=== PATIENT | female | born 1955 | race Caucasian/White ===

== ENCOUNTER 2019-09-22 07:01 | Outpatient (CLI) | payer MEDICARE, SELFPAY ==
--- NOTE | ~2019-09-22 | CT_ITS ---
EXAMINATION: CT IAC/mastoids BI wo con DATE: 09/22/2019 07:25 INDICATION: Left-sided otitis media. TECHNIQUE: Computed tomography (CT) of the temporal bones was performed without intravenous contrast. Automated exposure control and iterative reconstruction technique were employed. The dose-length pro duct was 229.03 mGy-cm. COMPARISON: Head CT 12/21/2018 FINDINGS: There is mild mucosal thickening in the maxillary sinuses with a mucous retention cyst in l eft maxillary sinus. RIGHT TEMPORAL BONE: The internal auditory canal, cochlea, vestibule, semicircular canals, vestibular aqueduct, carotid ca nal, jugular bulb, facial nerve course, ossicles, Prussak space, scutum, tympanic membrane, and masto id air cells are normal. There is a small volume of cerumen in the external auditory canal. LEFT TEMPORAL BONE: The internal auditory canal, cochlea, vestibule, semicircular canals, vestibular aqueduct, carotid ca nal, jugular bulb, and facial nerve course are normal. There is material in the tympanic cavity inclu ding around the ossicles and in Prussak space. No erosions of bone. The scutum remains sharp. There i s a left mastoid effusion. There is thickening of the tympanic membrane. The external auditory canal is normal. The head CT from 12/21/2018 demonstrates a small left mastoid effusion, but no abnormal mat erial in the tympanic cavity. IMPRESSION: 1. Left otomastoid effusion. Reviewed, dictated and finalized at location A.
== END 2019-09-22 07:02 | disposition home or self-care (01) ==
PROVIDERS: PCP Internal Medicine; Visit Provider Otolaryngology
DX: H60.92 Unspecified otitis externa, left ear (principal)
CPT/HCPCS: 70480

== ENCOUNTER 2019-11-29 09:02 | Outpatient (CLI) | payer MEDICARE, SELFPAY ==
--- NOTE | ~2019-11-29 | MM_ITS ---
EXAMINATION: MM screening [facility] BI w héctor HISTORY: Screening mammogram TECHNIQUE: Craniocaudal and mediolateral oblique 3-D tomosynthesis images were obtained and synthetic 2-D images were generated. CAD analysis was submitted and interpreted. COMPARISON: No prior mammogram is available for comparison at this institution. BREAST PARENCHYMAL COMPOSITION: There are scattered areas of fibroglandular density. FINDINGS: There is right breast asymmetry with some focal architectural distortion in the upper mid r ight breast. This may be postsurgical from prior reported benign breast biopsy 15-16 years ago. Indra rison with prior mammograms is recommended. If these are not available, then diagnostic right mammogr am and right breast ultrasound examination are recommended. Otherwise no suspicious mass, architectural distortion, malignant calcification, skin thickening or r etraction of either breast is noted. Small benign circumscribed intramammary lymph node of upper oute r quadrant of left breast. IMPRESSION: 1. Right breast asymmetry, possibly postsurgical from reportedly benign biopsy 15-16 years ago 2. Recommend comparison with prior mammogram examinations; if not available, diagnostic right mammogr am and right breast ultrasound examination are recommended.. BI-RADS Category 0: Incomplete: Needs additional imaging evaluation. Reviewed, dictated and finalized at location A. IMPRESSION: 1. Right breast asymmetry, possibly postsurgical from reportedly benign biopsy 15-16 years ago 2. Recommend comparison with prior mammogram examinations; if not available, di agnostic right mammogram and right breast ultrasound examination are recommende d.. BI-RADS Category 0: Incomplete: Needs additional imaging evaluation.
== END 2019-11-29 09:03 | disposition home or self-care (01) ==
PROVIDERS: PCP Internal Medicine; Visit Provider Internal Medicine
DX: Z12.31 Encounter for screening mammogram for malignant neoplasm of breast (principal); R92.8 Other abnormal and inconclusive findings on diagnostic imaging of breast
CPT/HCPCS: 77063; 77067

== ENCOUNTER → 2019-12-06 08:06 | Outpatient (CLI) | payer MEDICARE, SELFPAY ==
--- NOTE | ~2019-12-06 | MMUS_ITS ---
EXAMINATION: MM diagnostic mammo unilat RT, US breast RT complete HISTORY: Right breast asymmetry TECHNIQUE: Additional 3-D tomosynthesis images of the right breast were performed and synthetic 2-D i mages were generated. CAD analysis was submitted and interpreted. High resolution complete right jordin st ultrasound was performed. COMPARISON: 11/29/2019 bilateral digital screening mammogram FINDINGS: MAMMOGRAPHIC FINDINGS: There is mammographic asymmetry and architectural distortion in the upper mid and outer right breast. Complete right breast ultrasound examination was performed. No malignant calcification, skin thickening or retraction is evident. ULTRASOUND: There is architectural distortion but no no evidence of focal abnormal solid or cystic lesion or susp icious shadowing of the right breast. The findings are likely postsurgical change from previous repor tedly benign right breast biopsy. 6 month diagnostic right mammogram and right breast ultrasound foll ow-up are recommended to document stability. (Prior mammograms are reportedly not available.) IMPRESSION: 1. Probable postsurgical change from reportedly benign prior breast biopsy 2. 6 month diagnostic right mammogram and right breast ultrasound follow-up are recommended BI-RADS category 3, probably benign findings. Reviewed, dictated and finalized at location A. IMPRESSION: 1. Probable postsurgical change from reportedly benign prior breast biopsy 2. 6 month diagnostic right mammogram and right breast ultrasound follow-up are recommended BI-RADS category 3, probably benign findings.
== END ==
PROVIDERS: PCP Internal Medicine; Visit Provider Internal Medicine
DX: R92.8 Other abnormal and inconclusive findings on diagnostic imaging of breast (principal)
CPT/HCPCS: 76641; 77065

== ENCOUNTER 2019-12-14 01:18 | Outpatient (CLI) | payer MEDICARE, SELFPAY ==
[2019-12-14 19:24] LABS: SARS-CoV-2 RNA PCR Negative
== END 2019-12-14 01:19 | disposition home or self-care (01) ==
LOC: ANHCOVIDDT 01:18
PROVIDERS: PCP Internal Medicine; Visit Provider Internal Medicine Gastroenterology
DX: Z01.812 Encounter for preprocedural laboratory examination (principal); Z20.828 Contact with and (suspected) exposure to other viral communicable diseases
CPT/HCPCS: 87635; C9803; U0003

== ENCOUNTER 2019-12-16 00:51 | Day surgery (SDC) | payer MEDICARE, SELFPAY ==
[2019-12-08 14:14] VITALS: BMI 32.0
[2019-12-16] MEDS: LACTATED RINGERS 1,000 ML 150 ML IV CONT (08:14)
[2019-12-16 08:15] VITALS: BP 149/89; PULSE 69; RESP 16; TEMP 36.3; O2SAT 100; BMI 32.5
--- NOTE | 2019-12-16 08:40 | WPDANESEPPF ---
Anes - Initial Pre Proc Eval Procedure: Operation Date: 12/16/19 08:30 Proposed Procedures p Esophagogastroduodenoscopy - Shorty Harrison DO Date/Time: 12/16/19 08:40 Surgeon: Shorty Harrison DO Pre Op Diagnosis: GERD Patient Data Age: 64 Gender: F Height: 5 ft 6 in Weight: 91.4 kg Last Vital Signs Temp 97.3 F L 12/16/19 08:15 Pulse 69 12/16/19 08:15 Resp 16 12/16/19 08:15 BP 149/89 H 12/16/19 08:15 Pulse Ox 100 12/16/19 08:15 Allergies Allergy/AdvReac Type Severity Reaction Status Date / Time hydrocodone Allergy Severe SOB Verified 12/16/19 08:05 codeine Allergy Mild Unknown Verified 12/16/19 08:05 metoprolol Allergy Mild Hives Verified 12/16/19 08:05 Home Medications Medication Instructions Recorded Confirmed Type aspirin 81 mg tablet,delayed 81 mg PO DAILY 08/27/19 12/08/19 History release lisinopril 10 mg tablet 10 mg PO DAILY 08/27/19 12/16/19 History pantoprazole 40 mg tablet,delayed 40 mg PO QAM #90 tablet 10/04/19 12/08/19 Rx release famotidine 20 mg PO BID 12/08/19 12/08/19 History Patient hx anesthesia problems: none Family hx anesthesia problems: none PMFSH Past Medical History Medical History (Updated 12/16/19 @ 08:03 by Shorty Harrison DO) Adenomatous colon polyp HLD (hyperlipidemia) HTN (hypertension) NAFLD (nonalcoholic fatty liver disease) Social History Social History Smoking status: Never smoker Second hand tobacco smoke exposure: Yes Alcohol intake: never Substance use: never Substance use type: does not use Living arrangements: with family Spiritual care concerns: No Anes - Eval Final PreProcedure Day of Procedure 12/16/19 08:40 Patient weight: obese Heart: regular rate and rhythm Lungs: clear to auscultation Airway: Mallampati scale class II Neurological: alert and oriented Last oral intake: >/= 8 hours ASA classification: III Emergent: no Anesthetic plan: proceed Anesthesia type and monitoring: general GIVS and standard monitoring Informed Consent: The patient's anesthetic plan and its attendant risks and benefits were discussed with the patient/family/POA. Questions were solicited and answers provided to the satisfaction of the patient/family/POA.
--- NOTE | 2019-12-16 08:48 | P.HP_ITS ---
H&P: HPI History of Present Illness Date/Time: 12/16/19 08:48 Chief complaint: GERD Narrative: Reason for visit EGD. This very pleasant lady seen in consultation at the request of primary physician. Impression: A very pleasant lady with history reflux disease. She is symptomatic despite PPI. Underlying erosive esophagitis and peptic ulcer disease should be excluded. Patient does have dysphagia underlying ring or stricture should be Considered. Underlying esophageal spasm could be contributing to her symptoms. History adenomatous colon polyps. HLD. HTN. Nonalcoholic fatty liver disease. Obesity. Uterine cancer. Recommendation: EGD. Colonoscopy scheduled. History: This very pleasant lady's here for EGD. She is having increasing heartburn despite treatment. She complains of a atypical chest pressure and abdominal burning. Symptoms usually exacerbated by a meal. She awakens nectar only with symptoms. She reports dysphagia to solid foods at times as things seemed to get stuck in her throat. Hematochezia, melena and acholic stools overnight. She does admit to taking NSAIDs 2-3 times per week. Physical examination: General: very pleasant patient in no acute distress. HEENT: Head was normocephalic sclerae is clear mouth without masses neck was supple. Heart: Rate rhythm regular without S3 or S4. Lungs: CTA. Abdomen: Soft with no guarding or rigidity. Bowel sounds were active. Neurologic: Cranial nerves 2 through 12 intact. No focal defects. No clonus. Musculoskeletal system: Revealed no joint tenderness or swelling no muscle atrophy. Extremities: Reveal no significant edema. Skin: Warm and dry with normal turgor. Mental status: intact. Patient is alert and oriented. Review of Systems Review of Systems: All systems reviewed & are unremarkable except as noted in HPI and below [facility] Past Medical History Medical History (Updated 12/16/19 @ 08:48 by Shorty Harrison DO) Adenomatous colon polyp HLD (hyperlipidemia) HTN (hypertension) NAFLD (nonalcoholic fatty liver disease) Obesity Uterine cancer Social History Social History Smoking status: Never smoker Second hand tobacco smoke exposure: Yes Alcohol intake: never Substance use: never Substance use type: does not use Living arrangements: with family Spiritual care concerns: No Meds Home Medications and Allergies Home Medications Medication Instructions Recorded Confirmed Type aspirin 81 mg tablet,delayed 81 mg PO DAILY 08/27/19 12/08/19 History release lisinopril 10 mg tablet 10 mg PO DAILY 08/27/19 12/16/19 History pantoprazole 40 mg tablet,delayed 40 mg PO QAM #90 tablet 10/04/19 12/08/19 Rx release famotidine 20 mg PO BID 12/08/19 12/08/19 History Allergies Allergy/AdvReac Type Severity Reaction Status Date / Time hydrocodone Allergy Severe SOB Verified 12/16/19 08:05 codeine Allergy Mild Unknown Verified 12/16/19 08:05 metoprolol Allergy Mild Hives Verified 12/16/19 08:05 Vital Signs Vital Signs - 24 hr 12/16/19 08:15 Temperature 36.3 C L Pulse Rate 69 Respiratory Rate 16 Blood Pressure 149/89 H Pulse Oximetry 100
[2019-12-16] MEDS: BENZOCAINE (*SP) 60 ML SPRAY CAN (HURRICAINE) 1 SPRAY MUCOUS MEM (08:59)
[2019-12-16 09:14] VITALS: BP 101/54; PULSE 61; RESP 19; O2SAT 100
[2019-12-16 09:24] VITALS: BP 118/63; PULSE 59; RESP 18; O2SAT 100
[2019-12-16 09:34] VITALS: BP 144/62; PULSE 52; RESP 18; O2SAT 100
[2019-12-16 09:44] VITALS: BP 132/64; PULSE 60; RESP 17; O2SAT 100
== END 2019-12-16 10:16 | disposition home or self-care (01) ==
PROVIDERS: PCP Internal Medicine; Visit Provider Internal Medicine Gastroenterology
PROC: 0DJ08ZZ Inspection of Upper Intestinal Tract, Via Natural or Artificial Opening Endoscopic (ICD-10-PCS; CPT 43235; principal; 2019-12-16 08:30)
DX: K21.9 Gastro-esophageal reflux disease without esophagitis (principal); R13.10 Dysphagia, unspecified; K22.4 Dyskinesia of esophagus; J39.2 Other diseases of pharynx; I10 Essential (primary) hypertension; E78.5 Hyperlipidemia, unspecified; K76.0 Fatty (change of) liver, not elsewhere classified; E66.9 Obesity, unspecified; Z68.32 Body mass index [BMI] 32.0-32.9, adult
CPT/HCPCS: 43239; 43450; 87081; J2704; J7120

== ENCOUNTER 2019-12-28 00:26 | Outpatient (CLI) | payer MEDICARE, SELFPAY ==
[2019-12-28 19:01] LABS: SARS-CoV-2 RNA PCR Negative
== END 2019-12-28 00:27 | disposition home or self-care (01) ==
LOC: ANHCOVIDDT 00:26
PROVIDERS: PCP Internal Medicine; Visit Provider Internal Medicine Gastroenterology
DX: Z01.812 Encounter for preprocedural laboratory examination (principal); Z20.828 Contact with and (suspected) exposure to other viral communicable diseases
CPT/HCPCS: 87635; C9803; U0003

== ENCOUNTER 2019-12-30 00:44 | Day surgery (SDC) | payer MEDICARE, SELFPAY ==
[2019-12-22 14:31] VITALS: BMI 32.5
[2019-12-30] MEDS: LACTATED RINGERS 1,000 ML 150 ML IV CONT (07:02)
[2019-12-30 07:05] VITALS: BP 154/76; PULSE 82; RESP 16; TEMP 36.4; O2SAT 99; BMI 31.4
--- NOTE | 2019-12-30 07:21 | WPDANESEPPF ---
Anes - Initial Pre Proc Eval Procedure: Operation Date: 12/30/19 08:00 Proposed Procedures p Screening Colonoscopy - Shorty Harrison DO Date/Time: 12/30/19 07:21 Surgeon: Shorty Harrison DO Pre Op Diagnosis: neoplasm Screening Patient Data Age: 64 Gender: F Height: 5 ft 6 in Weight: 88.3 kg Last Vital Signs Temp 36.4 C 12/30/19 07:05 Pulse 82 12/30/19 07:05 Resp 16 12/30/19 07:05 BP 154/76 H 12/30/19 07:05 Pulse Ox 99 12/30/19 07:05 Allergies Allergy/AdvReac Type Severity Reaction Status Date / Time hydrocodone Allergy Severe SOB Verified 12/30/19 07:03 codeine Allergy Mild Unknown Verified 12/30/19 07:03 metoprolol Allergy Mild Hives Verified 12/30/19 07:03 Home Medications Medication Instructions Recorded Confirmed Type aspirin 81 mg tablet,delayed 81 mg PO DAILY 08/27/19 12/22/19 History release lisinopril 10 mg tablet 10 mg PO DAILY 08/27/19 12/22/19 History famotidine 20 mg PO BID 12/08/19 12/22/19 History pantoprazole 40 mg PO BID 12/22/19 12/22/19 History Patient hx anesthesia problems: none Family hx anesthesia problems: none PMFSH Past Medical History Medical History Adenomatous colon polyp HLD (hyperlipidemia) HTN (hypertension) NAFLD (nonalcoholic fatty liver disease) Obesity Uterine cancer Family History Family History Mother Family history of malignant neoplasm, Onset Age: 87 Patient's mother is Social History Social History Smoking status: Never smoker Second hand tobacco smoke exposure: Yes Alcohol intake: never Substance use: never Substance use type: does not use Living arrangements: with family Spiritual care concerns: No Anes - Eval Final PreProcedure Day of Procedure 12/30/19 07:21 Patient weight: obese Heart: regular rate and rhythm Lungs: clear to auscultation Airway: Mallampati scale class II Neurological: alert and oriented Last oral intake: >/= 8 hours ASA classification: III Emergent: no Anesthetic plan: proceed Anesthesia type and monitoring: general GIVS and standard monitoring Informed Consent: The patient's anesthetic plan and its attendant risks and benefits were discussed with the patient/family/POA. Questions were solicited and answers provided to the satisfaction of the patient/family/POA.
--- NOTE | 2019-12-30 07:48 | WPDHPUPDATE1 ---
History and Physical Update Update Date/Time: 12/30/19 07:48 History and Physical has been reviewed, including an updated exam of the patient. There are NO changes in the patient's condition. Risks, benefits, and alternatives have been discussed and questions answered. Patient agrees to proceed with procedure.
[2019-12-30 08:21] VITALS: BP 130/83; PULSE 77; RESP 18; O2SAT 100
[2019-12-30 08:31] VITALS: BP 131/80; PULSE 78; RESP 16; O2SAT 100
[2019-12-30 08:41] VITALS: BP 105/75; PULSE 80; RESP 20; O2SAT 100
== END 2019-12-30 08:55 | disposition home or self-care (01) ==
PROVIDERS: PCP Internal Medicine; Visit Provider Internal Medicine Gastroenterology
PROC: 0DJD8ZZ Inspection of Lower Intestinal Tract, Via Natural or Artificial Opening Endoscopic (ICD-10-PCS; CPT 45378; principal; 2019-12-30 08:00)
DX: Z12.11 Encounter for screening for malignant neoplasm of colon (principal); K62.1 Rectal polyp; K64.8 Other hemorrhoids; I10 Essential (primary) hypertension; E78.5 Hyperlipidemia, unspecified; K76.0 Fatty (change of) liver, not elsewhere classified; Z85.42 Personal history of malignant neoplasm of other parts of uterus; Z79.82 Long term (current) use of aspirin; E66.9 Obesity, unspecified; Z68.31 Body mass index [BMI] 31.0-31.9, adult
CPT/HCPCS: 45380; 88305; J2704; J7120

== ENCOUNTER → 2020-02-07 10:23 | Outpatient (CLI) | payer MEDICARE, SELFPAY ==
--- NOTE | ~2020-02-07 | XR_ITS ---
EXAMINATION: XR chest 2V 02/07/2020 10:44 INDICATION: Cough PROCEDURE: 2 view chest COMPARISON: Comparison to multiple prior studies sequentially, with oldest reviewed study dated 09/13. FINDINGS: The lungs are clear. The cardiomediastinal silhouette is within normal limits. There are no pleural effusions. There is no pneumothorax suspected. IMPRESSION: 1: NO ACUTE CARDIOPULMONARY DISEASE. Reviewed, dictated and finalized at location A. RWEAR WELTER
== END ==
PROVIDERS: PCP Internal Medicine; Visit Provider Internal Medicine
DX: R05 Cough (principal)
CPT/HCPCS: 71046

== ENCOUNTER 2020-02-28 07:56 | Outpatient (CLI) | payer MEDICARE, SELFPAY ==
--- NOTE | ~2020-02-28 | NM_ITS ---
EXAMINATION: NM stress w perf spect multi DATE: 02/28/2020 11:23 INDICATION: Chest pain TECHNIQUE: Rest images were obtained following intravenous administration of 9.5 mCi Tc99m tetrofosmi n (TournEase). The patient performed an exercise activity. At peak exercise, 28.3 mCi Tc99m tetrofosmin (HunterOnview) was administered intravenously, and stress images were obtained. Data was reconstructed in to short axis and horizontal and vertical long axis SPECT images. Gated SPECT images were also obtain ed. COMPARISON: None. FINDINGS: There is normal left ventricular perfusion without definite evidence of reversible or fixed perfusion abnormality to suggest ischemia or infarction. There is normal left ventricular chamber size, wall motion and ejection fraction. Left ventricular ejection fraction measures 62%. IMPRESSION: 1. Normal myocardial perfusion at rest and during stress. 2. Left ventricular ejection fraction measuring 62%. Reviewed, dictated and finalized at location B. EEN MANAGER
--- NOTE | 2020-02-28 09:11 | EST_ITS ---
Patient Info Name: Nikky Ceja Age: 65 years : 1955 Gender: Female Exam Date: 02/28/2020 9:48 AM Exam Location: [facility] Stress Patient Status: Outpatient Admit Date: 02/28/2020 Staff Ordering Physician: Rogelio Cruz DO Attending Provider: Rogelio Cruz DO Exercise Technologist: Christina Vargas RDCS Exercise Physician: Thad Crowley DO Exam Type: CA stress test treadmill w NM Study Info Indications R07.89 - Other chest pain A pharmacological stress test was performed. Summary 1. 1. Negative Mack exercise stress test for ischemic ST changes by ECG criteria. 2. 2. Poor functional capacity, achieving 5 METs of workload. 3. 3. Appropriate HR response to exercise. 4. 4. Appropriate HR recovery at 1 minute post exercise. 5. 5. Baseline hypertension with hypertensive response to exercise. 6. 6. Nuclear scan to follow and will be reported separately. Please correlate with it. 7. 7. Patient informed of the above results. Protocol: Mack Stress ECG Details Stage: REST Duration (min): 6 min : 38 sec Speed (mph): 0.0 Grade (%): 0 HR (bpm): 68 SBP (mmHg): 156 DBP (mmHg): 82 METS: --- Stage: REST Duration (min): 10 min : 13 sec Speed (mph): 0.0 Grade (%): 0 HR (bpm): 71 SBP (mmHg): 156 DBP (mmHg): 82 METS: --- Stage: STAGE 1 Duration (min): 1 min : 0 sec Speed (mph): 1.7 Grade (%): 10 HR (bpm): 106 SBP (mmHg): 156 DBP (mmHg): 82 METS: --- Stage: STAGE 1 Duration (min): 2 min : 0 sec Speed (mph): 1.7 Grade (%): 10 HR (bpm): 127 SBP (mmHg): 156 DBP (mmHg): 82 METS: --- Stage: STAGE 1 Duration (min): 3 min : 0 sec Speed (mph): 1.7 Grade (%): 10 HR (bpm): 142 SBP (mmHg): 206 DBP (mmHg): 92 METS: --- Stage: STAGE 2 Duration (min): 0 min : 15 sec Speed (mph): 2.5 Grade (%): 12 HR (bpm): 143 SBP (mmHg): 206 DBP (mmHg): 92 METS: --- Stage: RECOVERY Duration (min): 0 min : 44 sec Speed (mph): 0.0 Grade (%): 0 HR (bpm): 133 SBP (mmHg): 206 DBP (mmHg): 92 METS: --- Stage: RECOVERY Duration (min): 1 min : 44 sec Speed (mph): 0.0 Grade (%): 0 HR (bpm): 104 SBP (mmHg): 216 DBP (mmHg): 95 METS: --- Stage: RECOVERY Duration (min): 2 min : 44 sec Speed (mph): 0.0 Grade (%): 0 HR (bpm): 87 SBP (mmHg): 215 DBP (mmHg): 91 METS: --- Stage: RECOVERY Duration (min): 3 min : 44 sec Speed (mph): 0.0 Grade (%): 0 HR (bpm): 91 SBP (mmHg): 215 DBP (mmHg): 91 METS: --- Stage: RECOVERY Duration (min): 4 min : 44 sec Speed (mph): 0.0 Grade (%): 0 HR (bpm): 88 SBP (mmHg): 215 DBP (mmHg): 91 METS: --- Stage: RECOVERY Duration (min): 5 min : 44 sec Speed (mph): 0.0 Grade (%): 0 HR (bpm): 87 SBP (mmHg): 201 DBP (mmHg): 91 METS: ---
== END 2020-02-28 07:57 | disposition home or self-care (01) ==
LOC: ANHCARD 08:08
PROVIDERS: PCP Internal Medicine; Visit Provider Internal Medicine
DX: R07.89 Other chest pain (principal)
CPT/HCPCS: 78452; 93017; A9502

== ENCOUNTER → 2020-04-05 14:33 | Outpatient (CLI) | payer MEDICARE, SELFPAY ==
--- NOTE | ~2020-04-05 | XR_ITS ---
EXAMINATION: XR chest 2V EXAM DATE: 04/05/2020 14:46 INDICATION: R06.02 - Shortness of breath. TECHNIQUE: Frontal and lateral projections of the chest obtained and reviewed. Comparison is made to prior examination from 02/07/2020. FINDINGS: The lungs are clear. There are no pleural effusions. The cardiomediastinal silhouette is within normal limits. There is no pneumothorax suspected. The bones and soft tissues are unremarkab le. IMPRESSION: No acute cardiopulmonary findings. Reviewed, dictated and finalized at location A. CHIP MAKER
== END ==
PROVIDERS: PCP Internal Medicine; Visit Provider Physician Assistant
DX: R06.02 Shortness of breath (principal)
CPT/HCPCS: 71046

== ENCOUNTER 2020-10-05 08:48 | Outpatient (CLI) | payer MEDICARE, SELFPAY ==
--- NOTE | 2020-10-05 08:56 | ECHO_ITS ---
Patient Info Name: Nikky Ceja Age: 65 years : 1955 Gender: Female Ht: 65 in Wt: 198 lbs BSA: 2.06 m2 HR: 75 bpm BP: 112 / 68 mmHg Technical Quality: Good Exam Date: 10/05/2020 9:16 AM Exam Location: [facility] Patient Status: Outpatient Admit Date: 10/05/2020 Staff Ordering Physician: Rogelio Cruz DO Advertising Executive: Valerie Rainey RDCS Attending Provider: Rogelio Cruz DO Referring Physician: Nancy BOOKER; Exam Type: CA echo doppler color flow Study Info Indications M79.89 - OTHER SOFT TISSUE DISORDERS Complete two-dimentional, color flow and Doppler transthoracic echocardiogram is performed with agitated saline and with contrast to opacify the left ventricle and to improve the delineation of the left ventricle endocardial borders. Summary 1. Left ventricular chamber dimension is normal. 2. Left ventricular systolic function is normal, estimated at 60-65%. 3. The left ventricular diastolic function is grade I diastolic dysfunction. 4. E/e' 9 is minimally elevated. 5. No pulmonary hypertension, estimated pulmonary arterial systolic pressure is 20 mmHg. 6. There is trivial pericardial effusion. Left Ventricle E/e' 9 is minimally elevated. Left ventricular chamber dimension is normal. Left ventricular systolic function is normal, estimated at 60-65%. The left ventricular diastolic function is grade I diastolic dysfunction. Right Ventricle Right ventricular chamber dimension is normal. Right ventricular systolic function is normal. Left Atria Left atrial chamber dimension is normal. Right Atria Right atrial chamber dimension is normal. Aortic Valve The aortic valve is trileaflet. There is no aortic valve stenosis. There is no aortic valve regurgitation. Pulmonic Valve There is no pulmonic regurgitation. Mitral Valve There is no mitral valve stenosis. There is no mitral valve regurgitation. Tricuspid Valve There is no tricuspid valve regurgitation. No pulmonary hypertension, estimated pulmonary arterial systolic pressure is 20 mmHg. Pericardium/Pleural There is trivial pericardial effusion. Inferior Vena Cava Normal inferior vena cava with >50% collapse upon inspiration consistent with normal right atrial pressure, 5 mmHg. Aorta The aortic root size at the sinus of Valsalva is normal. Left Ventricular Outflow Tract Name Value Normal LVOT 2D LVOT Diameter 2.0 cm LVOT Doppler LVOT Peak Gradient 3 mmHg LVOT Mean Gradient 2 mmHg LVOT VTI 20 cm LVOT VTI/AV VTI Ratio 0.8 LVOT Stroke Volume 60 ml LVOT CO 12.8 l/min LVOT CI 6.2 l/min/m2 Pulmonic Valve Name Value Normal PV Doppler
== END 2020-10-05 08:49 | disposition home or self-care (01) ==
LOC: ANHCARD 08:50
PROVIDERS: PCP Internal Medicine; Visit Provider Internal Medicine
DX: M79.89 Other specified soft tissue disorders (principal); R06.02 Shortness of breath
CPT/HCPCS: 93306

== ENCOUNTER 2020-10-26 10:57 | Outpatient (CLI) | payer MEDICARE, SELFPAY ==
--- NOTE | ~2020-10-26 | MM_ITS ---
EXAMINATION: MM diagnostic cornelio RT w héctor HISTORY: Follow-up right breast asymmetries TECHNIQUE: Additional 3-D tomosynthesis images of the right breast were performed and synthetic 2-D i mages were generated. CAD analysis was submitted and interpreted. COMPARISON: Comparison to multiple prior studies sequentially, with oldest reviewed study dated 11/28. BREAST PARENCHYMAL COMPOSITION: Breast composed of scattered areas of fibroglandular density. FINDINGS: Right breast asymmetries are stable. No new masses, calcifications or architectural distort ion are identified to suggest malignancy. There is stable architectural distortion, likely from previ ous biopsy. IMPRESSION: 1. Stable right mammogram without evidence for malignancy. 2. Routine yearly screening mammogram and regular clinical breast examination are recommended. BI-RADS Category 2: Benign finding(s). Reviewed, dictated and finalized at location A. IMPRESSION: 1. Stable right mammogram without evidence for malignancy. 2. Routine yearly screening mammogram and regular clinical breast examination a re recommended. BI-RADS Category 2: Benign finding(s).
== END 2020-10-26 10:58 | disposition home or self-care (01) ==
PROVIDERS: PCP Internal Medicine; Visit Provider Internal Medicine
DX: R92.8 Other abnormal and inconclusive findings on diagnostic imaging of breast (principal)
CPT/HCPCS: 77061; 77065; G0279

== ENCOUNTER → 2020-11-23 02:40 | Outpatient (CLI) | payer MEDICARE, SELFPAY ==
[2020-11-24 18:57] LABS: SARS-CoV-2 RNA PCR Negative
== END ==
PROVIDERS: PCP Internal Medicine; Visit Provider Internal Medicine
DX: Z20.822 Contact with and (suspected) exposure to COVID-19 (principal)
CPT/HCPCS: C9803; U0003; U0005

== ENCOUNTER → 2021-04-02 14:45 | Outpatient (CLI) | payer MEDICARE, SELFPAY ==
--- NOTE | ~2021-04-02 | XR_ITS ---
EXAMINATION: XR ribs LT 2V w CXR 2V DATE: 04/02/2021 15:05 INDICATION: Pleurodynia. TECHNIQUE: Frontal and lateral views of the chest and 2 views on 4 radiographs of the left ribs were obtained. COMPARISON: Chest 2 views 04/05/2020 FINDINGS: CHEST TWO VIEWS: There is mild atelectasis at the lung bases. No pleural effusion or pneumothorax. Th e heart size is normal. Surgical clips in the right upper quadrant are likely from cholecystectomy. LEFT RIBS: There is a fracture of left eighth rib. IMPRESSION: 1. Fracture of anterior left eighth rib. Reviewed, dictated and finalized at location A. NT MIXER
== END ==
PROVIDERS: PCP Internal Medicine; Visit Provider Internal Medicine
DX: S22.32XA Fracture of one rib, left side, initial encounter for closed fracture (principal); X58.XXXA Exposure to other specified factors, initial encounter
CPT/HCPCS: 71046; 71100

== ENCOUNTER → 2021-12-21 12:31 | Outpatient (CLI) | payer MEDICARE, SELFPAY ==
--- NOTE | ~2021-12-21 | XR_ITS ---
EXAMINATION: XR shoulder LT min 2V DATE: 12/21/2021 13:33 INDICATION: Left shoulder pain. TECHNIQUE: 4 views of left shoulder were obtained. COMPARISON: None. FINDINGS: Bone alignment is normal. No fracture. There is moderate osteoarthritis of glenohumeral red nt and severe osteoarthritis of acromioclavicular joint. IMPRESSION: 1. Polyarticular osteoarthritis. Reviewed, dictated and finalized at location B.
== END ==
PROVIDERS: PCP Internal Medicine; Visit Provider Internal Medicine
DX: M19.012 Primary osteoarthritis, left shoulder (principal)
CPT/HCPCS: 73030

== ENCOUNTER 2022-02-06 17:26 | Emergency (ER) | payer MEDICARE, SELFPAY ==
--- NOTE | ~2022-02-06 | XR_ITS ---
EXAMINATION: XR chest 1V portable Exam Date/Time: 02/06/2022 20:10 ABORIGINAL CEREMONIAL CELEBRANT HISTORY: cough, PT TESTED POSITIVE FOR COVID, FEVER Comparison: 04/02/2021. RESULT: Lines, tubes, and devices: None. Lungs and pleura: Bibasilar linear scar/atelectasis, otherwise clear. Cardiomediastinal silhouette: Stable. Other: No acute osseous or upper abdominal finding. IMPRESSION: No acute cardiopulmonary process. Reviewed, dictated and finalized at location K. IGINAL CEREMONIAL CELEBRANT
[2022-02-06 18:13] VITALS: BP 110/77; PULSE 100; RESP 20; TEMP 36.2; O2SAT 97
[2022-02-06 19:10] LABS: Influenza A QL RT-PCR Negative (Negative); Influenza B QL RT-PCR Negative (Negative); SARS-CoV-2 RNA PCR Positive
--- NOTE | 2022-02-06 20:03 | ED.GENADULT ---
HPI - General Adult General Chief complaint: Fever Stated complaint: nausea, dizzy Time Seen by Provider: 02/06/22 19:53 Source: RN notes reviewed History of Present Illness HPI narrative: Patient presents emergency department from home for fever. Patient states she has been running a fever up to 104 for the past 3 days. States has been associated with generalized fatigue frontal headache a cough this been nonproductive nausea and vomiting. She states that she has been taking Tylenol and ibuprofen with last dose prior to arrival she denies any chest pain or shortness of breath she states that she has been feeling generally fatigued Related Data Allergies Allergy/AdvReac Type Severity Reaction Status Date / Time hydrocodone Allergy Severe SOB Verified 01/08/22 10:14 codeine Allergy Mild Unknown Verified 01/08/22 10:14 metoprolol Allergy Mild Hives Verified 01/08/22 10:14 Review of Systems Review of Systems: General: Reports fevers and chills Eyes: Denies eye pain or visual change ENT: Reports congestion Respiratory: Denies shortness of breat reports cough CV: Denies chest pain or palpitations GI: Denies abdominal pain or diarrhea. Reports nausea and vomiting Musculoskeletal: Denies back pain or muscle pain Neuro: Denies numbness, tingling, weakness or focal weakness Skin: Denies rash Except as documented, all other systems reviewed and negative PMF Past Medical History Medical History Adenomatous colon polyp Arthritis HLD (hyperlipidemia) HTN (hypertension) NAFLD (nonalcoholic fatty liver disease) Obesity Uterine cancer Surgical History Surgical History History of hand surgery History of shoulder surgery Family History Family History Mother Family history of malignant neoplasm, Onset Age: 87 Patient's mother is Father Lung cancer Heart disease Sibling Asthma Cancer Heart disease Social History Social History Smoking status: Never smoker Second hand tobacco smoke exposure: Yes Alcohol intake: never Alcohol use details: rarely Substance use: never Substance use type: does not use Spiritual care concerns: No Exam Narrative: APPEARANCE: No acute distress, nontoxic, resting in bed EYES: EOMI HEENT: Normocephalic, atraumatic, TMs clear bilaterally bilateral turbinates boggy RESPIRATORY: No respiratory distress Clear to auscultation bilaterally with no rhonchi wheezing or rales. CARDIOVASCULAR: Regular rate and rhythm without murmurs rubs or gallops. ABDOMINAL: Soft, nontender, nondistended, no rebound or guarding MUSCULOSKELETAl: Moves all extremities. No clubbing, cyanosis or edema. NEURO: Awake and alert. Following commands, speech normal, no focal deficits SKIN:: Warm, dry. No rashes lesions or abrasions PSYCHIATRIC: Normal affect/mood, Course Course Emergency Course: Discussed with patient results of workup and diagnosis. Discussed need for follow-up with primary care, proper use of medication, and reasons to return to the emergency department. Patient understands and agrees to current treatment plan. Patient states she is not currently on any steroids and was only on the taper several months ago for poison sumac Vital Signs Vital signs: Vital Signs Temperature 97.2 F L 02/06/22 18:13 Pulse Rate 100 02/06/22 18:13 Respiratory Rate 20 02/06/22 18:13 Blood Pressure 110/77 02/06/22 18:13 Pulse Oximetry 97 02/06/22 18:13 Oxygen Delivery Room Air 02/06/22 18:13 Temperature 97.2 F L 02/06/22 18:13 Pulse Rate 100 02/06/22 18:13 Respiratory Rate 20 02/06/22 18:13 Blood Pressure 110/77 02/06/22 18:13 Pulse Oximetry 97 02/06/22 18:13 Oxygen Delivery Room Air 02/06/22 18:13 Medical Decision Ma
[2022-02-06] MEDS: SODIUM CHLORIDE 0.9% IV 1,000 ML 999 ML IV CONT (20:26)
[2022-02-06] MEDS: ONDANSETRON INJ 4 MG/2 ML VIAL IV PUSH (20:34)
[2022-02-06 20:56] LABS: Basophils Percent Auto 0.4 % (0.2-1.2); Hematocrit 38.7 % (37.0-47.0); Hemoglobin 12.5 g/dL (12.0-15.0); Immature Granulocyte Absolute 0.04 K/mm3 (0.00-0.031); Immature Granulocyte Percent A 0.7 % (0-0.5); Lymphocytes Absolute Auto 0.52 K/mm3 (0.9-3.2); Lymphocytes Percent Auto 9.7 % (18.3-44.2); Mean Corpuscular HGB Conc 32.3 g/dl (32-36); Mean Corpuscular Volume 86.8 fl (80-100); Monocytes Absolute Auto 0.4 K/mm3 (0.1-0.6); Monocytes Percent Auto 6.5 % (2.6-8.5); Neutrophils Absolute Auto 4.4 K/mm3 (1.3-6.7); Neutrophils Percent Auto 82.7 % (45.5-73.1); Platelet Count Result 166 k/mm3 (150-375); Red Blood Count 4.46 M/mm3 (4.2-5.4); Red Cell Distribution Width 13.9 % (11.5-14.5); White Blood Count 5.4 K/mm3 (4.5-10.0)
[2022-02-06 21:06] LABS: Alanine Aminotransferase 33 U/L (6-35); Albumin Level 4.2 g/dL (3.5-5.1); Alkaline Phosphatase 80 U/L (38-126); Anion Gap 9 mmol/L (8-16); Aspartate Amino Transferase 34 U/L (14-36); Bilirubin,Total 0.6 mg/dL (0.2-1.3); Blood Urea Nitrogen 26 mg/dL (7-17); Calcium 8.9 mg/dL (8.4-10.2); Carbon Dioxide 21 mmol/L (22-30); Chloride 106 mmol/L (98-107); Estimated CRCL calculation 44 ml/min; Estimated Glomerular Filt Rate 45; Glucose 152 mg/dL (65-110); Lipase 68 U/L (23-300); Sodium 136 mmol/L (137-145)
[2022-02-06 21:50] VITALS: BP 110/69; PULSE 78; RESP 16; O2SAT 100
== END 2022-02-06 21:51 | disposition home or self-care (01) ==
LOC: ANHED 21:35
PROVIDERS: Emergency Medicine; Emergency Provider Emergency Medicine; PCP Internal Medicine
DX: U07.1 COVID-19 (principal); E78.5 Hyperlipidemia, unspecified; I10 Essential (primary) hypertension; K76.0 Fatty (change of) liver, not elsewhere classified; M19.90 Unspecified osteoarthritis, unspecified site; E66.9 Obesity, unspecified; Z68.31 Body mass index [BMI] 31.0-31.9, adult; Z86.010 Personal history of colon polyps
CPT/HCPCS: 36415; 71045; 80053; 83690; 85025; 87636; 96374; 99284; J2405; J7030

== ENCOUNTER → 2022-03-30 07:35 | Outpatient (CLI) | payer MEDICARE, SELFPAY ==
--- NOTE | ~2022-03-30 | MR_ITS ---
EXAMINATION: MR shoulder LT wo con DATE: 03/30/2022 08:23 INDICATION: 9 months of anterior left shoulder pain radiating down the left arm with limited range of motion TECHNIQUE: Magnetic resonance imaging (MRI) of the left shoulder was performed without intravenous co ntrast. Sequences included axial PD-weighted FS FSE, coronal oblique PD-weighted FS FSE, coronal obli que T2-weighted FS FSE, sagittal PD-weighted FS FSE, and sagittal T1-weighted SE. COMPARISON: Radiographs dated 12/31/2021 FINDINGS: Coracoacromial arch: The acromion undersurface is curved in morphology (type II). The coracoacromial ligament is normal. M oderate acromioclavicular osteoarthritis with tiny subarticular cystlike changes and small inferiorly directed and moderate cephalad directed marginal osteophytes. Rotator cuff: Mild supraspinatus and infraspinatus tendinopathy without tear. The subscapularis and teres minor ten dons are normal. Normal rotator cuff muscle bulk and signal. Biceps tendon, glenoid labrum and glenohumeral cartilage: Moderate to severe right glenohumeral osteoarthritis with extensive partial thickness cartilage loss at the glenoid which appears to approach full-thickness superiorly and posterior superiorly as well a s along the inferomedial aspect of the humeral head. Small marginal osteophytes along the posterior i nferior humeral head. Diffuse labral tear which appears to spare a small portion of the 9:00-10:00 po sition of the posterior labrum. There is a macerated appearance to the inferior meniscus with small m arginal osteophytes and minimal underlying edema-like signal change along the inferior rim of the gle noid. There is frayed appearing tissue at the glenoid anchor of the long head biceps tendon. The extr a articular long head biceps tendon appears normal but begins to attenuate at the exit to the intertu bercular groove. The intervening intra-articular portion of the long head biceps tendon at the rotato r cuff interval is not clearly visualized however the extra articular portion of the tendon does not appear appreciably lax suggesting the likelihood of at least a few residual intact fibers. Fluid: Small glenohumeral joint effusion at the axillary recess. There is also a small amount of synovitis. Proportional extension of a small amount of fluid along the long head biceps tendon sheath. No loose osteochondral bodies. Slight increase in fluid signal in the subacromial/subdeltoid bursa consistent with minimal bursitis. Bones: Normal marrow signal with no fracture or pathologic marrow replacing process. Mild cystic change at t he greater tuberosity. IMPRESSION: 1. Moderate severe glenohumeral osteoarthritis with diffuse labral tear. 2. Tear of the intra-articular portion of the long head biceps tendon, favor partial over complete. 3. Mild supraspinatus and infraspinatus tendinopathy without tear. 4. Moderate acromioclavicular osteoarthritis. Reviewed, dictated and finalized at location A. CHEF IMPRESSION: 1. Moderate severe glenohumeral osteoarthritis with diffuse labral tear. 2. Tear of the intra-articular portion of the long head biceps tendon, favor pa rtial over complete. 3. Mild supraspinatus and infraspinatus tendinopathy without tear. 4. Moderate acromioclavicular osteoarthritis.
== END ==
PROVIDERS: PCP Internal Medicine; Visit Provider Nurse Practitioner
DX: M19.012 Primary osteoarthritis, left shoulder (principal); S46.112D Strain of muscle, fascia and tendon of long head of biceps, left arm, subsequent encounter; X58.XXXD Exposure to other specified factors, subsequent encounter
CPT/HCPCS: 73221

== ENCOUNTER 2022-04-04 10:19 | Outpatient (CLI) | payer MEDICARE, SELFPAY ==
--- NOTE | ~2022-04-04 | XR_ITS ---
EXAMINATION: XR lg joint inject/asp w image DATE: 04/04/2022 11:17 INDICATION: Left shoulder pain TECHNIQUE: A time-out was performed to verify the patient's name, date of , and procedure to b e performed. The procedure including the risks, benefits, and alternatives was discussed with the pat ient. Risks discussed included bleeding and infection. The patient understood the risks and agreed to proceed. The skin overlying the rotator cuff interval to the left glenohumeral joint was prepped an d draped in usual sterile fashion. Anesthetic was administered with 1% lidocaine subcutaneously. A 22 G needle was advanced under fluoroscopic guidance into the joint. Injection of 1 mL of Omnipaque 240 confirmed intra-articular position of the needle. Subsequently, injectate consisting of 4 mL a 1 :1 mixture of 1% lidocaine 10 mg/mL Kenalog for a total dosage of 20 mg Kenalog was instilled. [place] t of contrast was seen confirming intra-articular administration. The needle was removed and the entr y site was cleaned and dressed. There were no immediate complications. Fluoroscopy exposure time was 0.1 minutes. The total number of images was 2. FINDINGS: Real-time fluoroscopy demonstrates the needle in the left glenohumeral joint. Patient's pat n prior to procedure:4/10. Patient's pain following the procedure: 4/10. IMPRESSION: 1. Successful left glenohumeral joint injection of local anesthetic and steroid with no change in the patient's presenting pain. Reviewed, dictated and finalized at location A. GEMENT ENGINEER
== END 2022-04-04 10:20 | disposition home or self-care (01) ==
PROVIDERS: PCP Internal Medicine; Visit Provider Nurse Practitioner
DX: M19.012 Primary osteoarthritis, left shoulder (principal)
CPT/HCPCS: 20610; 77002; J3301; Q9966

== ENCOUNTER → 2022-10-01 10:14 | Outpatient (CLI) | payer MEDICARE, SELFPAY ==
--- NOTE | ~2022-10-01 | XR_ITS ---
XR ankle LT min 3V DATE: 10/01/2022 10:33 INDICATION: Left ankle pain, left foot pain TECHNIQUE: 4 views COMPARISON: None FINDINGS: No fracture or dislocation of the ankle or disruption of the ankle mortise is detected. No periosteal reaction or bone destruction. Mild posterior and moderate plantar calcaneal enthesopathy without erosive change or periostitis. IMPRESSION: Calcaneal enthesopathy Reviewed, dictated and finalized at location L. IMPRESSION: Calcaneal enthesopathy
== END ==
PROVIDERS: PCP Internal Medicine; Visit Provider Internal Medicine
DX: M25.572 Pain in left ankle and joints of left foot (principal)
CPT/HCPCS: 73610

== ENCOUNTER → 2023-03-12 09:32 | Outpatient (CLI) | payer MEDICARE, SELFPAY ==
--- NOTE | ~2023-03-12 | MR_ITS ---
EXAMINATION: MR orbits face neck wo/w con DATE: 03/12/2023 10:20 INDICATION: Right-sided optic neuropathy. Right eye visual loss. Headache. TECHNIQUE: Magnetic resonance imaging (MRI) of the orbits was performed without and with 18 mL MultiH ance intravenous contrast. COMPARISON: Brain MRI 03/12/23 FINDINGS: The ocular globes are normal. The optic nerves and optic chiasm are normal. The extraocular muscles are normal. There is no abnormal mass. IMPRESSION: 1. Normal orbits. Reviewed, dictated and finalized at location E. SCIENCE PROFESSOR IMPRESSION: 1. Normal orbits.
--- NOTE | ~2023-03-12 | MR_ITS ---
EXAMINATION: MR brain/brain stem wo/w con DATE: 03/12/2023 10:28 INDICATION: Right optic neuropathy. Right eye visual loss. Headache. TECHNIQUE: Magnetic resonance imaging (MRI) of the brain and brainstem was performed without and with 18 mL MultiHance intravenous contrast. COMPARISON: None. FINDINGS: There is no intracranial hemorrhage, acute infarction, or abnormal intracranial mass lesion . There are scattered areas of nonspecific increased T2-weighted signal intensity in the cerebral whi te matter, which is within normal limits for the patient's age. The ventricles are normal in size. Th e orbits are normal. There is a mucous retention cyst in left maxillary sinus. There is a small left mastoid effusion. IMPRESSION: 1. Normal aging brain. Reviewed, dictated and finalized at location E. T PLANNING INTERN IMPRESSION: 1. Normal aging brain.
== END ==
DX: H46.9 Unspecified optic neuritis (principal)
CPT/HCPCS: 70543; 70553; A9577

== ENCOUNTER 2023-08-23 15:37 | Inpatient (IN) | payer MEDICARE, SELFPAY ==
[2023-08-23] VITALS (8 sets, daily range): BP systolic 107–169; BP diastolic 56–88; PULSE 72–89; RESP 16–20; TEMP 36.4; O2SAT 96–100; BMI 32.0; BMI 32.1
--- NOTE | ~2023-08-23 | XR_ITS ---
Small Bowel Series: CLINICAL HISTORY: Small bowel obstruction Serial films demonstrating passage of barium from the duodenum to the colon show dilated small bowel loops. Oral contrast reaches large bowel at approximate 7 hours postingestion. Patient vomited durin g the exam. No clear-cut transition point identified. No definite mucosal abnormality evident. No ext rinsic abnormality is identified. Impression: Small bowel obstruction, without definite transition point identified. Reviewed, dictated and finalized at [facility]. Impression: Small bowel obstruction, without definite transition point identified.
--- NOTE | ~2023-08-23 | CT_ITS ---
EXAMINATION: CT abdomen pelvis w con DATE: 08/23/2023 17:37 INDICATION: Lower abdominal pain. Nausea and vomiting. TECHNIQUE: Computed tomography (CT) of the abdomen and pelvis was performed with 100 cc Omnipaque 350 intravenous contrast. The dose-length product was 1156.92 mGy-cm. Automated exposure control and ite rative reconstruction technique were employed. COMPARISON: CT dated 05/07/2019. FINDINGS: Lung bases are unremarkable. Heart size normal. No significant pleural or pericardial effus ion. Small hiatal hernia. Fatty infiltration of the liver. Status post hysterectomy and cholecystecto my. Expected prominence of the bile ducts. The spleen, pancreas, adrenal glands and kidneys are unrem arkable. There is small bowel obstruction with transition in the pelvis, likely secondary to adhesion s. Transition best seen on axial image 167 and coronal image 69. No free air or free fluid. Fatty inf iltration of the liver. No significant vascular abnormality. No lymphadenopathy. Moderate-severe lowe r thoracic and lumbar spondylosis. IMPRESSION: 1. Small bowel obstruction with transition in the pelvis. Reviewed, dictated and finalized at location B.
--- NOTE | ~2023-08-23 | XR_ITS ---
XR abdomen gastric tube insert INDICATION: Evaluate NG tube position. TECHNIQUE: Limited KUB perform for evaluating NG tube . COMPARISON: No prior studies for comparison. FINDINGS: NG tube tip in the stomach. Visualized bowel gas pattern is unremarkable.There are cholecy stectomy clips. IMPRESSION: 1: NG tube tip in the stomach. Reviewed, dictated and finalized at location B.
[2023-08-23 16:39] LABS: Basophils Percent Auto 0.3 % (0.2-1.2); Eosinophils Absolute Auto 0.1 K/mm3 (0-0.3); Eosinophils Percent Auto 0.8 % (0-4.4); Hematocrit 43.2 % (37.0-47.0); Immature Granulocyte Absolute 0.05 K/mm3 (0.00-0.031); Immature Granulocyte Percent A 0.6 % (0-0.5); Lymphocytes Absolute Auto 0.98 K/mm3 (0.9-3.2); Lymphocytes Percent Auto 10.8 % (18.3-44.2); Mean Corpuscular HGB Conc 32.4 g/dl (32-36); Mean Corpuscular Hemoglobin 27.8 pg (26-34); Mean Corpuscular Volume 85.9 fl (80-100); Mean Platelet Volume 10.2 fl (7.4-10.4); Monocytes Absolute Auto 0.3 K/mm3 (0.1-0.6); Monocytes Percent Auto 3.2 % (2.6-8.5); Neutrophils Absolute Auto 7.6 K/mm3 (1.3-6.7); Neutrophils Percent Auto 84.3 % (45.5-73.1); Platelet Count Result 171 k/mm3 (150-375); Red Blood Count 5.03 M/mm3 (4.2-5.4); Red Cell Distribution Width 13.6 % (11.5-14.5)
--- NOTE | 2023-08-23 16:43 | ED.NAVMDI ---
HPI - Nausea/Vomiting/Diarrhea General Chief complaint: Nausea/Vomiting/Diarrhea <PRABHAKAR Nunn Last Filed: 08/23/23 19:04> Stated complaint: n/v <PRABHAKAR Nunn Last Filed: 08/23/23 19:04> Time Seen by Provider: 08/23/23 16:08 <PRABHAKAR Nunn Last Filed: 08/23/23 19:04> Source: patient <PRABHAKAR Nunn Last Filed: 08/23/23 19:04> Mode of arrival: ambulatory <PRABHAKAR Nunn Last Filed: 08/23/23 19:04> Limitations: no limitations <PRABHAKAR Nunn Last Filed: 08/23/23 19:04> History of Present Illness HPI Narrative: Patient is a 68 y/o female, with PMH of blindness r/t NAION, who presents to the ED with c/o N/V. Patient reports she developed pain throughout her mid to lower abdomen last night. She notes she ate out at a restaurant last night. Her had the same food, but has not developed symptoms. She developed nausea and vomiting overnight into today, reports several episodes of vomiting today. She states she vomited a gallon of brown stuff. reports it looked similar to iced tea. Denied coffee ground appearance. Patient complains of persistent nausea, pain, and abdominal bloating today. Denies diarrhea. Reports she had been constipated for 3-4 days, but did have a small bowel movement today. Denies rectal bleeding or melena. Denies fevers. Denies cough or cold symptoms. <PRABHAKAR Nunn Last Filed: 08/23/23 19:04> Related Data Allergies/Adverse reactions: Allergies Allergy/AdvReac Type Severity Reaction Status Date / Time hydrocodone Allergy Severe SOB Verified 06/30/23 08:11 codeine Allergy Mild Unknown Verified 06/30/23 08:11 metoprolol Allergy Mild Hives Verified 06/30/23 08:11 <PRABHAKAR Nunn Last Filed: 08/23/23 19:04> Review of Systems Review of Systems: CONSTITUTIONAL: Denies fever, chills, or sweats. CARDIOVASCULAR: Denies chest pain, palpitations, or edema. RESPIRATORY: Denies cough or dyspnea. GASTROINTESTINAL: See HPI. GENITOURINARY: Denies dysuria or hematuria. NEUROLOGIC: Denies headache, dizziness, numbness, or weakness. <Eun Maloney PA-C - Last Filed: 08/23/23 19:04> All systems reviewed & are unremarkable except as noted in HPI and below <Eun Maloney PA-C - Last Filed: 08/23/23 19:04> [facility] Past Medical History Medical History: Medical History (Updated 08/23/23 @ 19:34 by Kitty Yancey APRN) Adenomatous colon polyp Arthritis Gastroesophageal reflux disease Hand arthritis HLD (hyperlipidemia) HTN (hypertension) Insomnia NAFLD (nonalcoholic fatty liver disease) NAION (non-arteritic anterior ischemic optic neuropathy) Obesity (BMI 30.0-34.9) Trigger thumb of right hand Uterine cancer <Eun Maloney PA-C - Last Filed: 08/23/23 19:04> Surgical History Surgical History: Surgical History (Updated 08/23/23 @ 19:34 by Kitty Yancey APRN) History of cholecystectomy open History of hand surgery History of hysterectomy History of shoulder surgery <Eun Maloney PA-C - Last Filed: 08/23/23 19:04> Family History Family History: Family History Mother Family history of malignant neoplasm, Onset Age: 87 Patient's mother is Father Lung cancer Heart disease Sibling Asthma Cancer Heart disease <Eun Maloney PA-C - Last Filed: 08/23/23 19:04> Social History Social History: Social History Smoking status: Never smoker Second hand tobacco smoke exposure: Yes Alcohol intake: never Alcohol use details: rarely Substance use: never Substance use type: does not use Lack of Transportation: No Lack of Food: Never True Current Housing: I Have Housing Concerned About Future Housing: No Difficulty P
[2023-08-23 16:49] LABS: Lactic Acid Reflex 1.2 mmol/L (0.7-2.0)
[2023-08-23 16:50] LABS: Alanine Aminotransferase 89 U/L (6-35); Albumin Level 4.8 g/dL (3.5-5.1); Alkaline Phosphatase 211 U/L (38-126); Anion Gap 9 mmol/L (4-12); Aspartate Amino Transferase 163 U/L (14-36); Bilirubin,Total 1.6 mg/dL (0.2-1.3); Blood Urea Nitrogen 24 mg/dL (7-17); Calcium 10.6 mg/dL (8.4-10.2); Carbon Dioxide 25 mmol/L (22-30); Chloride 104 mmol/L (98-107); Estimated Glomerular Filt Rate 49; Glucose 163 mg/dL (65-110); Lipase 109 U/L (23-300); Magnesium 1.9 mg/dL (1.6-2.3); Potassium 4.2 mmol/L (3.4-5.0); Sodium 138 mmol/L (137-145)
[2023-08-23] MEDS: ONDANSETRON INJ 4 MG/2 ML VIAL IV PUSH ×2 (16:53→19:42)
[2023-08-23] MEDS: PANTOPRAZOLE SODIUM IV 40 MG VIAL IV PUSH (16:54)
[2023-08-23] MEDS: SODIUM CHLORIDE 0.9% IV 1,000 ML 999 ML IV CONT (16:54)
[2023-08-23 17:08] LABS: Add Urine Microscopic? YES; Appearance Urine Turbid (Clear); Bacteria Urine None Seen /hpf; Bilirubin Urine Negative (Negative); Blood Urine Negative (Negative); Color Urine Dark Yellow (Yellow); Glucose Urine UA Negative (Negative); Ketones Urine Trace mg/dL (Negative); Leukocyte Esterase Ur Trace LEU/UL (Negative); Need Manual Microscopic Reviewed; Nitrate Urine Negative (Negative); Protein Urine Negative (Negative); RBC Urine 0-2 /hpf (0-2); Specific Grav Ur 1.022 (1.001-1.035); Squamous Epithelial Cell Urine Occasional /hpf (Few); WBC Urine 0-5 /hpf (0-3); pH Urine 5.5 (5.0-9.0)
--- NOTE | 2023-08-23 19:21 | PM.IMHP ---
H&P: HPI History of Present Illness Date/Time: 08/23/23 19:21 Chief Complaint: Nausea and Vomiting Narrative: 68 y/o F presents here with nausea and vomiting with PMH of visually impaired r/t NAION (bilateral), HTN, HLD, non-alcoholic fatty liver disease, uterine cancer (s/p hysterectomy), and arthritis. The patient present here from home for further evaluation of nausea and vomiting. Patient initially began experiencing periumbilical and lower abdominal pain last night around 8 pm. She describes the pain as sharp, nonradiating, intermittent but became constant, no aggravating factors, and partially alleviated by a warm bath/heat. She then developed nausea and vomiting this morning which was mild. However, one hour prior to arrival to the ED she reports vomiting a gallon of brown stuff , she further describes it as having a tea appearance, unclear if it had a coffee ground quality. Nausea, vomiting, abdominal pain are accompanied by bloating and constipation. Her last bowel movement was today, but it was small and hard. Last normal BM was 4 days ago. States that he stool has been different lately - has a sticky quality to it and having difficulty coming out (neither hard nor soft). Has had poor appetite over the last 4 days. Denies diarrhea, dark tarry stools, or PRP per rectum. Has prior hx of cholecystectomy (30-40 years ago) and hysterectomy (40 years ago). Initial VS at presentation: HR 72, RR 19, 121/75, and 99% on RA. ED workup showed: No leukocytosis, no anemia, creatinine 1.1 and GFR 49 (previously 0.93 and GFR 67 in 2022), total bilirubin 0.6, AST 163, ALT 89. UA not indicative of UTI. CT of the abdomen pelvis showed SBO with transition point in the pelvis. Review of Systems Review of Systems: All systems reviewed & are unremarkable except as noted in HPI and below PMFSH Past Medical History Medical History (Updated 08/23/23 @ 21:04 by Kitty Yancey APRN) Adenomatous colon polyp Arthritis Gastroesophageal reflux disease Hand arthritis HLD (hyperlipidemia) HTN (hypertension) Insomnia NAFLD (nonalcoholic fatty liver disease) NAION (non-arteritic anterior ischemic optic neuropathy) Obesity (BMI 30.0-34.9) Trigger thumb of right hand Uterine cancer Surgical History Surgical History (Updated 08/23/23 @ 19:34 by Kitty Yancey APRN) History of cholecystectomy open History of hand surgery History of hysterectomy History of shoulder surgery Family History Family History Mother Family history of malignant neoplasm, Onset Age: 87 Patient's mother is Father Lung cancer Heart disease Sibling Asthma Cancer Heart disease Social History Social History Smoking status: Never smoker Second hand tobacco smoke exposure: Yes Alcohol intake: never Alcohol use details: rarely Substance use: never Substance use type: does not use Lack of Transportation: No Lack of Food: Never True Current Housing: I Have Housing Concerned About Future Housing: No Difficulty Paying Gas/Electric Bills: No Difficulty Paying for Meds: No Currently Unemployed: No Education: High School Diploma/GED Difficulty w/ Childcare or Family Care: No Living arrangements: with family Spiritual care concerns: No Meds Home Medications and Allergies Home Medications Medication Instructions Recorded Confirmed Type famotidine 40 mg tablet 20 mg PO BID PRN reflux #90 tabs 03/26/22 06/30/23 Rx ergocalciferol (vitamin D2) 1,250 50,000 unit PO .COMPLEX #18 caps 12/23/22 06/30/23 Rx mcg (50,000 unit) capsule cyclobenzaprine 10 mg tablet 10 mg PO QHS PRN muscle spasm #10 02/05/23 06/30/23 Rx tabs losartan 100 mg tablet 100 mg PO DAILY #90 tabs 02/12/23 06/30/23 Rx rosuvastatin 5 mg tablet 5 mg PO DAILY #90 tabs 04/23/23 06/30/23 Rx hydrochlorothiazide 12.5 mg tab
[2023-08-23] MEDS: fentaNYL CITRATE INJ (*CRX) 100 MCG/2 ML VIAL 25 MCG IV PUSH (19:42)
[2023-08-23] MEDS: SODIUM CHLORIDE 0.9% IV 1,000 ML 100 ML IV CONT (19:42)
--- NOTE | 2023-08-23 21:14 | ADMGEN ---
This patient, Nikky Ceja, was admitted to [facility] Surg Room 313-01. Patient/family oriented to hospital policies and general routines including ID bracelet, bed and alarms, visiting hours, pain management, procedures, bathroom and other care routines, personal items, smoking policy, room service/diet, and visiting hours. Information on how to activate the Rapid Response Team has been discussed. Patient/Family are encouraged to report perceived risks to care and to ask questions if they do not understand what they are told or what they should do.
[2023-08-24] MEDS: ONDANSETRON INJ 4 MG/2 ML VIAL IV PUSH ×4 (00:57→18:46)
[2023-08-24] MEDS: fentaNYL CITRATE INJ (*CRX) 100 MCG/2 ML VIAL 25 MCG IV PUSH ×2 (00:57→08:04)
[2023-08-24 04:09] VITALS: BP 160/75; PULSE 72; RESP 16; TEMP 36.4; O2SAT 99
[2023-08-24 06:30] LABS: Basophils Percent Auto 0.4 % (0.2-1.2); Eosinophils Absolute Auto 0.1 K/mm3 (0-0.3); Eosinophils Percent Auto 0.9 % (0-4.4); Hematocrit 42.3 % (37.0-47.0); Hemoglobin 13.1 g/dL (12.0-15.0); Immature Granulocyte Absolute 0.02 K/mm3 (0.00-0.031); Immature Granulocyte Percent A 0.3 % (0-0.5); Lymphocytes Percent Auto 14.7 % (18.3-44.2); Mean Corpuscular Hemoglobin 27.9 pg (26-34); Mean Corpuscular Volume 90.2 fl (80-100); Mean Platelet Volume 10.3 fl (7.4-10.4); Monocytes Absolute Auto 0.4 K/mm3 (0.1-0.6); Monocytes Percent Auto 5.1 % (2.6-8.5); Neutrophils Absolute Auto 5.4 K/mm3 (1.3-6.7); Neutrophils Percent Auto 78.6 % (45.5-73.1); Platelet Count Result 152 k/mm3 (150-375); Red Blood Count 4.69 M/mm3 (4.2-5.4); Red Cell Distribution Width 13.8 % (11.5-14.5); White Blood Count 6.8 K/mm3 (4.5-10.0)
[2023-08-24 06:51] LABS: Alanine Aminotransferase 70 U/L (6-35); Alkaline Phosphatase 153 U/L (38-126); Anion Gap 7 mmol/L (4-12); Aspartate Amino Transferase 53 U/L (14-36); Bilirubin,Total 1.1 mg/dL (0.2-1.3); Blood Urea Nitrogen 20 mg/dL (7-17); Calcium 9.4 mg/dL (8.4-10.2); Carbon Dioxide 23 mmol/L (22-30); Chloride 108 mmol/L (98-107); Estimated CRCL calculation 58 ml/min; Estimated Glomerular Filt Rate > 60; Glucose 124 mg/dL (65-110); Sodium 138 mmol/L (137-145)
[2023-08-24] MEDS: PANTOPRAZOLE SODIUM IV 40 MG VIAL IV PUSH (08:04)
--- NOTE | 2023-08-24 09:46 | ECG_ITS ---
[facility] [address] Test Date: 2023-08-24 Pat Name: Nikky Ceja Department: Room: 313 Gender: F Stenocaptioner: COLLETTE : 1955 Requested By: Brian Anderson Order Number: [id number] Reading MD: Eulogio Weeks M.D. Measurements Intervals [place] Rate: 78 P: 69 MI: 179 QRS: -1 QRSD: 90 T: 35 QT: 377 QTc: 432 Interpretive Statements SINUS RHYTHM NONSPECIFIC T-WAVE ABNORMALITY ABNORMAL ECG ] No previous ECG available for comparison Electronically Signed On 08-25-2023 07:57:53 CDT by Eulogio Weeks M.D.
[2023-08-24] MEDS: fentaNYL CITRATE INJ (*CRX) 100 MCG/2 ML VIAL 50 MCG IV PUSH ×2 (10:14→14:25)
--- NOTE | 2023-08-24 10:59 | PM.IMPN ---
Progress Note: A&P Assessment and Plan (1) Small bowel obstruction: Code(s): K56.609 - Unspecified intestinal obstruction, unspecified as to partial versus complete obstruction Status: Acute Assessment and Plan: - did not meet SIRS criteria - CT abdomen/pelvis: small bowel obstruction with transition in the pelvis, likely secondary to adhesions. - NG tube placed, confirmation with XR - general surgery consulted, awaiting recs. ED spoke with on-call surgeon (Fransisco PHILLIPS) agreed with plan for bowel rest and NG at this time. - NPO, hold home p.o. medications - pain management - antiemetics prn and start PPI - IV fluids: 1 L bolus, now at 100 mL/hour of NS - monitor I&Os - trend renal function, slight increase from baseline (2) Transaminitis: Code(s): R74.01 - Elevation of levels of liver transaminase levels Status: Acute Assessment and Plan: - total bilirubin 1.6, AST 163, ALT 89, alk-phos 211 - rare ETOH use - add hepatitis panel - trend (3) HTN (hypertension): Code(s): I10 - Essential (primary) hypertension Status: Acute Assessment and Plan: - chronic, currently 169/88 - home p.o. medications held, hydralazine p.r.n. - monitor Plan patient presented with nausea, vomiting, and abdominal pain. Imaging showed a small-bowel obstruction likely secondary to adhesions from previous surgeries. General surgery has been consulted. NG tube has been placed continue bowel rest and NG decompression. Fentanyl IV p.r.n. and antiemetic Chest pain atypical. EKG with nonspecific changes. Will get troponin. History of occurred on PPI Hyperlipidemia Hypertension Diet: NPO GI Prophylaxis: Pantoprazole IVP DVT Prophylaxis: SCDs Lines: Peripheral Code Status: Full code, Moises Ceja (spouse) surrogate decision maker Subjective Date/time seen: 08/24/23 10:59 Interval history: Reported ongoing abdominal pain NG in place. Patient also reported chest pain. No fever chills shortness Review of Systems Review of Systems: All systems reviewed & are unremarkable except as noted in HPI and below Exam Narrative: GENERAL: Mildly ill appearing, well-nourished, non-toxic, in no acute distress. HEAD: Normocephalic, atraumatic. RESPIRATORY: Airway patent, respirations nonlabored. Clear to auscultation bilaterally, no rales, rhonchi, wheezing. CARDIOVASCULAR: Regular rate and rhythm without murmurs, rubs, or gallops. ABDOMINAL: Soft, tender periumbilical tenderness, TTP in epigastric region, no rebound. Nondistended. Normoactive BS. MUSCULOSKELETAL: Moves all extremities. No gross deformities. SKIN: Warm, dry, normal color. NEURO: A&O X3. Speech clear. PSYCHIATRIC: Appropriate mood and affect. Normal interaction. Objective Data Vital Signs Vital Signs: Vital Signs - 24 hr 08/23/23 16:38 08/23/23 17:47 08/23/23 18:00 Temperature Pulse Rate 72 79 83 Respiratory Rate 19 20 19 Blood Pressure 121/75 126/56 L 107/57 L Pulse Oximetry 99 100 99 Oxygen Delivery 08/23/23 18:57 08/23/23 19:00 08/23/23 19:06 Temperature Pulse Rate 89 89 Respiratory Rate 19 20 Blood Pressure 169/88 H 169/88 H Pulse Oximetry 100 96 98 Oxygen Delivery 08/23/23 19:16 08/23/23 20:38 08/23/23 23:15 Temperature 97.5 F L Pulse Rate 82 78 Respiratory Rate 19 16 Blood Pressure 161/77 H 150/83 H Pulse Oximetry 97 97 Oxygen Delivery Room Air 08/24/23 04:09 08/24/23 08:04 Temperature 97.5 F L Pulse Rate 72 Respiratory Rate 16 Blood Pressure 160/75 H Pulse Oximetry 99 Oxygen Delivery Room Air Intake/Output Intake/Output: Intake & Output 08/21/23 08/22/23 08/23/23 08/24/23 23:59 23:59 23:59 23:59 Intake Total 1000 Output Total 550 300 Balance 450 -300 Meds/Results Medications: Active Medications Generic Name Dose Route Start Last Admin Trade Name Freq PRN Reason Stop Dose Admin Acetaminophen 650 mg 0
[2023-08-24 11:48] LABS: Troponin I < 0.012 ng/mL (0.000-0.034)
--- NOTE | 2023-08-24 12:01 | PM.CNGS ---
Assessment and Plan Assessment and plan (1) Small bowel obstruction: Code(s): K56.609 - Unspecified intestinal obstruction, unspecified as to partial versus complete obstruction Status: Acute Assessment and Plan: Still pretty tender on exam although no peritoneal signs, continue NG tube decompression and bowel rest, will get small bowel series for further evaluation History of Present Illness Consult details Consult date: 08/24/23 Reason for consult: abdominal pain Requesting physician: Merlin Arango MD Narrative: The patient is a 68-year-old female presenting to the emergency department complaining of crampy abdominal pain, nausea and vomiting. The patient reports that the symptoms have been progressively worsening over the last week or so. The patient reports that she has had constipation over the last month that has progressively worsened. The patient reports she did have a bowel movement yesterday, although it was small and hard. The patient denies any previous symptomatology. Workup, including imaging, is significant for small bowel obstruction. Review of Systems Review of Systems: All systems reviewed & are unremarkable except as noted in HPI and below PMFSH Past Medical History Medical History Adenomatous colon polyp Arthritis Gastroesophageal reflux disease Hand arthritis HLD (hyperlipidemia) HTN (hypertension) Insomnia NAFLD (nonalcoholic fatty liver disease) NAION (non-arteritic anterior ischemic optic neuropathy) Obesity (BMI 30.0-34.9) Trigger thumb of right hand Uterine cancer Surgical History Surgical History History of cholecystectomy open History of hand surgery History of hysterectomy History of shoulder surgery Family History Family History Mother Family history of malignant neoplasm, Onset Age: 87 Patient's mother is Father Lung cancer Heart disease Sibling Asthma Cancer Heart disease Social History Social History Smoking status: Never smoker Second hand tobacco smoke exposure: Yes Alcohol intake: never Alcohol use details: rarely Substance use: never Substance use type: does not use Do You Feel Safe in your Home?: Yes Lack of Transportation: No Lack of Food: Never True Current Housing: I Have Housing Concerned About Future Housing: No Difficulty Paying Gas/Electric Bills: No Difficulty Paying for Meds: No Currently Unemployed: No Education: Don't Know Difficulty w/ Childcare or Family Care: No Living arrangements: with family Spiritual care concerns: No Meds Home Medications and Allergies Home Medications Medication Instructions Recorded Confirmed Type famotidine 40 mg tablet 20 mg PO BID PRN reflux #90 tabs 03/26/22 08/23/23 Rx losartan 100 mg tablet 100 mg PO DAILY #90 tabs 02/12/23 08/23/23 Rx rosuvastatin 5 mg tablet 5 mg PO DAILY #90 tabs 04/23/23 08/23/23 Rx pantoprazole 40 mg tablet,delayed 40 mg PO QAM #90 tabs 08/04/23 08/23/23 Rx release Allergies Allergy/AdvReac Type Severity Reaction Status Date / Time hydrocodone Allergy Severe SOB Verified 06/30/23 08:11 codeine Allergy Mild Unknown Verified 06/30/23 08:11 metoprolol Allergy Mild Hives Verified 06/30/23 08:11 Vital Signs Vital Signs - 24 hr 08/23/23 16:38 08/23/23 17:47 08/23/23 18:00 Temperature Pulse Rate 72 79 83 Respiratory Rate 19 20 19 Blood Pressure 121/75 126/56 L 107/57 L Pulse Oximetry 99 100 99 Oxygen Delivery 08/23/23 18:57 08/23/23 19:00 08/23/23 19:06 Temperature Pulse Rate 89 89 Respiratory Rate 19 20 Blood Pressure 169/88 H 169/88 H Pulse Oximetry 100 96 98 Oxygen Delivery 08/23/23 19:16 08/23/23 20:38 08/23/23 23:15 Temperature 36.4 C L Pulse
[2023-08-24 14:00] VITALS: BP 129/77; PULSE 87; RESP 16; TEMP 36; O2SAT 95
[2023-08-24] MEDS: HYDROmorphone HCL INJ (*CRX) 1 MG/ML SYR IV PUSH ×2 (16:29→18:46)
[2023-08-24] MEDS: SODIUM CHLORIDE 0.9% IV 1,000 ML 100 ML IV CONT (16:34)
[2023-08-24 19:57] VITALS: BP 120/72; PULSE 78; RESP 16; TEMP 36.4; O2SAT 92
[2023-08-25 04:33] VITALS: BP 124/61; PULSE 79; RESP 18; TEMP 36.9; O2SAT 94
[2023-08-25 06:37] LABS: Basophils Percent Auto 0.3 % (0.2-1.2); Eosinophils Absolute Auto 0.1 K/mm3 (0-0.3); Eosinophils Percent Auto 0.9 % (0-4.4); Hematocrit 40.8 % (37.0-47.0); Hemoglobin 12.7 g/dL (12.0-15.0); Immature Granulocyte Absolute 0.05 K/mm3 (0.00-0.031); Immature Granulocyte Percent A 0.7 % (0-0.5); Lymphocytes Absolute Auto 1.08 K/mm3 (0.9-3.2); Lymphocytes Percent Auto 14.4 % (18.3-44.2); Mean Corpuscular HGB Conc 31.1 g/dl (32-36); Mean Corpuscular Hemoglobin 27.7 pg (26-34); Mean Corpuscular Volume 89.1 fl (80-100); Mean Platelet Volume 10.5 fl (7.4-10.4); Monocytes Absolute Auto 0.4 K/mm3 (0.1-0.6); Monocytes Percent Auto 5.5 % (2.6-8.5); Neutrophils Absolute Auto 5.9 K/mm3 (1.3-6.7); Neutrophils Percent Auto 78.2 % (45.5-73.1); Platelet Count Result 155 k/mm3 (150-375); Red Blood Count 4.58 M/mm3 (4.2-5.4); White Blood Count 7.5 K/mm3 (4.5-10.0)
[2023-08-25 06:43] LABS: Alanine Aminotransferase 53 U/L (6-35); Albumin Level 3.8 g/dL (3.5-5.1); Alkaline Phosphatase 121 U/L (38-126); Anion Gap 4 mmol/L (4-12); Aspartate Amino Transferase 34 U/L (14-36); Bilirubin,Total 1.1 mg/dL (0.2-1.3); Blood Urea Nitrogen 29 mg/dL (7-17); Calcium 9.2 mg/dL (8.4-10.2); Carbon Dioxide 29 mmol/L (22-30); Chloride 108 mmol/L (98-107); Estimated CRCL calculation 48 ml/min; Estimated Glomerular Filt Rate 49; Glucose 143 mg/dL (65-110); Magnesium 2.1 mg/dL (1.6-2.3); Potassium 4.1 mmol/L (3.4-5.0); Sodium 141 mmol/L (137-145)
[2023-08-25] MEDS: PANTOPRAZOLE SODIUM IV 40 MG VIAL IV PUSH (08:39)
[2023-08-25] MEDS: SODIUM CHLORIDE 0.9% IV 1,000 ML 100 ML IV CONT (08:39)
--- NOTE | 2023-08-25 10:06 | PM.PNGS ---
Progress Note: A&P Assessment and Plan (1) Small bowel obstruction: Code(s): K56.609 - Unspecified intestinal obstruction, unspecified as to partial versus complete obstruction Status: Acute Assessment and Plan: SBS reviewed, exam completely benign this am, + bowel fxn, will clamp NG and poss remove later today, start clear Subjective Subjective Date/Time Seen: 08/25/23 10:06 Interval history: feels much better today, had BM this am, passing flatus Review of Systems Review of Systems: All systems reviewed & are unremarkable except as noted in HPI and below Exam Const: General: cooperative, comfortable and no acute distress Resp: Auscultation: clear to auscultation bilaterally Cardio: Rate: regular rate Rhythm: regular rhythm GI: Inspection: normal to inspection and non-distended GI Palp: No abdominal tenderness and Yes Soft to palpation Objective Data Vital Signs Vital Signs: Vital Signs - 24 hr 08/24/23 14:00 08/24/23 19:57 08/25/23 04:33 Temperature 36.0 C L 36.4 C L 36.9 C Pulse Rate 87 78 79 Respiratory Rate 16 16 18 Blood Pressure 129/77 120/72 124/61 Pulse Oximetry 95 92 94 Intake/Output Intake/Output: Intake & Output 08/22/23 08/23/23 08/24/23 08/25/23 23:59 23:59 23:59 23:59 Intake Total 1000 1000 1286 Output Total 550 1200 850 Balance 450 -200 436 Meds/Results Medications: Active Medications Generic Name Dose Route Start Last Admin Trade Name Freq PRN Reason Stop Dose Admin Acetaminophen 650 mg 08/23/23 19:41 Acetaminophen 650 Mg Suppository RECTAL Q6H PRN Pain 5 OR LESS or Fever Fentanyl Citrate 50 mcg 08/24/23 10:05 08/24/23 14:25 Fentanyl Citrate Inj (*Crx) 100 Mcg/2 Ml Vial IV PUSH 50 mcg Q4H PRN Administration Pain Rated 6 Hydralazine HCl 10 mg 08/23/23 19:43 Hydralazine Hcl 20 Mg/Ml Vial IV PUSH Q8H PRN Blood Pressure - High Hydromorphone HCl 1 mg 08/24/23 16:15 08/24/23 18:46 Hydromorphone Hcl Inj (*Crx) 1 Mg/Ml Syr IV PUSH 1 mg Q2HR PRN Administration Pain Rated 7-10 Sodium Chloride 1,000 mls @ 100 mls/hr 08/23/23 18:40 08/25/23 08:39 Normal Saline Iv IV CONT 100 mls/hr .Q10H TAMIE Administration Ondansetron HCl 4 mg 08/23/23 18:39 08/24/23 18:46 Ondansetron Inj 4 Mg/2 Ml Vial IV PUSH 4 mg Q4H PRN Administration Nausea Pantoprazole Sodium 40 mg 08/24/23 09:00 08/25/23 08:39 Pantoprazole Sodium Iv 40 Mg Vial IV PUSH 40 mg QAM TAMIE Administration Radiology Results: ITS Impressions Abdomen/Pelvis CT 08/23/23 18:00 IMPRESSION: 1. Small bowel obstruction with transition in the pelvis. Abdomen X-Ray 08/23/23 19:04 IMPRESSION: 1: NG tube tip in the stomach. Small Bowel X-Ray 08/24/23 20:01 Impression: Small bowel obstruction, without definite transition point identified. Labs Labs: Laboratory Results - last 24 hr 08/24/23 08/25/23 06:01 06:07 WBC 7.5 RBC 4.58 Hgb 12.7 Hct 40.8 MCV 89.1 MCH 27.7 MCHC 31.1 L RDW 14.0 Plt Count 155 MPV 10.5 H Immature Gran % (Auto) 0.7 H Neut % (Auto) 78.2 H Lymph % (Auto) 14.4 L [place] % (Auto) 5.5 Eos % (Auto) 0.9 Baso % (Auto) 0.3 Lymph # (Auto) 1.08 [place] # (Auto) 0.4 Eos # (Auto) 0.1 Baso # (Auto) 0.0 Abs Immat Gran (auto) 0.05 H Absolute Neuts (auto) 5.9 Absolute Nucleated RBC 0.000 Nucleated RBC % 0.0 Sodium 141 Potassium 4.1 Chloride 108 H Carbon Dioxide 29 Anion Gap 4 BUN 29 H Creatinine 1.10 H Estim Creat Clear Calc 48 Estimated GFR 49 L Glucose 143 H Calcium 9.2 Magnesium 2.1 Total Bilirubin 1.1 AST 34 ALT 53 H Alkaline Phosphatase 121 Troponin I < 0.012 Total Protein 6.0 L Albumin 3.8
--- NOTE | 2023-08-25 11:54 | PM.IMPN ---
Progress Note: A&P Assessment and Plan (1) Small bowel obstruction: Code(s): K56.609 - Unspecified intestinal obstruction, unspecified as to partial versus complete obstruction Status: Acute (2) Transaminitis: Code(s): R74.01 - Elevation of levels of liver transaminase levels Status: Acute (3) HTN (hypertension): Code(s): I10 - Essential (primary) hypertension Status: Acute Plan patient presented with nausea, vomiting, and abdominal pain. Imaging showed a small-bowel obstruction likely secondary to adhesions from previous surgeries. General surgery has been consulted. NG tube has been placed continue bowel rest and NG decompression. Fentanyl IV p.r.n. and antiemetic which has been switched to IV Dilaudid. Patient started to have bowel movement. Abdominal pain is resolved. On clear liquid and advance as tolerated per General surgery. Chest pain atypical. EKG with nonspecific changes. Troponin was negative History of occurred on PPI Hyperlipidemia Hypertension Diet: NPO GI Prophylaxis: Pantoprazole IVP DVT Prophylaxis: SCDs Lines: Peripheral Code Status: Full code, Moises Ceja (spouse) surrogate decision maker Subjective Date/time seen: 08/25/23 11:54 Interval history: Feels much better today. Started having bowel movement. Tolerated clear liquid diet. NG has been clamped. Denies any abdominal pain today Review of Systems Review of Systems: All systems reviewed & are unremarkable except as noted in HPI and below Exam Narrative: GENERAL: Well appearing, well-nourished, non-toxic, in no acute distress. HEAD: Normocephalic, atraumatic. RESPIRATORY: Airway patent, respirations nonlabored. Clear to auscultation bilaterally, no rales, rhonchi, wheezing. CARDIOVASCULAR: Regular rate and rhythm without murmurs, rubs, or gallops. ABDOMINAL: Soft, nontender no rebound. Nondistended. Normoactive BS. MUSCULOSKELETAL: Moves all extremities. No gross deformities. SKIN: Warm, dry, normal color. NEURO: A&O X3. Speech clear. PSYCHIATRIC: Appropriate mood and affect. Normal interaction. Objective Data Vital Signs Vital Signs: Vital Signs - 24 hr 08/24/23 14:00 08/24/23 19:57 08/25/23 04:33 Temperature 96.8 F L 97.5 F L 98.4 F Pulse Rate 87 78 79 Respiratory Rate 16 16 18 Blood Pressure 129/77 120/72 124/61 Pulse Oximetry 95 92 94 Intake/Output Intake/Output: Intake & Output 08/22/23 08/23/23 08/24/23 08/25/23 23:59 23:59 23:59 23:59 Intake Total 1000 1000 1286 Output Total 550 1200 850 Balance 450 -200 436 Meds/Results Medications: Active Medications Generic Name Dose Route Start Last Admin Trade Name Freq PRN Reason Stop Dose Admin Acetaminophen 650 mg 08/23/23 19:41 Acetaminophen 650 Mg Suppository RECTAL Q6H PRN Pain 5 OR LESS or Fever Fentanyl Citrate 50 mcg 08/24/23 10:05 08/24/23 14:25 Fentanyl Citrate Inj (*Crx) 100 Mcg/2 Ml Vial IV PUSH 50 mcg Q4H PRN Administration Pain Rated 6 Hydralazine HCl 10 mg 08/23/23 19:43 Hydralazine Hcl 20 Mg/Ml Vial IV PUSH Q8H PRN Blood Pressure - High Hydromorphone HCl 1 mg 08/24/23 16:15 08/24/23 18:46 Hydromorphone Hcl Inj (*Crx) 1 Mg/Ml Syr IV PUSH 1 mg Q2HR PRN Administration Pain Rated 7-10 Sodium Chloride 1,000 mls @ 100 mls/hr 08/23/23 18:40 08/25/23 08:39 Normal Saline Iv IV CONT 100 mls/hr .Q10H TAMIE Administration Ondansetron HCl 4 mg 08/23/23 18:39 08/24/23 18:46 Ondansetron Inj 4 Mg/2 Ml Vial IV PUSH 4 mg Q4H PRN Administration Nausea Pantoprazole Sodium 40 mg 08/24/23 09:00 08/25/23 08:39 Pantoprazole Sodium Iv 40 Mg Vial IV PUSH 40 mg QAM TAMIE Administration Radiology Results: ITS Impressions Abdomen/Pelvis CT 08/23/23 18:00 IMPRESSION: 1. Small bowel obstruction with transition in the pelvis. Abdomen X-Ray 08/23/23 19:04 IMPRESSION: 1: NG tube tip in the stomac
[2023-08-25 12:56] VITALS: BMI 32.1
[2023-08-25 14:00] VITALS: BP 133/80; PULSE 85; RESP 18; TEMP 35.6; O2SAT 97
[2023-08-25 20:38] VITALS: BP 133/80; PULSE 87; RESP 20; TEMP 36.7; O2SAT 95
[2023-08-26 04:48] VITALS: BP 105/56; PULSE 76; RESP 20; TEMP 36.4; O2SAT 96
[2023-08-26 06:52] LABS: Basophils Percent Auto 0.4 % (0.2-1.2); Eosinophils Absolute Auto 0.2 K/mm3 (0-0.3); Eosinophils Percent Auto 3.9 % (0-4.4); Hematocrit 37.2 % (37.0-47.0); Immature Granulocyte Absolute 0.02 K/mm3 (0.00-0.031); Immature Granulocyte Percent A 0.4 % (0-0.5); Lymphocytes Absolute Auto 0.99 K/mm3 (0.9-3.2); Lymphocytes Percent Auto 20.5 % (18.3-44.2); Mean Corpuscular HGB Conc 32.3 g/dl (32-36); Mean Corpuscular Hemoglobin 28.5 pg (26-34); Mean Corpuscular Volume 88.4 fl (80-100); Mean Platelet Volume 10.1 fl (7.4-10.4); Monocytes Absolute Auto 0.3 K/mm3 (0.1-0.6); Monocytes Percent Auto 5.2 % (2.6-8.5); Neutrophils Absolute Auto 3.4 K/mm3 (1.3-6.7); Neutrophils Percent Auto 69.6 % (45.5-73.1); Platelet Count Result 130 k/mm3 (150-375); Red Blood Count 4.21 M/mm3 (4.2-5.4); Red Cell Distribution Width 14.1 % (11.5-14.5); White Blood Count 4.8 K/mm3 (4.5-10.0)
[2023-08-26 06:55] LABS: Alanine Aminotransferase 39 U/L (6-35); Albumin Level 3.5 g/dL (3.5-5.1); Alkaline Phosphatase 100 U/L (38-126); Anion Gap 3 mmol/L (4-12); Aspartate Amino Transferase 26 U/L (14-36); Bilirubin,Total 1.6 mg/dL (0.2-1.3); Blood Urea Nitrogen 21 mg/dL (7-17); Carbon Dioxide 29 mmol/L (22-30); Chloride 106 mmol/L (98-107); Estimated CRCL calculation 58 ml/min; Estimated Glomerular Filt Rate > 60; Glucose 120 mg/dL (65-110); Magnesium 1.9 mg/dL (1.6-2.3); Potassium 3.9 mmol/L (3.4-5.0); Sodium 138 mmol/L (137-145)
[2023-08-26] MEDS: PANTOPRAZOLE 40 MG TABLET PO (08:27)
--- NOTE | 2023-08-26 08:43 | PM.IMPN ---
Progress Note: A&P Assessment and Plan (1) Small bowel obstruction: Code(s): K56.609 - Unspecified intestinal obstruction, unspecified as to partial versus complete obstruction Status: Acute (2) Transaminitis: Code(s): R74.01 - Elevation of levels of liver transaminase levels Status: Acute (3) HTN (hypertension): Code(s): I10 - Essential (primary) hypertension Status: Acute Plan patient presented with nausea, vomiting, and abdominal pain. Imaging showed a small-bowel obstruction likely secondary to adhesions from previous surgeries. General surgery has been consulted. NG tube Was placed and continued on bowel rest and NG decompression. Fentanyl IV p.r.n. and antiemetic which has been switched to IV Dilaudid. Patient started to have bowel movement. Abdominal pain is resolved. On clear liquid and advance as tolerated per General surgery. NG tube has been removed. Further advancement per General surgery if tolerates plan for discharge later in the evening or tomorrow Chest pain atypical. EKG with nonspecific changes. Troponin was negative History of occurred on PPI Hyperlipidemia Hypertension Diet: NPO GI Prophylaxis: Pantoprazole IVP DVT Prophylaxis: SCDs Lines: Peripheral Code Status: Full code, Moises Ceja (spouse) surrogate decision maker Subjective Date/time seen: 08/26/23 08:43 Interval history: NG removed last evening. On clear liquid diet which she is tolerating well. Passing gas. No further bowel movements since 2:00 p.m. yesterday. Does not have any belly pain or nausea vomiting. Review of Systems Review of Systems: All systems reviewed & are unremarkable except as noted in HPI and below Exam Narrative: GENERAL: Well appearing, well-nourished, non-toxic, in no acute distress. HEAD: Normocephalic, atraumatic. RESPIRATORY: Airway patent, respirations nonlabored. Clear to auscultation bilaterally, no rales, rhonchi, wheezing. CARDIOVASCULAR: Regular rate and rhythm without murmurs, rubs, or gallops. ABDOMINAL: Soft, nontender no rebound. Nondistended. Normoactive BS. MUSCULOSKELETAL: Moves all extremities. No gross deformities. SKIN: Warm, dry, normal color. NEURO: A&O X3. Speech clear. PSYCHIATRIC: Appropriate mood and affect. Normal interaction. Objective Data Vital Signs Vital Signs: Vital Signs - 24 hr 08/25/23 14:00 08/25/23 20:38 08/26/23 04:48 Temperature 96.0 F L 98.1 F 97.5 F L Pulse Rate 85 87 76 Respiratory Rate 18 20 20 Blood Pressure 133/80 133/80 105/56 L Pulse Oximetry 97 95 96 Intake/Output Intake/Output: Intake & Output 08/23/23 08/24/23 08/25/23 08/26/23 23:59 23:59 23:59 23:59 Intake Total 1000 1000 1977.3 366.7 Output Total 550 1200 850 Balance 450 -200 1127.3 366.7 Meds/Results Medications: Active Medications Generic Name Dose Route Start Last Admin Trade Name Freq PRN Reason Stop Dose Admin Acetaminophen 650 mg 08/23/23 19:41 Acetaminophen 650 Mg Suppository RECTAL Q6H PRN Pain 5 OR LESS or Fever Fentanyl Citrate 50 mcg 08/24/23 10:05 08/24/23 14:25 Fentanyl Citrate Inj (*Crx) 100 Mcg/2 Ml Vial IV PUSH 50 mcg Q4H PRN Administration Pain Rated 6 Hydralazine HCl 10 mg 08/23/23 19:43 Hydralazine Hcl 20 Mg/Ml Vial IV PUSH Q8H PRN Blood Pressure - High Hydromorphone HCl 1 mg 08/24/23 16:15 08/24/23 18:46 Hydromorphone Hcl Inj (*Crx) 1 Mg/Ml Syr IV PUSH 1 mg Q2HR PRN Administration Pain Rated 7-10 Sodium Chloride 1,000 mls @ 60 mls/hr 08/23/23 18:40 08/26/23 06:05 Normal Saline Iv IV CONT Not Given .[id number] TAMIE Ondansetron HCl 4 mg 08/23/23 18:39 08/24/23 18:46 Ondansetron Inj 4 Mg/2 Ml Vial IV PUSH 4 mg Q4H PRN Administration Nausea Pantoprazole Sodium 40 mg 08/26/23 09:00 08/26/23 08:27 Pantoprazole 40 Mg Tablet PO 40 mg QAM TAMIE Administration Radiology Results: ITS Impressions Abd
--- NOTE | 2023-08-26 10:21 | PM.PNGS ---
Progress Note: A&P Assessment and Plan (1) Small bowel obstruction: Code(s): K56.609 - Unspecified intestinal obstruction, unspecified as to partial versus complete obstruction Status: Acute Assessment and Plan: exam benign, advance diet, ok to dc home if josh diet Subjective Subjective Date/Time Seen: 08/26/23 10:21 Interval history: feels good, josh clears, +bowel fxn Review of Systems Review of Systems: All systems reviewed & are unremarkable except as noted in HPI and below Exam Const: General: cooperative, comfortable and no acute distress Resp: Auscultation: clear to auscultation bilaterally Cardio: Rate: regular rate Rhythm: regular rhythm GI: Inspection: normal to inspection and non-distended GI Palp: No abdominal tenderness and Yes Soft to palpation Objective Data Vital Signs Vital Signs: Vital Signs - 24 hr 08/25/23 14:00 08/25/23 20:38 08/26/23 04:48 Temperature 35.6 C L 36.7 C 36.4 C L Pulse Rate 85 87 76 Respiratory Rate 18 20 20 Blood Pressure 133/80 133/80 105/56 L Pulse Oximetry 97 95 96 Intake/Output Intake/Output: Intake & Output 08/23/23 08/24/23 08/25/23 08/26/23 23:59 23:59 23:59 23:59 Intake Total 1000 1000 1977.3 484.7 Output Total 550 1200 850 Balance 450 -200 1127.3 484.7 Meds/Results Medications: Active Medications Generic Name Dose Route Start Last Admin Trade Name Freq PRN Reason Stop Dose Admin Acetaminophen 650 mg 08/23/23 19:41 Acetaminophen 650 Mg Suppository RECTAL Q6H PRN Pain 5 OR LESS or Fever Fentanyl Citrate 50 mcg 08/24/23 10:05 08/24/23 14:25 Fentanyl Citrate Inj (*Crx) 100 Mcg/2 Ml Vial IV PUSH 50 mcg Q4H PRN Administration Pain Rated 6 Hydralazine HCl 10 mg 08/23/23 19:43 Hydralazine Hcl 20 Mg/Ml Vial IV PUSH Q8H PRN Blood Pressure - High Hydromorphone HCl 1 mg 08/24/23 16:15 08/24/23 18:46 Hydromorphone Hcl Inj (*Crx) 1 Mg/Ml Syr IV PUSH 1 mg Q2HR PRN Administration Pain Rated 7-10 Sodium Chloride 1,000 mls @ 60 mls/hr 08/23/23 18:40 08/26/23 06:05 Normal Saline Iv IV CONT Not Given .[id number] TAMIE Ondansetron HCl 4 mg 08/23/23 18:39 08/24/23 18:46 Ondansetron Inj 4 Mg/2 Ml Vial IV PUSH 4 mg Q4H PRN Administration Nausea Pantoprazole Sodium 40 mg 08/26/23 09:00 08/26/23 08:27 Pantoprazole 40 Mg Tablet PO 40 mg QAM TAMIE Administration Radiology Results: ITS Impressions Abdomen/Pelvis CT 08/23/23 18:00 IMPRESSION: 1. Small bowel obstruction with transition in the pelvis. Abdomen X-Ray 08/23/23 19:04 IMPRESSION: 1: NG tube tip in the stomach. Small Bowel X-Ray 08/24/23 20:01 Impression: Small bowel obstruction, without definite transition point identified. Labs Labs: Laboratory Results - last 24 hr 08/26/23 06:31 WBC 4.8 RBC 4.21 Hgb 12.0 Hct 37.2 MCV 88.4 MCH 28.5 MCHC 32.3 RDW 14.1 Plt Count 130 L MPV 10.1 Immature Gran % (Auto) 0.4 Neut % (Auto) 69.6 Lymph % (Auto) 20.5 [place] % (Auto) 5.2 Eos % (Auto) 3.9 Baso % (Auto) 0.4 Lymph # (Auto) 0.99 [place] # (Auto) 0.3 Eos # (Auto) 0.2 Baso # (Auto) 0.0 Abs Immat Gran (auto) 0.02 Absolute Neuts (auto) 3.4 Absolute Nucleated RBC 0.000 Nucleated RBC % 0.0 Sodium 138 Potassium 3.9 Chloride 106 Carbon Dioxide 29 Anion Gap 3 L BUN 21 H Creatinine 0.90 Estim Creat Clear Calc 58 Estimated GFR > 60 Glucose 120 H Calcium 9.0 Magnesium 1.9 Total Bilirubin 1.6 H AST 26 ALT 39 H Alkaline Phosphatase 100 Total Protein 6.0 L Albumin 3.5
[2023-08-26 14:00] VITALS: BP 125/74; PULSE 79; RESP 16; TEMP 36.2; O2SAT 98
--- NOTE | 2023-08-26 15:05 | PM.DS ---
DS: Admitting Diagnosis Discharge Date 08/26/2023 Admitting Diagnosis Abdominal pain DS: Discharge Diagnosis Discharge Diagnosis (1) Small bowel obstruction: Code(s): K56.609 - Unspecified intestinal obstruction, unspecified as to partial versus complete obstruction Status: Acute (2) Transaminitis: Code(s): R74.01 - Elevation of levels of liver transaminase levels Status: Acute (3) HTN (hypertension): Code(s): I10 - Essential (primary) hypertension Status: Acute DS: Summary Hospital Course Hospital Course: patient presented with nausea, vomiting, and abdominal pain. Imaging showed a small-bowel obstruction likely secondary to adhesions from previous surgeries. General surgery has been consulted. NG tube Was placed and continued on bowel rest and NG decompression. Fentanyl IV p.r.n. and antiemetic which has been switched to IV Dilaudid. Patient started to have bowel movement. Abdominal pain is resolved. On clear liquid and advance as tolerated per General surgery. NG tube has been removed. Diet was further advanced she tolerated well. Okay per general surgery discharge. Chest pain atypical. EKG with nonspecific changes. Troponin was negative History of occurred on PPI Hyperlipidemia Hypertension Diet: NPO GI Prophylaxis: Pantoprazole IVP DVT Prophylaxis: SCDs Lines: Peripheral Code Status: Full code, Moises Ceja (spouse) surrogate decision maker Time Spent with Patient Time attestation: Total time spent providing and/or coordinating discharge services:31 minutes Exam Narrative: GENERAL: Well appearing, well-nourished, non-toxic, in no acute distress. HEAD: Normocephalic, atraumatic. RESPIRATORY: Airway patent, respirations nonlabored. Clear to auscultation bilaterally, no rales, rhonchi, wheezing. CARDIOVASCULAR: Regular rate and rhythm without murmurs, rubs, or gallops. ABDOMINAL: Soft, nontender no rebound. Nondistended. Normoactive BS. MUSCULOSKELETAL: Moves all extremities. No gross deformities. SKIN: Warm, dry, normal color. NEURO: A&O X3. Speech clear. PSYCHIATRIC: Appropriate mood and affect. Normal interaction. DS: Data Data Completed and Pending Labs on day of discharge: Labs from last 24 hours 08/26/23 06:31 WBC 4.8 RBC 4.21 Hgb 12.0 Hct 37.2 MCV 88.4 MCH 28.5 MCHC 32.3 RDW 14.1 Plt Count 130 L MPV 10.1 Immature Gran % (Auto) 0.4 Neut % (Auto) 69.6 Lymph % (Auto) 20.5 [place] % (Auto) 5.2 Eos % (Auto) 3.9 Baso % (Auto) 0.4 Lymph # (Auto) 0.99 [place] # (Auto) 0.3 Eos # (Auto) 0.2 Baso # (Auto) 0.0 Abs Immat Gran (auto) 0.02 Absolute Neuts (auto) 3.4 Absolute Nucleated RBC 0.000 Nucleated RBC % 0.0 Sodium 138 Potassium 3.9 Chloride 106 Carbon Dioxide 29 Anion Gap 3 L BUN 21 H Creatinine 0.90 Estim Creat Clear Calc 58 Estimated GFR > 60 Glucose 120 H Calcium 9.0 Magnesium 1.9 Total Bilirubin 1.6 H AST 26 ALT 39 H Alkaline Phosphatase 100 Total Protein 6.0 L Albumin 3.5 Imaging Radiologist's impression: ITS Impressions Abdomen/Pelvis CT 08/23/23 18:00 IMPRESSION: 1. Small bowel obstruction with transition in the pelvis. Abdomen X-Ray 08/23/23 19:04 IMPRESSION: 1: NG tube tip in the stomach. Small Bowel X-Ray 08/24/23 20:01 Impression: Small bowel obstruction, without definite transition point identified. Discharge Plan Discharge Attending physician on discharge: Brian Anderson Consulting providers: Geetha Moody Discharging Clinician: Brian Anderson Anticipated Discharge Date/Time: 08/26/23 15:03 Patient Disposition: Home, Self-Care Activity: as tolerated Diet: heart healthy Patient Instructions: Antibiotic Form Stand Alone Forms: General Discharge Information Follow-up/Referrals: Rogelio Cruz DO [Primary Care Provider] - 1 Week Discharge Medications: Continued famotidi
== END 2023-08-26 15:25 | disposition home or self-care (01) | DRG 390 ==
LOC: ANHED 19:04 → ANH3MEDSUR 19:50
PROVIDERS: Student in an Organized Health Care Education/Training Program; Admitting Provider Internal Medicine; Emergency Provider Physician Assistant; PCP Internal Medicine; Visit Provider Internal Medicine
DX: K56.50 Intestinal adhesions [bands], unspecified as to partial versus complete obstruction (principal); R74.01 Elevation of levels of liver transaminase levels; E78.5 Hyperlipidemia, unspecified; H47.019 Ischemic optic neuropathy, unspecified eye; H54.7 Unspecified visual loss; I10 Essential (primary) hypertension; K21.9 Gastro-esophageal reflux disease without esophagitis; K76.0 Fatty (change of) liver, not elsewhere classified; Z85.42 Personal history of malignant neoplasm of other parts of uterus; Z90.49 Acquired absence of other specified parts of digestive tract; Z90.710 Acquired absence of both cervix and uterus
CPT/HCPCS: 36415; 74177; 74250; 80053; 81001; 83605; 83690; 83735; 84484; 85025; 93005; 96361; 96374; 96375; 96376; 99285; A9270; C9113; G0378; J1170; J2405; J3010; J7030; Q9967

== ENCOUNTER 2023-09-21 17:32 | Emergency (ER) | payer MEDICARE, SELFPAY ==
--- NOTE | ~2023-09-21 | XR_ITS ---
EXAMINATION: [id number] Exam Date/Time: 09/21/2023 17:53 CDT HISTORY: fall Comparison: X-ray chest 02/06/2022. RESULT: Lines, tubes, and devices: Cholecystectomy clips. Lungs and pleura: Minimal bibasilar scar/atelectasis, otherwise clear. Cardiothymic silhouette: Stable. Other: No acute osseous or upper abdominal finding. IMPRESSION: No acute cardiopulmonary process. No acute osseous finding in the right ribs. Reviewed, dictated and finalized at location K.
--- NOTE | ~2023-09-21 | XR_ITS ---
EXAM: XR hand RT min 3V DATE: 09/21/2023 18:25 HISTORY: Pain status post fall . COMPARISON: None available. FINDINGS: Decreased mineralization. No fracture or dislocation. No lytic or blastic lesion. Partial third and fourth distal phalange amputations. Moderate degenerative change at the first CMC joint and second DIP joint. No erosion or periosteal change. Soft tissues within normal limits. IMPRESSION: No acute osseous finding in the right hand. Reviewed, dictated and finalized at location K.
[2023-09-21 17:36] VITALS: BP 148/72; PULSE 92; RESP 18; TEMP 36.4; O2SAT 97
--- NOTE | 2023-09-21 18:09 | ED.GENADULT ---
HPI - General Adult General Chief complaint: Fall Stated complaint: fall, right rib pain Time Seen by Provider: 09/21/23 17:53 History of Present Illness HPI narrative: Patient is a 68-year-old female who presents emergency department with chief complaint of right sided chest wall pain status post fall. The patient reports that she was walking down the steps of a pull and tripped and fell landing on the right side of her chest wall. Patient also reports that she has pain at the thenar eminence of the right hand. The patient reports she is not on blood thinners denies loss of consciousness Related Data Allergies Allergy/AdvReac Type Severity Reaction Status Date / Time hydrocodone Allergy Severe SOB Verified 06/30/23 08:11 codeine Allergy Mild Unknown Verified 06/30/23 08:11 metoprolol Allergy Mild Hives Verified 06/30/23 08:11 Review of Systems Review of Systems: A 10 system review of systems was completed on the patient and is negative except for what is stated in the HPI. Nursing and ancillary documentation was reviewed. [facility] Past Medical History Medical History Adenomatous colon polyp Arthritis Gastroesophageal reflux disease Hand arthritis HLD (hyperlipidemia) HTN (hypertension) Insomnia NAFLD (nonalcoholic fatty liver disease) NAION (non-arteritic anterior ischemic optic neuropathy) Obesity (BMI 30.0-34.9) Trigger thumb of right hand Uterine cancer Surgical History Surgical History History of cholecystectomy open History of hand surgery History of hysterectomy History of shoulder surgery Family History Family History Mother Family history of malignant neoplasm, Onset Age: 87 Patient's mother is Father Lung cancer Heart disease Sibling Asthma Cancer Heart disease Social History Social History Smoking status: Never smoker Second hand tobacco smoke exposure: Yes Alcohol intake: never Alcohol use details: rarely Substance use: never Substance use type: does not use Do You Feel Safe in your Home?: Yes Lack of Transportation: No Lack of Food: Never True Current Housing: I Have Housing Concerned About Future Housing: No Difficulty Paying Gas/Electric Bills: No Difficulty Paying for Meds: No Currently Unemployed: No Education: Don't Know Difficulty w/ Childcare or Family Care: No Living arrangements: with family Spiritual care concerns: No Exam Narrative: GENERAL: Well-appearing, well-nourished, and in no acute distress. HEAD: Normocephalic, atraumatic. EYES: PERRLA and EOMI. ENT: Nares clear, no rhinorrhea or epistaxis. Mucous membranes moist. NECK: Supple. CHEST: Clear to auscultation. No respiratory distress. Tenderness to palpation in the right chest wall HEART: Regular rate and rhythm. No murmur heard. Normal peripheral pulses. ABDOMEN: Soft, nontender, nondistended, normal active bowel sounds. EXTREMITIES: Normal range of motion tenderness to palpation of the thenar eminence of the right hand. No edema. SKIN: Warm, dry, no rash. NEURO: No focal deficits. Alert and oriented x3. PSYCH: Normal mood and affect. Course Vital Signs Vital signs: Vital Signs Temperature 36.4 C 09/21/23 17:36 Pulse Rate 92 09/21/23 17:36 Respiratory Rate 18 09/21/23 17:36 Blood Pressure 148/72 H 09/21/23 17:36 Pulse Oximetry 97 09/21/23 17:36 Temperature 36.4 C 09/21/23 17:36 Pulse Rate 92 09/21/23 17:36 Respiratory Rate 18 09/21/23 17:36 Blood Pressure 148/72 H 09/21/23 17:36 Pulse Oximetry 97 09/21/23 17:36 Medical Decision Making MDM Narrative Medical decision making narrative: Differential diagnosis includes fracture, contusion, sprain, Plain film x-rays of the nilda
[2023-09-21] MEDS: traMADol HCL (*CRX) 50 MG TABLET PO (19:23)
[2023-09-21 19:41] VITALS: BP 140/68; PULSE 71; RESP 16; O2SAT 99
== END 2023-09-21 19:41 | disposition home or self-care (01) ==
PROVIDERS: Emergency Provider Emergency Medicine; PCP Internal Medicine
DX: S20.211A Contusion of right front wall of thorax, initial encounter (principal); S60.221A Contusion of right hand, initial encounter; I10 Essential (primary) hypertension; E78.5 Hyperlipidemia, unspecified; E66.9 Obesity, unspecified; Z68.32 Body mass index [BMI] 32.0-32.9, adult; M19.90 Unspecified osteoarthritis, unspecified site; K76.0 Fatty (change of) liver, not elsewhere classified; K21.9 Gastro-esophageal reflux disease without esophagitis; Z86.010 Personal history of colon polyps; Z90.49 Acquired absence of other specified parts of digestive tract; Z90.710 Acquired absence of both cervix and uterus; Z77.22 Contact with and (suspected) exposure to environmental tobacco smoke (acute) (chronic); W10.8XXA Fall (on) (from) other stairs and steps, initial encounter
CPT/HCPCS: 71101; 73130; 99284; A9270

== ENCOUNTER 2024-08-03 14:36 | Inpatient (IN) | payer MEDICARE, SELFPAY ==
[2024-08-03] VITALS (16 sets, daily range): BP systolic 128–177; BP diastolic 67–113; PULSE 76–93; RESP 14–27; TEMP 36.1–36.6; O2SAT 96–100; BMI 33.3; BMI 34.3
--- NOTE | ~2024-08-03 | XR_ITS ---
EXAM: XR abdomen gastric tube insert DATE: 08/03/2024 22:13 HISTORY: NG PLACEMENT . COMPARISON: 08/23/2023; CT abdomen pelvis 08/03/2024. FINDINGS: Clear lung bases. Normal bowel gas pattern. NG tube, tip and side port in the gastric antr um. Cholecystectomy clips. Hepatomegaly. IMPRESSION: NG tube, in good position. Reviewed, dictated and finalized at location K. IMPRESSION: NG tube, in good position.
--- NOTE | ~2024-08-03 | CT_ITS ---
CLINICAL INDICATION: Abdominal pain COMPARISON: 08/23/2023. TECHNIQUE: Multiple contiguous axial images of the abdomen and pelvis were performed following the ad ministration of with 100 mL Omnipaque-350 intravenous contrast The dose-length product (DLP) was 1085.16 mGy-cm. Automated exposure control and iterative reconstruction technique were employed. FINDINGS/OBSERVATIONS: Visualized lower thorax: The bilateral lung bases are clear. The heart is of normal size, without pericardial effusion. Small hiatal hernia is present. Liver: The liver demonstrates homogeneous enhancement and is enlarged measuring 21 cm in longitudinal dimens ion. Gallbladder and biliary system: The gallbladder is surgically absent. Pancreas: The pancreas is atrophic, and enhances homogeneously without ductal dilatation. Spleen: The spleen enhances homogeneously and is not enlarged. Kidneys: The bilateral kidneys enhance symmetrically without hydronephrosis or renal calculi. Adrenal glands: Unremarkable. Gastrointestinal tract: Multiple loops of fluid filled distended small bowel, consistent with small bowel obstruction. Mural thickening and interloop fluid is also noted. Air is present within the colon, suggesting only a partial obstruction. Appendix: The appendix is not definitively visualized. However, no pericecal inflammatory change is identified suggest the presence of acute appendicitis. Vasculature: Trace calcified atherosclerotic disease. Lymph nodes: No pathologically enlarged or morphologically suspicious lymph nodes within the retroperitoneum or at the root of the mesentery. Pelvic structures: The bladder is only minimally distended, and otherwise unremarkable. The uterus is either atrophic or surgically absent. Body wall and musculoskeletal: Small fat-containing umbilical hernia. Age-appropriate degenerative disease within the lumbosacral spine. IMPRESSION: Findings consistent with a distal small bowel obstruction, likely only partial, as detailed above. Reviewed, dictated and finalized at location A.
--- NOTE | ~2024-08-03 | XR_ITS ---
EXAMINATION: XR sm bowel follow through WS DATE: 08/05/2024 10:55 INDICATION: Small bowel obstruction TECHNIQUE: Nurse Head radiograph(s) of the abdomen was/were obtained. Oral contrast was administered thro ugh the patient's existing nasogastric tube, and sequential radiographs of the abdomen were obtained until oral contrast was noted to be in the proximal colon. COMPARISON: CT dated 08/03/2024 FINDINGS: Nurse Head radiographs demonstrate nasogastric tube with distal tip at the gastric pylorus and proximal si de port in the body the stomach. Cholecystectomy clips in right upper quadrant. Nonspecific bowel gas pattern with moderate amount of gas scattered throughout the colon and a few loops of nondilated sma ll bowel. Transit time from the stomach to proximal colon was approximately 5 minutes. There is deng l caliber and mucosal fold pattern throughout the small bowel. IMPRESSION: 1. Normal small bowel follow-through with transit time of 45 minutes. 2. Nasogastric tube tip at the gastric pylorus. Consider withdrawal by 10-12 cm. Reviewed, dictated and finalized at location A. IMPRESSION: 1. Normal small bowel follow-through with transit time of 45 minutes. 2. Nasogastric tube tip at the gastric pylorus. Consider withdrawal by 10-12 cm .
--- OUTSIDE RECORDS SUMMARY | 2024-08-03 14:38 | XMS_ITS | CONTINUITY OF CARE DOCUMENT ---
Author Name keke davies Address Unknown Organization [facility] Address [address] [place] [address] Phone [phone] Care Team Providers Care Straightener Name Role Phone keke davies Unavailable Unavailable
--- OUTSIDE RECORDS SUMMARY | 2024-08-03 14:38 | XMS_ITS | Clinical Summary ---
Author Organization [facility] [address] Address [address] [place] [address] Care Team Providers Care Hem Inspector Name Role Phone Arpit Delatorre DO Primary Care Provider [phone] Allergies Active Allergy Reactions Criticality Noted Date Comments Codeine Nausea only Low 01/17/2020 Metoprolol Hives High 12/25/2018 Medications losartan (COZAAR) 100 mg tabletIndicatio ns:hypertension Take 1 tablet (100 mg total) by mouth every morning Active rosuvastatin (CRESTOR) 5 mg tabletIndicatio ns:hyperlipidem ia Take 1 tablet (5 mg total) by mouth every morning Active pantoprazole DR (PROTONIX) 40 mg EC tablet Take 1 tablet (40 mg total) by mouth daily 30 tablet Active Additional Information Patient taking differently:40 mg oralEvery morning, Indications: Treatment of Non-Bleeding Gastric Disorder, Informant: Self, Reported on 09/30/2023 acetaminophen (TYLENOL) 500 mg tabletIndicatio ns:Pain Take 1 tablet (500 mg total) by mouth every 6 (six) hours as needed for pain Active moxifloxacin (VIGAMOX) 0.5 % ophthalmic solution Administer 1 drop into the left eye 4 (four) times a day 3 mL 1 4 Active Additional Information Patient not taking.Informant: Self, Reported on 11/10/2023 prednisoLONE acetate (PRED FORTE) 1 % ophthalmic suspension Administer 1 drop into the left eye 4 (four) times a day 5 mL 1 4 Active Additional Information Patient not taking.Reported on 11/10/2023 Active Problems Problem Noted Date Diagnosed Date Pseudophakia of both eyes 10/11/2023 Assessment & Plan (03/18/2024 12:05 PM GRAPHIC PRE PRESS TRADES WORKER): S/p CEIOL OD 01/06/24 (Stock), OS 10/11/23 (here) Intraocular lens (IOL) well positioned OU Mild PCO OU CTM Assessment & Plan (11/10/2023 9:38 AM CDT): POM#1 s/p CEIOL OS - History of sequential NAION - Doing well, VA improved to 20/90 ph 20/70 today from 20/150, unfortunately pt still feels that vision has drastically declined. Overall eye exam reassuring at this time and appears to be healing well. No new pathology noted today. - Pt admits that she is undergoing multiple stressors at this time, therefore we mutually agreed that deferring second eye surgery is appropriate at this time. - Again lengthy discussion had with pt and family. Reassurance provided. - MRx was provided for patient to take to low vision appointment which is scheduled for 11/13/23 - RTC as scheduled in March for DFEx - Reviewed signs and symptoms for worsening flashes of light, floaters, curtain over vision. Assessment & Plan (10/20/2023 9:52 AM CDT): POW #1 s/p CEIOL OS - History of sequential NAION - Doing well, VA improved to 20/90 from 20/150, unfortunately pt feels that vision has drastically declined. Overall eye exam reassuring at this time and appears to be healing well. No new pathology noted today. - Pt admits that she is undergoing multiple stressors at this time, therefore we mutually agreed that deferring second eye surgery is appropriate at this time. - Lengthy discussion had with pt and family. Reassurance provided. - D/C ofloxacin - Taper prednisolone QID -> TID -> BID -> qday, per week - Reviewed signs/symptoms endophthalmitis, RT/RD; patient to call immediately if any worsening vision, pain, redness, flashes/floaters/curtains. - Avoid lifting/bending/swimming for one more week. Protective eyewear during day. Okay to discontinue Manning shield at night. - RTC 1 month for DFEx, MRx Combined forms of age-related cataract of left e ye 09/29/2023 Combined forms of age-related cataract of right eye 09/29/2023 Assessment & Plan (11/10/2023 9:39 AM CDT): At this time would like to hold off on surgery. Mixed type age-related cataract, both eyes 09/08 Assessment & Plan (09/09/2023 8:11 PM CDT): - Patient would like CE/IOL to give her brighter vision given she now has decreased vision in both eyes due to bilateral, sequential NAION - Discussed that we cannot predict outcomes from CE/IOL in terms of visual improvement, but it is reasonable to consider given 2+ cataracts OU - Patient prefers to have surgery in [place] if possible, will place referral to Dr. Jordyn NOLEN (non-arteritic anterio r ischemic optic neuropathy), bilateral 08/18/2023 Assessment & Plan (03/18/2024 12:17 PM GRAPHIC PRE PRESS TRADES WORKER): - Presented initially in 12/2022 with disc edema and vision loss of the right eye; was ultimately diagnosed with NAION due to normal ESR/CRP, absence of GCA symptoms, unremarkable MRA brain/orbits, and clinical features consistent with NAION including [id number] OS and resolution of the optic disc edema within 2 months - Presented in 07/2023 due to acute vision loss in the left eye - suspected sequential NAION but subsequently developed headache and was sent to ED for further workup for GCA/alternate causes; workup negative - sequential NAION, no disc edema today, no signs of worsening or additional causes of decreased vision - She has seen low vision services Recommendations - she plans to get glasses soon - RTC 12 months for DFEx, sooner PRN Assessment & Plan (09/09/2023 8:09 PM CDT): - Presented initially in 12/2022 with disc edema and vision loss of the right eye; was ultimately diagnosed with NAION due to normal ESR/CRP, absence of GCA symptoms, unremarkable MRA brain/orbits, and clinical features consistent with NAION including [id number] OS and resolution of the optic disc edema within 2 months - Presents in 07/2023 due to acute vision loss in the left eye - suspected sequential NAION but subsequently developed headache and was sent to ED for further workup for GCA/alternate causes; workup negative - Suspect diagnosis is sequential NAION; today with decreasing disc edema OS Recommendations - Patient has appointment with low vision services in October and signed release to send records; will [facility] to [facility] - RTC 6 months for DFEx Assessment & Plan (08/18/2023 1:47 PM CDT): - Presented initially in 12/2022 with disc edema and vision loss of the right eye; was ultimately diagnosed with NAION due to normal ESR/CRP, absence of GCA symptoms, unremarkable MRA brain/orbits, and clinical features consistent with NAION including [id number] OS and resolution of the optic disc edema within 2 months - Presents today due to acute vision loss in the left eye; suspect sequential NAION given lack of GCA symptoms, altitudinal defect, okay vision and color vision - Counseled on return precautions for worsening symptoms or new GCA symptoms Recommendations - ESR, CRP to rule out GCA as cause - RTC 2 months for HVF 24-2, DFEx, macular/GCC/RNFL OCT 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 She presented on 08/04/23 with sudden onset blurry vision OS and found to have inferior altitudinal defect OS. Initially thought to be sequential NAION given altintudinal defect and crowded disc appearance. ESR/CRP was negative. She is presenting today with new headaches as well as worsening vision OU. While our leading differential diagnosis remains NAION, her new symptoms raise the concern for giant cell arteritis (GCA). Atypical optic neuritis is also possible as well. We had a long discussion regarding next step in management. While GCA with normal inflammatory markers is rare, it is certainly a diagnosis we do not want to miss especially her symptoms are occuring in her better seeing eye. She is otherwise in the typical demographics. We recommend going to the ED for further workup and initiation of high dose steroids. We recommend empiric treatment with high-dose intravenous methylprednisolone, 1 g daily. Repeat ESR, CRP, CBC, TSPOT, ANA LILIA, RPR/troponemal IgG/IgM, NMO, MOG. We also recommend repeating MRI brain with orbits W/WO gadolinium. We also recommend left temporal artery biopsy in the near future to help confirm or exclude GCA. She understands the high risk for further vision loss without appropriate treatment and will present today. Blurry vision 08/07/2023 Assessment & Plan (08/09/2023 9:57 AM CDT): Bilateral; right side patient was diagnosed with NAION Left side; patient was send to ED from ophthalmology clinic for possible atypical GCA. Repeat ESR (-ve), CRP (-ve), CBC (stable), TSPOT (pending), ANA LILIA (pending), RPR/troponemal IgG/IgM (-ve), NMO(pending), MOG (pending) Brain CT scan: No acute intracranial abnormality. MRI brain with orbits W/WO gadolinium: No acute intracranial abnormality, Normal MRI of the orbits. Patient was started on solumedrol 1 gram Q24 hours by ophthalmology recommendation; patient is not sure if her vision improved with steroids but she feels her vision is more clear than before CW steroids - Per Ophthalmology recommendations to continue Solu-Medrol 1 g daily for 3 days total then switch to prednisone 1 milligram/kilograms daily until the results are back. - vascular surgery consulted they will evaluate for possible biopsy - 08/08: She got total of 3 doses of IV methylpred, will plan to d/c on 1 mg/kg PO pred daily and have her f/u with ophthalmology and vascular surgery. Will add bactrim ppx and PPI. Opthalmology and vascular surgery updated on the plan CRIS (acute kidney injury) 08/07/2023 Assessment & Plan (08/07/2023 11:37 PM CDT): Mostly pre-renal Starting IV fluids Monitor kidney function. HTN (hypertension) 08/07/2023 Assessment & Plan (08/07/2023 11:38 PM CDT): Holding HCTZ and losartan for CRIS Restart when appropriate HLD (hyperlipidemia) 08/07/2023 Assessment & Plan (08/07/2023 11:38 PM CDT): CW rosuvastatin Refractive error 03/18/2023 Assessment & Plan (03/18/2023 2:53 PM GRAPHIC PRE PRESS TRADES WORKER): Significant hyperopia on autorefraction today Patient currently not using glasses Recommend patient obtain eyeglasses (polycarbonate). If vision still poor OS with updated MRx can refer back to pre-op clinic for cat eval Right optic neuropathy 02/13/2023 Assessment & Plan (03/18/2023 2:50 PM GRAPHIC PRE PRESS TRADES WORKER): Follow-up for NAION OD Afferent function stable Disc edema now resolved Stable inferior altitudinal defect on HVF 24-2 Follow-up 3-6 months for repeat HVF 24-2, OCT mac/gcc, OCT rnfl Patient wishes to call to schedule as she states her likely has lung cancer and she needs to help him deal with his affairs first Assessment & Plan (02/13/2023 4:40 PM GRAPHIC PRE PRESS TRADES WORKER): Exam today with stable disc edema but worse VA and APD. HVF with altitudinal defect more prominent nasally. OCT RNFL with persistent edema OD and GCC thinning OD. PLAN - Given history and exam, most likely diagnosis remains NAION and patient is aware of importance of risk factor management; however, given visual acuity worse than is typical for NAION, discussed recommendation of MRI brain and orbits for evaluation of retrobulbar etiology - RTC 1 month for repeat OCT RNFL and HVF 24-2 Coronary artery disease invo lving [place] coronary artery of [place] heart without angina pectoris 04/01/2019 Surgical History Surgery Date Site/Laterality Comments CARDIAC CATHETERIZATION 03/17/2017 - 03/16/2018 HYSTERECTOMY 03/17/1981 - 03/16/1982 FINGER AMPUTATION 03/17/2011 - 03/16/2012 Right tips of middle and ring finger CARPAL TUNNEL RELEASE 03/17/2010 - 03/16/2011 Bilateral CHOLECYSTECTOMY 03/17/1983 - 03/16/1984 ROTATOR CUFF REPAIR 03/17/2011 - 03/16/2012 Left COLONOSCOPY multiple TEMPORAL ARTERY BIOPSY / LIGATION 08/13/2023 CATARACT EXTRACTION 10/10/2023 Left Medical History Medical History Date Comments Hypertension Hyperlipidemia Gallstones Diastolic dysfunction Uterine cancer (HCC) GERD (gastroesophageal reflux disease) Family History Medical History Relation Name Comments Cancer Brother Heart attack Brother Heart disease Brother Hypertension Brother Macular degeneration Brother Heart attack Father Hyperlipidemia Father Hypertension Father Lung cancer Father Lung cancer Mother Anesthesia problems Neg Hx Relation Name Status Comments Brother (Age 65) Father (Age 65) Mother (Age 87) Social History Tobacco Use Types Packs/Day Years Used Date Smoking Tobacco: Never Passive Smoke Exposure: Current Smokeless Tobacco: Never Tobacco Cessation:Counseling Given: Not Answered Alcohol Use Standard Drinks/Week Comments Yes 1 (1 standard drink = 0.6 oz pur e alcohol) AUDIT-C Answer Date Recorded Q1: How often do you have a drink containing alc ohol? Monthly or less 10/13/2023 Q2: How many drinks containi ng alcohol do you have on a typical day when you are drinking? 1 or 2 10/13/2023 Q3: How often do you have si x or more drinks on one occasion? Never 10/13/2023 Personal Safety Answer Date Recorded Have you ever been in or are you currently in a harmful physical or emotional relationship or is someone making you feel afraid or unsafe? Denies 10/10/2023 Comments Unknown Sex and Gender Information Value Date Recorded Sex Assigned at Not on file Legal Sex Female 2:04 PM CDT Gender Identity Not on file Sexual Orientation Not on file Obstetrics History Last Filed Vital Signs Vital Sign Reading Time Taken Comments Blood Pressure 158/84 10/10/2023 11:30 AM CDT Pulse 64 10/10/2023 11:30 AM CDT Temperature 36.3 C (97.3 F) 10/10/2023 11:50 AM CDT Respiratory Rate 17 10/10/2023 11:30 AM CDT Oxygen Saturation 98% 10/10/2023 11:30 AM CDT Inhaled Oxygen Concentration - - Weight 89.8 kg (198 lb) 10/13/2023 10:56 AM CDT Height 167.6 cm (5' 6 ) 10/13/2023 10:56 AM CDT Body Mass Index 31.96 10/13/2023 10:56 AM CDT Plan of Treatment Health Maintenance Due Date Last Done Comments Breast Cancer Screening-Mammogram 1953 Colon Cancer Screening-Colonoscopy 1955 Depression Screening 1955 Hepatitis C Screening 1955 Osteoporosis Screening-Bone Density Scan 1955 DTaP/Tdap/Td Vaccine (1 - Tdap) 02/04/1964 Hepatitis B Screening 1971 Pneumococcal vaccine 65+ (1 of 1 - PCV) 2003 Zoster Vaccine (1 of 2) 2003 Well Visit 65+ 2018 Covid-19 Vaccine ( season) 2023 02/21/2021, 05/27/2020, 04/29/2020 Influenza Vaccine (#1) 2023 01/04/2021 Fall Risk Assessment 10/09/2024 10/10/2023 Medical Devices Implanted Type Area Aircraft Engine Mechanic Supervisor Device Identifier Shelf Expiration Date Model / Serial / Lot [employer] Lens Iol Posterior Biconvex Optic Single Piece Envista 6.0x12.5 +22.0d Hydrophobic Acrylic [id number] - [id number] - [id number] Implanted:Qty: 1 on 10/10/2023 by Fabian Palomino MD at [facility] Lens Left: Eye [employer] [id number] 07/14/2026 [id number] / [id number] / [id number] [facility] A[facility]NA [facility] GOLD REF AETNA MEDICARE GOLD AETNA MEDICARE GOLD Advance Directives For more information, please contact: [phone] * Full Code (Latest Code Status on File) Date Activated Date Inactivated Comments 08/07/2023 8:09 PM 08/09/2023 4:13 PM Care Teams Hem Inspector Relationship Specialty Start Date End Date Nandini, Arpit, DO PCP - General Internal Medicine 09/29/23
--- OUTSIDE RECORDS SUMMARY | 2024-08-03 14:39 | XMS_ITS | Clinical Summary ---
Author Organization [facility] Address [address] [place] [address] Phone Care Team Providers Care Forensic Structural Engineer Name Role Phone Rogelio Cruz Heri HARDING Primary Care Provider [phone] Allergies Active Allergy Reactions Criticality Noted Date Comments Metoprolol Hives High 12/25/2018 Medications aspirin EC 81 MG Tablet Delayed Response Take 81 mg by mouth. Active carvedilol (COREG) 3.125 MG Tablet Take 3.125 mg by mouth. Active famotidine (PEPCID) 40 MG Tablet TAKE 1 2 (ONE HALF) TABLET BY MOUTH TWICE DAILY NEEDED FOR REFLUX 10/05/2019 Active levoFLOXacin (LEVAQUIN) 500 MG Tablet TAKE 1 TABLET BY MOUTH ONCE DAILY FOR 10 DAYS 09/16/2019 Active lisinopril (PRINIVIL, ZESTRIL) 10 MG Tablet Take 1 tablet by mouth once daily 07/20/2019 Active pantoprazole (PROTONIX) 40 MG Tablet Delayed Response TAKE 1 TABLET BY MOUTH IN THE MORNING 10/04/2019 Active traMADol (ULTRAM) 50 MG Tablet TK 1 T PO Q 8 H PRN PAIN 09/11/2019 Active Active Problems No known active problems Family History Medical History Relation Name Comments Cancer Brother all over Heart Disease Father Lung Cancer Father Lung Cancer Mother Relation Name Status Comments Brother Father Mother Social History Tobacco Use Types Packs/Day Years Used Date Smoking Tobacco: Never Smokeless Tobacco: Never Alcohol Use Standard Drinks/Week Comments Yes 0 (1 standard drink = 0.6 oz pur e alcohol) occasoinally PHQ-2 Answer Date Recorded Total Score - Questions 1-9 0 11/15 Sexually Active Control Partners Comments Not Currently Comments No Sex and Gender Information Value Date Recorded Sex Assigned at Not on file Legal Sex Female 12:15 AM CDT Gender Identity Not on file Sexual Orientation Not on file Last Filed Vital Signs Vital Sign Reading Time Taken Comments Blood Pressure - - Pulse 69 12/01/2019 10:24 AM CDT Temperature 36.3 C (97.4 F) 12/01/2019 10:24 AM CDT Respiratory Rate 16 12/01/2019 10:24 AM CDT Oxygen Saturation 98% 12/01/2019 10:24 AM CDT Inhaled Oxygen Concentration - - Weight 90.3 kg (199 lb) 12/01/2019 10:24 AM CDT Height - - Body Mass Index - - Plan of Treatment Health Maintenance Due Date Last Done Comments Hepatitis C Virus (HCV) Screening 1955 TdaP Immunization 1955 Cologuard 2003 Immunochemical Fecal Occult Blood 2003 Pneumococcal Immunization (5 0+ years) (1 of 1 - PCV) 2003 Zoster Immunization (1 of 2) 2003 Influenza Immunization (#1) 2023 SARS-COV-2 Immunization ( season) 2023 02/21/2021, 05/27/2020, 04/29/2020 Colonoscopy 12/29/2026 12/30/2019 Colorectal Cancer Screening 12/29/2026 Respiratory Syncytial Virus (RSV) Immunization (Adult) (1 - 1-dose 75+ series) 02/04/2028 12/30/2019 Hepatitis B Immunization Aged Out No longer eligible based on patient's age to complete this topic Meningococcal Immunization (ACWY) Aged Out No longer eligible b ased on patient's age to complete this topic Rotavirus Immunization Aged Out No lo nger eligible based on patient's age to complete this topic Procedures Procedure Name Priority Date/Time Associated Diagnosis Comments COLONOSCOPY Routine 12/30/2019 from Last 3 Months or Most Recently Relevant to Health Maintenance Results * COLONOSCOPY (12/30/2019) us Shorty Marj Harrison DO PROCEDURE/MINOR SURGICAL ORDERA BLES Final Result from Last 3 Months or Most Recently Relevant to Health Maintenance Care Teams Forensic Structural Engineer Relationship Specialty Start Date End Date Rogelio Cruz DO [address] [place] [address] PCP - General Internal Medicine 11/10/19
--- OUTSIDE RECORDS SUMMARY | 2024-08-03 14:39 | XMS_ITS | Referral Summary ---
Author Organization [facility] [address] Address [address] [place] [address] Care Team Providers Care Graduate Engineer Name Role Phone Arpit Delatorre DO Primary Care Provider [phone] Allergies Active Allergy Reactions Criticality Noted Date [...] 10/11/2023 Assessment & Plan (03/18/2024 12:05 PM FIELD CROP FARMING SUPERVISOR): S/p CEIOL OD 01/06/24 (Stock), OS 10/11/23 [...] 08/18/2023 Assessment & Plan (03/18/2024 12:17 PM FIELD CROP FARMING SUPERVISOR): - Presented initially in 12/2022 with disc edema and vision loss of the right eye; was ultimately diagnosed with NAION due to normal ESR/CRP, absence of GCA symptoms, unremarkable MRA brain/orbits, and clinical features consistent with NAION including qjrx-na-xlcy OS and resolution of the optic disc [...] and clinical features consistent with NAION including mlhn-eg-yrpq OS and resolution of the optic disc [...] and clinical features consistent with NAION including oucr-cq-riwa OS and resolution of the optic disc [...] 03/18/2023 Assessment & Plan (03/18/2023 2:53 PM FIELD CROP FARMING SUPERVISOR): Significant hyperopia on autorefraction today Patient currently not using glasses Recommend patient obtain eyeglasses (polycarbonate). If vision still poor OS with updated MRx can refer back to pre-op clinic for cat eval Right optic neuropathy 02/13/2023 Assessment & Plan (03/18/2023 2:50 PM FIELD CROP FARMING SUPERVISOR): Follow-up for NAION OD Afferent function stable Disc edema now resolved Stable inferior altitudinal defect on HVF 24-2 Follow-up 3-6 months for repeat HVF 24-2, OCT mac/gcc, OCT rnfl Patient wishes to call to schedule as she states her likely has lung cancer and she needs to help him deal with his affairs first Assessment & Plan (02/13/2023 4:40 PM FIELD CROP FARMING SUPERVISOR): Exam today with stable disc edema but [...] HVF 24-2 Coronary artery disease invo lving [place] coronary artery of [place] heart without angina pectoris 04/01/2019 Social History Tobacco Use Types Packs/Day Years [...] 10/13/2023 10:56 AM CDT Plan of Treatment Not on file Medical Devices Implanted Type Area Vacuum Cleaner Repairer Device Identifier Shelf Expiration Date Model / Serial / Lot [employer] Lens Iol Posterior Biconvex Optic Single Piece Envista 6.0x12.5 +22.0d Hydrophobic Acrylic [id number] - [id number] - [id number] Implanted:Qty: 1 on 10/10/2023 by Fabian Palomino MD at [facility] Lens Left: Eye [employer] [id number] 07/14/2026 [id number] / [id number] / [id number] Insurance [facility] AETNA MEDICARE GOLD AETNA MEDICARE GOLD Advance Directives For more information, please contact: [phone] * Full Code (Latest Code Status on File) Date Activated Date Inactivated Comments 08/07/2023 8:09 PM 08/09/2023 4:13 PM Care Teams Graduate Engineer Relationship Specialty Start Date End Date Arpit Delatorre DO PCP - General Internal Medicine 09/29/23
--- NOTE | 2024-08-03 16:41 | ED_ITS ---
HPI - Abdominal Pain General Chief Complaint: Abdominal Pain <PRABHAKAR Nunn Last Filed: 08/03/24 16:47> Stated Complaint: sick for a week <PRABHAKAR Nunn Last Filed: 08/03/24 16:47> Time Seen by Provider: 08/03/24 16:41 <PRABHAKAR Nunn Last Filed: 08/03/24 16:47> Focused HPI: Patient is a 69 y/o female who presents to the ED with c/o ABD pain and N/V. Patient reports having stabbing pain throughout her mid upper and lower abdomen since . States pain has been progressively worsening. Has had abd bloating, N/V since yesterday. States she has been unable to keep down any food or drink since then. Reports last BM was 2 days ago and was diarrhea. Denies rectal bleeding or melena. Denies fevers. Has hx of SBO in 2023. States this feels similar. Hx of hysterectomy and cholecystectomy. GENERAL: Uncomfortable-appearing, obese with BMI of 32.5, and in no acute distress. HEAD: Normocephalic, atraumatic. CHEST: Clear to auscultation. ?No respiratory distress. HEART: Regular rate and rhythm.? ABD: Diffuse tenderness. Nondistended. No rebound. Normoactive BS. NEURO: ?Alert and oriented x3. Patient screened in triage and initial orders placed.? ?Additional care and disposition to be based upon?diagnostic testing and treatment. <PRABHAKAR Nunn Last Filed: 08/03/24 16:47> Source: patient and old records reviewed <PRABHAKAR Nunn Last Filed: 08/03/24 16:47> Mode of arrival: ambulatory <PRABHAKAR Nunn Last Filed: 08/03/24 16:47> Limitations: no limitations <PRABHAKAR Nunn Last Filed: 08/03/24 16:47> History of Present Illness HPI narrative: agree with MSE <Justina Esposito MD - Last Filed: 08/04/24 01:06> Related Data Home Medications: Home Medications ?Medication ?Instructions ?Recorded ?Confirmed ?Last Taken ?Type pantoprazole 40 mg tablet,delayed 40 mg PO QAM 07/21/24 08/03/24 08/02/24 History release <Eun Maloney PA-C - Last Filed: 08/03/24 16:47> Allergies/Adverse Reactions: Allergies Allergy/AdvReac Type Severity Reaction Status Date / Time codeine Allergy Mild Unknown Verified 08/03/24 14:41 metoprolol Allergy Mild Hives Verified 08/03/24 14:41 hydrocodone AdvReac Severe SOB Verified 08/03/24 14:41 <Eun Maloney PA-C - Last Filed: 08/03/24 16:47> Review of Systems 2 Review of Systems: All systems reviewed & are unremarkable except as noted in HPI and below <Justina Esposito MD - Last Filed: 08/04/24 01:06> [facility] Past Medical History Medical History: Medical History (Updated 08/04/24 @ 01:06 by Justina Esposito MD) Obesity (BMI 30.0-34.9) Cataract Vision loss Insomnia NAION (non-arteritic anterior ischemic optic neuropathy) Trigger thumb of right hand Hand arthritis Arthritis Gastroesophageal reflux disease Uterine cancer NAFLD (nonalcoholic fatty liver disease) HTN (hypertension) HLD (hyperlipidemia) Adenomatous colon polyp <Eun Maloney PA-C - Last Filed: 08/03/24 16:47> Surgical History Surgical History: Surgical History History of cholecystectomy open History of hysterectomy History of hand surgery History of shoulder surgery <Eun Maloney PA-C - Last Filed: 08/03/24 16:47> Family History Family History: Family History Mother Family history of malignant neoplasm, Onset Age: 87 Patient's mother is Father Lung cancer Heart disease Sibling Asthma Cancer Heart disease <Eun Maloney PA-C - Last Filed: 08/03/24 16:47> Social History Social History: Social History (Updated 01/20/24 @ 10:12 by AKASH Ortega) Smoking status: Never smoker Second hand tobacco smoke exposure: No Alcohol intake: current Alcohol use details: rarely Substance use: never Substance use type: does not use Do You Feel Safe in your Home?: Yes Lack of Transportation: No Lack of Food: Never True Current Housing: I Have Housing Concerned About Future Housing: No Difficulty Paying Gas/Electric Bills: No Difficulty Paying for Meds: No Currently Unemployed: No Education: High School Diploma/GED Difficulty w/ Childcare or Family Care: No Living arrangements: with family Occupation/Education: occupation Additional occupation/education comments: [employer] Gender identity (if verbalized by the patient): Female Spiritual care concerns: No <Eun Maloney PA-C - Last Filed: 08/03/24 16:47> Exam 2 Narrative: EXAMINATION OF ORGAN SYSTEMS/BODY AREAS: Constitutional: Vital signs per nursing GENERAL:[No acute distress, non-toxic appearing.] HEAD: Normal with no signs of head trauma. EYES: EOMI, conjunctiva normal ENT: Hearing grossly intact LUNGS: Nonlabored breathing. HEART: [Regular rate and rhythm] ABD: [Soft], [nontender to palpation] EXT: Normal range of motion SKIN: [No rashes or lesions.] NEURO: [Alert and oriented x 3. No gross focal sensory or strength deficits.] PSYCH: Normal affect <Justina Esposito MD - Last Filed: 08/04/24 01:06> Course Vital Signs Vital signs: Vital Signs Temperature 97.0 F L 08/03/24 14:38 Pulse Rate 93 08/03/24 14:38 Respiratory Rate 18 08/03/24 14:38 Blood Pressure 144/83 H 08/03/24 14:38 Pulse Oximetry 99 08/03/24 14:38 Oxygen Delivery Room Air 08/03/24 14:38 Temperature 97.8 F 08/03/24 23:03 Pulse Rate 82 08/03/24 23:03 Respiratory Rate 18 08/03/24 23:03 Blood Pressure 160/75 H 08/03/24 23:03 Pulse Oximetry 98 08/03/24 23:03 Oxygen Delivery Room Air 08/03/24 14:38 <Eun Maloney PA-C - Last Filed: 08/03/24 16:47> Vital Signs Temperature 97.0 F L 08/03/24 14:38 Pulse Rate 93 08/03/24 14:38 Respiratory Rate 18 08/03/24 14:38 Blood Pressure 144/83 H 08/03/24 14:38 Pulse Oximetry 99 08/03/24 14:38 Oxygen Delivery Room Air 08/03/24 14:38 Temperature 97.8 F 08/03/24 23:03 Pulse Rate 82 08/03/24 23:03 Respiratory Rate 18 08/03/24 23:03 Blood Pressure 160/75 H 08/03/24 23:03 Pulse Oximetry 98 08/03/24 23:03 Oxygen Delivery Room Air 08/03/24 14:38 <Justina Esposito MD - Last Filed: 08/04/24 01:06> MDM - Abdominal Pain MDM Narrative Medical decision making narrative: MSE by KEESHA in triage. <Eun Maloney PA-C - Last Filed: 08/03/24 16:47> MSE by KEESHA in triage. Patient presenting with nausea vomiting and periumbilical pain, feels like it might be another bowel obstruction which she has had in the past. Labs within acceptable limits, CT abdomen/pelvis unfortunately consistent with partial bowel obstruction. Updated patient, discussed with hospitalist, requested surgery consult, spoke with surgeon, will be admitted for fluids. <Justina Esposito MD - Last Filed: 08/04/24 01:06> Lab Data Result diagrams: 08/03/24 16:46 08/03/24 16:46 <Eun Maloney PA-C - Last Filed: 08/03/24 16:47> Labs: Lab Results 08/03/24 Range/Units 16:46 WBC 8.1 (4.5-10.0) K/mm3 RBC 5.19 (4.2-5.4) M/mm3 Hgb 14.2 (12.0-15.0) g/dL Hct 45.6 (37.0-47.0) % MCV 87.9 (80-100) fl MCH 27.4 (26-34) pg MCHC 31.1 L (32-36) g/dl RDW 13.2 (11.5-14.5) % Plt Count 236 D (150-375) k/mm3 MPV 10.5 H (7.4-10.4) fl Immature Gran % (Auto) 0.2 (0-0.5) % Neut % (Auto) 76.5 H (45.5-73.1) % Lymph % (Auto) 17.1 L (18.3-44.2) % [place] % (Auto) 4.6 (2.6-8.5) % Eos % (Auto) 1.2 (0-4.4) % Baso % (Auto) 0.4 (0.2-1.2) % Lymph # (Auto) 1.39 (0.9-3.2) K/mm3 [place] # (Auto) 0.4 (0.1-0.6) K/mm3 Eos # (Auto) 0.1 (0-0.3) K/mm3 Baso # (Auto) 0.0 (0.0-0.1) K/mm3 Abs Immat Gran (auto) 0.02 (0.00-0.031) K/mm3 Absolute Neuts (auto) 6.2 (1.3-6.7) K/mm3 Absolute Nucleated RBC 0.000 (0.0-0.012) K/mm3 Nucleated RBC % 0.0 (0.0-0.2) % Sodium 139 (137-145) mmol/L Potassium 4.6 (3.4-5.0) mmol/L Chloride 103 (98-107) mmol/L Carbon Dioxide 25 (22-30) mmol/L Anion Gap 11 (4-12) mmol/L BUN 18 H (7-17) mg/dL Creatinine 0.99 (0.7-1.0) mg/dL Estim Creat Clear Calc 52 ml/min Estimated GFR 55 L (59 - ) Glucose 144 H (65-110) mg/dL Lactic Acid 1.4 (0.7-2.0) mmol/L Calcium 10.1 (8.4-10.2) mg/dL Total Bilirubin 1.0 (0.2-1.3) mg/dL AST 38 H (14-36) U/L ALT 34 (6-35) U/L Alkaline Phosphatase 103 (38-126) U/L Total Protein 8.0 (6.3-8.2) g/dL Albumin 4.8 (3.5-5.1) g/dL Lipase 52 (23-300) U/L <Eun Maloney PA-C - Last Filed: 08/03/24 16:47> Lab Results 08/03/24 Range/Units 16:46 WBC 8.1 (4.5-10.0) K/mm3 RBC 5.19 (4.2-5.4) M/mm3 Hgb 14.2 (12.0-15.0) g/dL Hct 45.6 (37.0-47.0) % MCV 87.9 (80-100) fl MCH 27.4 (26-34) pg MCHC 31.1 L (32-36) g/dl RDW 13.2 (11.5-14.5) % Plt Count 236 D (150-375) k/mm3 MPV 10.5 H (7.4-10.4) fl Immature Gran % (Auto) 0.2 (0-0.5) % Neut % (Auto) 76.5 H (45.5-73.1) % Lymph % (Auto) 17.1 L (18.3-44.2) % [place] % (Auto) 4.6 (2.6-8.5) % Eos % (Auto) 1.2 (0-4.4) % Baso % (Auto) 0.4 (0.2-1.2) % Lymph # (Auto) 1.39 (0.9-3.2) K/mm3 [place] # (Auto) 0.4 (0.1-0.6) K/mm3 Eos # (Auto) 0.1 (0-0.3) K/mm3 Baso # (Auto) 0.0 (0.0-0.1) K/mm3 Abs Immat Gran (auto) 0.02 (0.00-0.031) K/mm3 Absolute Neuts (auto) 6.2 (1.3-6.7) K/mm3 Absolute Nucleated RBC 0.000 (0.0-0.012) K/mm3 Nucleated RBC % 0.0 (0.0-0.2) % Sodium 139 (137-145) mmol/L Potassium 4.6 (3.4-5.0) mmol/L Chloride 103 (98-107) mmol/L Carbon Dioxide 25 (22-30) mmol/L Anion Gap 11 (4-12) mmol/L BUN 18 H (7-17) mg/dL Creatinine 0.99 (0.7-1.0) mg/dL Estim Creat Clear Calc 52 ml/min Estimated GFR 55 L (59 - ) Glucose 144 H (65-110) mg/dL Lactic Acid 1.4 (0.7-2.0) mmol/L Calcium 10.1 (8.4-10.2) mg/dL Total Bilirubin 1.0 (0.2-1.3) mg/dL AST 38 H (14-36) U/L ALT 34 (6-35) U/L Alkaline Phosphatase 103 (38-126) U/L Total Protein 8.0 (6.3-8.2) g/dL Albumin 4.8 (3.5-5.1) g/dL Lipase 52 (23-300) U/L <Justina Esposito MD - Last Filed: 08/04/24 01:06> Imaging Data Radiologist's impression: ITS Impressions Abdomen/Pelvis CT 08/03/24 18:23 IMPRESSION: Findings consistent with a distal small bowel obstruction, likely only partial, as detailed above. Abdomen X-Ray 08/03/24 22:14 IMPRESSION: NG tube, in good position. <Eun Maloney PA-C - Last Filed: 08/03/24 16:47> ITS Impressions Abdomen/Pelvis CT 08/03/24 18:23 IMPRESSION: Findings consistent with a distal small bowel obstruction, likely only partial, as detailed above. Abdomen X-Ray 08/03/24 22:14 IMPRESSION: NG tube, in good position. <Justina Esposito MD - Last Filed: 08/04/24 01:06> Discharge Plan Discharge Clinical Impression: Partial small bowel obstruction <Eun Maloney PA-C - Last Filed: 08/03/24 16:47> Patient Disposition: Still a Patient <PRABHAKAR Nunn Last Filed: 08/03/24 16:47> Condition: Stable <PRABHAKAR Nunn Last Filed: 08/03/24 16:47>
[2024-08-03] MEDS: traMADol HCL (*CRX) 50 MG TABLET PO (16:50)
[2024-08-03] MEDS: ONDANSETRON INJ 4 MG/2 ML VIAL IV PUSH ×2 (16:50→19:17)
[2024-08-03 16:52] LABS: Basophils Percent Auto 0.4 % (0.2-1.2); Eosinophils Absolute Auto 0.1 K/mm3 (0-0.3); Eosinophils Percent Auto 1.2 % (0-4.4); Hematocrit 45.6 % (37.0-47.0); Hemoglobin 14.2 g/dL (12.0-15.0); Immature Granulocyte Absolute 0.02 K/mm3 (0.00-0.031); Immature Granulocyte Percent A 0.2 % (0-0.5); Lymphocytes Absolute Auto 1.39 K/mm3 (0.9-3.2); Lymphocytes Percent Auto 17.1 % (18.3-44.2); Mean Corpuscular HGB Conc 31.1 g/dl (32-36); Mean Corpuscular Hemoglobin 27.4 pg (26-34); Mean Corpuscular Volume 87.9 fl (80-100); Mean Platelet Volume 10.5 fl (7.4-10.4); Monocytes Absolute Auto 0.4 K/mm3 (0.1-0.6); Monocytes Percent Auto 4.6 % (2.6-8.5); Neutrophils Absolute Auto 6.2 K/mm3 (1.3-6.7); Neutrophils Percent Auto 76.5 % (45.5-73.1); Platelet Count Result 236 k/mm3 (150-375); Red Blood Count 5.19 M/mm3 (4.2-5.4); Red Cell Distribution Width 13.2 % (11.5-14.5); White Blood Count 8.1 K/mm3 (4.5-10.0)
[2024-08-03 17:01] LABS: Lactic Acid Reflex 1.4 mmol/L (0.7-2.0)
[2024-08-03 17:02] LABS: Alanine Aminotransferase 34 U/L (6-35); Albumin Level 4.8 g/dL (3.5-5.1); Alkaline Phosphatase 103 U/L (38-126); Anion Gap 11 mmol/L (4-12); Aspartate Amino Transferase 38 U/L (14-36); Blood Urea Nitrogen 18 mg/dL (7-17); Calcium 10.1 mg/dL (8.4-10.2); Carbon Dioxide 25 mmol/L (22-30); Chloride 103 mmol/L (98-107); Estimated CRCL calculation 52 ml/min; Estimated Glomerular Filt Rate 55; Glucose 144 mg/dL (65-110); Lipase 52 U/L (23-300); Potassium 4.6 mmol/L (3.4-5.0); Sodium 139 mmol/L (137-145)
--- OUTSIDE RECORDS SUMMARY | 2024-08-03 19:43 | XMS_ITS | CONTINUITY OF CARE DOCUMENT ---
Author Name keke davies Address Unknown Organization [facility] Address [address] [place] [address] Phone [phone] Care Team Providers Care Pole Truck Driver Name Role Phone keke davies Unavailable Unavailable
--- OUTSIDE RECORDS SUMMARY | 2024-08-03 19:43 | XMS_ITS | Referral Summary ---
Author Organization [facility] [place] [place] [address] Address [address] [place] [address] Care Team Providers Care Senior Staff Specialized Employment Name Role Phone Arpit Delatorre DO Primary Care Provider [phone] Allergies Active Allergy Reactions Criticality Noted Date [...] mg total) by mouth daily 30 tablet 4 Active Additional Information Patient taking differently:40 mg [...] 10/11/2023 Assessment & Plan (03/18/2024 12:05 PM WARP SPOOLER): S/p CEIOL OD 01/06/24 (Stock), OS 10/11/23 [...] 08/18/2023 Assessment & Plan (03/18/2024 12:17 PM WARP SPOOLER): - Presented initially in 12/2022 with disc edema and vision loss of the right eye; was ultimately diagnosed with NAION due to normal ESR/CRP, absence of GCA symptoms, unremarkable MRA brain/orbits, and clinical features consistent with NAION including lcxs-cb-nugg OS and resolution of the optic disc [...] and clinical features consistent with NAION including jazc-bo-mxso OS and resolution of the optic disc [...] and clinical features consistent with NAION including jxwi-ld-qtgn OS and resolution of the optic disc [...] 03/18/2023 Assessment & Plan (03/18/2023 2:53 PM WARP SPOOLER): Significant hyperopia on autorefraction today Patient currently not using glasses Recommend patient obtain eyeglasses (polycarbonate). If vision still poor OS with updated MRx can refer back to pre-op clinic for cat eval Right optic neuropathy 02/13/2023 Assessment & Plan (03/18/2023 2:50 PM WARP SPOOLER): Follow-up for NAION OD Afferent function stable Disc edema now resolved Stable inferior altitudinal defect on HVF 24-2 Follow-up 3-6 months for repeat HVF 24-2, OCT mac/gcc, OCT rnfl Patient wishes to call to schedule as she states her likely has lung cancer and she needs to help him deal with his affairs first Assessment & Plan (02/13/2023 4:40 PM WARP SPOOLER): Exam today with stable disc edema but [...] HVF 24-2 Coronary artery disease invo lving [place] coronary artery of [place] heart without angina pectoris 04/01/2019 Social History [...] on file Medical Devices Implanted Type Area State Pilot Device Identifier Shelf Expiration Date Model / Serial / Lot [employer] Lens Iol Posterior Biconvex Optic Single Piece Envista 6.0x12.5 +22.0d Hydrophobic Acrylic [id number] - [id number] - [id number] Implanted:Qty: 1 on 10/10/2023 by Fabian Palomino MD at [facility] Lens Left: Eye [employer] [id number] 07/14/2026 [id number] / [id number] Insurance [facility] AETNA MEDICARE GOLD Advance Directives For more information, please contact: [phone] * Full Code (Latest Code Status on File) Date Activated Date Inactivated Comments 08/07/2023 8:09 PM 08/09/2023 4:13 PM Care Teams Senior Staff Specialized Employment Relationship Specialty Start Date End Date Arpit Delatorre DO PCP - General Internal Medicine 09/29/23
--- OUTSIDE RECORDS SUMMARY | 2024-08-03 19:43 | XMS_ITS | Clinical Summary ---
Author Organization [facility] [place] [address] Address [address] [place] [address] Care Team Providers Care Dump Operator Name Role Phone Arpit Delatorre DO Primary Care Provider [phone] Allergies Active Allergy Reactions Criticality Noted Date [...] 10/11/2023 Assessment & Plan (03/18/2024 12:05 PM VENETIAN BLIND ASSEMBLER): S/p CEIOL OD 01/06/24 (Stock), OS 10/11/23 [...] 08/18/2023 Assessment & Plan (03/18/2024 12:17 PM VENETIAN BLIND ASSEMBLER): - Presented initially in 12/2022 with disc edema and vision loss of the right eye; was ultimately diagnosed with NAION due to normal ESR/CRP, absence of GCA symptoms, unremarkable MRA brain/orbits, and clinical features consistent with NAION including eusb-wm-shnr OS and resolution of the optic disc [...] and clinical features consistent with NAION including snom-sw-aewq OS and resolution of the optic disc [...] and clinical features consistent with NAION including tdmn-qm-kdhp OS and resolution of the optic disc [...] 03/18/2023 Assessment & Plan (03/18/2023 2:53 PM VENETIAN BLIND ASSEMBLER): Significant hyperopia on autorefraction today Patient currently not using glasses Recommend patient obtain eyeglasses (polycarbonate). If vision still poor OS with updated MRx can refer back to pre-op clinic for cat eval Right optic neuropathy 02/13/2023 Assessment & Plan (03/18/2023 2:50 PM VENETIAN BLIND ASSEMBLER): Follow-up for NAION OD Afferent function stable Disc edema now resolved Stable inferior altitudinal defect on HVF 24-2 Follow-up 3-6 months for repeat HVF 24-2, OCT mac/gcc, OCT rnfl Patient wishes to call to schedule as she states her likely has lung cancer and she needs to help him deal with his affairs first Assessment & Plan (02/13/2023 4:40 PM VENETIAN BLIND ASSEMBLER): Exam today with stable disc edema but [...] HVF 24-2 Coronary artery disease invo lving [place] coronary artery of [place] heart without angina pectoris 04/01/2019 Surgical History [...] 10/09/2024 10/10/2023 Medical Devices Implanted Type Area Registration Clerk Device Identifier Shelf Expiration Date Model / Serial / Lot [employer] Lens Iol Posterior Biconvex Optic Single Piece Envista 6.0x12.5 +22.0d Hydrophobic Acrylic [id number] - [id number] - [id number] Implanted:Qty: 1 on 10/10/2023 by Fabian Palomino MD at [facility] Lens Left: Eye [employer] [id number] 07/14/2026 [id number] / [id number] / [id number] Insurance [facility] AETNA MEDICARE GOLD AETNA MEDICARE GOLD Advance Directives For more information, please contact: [phone] * Full Code (Latest Code Status on File) Date Activated Date Inactivated Comments 08/07/2023 8:09 PM 08/09/2023 4:13 PM Care Teams Dump Operator Relationship Specialty Start Date End Date Arpit Delatorre DO PCP - General Internal Medicine 09/29/23
--- OUTSIDE RECORDS SUMMARY | 2024-08-03 19:43 | XMS_ITS | Clinical Summary ---
Author Organization [facility] Address [address] [place] [address] Phone Care Team Providers Care Bowstring Maker Name Role Phone Rogelio Cruz Heri HARDING Primary Care Provider [phone] Allergies Active Allergy Reactions Criticality Noted Date [...] Recently Relevant to Health Maintenance Care Teams Bowstring Maker Relationship Specialty Start Date End Date Rogelio Cruz DO [address] [place] [address] PCP - General Internal Medicine 11/10/19
[2024-08-03] MEDS: ONDANSETRON INJ 4 MG/2 ML VIAL (19:54)
[2024-08-03] MEDS: LACTATED RINGERS 1,000 ML 999 ML IV CONT (19:54)
--- NOTE | 2024-08-03 21:04 | PC.NURSE ---
pt educated twice to keep arm straight as it is occluding bolus from going in. Pt verbalized understanding.
--- NOTE | 2024-08-03 21:41 | PC.NURSE ---
ed charge notified of phlebotomy unable to obtain blood cultures.
[2024-08-03] MEDS: LIDO 1%/EPINEPHRINE 1:100,000 20 ML VIAL 5 ML XX (21:53)
[2024-08-03] MEDS: LIDOCAINE 2% VISC SOLN 15 ML UDC 5 ML MUCOUS MEM (21:53)
[2024-08-03] MEDS: SODIUM CHLORIDE 0.9% IV 1,000 ML 75 ML IV CONT (21:53)
[2024-08-03] MEDS: MIDAZOLAM HCL (*CRX) 2 MG/2 ML VIAL IV PUSH (21:54)
[2024-08-03] MEDS: OXYMETAZOLINE HCL 0.05% NAS 15 ML BTL (*BKC) 2 SPRAY NASAL (21:54)
--- NOTE | 2024-08-03 22:06 | PC.NURSE ---
ng placed 70 cm left nare with assistance of foster director of surgery hospitalist
--- NOTE | 2024-08-03 22:11 | PM.IMHP ---
H&P: HPI History of Present Illness Date/Time: 08/03/24 22:11 Chief Complaint: Abdominal pain, nausea/vomiting, Small Bowel Obstruction Narrative: This is a 69-year-old female patient admitted to the hospital for partial bowel obstruction with worsening nausea vomiting and abdominal pain. Patient reports central abdominal pain started approximately 5 days ago and has continued to worsen progressively ever since. Patient reports abdominal bloating and distension. Yesterday she began to have nausea and vomiting. Last BM was on 08/01. Patient reports passing a lot of gas on 08/02 but minimal on 08/03. She reports that since arriving at the hospital this afternoon she has had worsening in pain, distension and nausea/vomiting. She reports having multiple times of producing small amount of bile without full forceful emesis. Patient initially declined NG tube placement. She told me this is because of traumatic experience with placement last time in which they never told her what was going to happen or explained the process and expectations. She reports that 4 people held her down and yelled at her while it was being placed and she was actively vomiting black emesis. After discussion of symptoms including worsening progression of symptoms over the past several days, patient reported that she knows NG placement will be needed. We discussed ways we could make it more comfortable including premedication with anxiolytic and the use of lidocaine and Afrin to make placement less painful and less likely to cause bleeding. She decided to proceed with NG tube placement before going upstairs to the floor. I administered Afrin with lidocaine/epi mixed as nasal spray, viscous lidocaine was used as lubricating jelly and patient received small, non-sedative dose of Versed IV about 5 minutes prior to placement. Initial attempt in right nare met resistance so effort was stopped and we switched to left nare. Insertion was prompt but did cause triggering of gag/vomit reflex. NG to suction while verification XR obtained. XR verified proper placement and patient was taken to the floor for admission. Surgery will be consulted in the morning. Patient reports prior bowel obstruction was able to clear with NG decompression and NPO status. She was in the hospital for 4 days. Obstruction ultimately cleared with barium small bowel follow through on previous admit and patient did not require any surgery. She has had prior cholecystectomy and hysterectomy which may have resulted in adhesions causing current symptoms. Review of Systems Review of Systems: All systems reviewed & are unremarkable except as noted in HPI and below PMFSH Past Medical History Medical History Obesity (BMI 30.0-34.9) Cataract Vision loss Insomnia NAION (non-arteritic anterior ischemic optic neuropathy) Trigger thumb of right hand Hand arthritis Arthritis Gastroesophageal reflux disease Uterine cancer NAFLD (nonalcoholic fatty liver disease) HTN (hypertension) HLD (hyperlipidemia) Adenomatous colon polyp Surgical History Surgical History History of cholecystectomy open History of hysterectomy History of hand surgery History of shoulder surgery Family History Family History Mother Family history of malignant neoplasm, Onset Age: 87 Patient's mother is Father Lung cancer Heart disease Sibling Asthma Cancer Heart disease Social History Social History Smoking status: Never smoker Second hand tobacco smoke exposure: No Alcohol intake: current Alcohol use details: rarely Substance use: never Substance use type: does not use Do You Feel Safe in your Home?: Yes Lack of Transportation: No Lack of Food: Never True Current Housing: I Have Housing Concerned About Future Housing: No Difficulty Paying Gas/Electric Bills: No Difficulty Paying for Meds: No Currently Unemployed: No Education: High School Diploma/GED Difficulty w/ Childcare or Family Care: No Living arrangements: with family Occupation/Education: occupation Additional occupation/education comments: [employer] Gender identity (if verbalized by the patient): Female Spiritual care concerns: No Meds Home Medications and Allergies Home Medications ?Medication ?Instructions ?Recorded ?Confirmed ?Type fluticasone propionate 50 2 spray intranasal DAILY #16 grams 06/02/24 08/03/24 Rx mcg/actuation nasal spray,suspension (Flonase Allergy Relief) lisinopril 30 mg tablet 30 mg PO DAILY #90 tabs 07/16/24 08/03/24 Rx naltrexone 8 mg-bupropion 90 mg 1 tablet PO QAM #30 tabs 07/21/24 08/03/24 Rx tablet,extended release (Contrave) pantoprazole 40 mg tablet,delayed 40 mg PO QAM 07/21/24 08/03/24 History release Allergies Allergy/AdvReac Type Severity Reaction Status Date / Time codeine Allergy Mild Unknown Verified 08/03/24 14:41 metoprolol Allergy Mild Hives Verified 08/03/24 14:41 hydrocodone AdvReac Severe SOB Verified 08/03/24 14:41 Vital Signs Vital Signs - 24 hr 08/03/24 14:38 08/03/24 17:08 08/03/24 19:19 Temperature 36.1 C L 36.2 C L 36.2 C L Pulse Rate 93 80 87 Respiratory Rate 18 16 18 Blood Pressure 144/83 H 128/83 154/86 H Pulse Oximetry 99 98 98 Oxygen Delivery Room Air 08/03/24 19:34 08/03/24 19:35 08/03/24 19:45 Temperature Pulse Rate 80 89 Respiratory Rate 20 19 Blood Pressure 158/81 H Pulse Oximetry 100 99 98 Oxygen Delivery 08/03/24 20:00 08/03/24 20:02 08/03/24 20:15 Temperature Pulse Rate 86 86 82 Respiratory Rate 21 H 19 21 H Blood Pressure 177/113 H Pulse Oximetry 97 97 96 Oxygen Delivery 08/03/24 20:30 08/03/24 20:45 08/03/24 21:03 Temperature Pulse Rate 87 79 78 Respiratory Rate 16 18 17 Blood Pressure Pulse Oximetry 99 100 100 Oxygen Delivery 08/03/24 21:24 08/03/24 21:30 08/03/24 21:30 Temperature Pulse Rate 76 76 76 Respiratory Rate 27 H 16 14 Blood Pressure 140/67 Pulse Oximetry 98 100 99 Oxygen Delivery 08/03/24 21:31 Temperature Pulse Rate 76 Respiratory Rate 15 Blood Pressure 156/71 H Pulse Oximetry 99 Oxygen Delivery Exam Narrative: GENERAL: Uncomfortable appearing with distended abdomen, no respiratory distress HEAD: Normocephalic, atraumatic. ENT:? Dry mucous membranes CHEST: Clear to auscultation.? No respiratory distress. HEART: Regular rate and rhythm. ? Normal peripheral pulses. ABDOMEN: Moderately distended, minimal bowel sounds, moderate tenderness to palpation throughout with no rebound EXTREMITIES: Normal range of motion. No peripheral edema. SKIN: Warm dry normal color NEURO: Alert and oriented x3. No focal neuro deficits noted PSYCH: Normal mood and affect H&P: Results Labs Labs: Short CBC 08/03/24 Range/Units 16:46 WBC 8.1 (4.5-10.0) K/mm3 Hgb 14.2 (12.0-15.0) g/dL Hct 45.6 (37.0-47.0) % Plt Count 236 D (150-375) k/mm3 BMP 08/03/24 16:46 Sodium 139 Potassium 4.6 Chloride 103 Carbon Dioxide 25 BUN 18 H Creatinine 0.99 Glucose 144 H Calcium 10.1 Liver Function 08/03/24 Range/Units 16:46 Total Bilirubin 1.0 (0.2-1.3) mg/dL AST 38 H (14-36) U/L ALT 34 (6-35) U/L Alkaline Phosphatase 103 (38-126) U/L Albumin 4.8 (3.5-5.1) g/dL Pulse Oximetry SpO2 results: 97-100% on room air Attestation: I personally reviewed and interpreted this pulse oximetry as follows: Interpretation: No need for supplemental oxygenation at this time Imaging CT scan - abdomen: My impression: My independent interpretation CT scan pelvis reveals apparent obstruction with dilation small loops and fluid retention within the stomach. Radiologist's impression: CLINICAL INDICATION: Abdominal pain COMPARISON: 08/23/2023. TECHNIQUE: Multiple contiguous axial images of the abdomen and pelvis were performed following the administration of with 100 mL Omnipaque-350 intravenous contrast The dose-length product (DLP) was 1085.16 mGy-cm. Automated exposure control and iterative reconstruction technique were employed. FINDINGS/OBSERVATIONS: Visualized lower thorax: The bilateral lung bases are clear. The heart is of normal size, without pericardial effusion. Small hiatal hernia is present. Liver: The liver demonstrates homogeneous enhancement and is enlarged measuring 21 cm in longitudinal dimension. Gallbladder and biliary system: The gallbladder is surgically absent. Pancreas: The pancreas is atrophic, and enhances homogeneously without ductal dilatation. Spleen: The spleen enhances homogeneously and is not enlarged. Kidneys: The bilateral kidneys enhance symmetrically without hydronephrosis or renal calculi. Adrenal glands: Unremarkable. Gastrointestinal tract: Multiple loops of fluid filled distended small bowel, consistent with small bowel obstruction. Mural thickening and interloop fluid is also noted. Air is present within the colon, suggesting only a partial obstruction. Appendix: The appendix is not definitively visualized. However, no pericecal inflammatory change is identified suggest the presence of acute appendicitis. Vasculature: Trace calcified atherosclerotic disease. Lymph nodes: No pathologically enlarged or morphologically suspicious lymph nodes within the retroperitoneum or at the root of the mesentery. Pelvic structures: The bladder is only minimally distended, and otherwise unremarkable. The uterus is either atrophic or surgically absent. Body wall and musculoskeletal: Small fat-containing umbilical hernia. Age-appropriate degenerative disease within the lumbosacral spine. IMPRESSION: Findings consistent with a distal small bowel obstruction, likely only partial, as detailed above. Reviewed, dictated and finalized at location A. Abdominal x-ray: My impression: My independent interpretation of one view abdomen x-ray yields NG tube in proper position, okay to use Radiologist's impression: EXAM: XR abdomen gastric tube insert DATE: 08/03/2024 22:13 HISTORY: NG PLACEMENT . COMPARISON: 08/23/2023; CT abdomen pelvis 08/03/2024. FINDINGS: Clear lung bases. Normal bowel gas pattern. NG tube, tip and side port in the gastric antrum. Cholecystectomy clips. Hepatomegaly. IMPRESSION: NG tube, in good position. Reviewed, dictated and finalized at location K. Assessment and Plan Assessment and plan (1) Partial small bowel obstruction: Code(s): K56.600 - Partial intestinal obstruction, unspecified as to cause Status: Acute Assessment and Plan: -Second episode of SBO -Symptoms started about 5 days ago initially with abdominal pain then nausea, then vomiting and diarrhea, now nausea/vomiting and limited ability to pass gas -CT scan shows likely partial obstruction without complete transition point -Symptoms have worsened since arrive to hospital and getting CT scan (2) Type II diabetes mellitus: Code(s): E11.9 - Type 2 diabetes mellitus without complications Status: Acute Assessment and Plan: -Recent diagnosis, previously placed on metformin but did not tolerate due to GI symptoms -Patient associates metformin use with first bowel obstruction -Recent A1c was in the 5's per patient report -Defer fingerstick glucose checks at this time -Add if daily labs show major hyperglycemia (3) Non-arteritic AION (anterior ischemic optic neuropathy), both eyes: Code(s): H47.013 - Ischemic optic neuropathy, bilateral Status: Acute Assessment and Plan: -Patient reports 2 blind spots in each eye and states she gets scared if she feels we sneak up on her -Can see larger writing but not small writing (4) HTN (hypertension): Code(s): I10 - Essential (primary) hypertension Status: Acute Assessment and Plan: -Blood pressure reviewed on 08/03/24 and stable -Patient NPO for now with NG tube placed to suction -Hold lisinopril until tolerating diet -Use IV medications if needed for BP >180/120 Quality VTE Prophylaxis VTE prophylaxis: pharmacologic ordered Total time spent on this patient 120 minutes including 30 minutes at bedside to direct medication administration and NG tube placement with patient comfort tended to best possible. Nursing staff actually placed the NG but I verified positioning and instructed on use of medications to help placement be more comfortable. Hospitalist MIPS Advance Care Plan I have confirmed that the patient's Advanced Care Plan is present, code status is documented, or surrogate decision maker is listed in patient medical record.: Yes Medication Reconciliation I have utilized all available resources to obtain, update and review the patients current medications (includes all prescriptions, OTC, herbals, cannabis, and nutritional supplements).: Yes
--- NOTE | 2024-08-03 22:20 | PC.NURSE ---
during ng insertion pt had accidental urine on self. unable to collect ua at this time.
[2024-08-03] MEDS: PANTOPRAZOLE SODIUM IV 40 MG VIAL IV PUSH (23:45)
[2024-08-03] MEDS: KETOROLAC 15 MG/ML VIAL (*BKC) IV PUSH (23:45)
[2024-08-04 05:02] VITALS: BP 117/65; PULSE 74; RESP 18; TEMP 36.6; O2SAT 95
[2024-08-04] MEDS: ENOXAPARIN 40 MG/0.4 ML SYRINGE SUB-Q (09:20)
[2024-08-04] MEDS: KETOROLAC 15 MG/ML VIAL (*BKC) IV PUSH (09:20)
[2024-08-04] MEDS: PANTOPRAZOLE SODIUM IV 40 MG VIAL IV PUSH ×2 (09:20→21:05)
[2024-08-04 14:00] VITALS: BP 124/70; PULSE 90; RESP 18; TEMP 36.1; O2SAT 98
[2024-08-04 14:22] LABS: Add Urine Microscopic? YES; Appearance Urine Cloudy (Clear); Bacteria Urine None Seen /hpf; Bilirubin Urine 2+ (Negative); Blood Urine Negative (Negative); Color Urine Dark Yellow (Yellow); Glucose Urine UA Negative (Negative); Ketones Urine Trace mg/dL (Negative); Leukocyte Esterase Ur Trace LEU/UL (Negative); Mucus Urine Present /lpf; Need Manual Microscopic Reviewed; Nitrate Urine Negative (Negative); Protein Urine 1+ mg/dL (Negative); RBC Urine 0-2 /hpf (0-2); Specific Grav Ur > 1.045 (1.001-1.035); Squamous Epithelial Cell Urine Moderate /hpf (Few)
--- NOTE | 2024-08-04 14:37 | P.CONGS_ITS ---
History of Present Illness Consult details Consult date: 08/04/24 Requesting physician: Justina Esposito MD [facility] Past Medical History Medical History Obesity (BMI 30.0-34.9) Cataract Vision loss Insomnia NAION (non-arteritic anterior ischemic optic neuropathy) Trigger thumb of right hand Hand arthritis Arthritis Gastroesophageal reflux disease Uterine cancer NAFLD (nonalcoholic fatty liver disease) HTN (hypertension) HLD (hyperlipidemia) Adenomatous colon polyp Surgical History Surgical History History of cholecystectomy open History of hysterectomy History of hand surgery History of shoulder surgery Family History Family History Mother Family history of malignant neoplasm, Onset Age: 87 Patient's mother is Father Lung cancer Heart disease Sibling Asthma Cancer Heart disease Social History Social History Smoking status: Never smoker Second hand tobacco smoke exposure: No Alcohol intake: current Alcohol use details: rarely Substance use: never Substance use type: does not use Do You Feel Safe in your Home?: Yes Lack of Transportation: No Lack of Food: Never True Current Housing: I Have Housing Concerned About Future Housing: No Difficulty Paying Gas/Electric Bills: No Difficulty Paying for Meds: No Currently Unemployed: No Education: High School Diploma/GED Difficulty w/ Childcare or Family Care: No Living arrangements: with family Occupation/Education: occupation Additional occupation/education comments: [employer] Gender identity (if verbalized by the patient): Female Spiritual care concerns: No Meds Home Medications and Allergies Home Medications ?Medication ?Instructions ?Recorded ?Confirmed ?Type fluticasone propionate 50 2 spray intranasal DAILY #16 grams 06/02/24 08/03/24 Rx mcg/actuation nasal spray,suspension (Flonase Allergy Relief) lisinopril 30 mg tablet 30 mg PO DAILY #90 tabs 07/16/24 08/03/24 Rx naltrexone 8 mg-bupropion 90 mg 1 tablet PO QAM #30 tabs 07/21/24 08/03/24 Rx tablet,extended release (Contrave) pantoprazole 40 mg tablet,delayed 40 mg PO QAM 07/21/24 08/03/24 History release Allergies Allergy/AdvReac Type Severity Reaction Status Date / Time codeine Allergy Mild Unknown Verified 08/03/24 14:41 metoprolol Allergy Mild Hives Verified 08/03/24 14:41 hydrocodone AdvReac Severe SOB Verified 08/03/24 14:41 Vital Signs Vital Signs - 24 hr 08/03/24 14:38 08/03/24 17:08 08/03/24 19:19 Temperature 97.0 F L 97.1 F L 97.1 F L Pulse Rate 93 80 87 Respiratory Rate 18 16 18 Blood Pressure 144/83 H 128/83 154/86 H Pulse Oximetry 99 98 98 Oxygen Delivery Room Air 08/03/24 19:34 08/03/24 19:35 08/03/24 19:45 Temperature Pulse Rate 80 89 Respiratory Rate 20 19 Blood Pressure 158/81 H Pulse Oximetry 100 99 98 Oxygen Delivery 08/03/24 20:00 08/03/24 20:02 08/03/24 20:15 Temperature Pulse Rate 86 86 82 Respiratory Rate 21 H 19 21 H Blood Pressure 177/113 H Pulse Oximetry 97 97 96 Oxygen Delivery 08/03/24 20:30 08/03/24 20:45 08/03/24 21:03 Temperature Pulse Rate 87 79 78 Respiratory Rate 16 18 17 Blood Pressure Pulse Oximetry 99 100 100 Oxygen Delivery 08/03/24 21:24 08/03/24 21:30 08/03/24 21:30 Temperature Pulse Rate 76 76 76 Respiratory Rate 27 H 16 14 Blood Pressure 140/67 Pulse Oximetry 98 100 99 Oxygen Delivery 08/03/24 21:31 08/03/24 23:03 08/04/24 05:02 Temperature 97.8 F 97.8 F Pulse Rate 76 82 74 Respiratory Rate 15 18 18 Blood Pressure 156/71 H 160/75 H 117/65 Pulse Oximetry 99 98 95 Oxygen Delivery 08/04/24 08:00 08/04/24 14:00 Temperature 96.9 F L Pulse Rate 90 Respiratory Rate 18 Blood Pressure 124/70 Pulse Oximetry 98 Oxygen Delivery Room Air Results Labs 08/03/24 16:46 08/03/24 16:46 Labs: Abnormal lab results 08/03/24 08/04/24 Range/Units 16:46 13:54 MCHC 31.1 L (32-36) g/dl MPV 10.5 H (7.4-10.4) fl Neut % (Auto) 76.5 H (45.5-73.1) % Lymph % (Auto) 17.1 L (18.3-44.2) % BUN 18 H (7-17) mg/dL Estimated GFR 55 L (59 - ) Glucose 144 H (65-110) mg/dL AST 38 H (14-36) U/L Urine Appearance Cloudy H (Clear) Ur Specific [place] > 1.045 H (1.001-1.035) Urine Protein 1+ H (Negative) mg/dL Urine Ketones Trace H (Negative) mg/dL Urine Bilirubin 2+ H (Negative) Leukocyte Esterase Rfl Trace H (Negative) MICHAEL/UL Urine WBC 6-10 H (0-3) /hpf Diabetes panel 08/03/24 Range/Units 16:46 Sodium 139 (137-145) mmol/L Potassium 4.6 (3.4-5.0) mmol/L Chloride 103 (98-107) mmol/L Carbon Dioxide 25 (22-30) mmol/L BUN 18 H (7-17) mg/dL Creatinine 0.99 (0.7-1.0) mg/dL Glucose 144 H (65-110) mg/dL Calcium 10.1 (8.4-10.2) mg/dL AST 38 H (14-36) U/L ALT 34 (6-35) U/L Alkaline Phosphatase 103 (38-126) U/L Total Protein 8.0 (6.3-8.2) g/dL Albumin 4.8 (3.5-5.1) g/dL Calcium panel 08/03/24 Range/Units 16:46 Calcium 10.1 (8.4-10.2) mg/dL Albumin 4.8 (3.5-5.1) g/dL Pituitary panel 08/03/24 Range/Units 16:46 Sodium 139 (137-145) mmol/L Potassium 4.6 (3.4-5.0) mmol/L Chloride 103 (98-107) mmol/L Carbon Dioxide 25 (22-30) mmol/L BUN 18 H (7-17) mg/dL Creatinine 0.99 (0.7-1.0) mg/dL Glucose 144 H (65-110) mg/dL Calcium 10.1 (8.4-10.2) mg/dL Adrenal panel 08/03/24 Range/Units 16:46 Sodium 139 (137-145) mmol/L Potassium 4.6 (3.4-5.0) mmol/L Chloride 103 (98-107) mmol/L Carbon Dioxide 25 (22-30) mmol/L BUN 18 H (7-17) mg/dL Creatinine 0.99 (0.7-1.0) mg/dL Glucose 144 H (65-110) mg/dL Calcium 10.1 (8.4-10.2) mg/dL Total Bilirubin 1.0 (0.2-1.3) mg/dL AST 38 H (14-36) U/L ALT 34 (6-35) U/L Alkaline Phosphatase 103 (38-126) U/L Total Protein 8.0 (6.3-8.2) g/dL Albumin 4.8 (3.5-5.1) g/dL All other labs normal.
--- NOTE | 2024-08-04 14:47 | P.PNIM_ITS ---
Progress Note: A&P Assessment and Plan (1) Partial small bowel obstruction: Code(s): K56.600 - Partial intestinal obstruction, unspecified as to cause Status: Acute Assessment and Plan: -Second episode of SBO -Symptoms started about 5 days ago initially with abdominal pain then nausea, then vomiting and diarrhea, now nausea/vomiting and limited ability to pass gas -CT scan shows likely partial obstruction without complete transition point no n/n, NG in place waiting for surgery consult (2) Type II diabetes mellitus: Code(s): E11.9 - Type 2 diabetes mellitus without complications Status: Acute Assessment and Plan: -Recent diagnosis, previously placed on metformin but did not tolerate due to GI symptoms -Patient associates metformin use with first bowel obstruction -Recent A1c was in the 5's per patient report -Defer fingerstick glucose checks at this time -Add if daily labs show major hyperglycemia (3) Non-arteritic AION (anterior ischemic optic neuropathy), both eyes: Code(s): H47.013 - Ischemic optic neuropathy, bilateral Status: Acute Assessment and Plan: -Patient reports 2 blind spots in each eye and states she gets scared if she feels we sneak up on her -Can see larger writing but not small writing monitor avoid sneaking up on pt (4) HTN (hypertension): Code(s): I10 - Essential (primary) hypertension Status: Acute Assessment and Plan: -Blood pressure reviewed on 08/03/24 and stable -Patient NPO for now with NG tube placed to suction -Hold lisinopril until tolerating diet -Use IV medications if needed for BP >180/120 Time Spent With Patient Time with patient: 25 - 35 minutes Subjective Date/time seen: 08/04/24 14:47 Interval history: 69-year-old female patient admitted to the hospital for partial bowel obstruction, nausea vomiting and abdominal pain. She had SBO in the past. NG was inserted in ED and helped with nausea. She is better now-wants NG remov ed- but waiting for surgery to come and see her. Surgery was consulted. She reports no nausea, no pain. Review of Systems Review of Systems: All systems reviewed & are unremarkable except as noted in HPI and below Exam Narrative: GENERAL: Uncomfortable appearing with distended abdomen, no respiratory distress HEAD: Normocephalic, atraumatic. ENT:? Dry mucous membranes CHEST: Clear to auscultation.? No respiratory distress. HEART: Regular rate and rhythm. ? Normal peripheral pulses. ABDOMEN: Moderately distended, minimal bowel sounds, moderate tenderness to palpation throughout with no rebound EXTREMITIES: Normal range of motion. No peripheral edema. SKIN: Warm dry normal color NEURO: Alert and oriented x3. No focal neuro deficits noted PSYCH: Normal mood and affect Objective Data Vital Signs Vital Signs: Vital Signs - 24 hr 08/03/24 17:08 08/03/24 19:19 08/03/24 19:34 Temperature 97.1 F L 97.1 F L Pulse Rate 80 87 Respiratory Rate 16 18 Blood Pressure 128/83 154/86 H Pulse Oximetry 98 98 100 Oxygen Delivery 08/03/24 19:35 08/03/24 19:45 08/03/24 20:00 Temperature Pulse Rate 80 89 86 Respiratory Rate 20 19 21 H Blood Pressure 158/81 H Pulse Oximetry 99 98 97 Oxygen Delivery 08/03/24 20:02 08/03/24 20:15 08/03/24 20:30 Temperature Pulse Rate 86 82 87 Respiratory Rate 19 21 H 16 Blood Pressure 177/113 H Pulse Oximetry 97 96 99 Oxygen Delivery 08/03/24 20:45 08/03/24 21:03 08/03/24 21:24 Temperature Pulse Rate 79 78 76 Respiratory Rate 18 17 27 H Blood Pressure Pulse Oximetry 100 100 98 Oxygen Delivery 08/03/24 21:30 08/03/24 21:30 08/03/24 21:31 Temperature Pulse Rate 76 76 76 Respiratory Rate 16 14 15 Blood Pressure 140/67 156/71 H Pulse Oximetry 100 99 99 Oxygen Delivery 08/03/24 23:03 08/04/24 05:02 08/04/24 08:00 Temperature 97.8 F 97.8 F Pulse Rate 82 74 Respiratory Rate 18 18 Blood Pressure 160/75 H 117/65 Pulse Oximetry 98 95 Oxygen Delivery Room Air 08/04/24 14:00 Temperature 96.9 F L Pulse Rate 90 Respiratory Rate 18 Blood Pressure 124/70 Pulse Oximetry 98 Oxygen Delivery Intake/Output Intake/Output: Intake & Output 08/01/24 08/02/24 08/03/24 08/04/24 23:59 23:59 23:59 23:59 Intake Total 1000 Output Total 400 Balance 1000 -400 Meds/Results Medications: Active Medications Generic Name Dose Route Start Last Admin Trade Name Freq PRN Reason Stop Dose Admin Enoxaparin Sodium 40 mg 08/04/24 09:00 08/04/24 09:20 Enoxaparin 40 Mg/0.4 Ml Syringe SUB-Q 40 mg DAILY TAMIE Administration Fluticasone Propionate 2 spray 08/04/24 09:00 Fluticasone Propionate 0.05% Na Spr 16 Gm Btl (*Bkc) NASAL DAILY TAMIE Sodium Chloride 1,000 mls @ 75 mls/hr 08/03/24 21:05 08/03/24 21:53 Normal Saline Iv IV CONT 75 mls/hr .[id number] TAMIE Administration Ketorolac Tromethamine 15 mg 08/03/24 23:28 08/04/24 09:20 Ketorolac 15 Mg/Ml Vial (*Bkc) IV PUSH 15 mg Q8H PRN Administration Pain Rated 6 or Greater Pantoprazole Sodium 40 mg 08/03/24 23:25 08/04/24 09:20 Pantoprazole Sodium Iv 40 Mg Vial IV PUSH 40 mg Q12HR TAMIE Administration Radiology Results: ITS Impressions Abdomen/Pelvis CT 08/03/24 18:23 IMPRESSION: Findings consistent with a distal small bowel obstruction, likely only partial, as detailed above. Abdomen X-Ray 08/03/24 22:14 IMPRESSION: NG tube, in good position. Labs Labs: Laboratory Results - last 24 hr 08/03/24 08/04/24 16:46 13:54 WBC 8.1 RBC 5.19 Hgb 14.2 Hct 45.6 MCV 87.9 MCH 27.4 MCHC 31.1 L RDW 13.2 Plt Count 236 D MPV 10.5 H Immature Gran % (Auto) 0.2 Neut % (Auto) 76.5 H Lymph % (Auto) 17.1 L [place] % (Auto) 4.6 Eos % (Auto) 1.2 Baso % (Auto) 0.4 Lymph # (Auto) 1.39 [place] # (Auto) 0.4 Eos # (Auto) 0.1 Baso # (Auto) 0.0 Abs Immat Gran (auto) 0.02 Absolute Neuts (auto) 6.2 Absolute Nucleated RBC 0.000 Nucleated RBC % 0.0 Sodium 139 Potassium 4.6 Chloride 103 Carbon Dioxide 25 Anion Gap 11 BUN 18 H Creatinine 0.99 Estim Creat Clear Calc 52 Estimated GFR 55 L Glucose 144 H Lactic Acid 1.4 Calcium 10.1 Total Bilirubin 1.0 AST 38 H ALT 34 Alkaline Phosphatase 103 Total Protein 8.0 Albumin 4.8 Lipase 52 Urine Color Dark yellow Urine Appearance Cloudy H Urine pH 5.0 Ur Specific [place] > 1.045 H Urine Protein 1+ H Urine Glucose (UA) Negative Urine Ketones Trace H Ur Blood (Man) Negative Urine Nitrate Negative Urine Bilirubin 2+ H Urine Urobilinogen 1.0 Add Ur Microanalysis Reviewed Leukocyte Esterase Rfl Trace H Urine RBC 0-2 Urine WBC 6-10 H Ur Squamous Epith Cells Moderate Urine Bacteria None seen Urine Casts 3-5 Urine Mucus Present Quality VTE Prophylaxis VTE prophylaxis: pharmacologic ordered
--- NOTE | 2024-08-04 14:55 | PM.CNGS ---
Assessment and Plan Assessment and plan (1) Small bowel obstruction: Code(s): K56.609 - Unspecified intestinal obstruction, unspecified as to partial versus complete obstruction Status: Acute Assessment and Plan: Patient is a 69 yr old female admitted for N/V and abdominal pain x 6 days. Surgical history includes hysterectomy and open cholecystectomy. CT abd indicative of partial small bowel obstruction. This could likely be due to adhesions from previous abdominal surgeries. NG tube output around 400 today. Patient is not in any acute distress and reports decreased pain. Very mild diffuse abdominal tenderness upon palpation. Plan to keep NG tube in overnight and obtain small bowel series tomorrow to further evaluate for small bowel obstruction. Consider exploratory surgery pending small bowel series results. Discontinue Toradol. Switch to morphine PRN for pain. NPO. Patient was seen and evaluated with Nancy Pierce. (2) HTN (hypertension): Code(s): I10 - Essential (primary) hypertension Status: Acute (3) Type II diabetes mellitus: Code(s): E11.9 - Type 2 diabetes mellitus without complications Status: Acute Plan Patient is a 69 yr old female admitted for N/V and abdominal pain x 6 days. Surgical history includes hysterectomy and open cholecystectomy. CT abd indicative of partial small bowel obstruction. This could likely be due to adhesions from previous abdominal surgeries. NG tube output around 400 today. Patient is not in any acute distress and reports decreased pain. Very mild diffuse abdominal tenderness upon palpation. Plan to keep NG tube in overnight and obtain small bowel series tomorrow to further evaluate for small bowel obstruction. Consider exploratory surgery pending small bowel series results. Discontinue Toradol. Switch to morphine PRN for pain. NPO. History of Present Illness Consult details Consult date: 08/04/24 Narrative: Patient is a 69 yr old female with surgical history of open cholecystectomy and hysterectomy who presented 08/03 to the ED with abdominal pain and N/V x 6 days. Last bowel movement was 3 days ago. Very minimal oral intake over the past few days. She reports having daily bowel movements prior to this episode. Patient admitted for small bowel obstruction ~1 year ago that resolved with NG tube decompression. CT findings consistent with a distal small bowel obstruction, likely only partial. General surgery consulted. Patient having significant output from NG tube around 400 mL of dark green bile fluid upon today's consult. She reports less pain today, but that she was given pain medication around 1100. No flatus or bowel movements since admission. Review of Systems Gastrointestinal: Gastrointestinal: Reports abdominal pain (mild), Denies diarrhea, Denies nausea and Denies vomiting [facility] Past Medical History Medical History Obesity (BMI 30.0-34.9) Cataract Vision loss Insomnia NAION (non-arteritic anterior ischemic optic neuropathy) Trigger thumb of right hand Hand arthritis Arthritis Gastroesophageal reflux disease Uterine cancer NAFLD (nonalcoholic fatty liver disease) HTN (hypertension) HLD (hyperlipidemia) Adenomatous colon polyp Surgical History Surgical History History of cholecystectomy open History of hysterectomy History of hand surgery History of shoulder surgery Family History Family History Mother Family history of malignant neoplasm, Onset Age: 87 Patient's mother is Father Lung cancer Heart disease Sibling Asthma Cancer Heart disease Social History Social History Smoking status: Never smoker Second hand tobacco smoke exposure: No Alcohol intake: current Alcohol use details: rarely Substance use: never Substance use type: does not use Do You Feel Safe in your Home?: Yes Lack of Transportation: No Lack of Food: Never True Current Housing: I Have Housing Concerned About Future Housing: No Difficulty Paying Gas/Electric Bills: No Difficulty Paying for Meds: No Currently Unemployed: No Education: High School Diploma/GED Difficulty w/ Childcare or Family Care: No Living arrangements: with family Occupation/Education: occupation Additional occupation/education comments: [employer] Gender identity (if verbalized by the patient): Female Spiritual care concerns: No Meds Home Medications and Allergies Home Medications ?Medication ?Instructions ?Recorded ?Confirmed ?Type fluticasone propionate 50 2 spray intranasal DAILY #16 grams 06/02/24 08/03/24 Rx mcg/actuation nasal spray,suspension (Flonase Allergy Relief) lisinopril 30 mg tablet 30 mg PO DAILY #90 tabs 07/16/24 08/03/24 Rx naltrexone 8 mg-bupropion 90 mg 1 tablet PO QAM #30 tabs 07/21/24 08/03/24 Rx tablet,extended release (Contrave) pantoprazole 40 mg tablet,delayed 40 mg PO QAM 07/21/24 08/03/24 History release Allergies Allergy/AdvReac Type Severity Reaction Status Date / Time codeine Allergy Mild Unknown Verified 08/03/24 14:41 metoprolol Allergy Mild Hives Verified 08/03/24 14:41 hydrocodone AdvReac Severe SOB Verified 08/03/24 14:41 Vital Signs Vital Signs - 24 hr 08/03/24 17:08 08/03/24 19:19 08/03/24 19:34 Temperature 97.1 F L 97.1 F L Pulse Rate 80 87 Respiratory Rate 16 18 Blood Pressure 128/83 154/86 H Pulse Oximetry 98 98 100 Oxygen Delivery 08/03/24 19:35 08/03/24 19:45 08/03/24 20:00 Temperature Pulse Rate 80 89 86 Respiratory Rate 20 19 21 H Blood Pressure 158/81 H Pulse Oximetry 99 98 97 Oxygen Delivery 08/03/24 20:02 08/03/24 20:15 08/03/24 20:30 Temperature Pulse Rate 86 82 87 Respiratory Rate 19 21 H 16 Blood Pressure 177/113 H Pulse Oximetry 97 96 99 Oxygen Delivery 08/03/24 20:45 08/03/24 21:03 08/03/24 21:24 Temperature Pulse Rate 79 78 76 Respiratory Rate 18 17 27 H Blood Pressure Pulse Oximetry 100 100 98 Oxygen Delivery 08/03/24 21:30 08/03/24 21:30 08/03/24 21:31 Temperature Pulse Rate 76 76 76 Respiratory Rate 16 14 15 Blood Pressure 140/67 156/71 H Pulse Oximetry 100 99 99 Oxygen Delivery 08/03/24 23:03 08/04/24 05:02 08/04/24 08:00 Temperature 97.8 F 97.8 F Pulse Rate 82 74 Respiratory Rate 18 18 Blood Pressure 160/75 H 117/65 Pulse Oximetry 98 95 Oxygen Delivery Room Air 08/04/24 14:00 Temperature 96.9 F L Pulse Rate 90 Respiratory Rate 18 Blood Pressure 124/70 Pulse Oximetry 98 Oxygen Delivery Exam Eyes: Pupils: Equal, round and reactive pupils present Resp: Effort & Inspection: normal respiratory effort Auscultation: clear to auscultation bilaterally Cardio: Rate: regular rate Rhythm: regular rhythm GI: Inspection: non-distended GI Palp: Yes Soft to palpation, Yes Tenderness to palpation present (GI) (diffuse mild tenderness) and No Guarding due to palpation present (GI) Auscultation: abnormal bowel sounds (hypoactive) Neuro: Speech: normal speech Results Labs 08/03/24 16:46 08/03/24 16:46 Labs: Abnormal lab results 08/03/24 08/04/24 Range/Units 16:46 13:54 MCHC 31.1 L (32-36) g/dl MPV 10.5 H (7.4-10.4) fl Neut % (Auto) 76.5 H (45.5-73.1) % Lymph % (Auto) 17.1 L (18.3-44.2) % BUN 18 H (7-17) mg/dL Estimated GFR 55 L (59 - ) Glucose 144 H (65-110) mg/dL AST 38 H (14-36) U/L Urine Appearance Cloudy H (Clear) Ur Specific [place] > 1.045 H (1.001-1.035) Urine Protein 1+ H (Negative) mg/dL Urine Ketones Trace H (Negative) mg/dL Urine Bilirubin 2+ H (Negative) Leukocyte Esterase Rfl Trace H (Negative) MICHAEL/UL Urine WBC 6-10 H (0-3) /hpf Diabetes panel 08/03/24 Range/Units 16:46 Sodium 139 (137-145) mmol/L Potassium 4.6 (3.4-5.0) mmol/L Chloride 103 (98-107) mmol/L Carbon Dioxide 25 (22-30) mmol/L BUN 18 H (7-17) mg/dL Creatinine 0.99 (0.7-1.0) mg/dL Glucose 144 H (65-110) mg/dL Calcium 10.1 (8.4-10.2) mg/dL AST 38 H (14-36) U/L ALT 34 (6-35) U/L Alkaline Phosphatase 103 (38-126) U/L Total Protein 8.0 (6.3-8.2) g/dL Albumin 4.8 (3.5-5.1) g/dL Calcium panel 08/03/24 Range/Units 16:46 Calcium 10.1 (8.4-10.2) mg/dL Albumin 4.8 (3.5-5.1) g/dL Pituitary panel 08/03/24 Range/Units 16:46 Sodium 139 (137-145) mmol/L Potassium 4.6 (3.4-5.0) mmol/L Chloride 103 (98-107) mmol/L Carbon Dioxide 25 (22-30) mmol/L BUN 18 H (7-17) mg/dL Creatinine 0.99 (0.7-1.0) mg/dL Glucose 144 H (65-110) mg/dL Calcium 10.1 (8.4-10.2) mg/dL Adrenal panel 08/03/24 Range/Units 16:46 Sodium 139 (137-145) mmol/L Potassium 4.6 (3.4-5.0) mmol/L Chloride 103 (98-107) mmol/L Carbon Dioxide 25 (22-30) mmol/L BUN 18 H (7-17) mg/dL Creatinine 0.99 (0.7-1.0) mg/dL Glucose 144 H (65-110) mg/dL Calcium 10.1 (8.4-10.2) mg/dL Total Bilirubin 1.0 (0.2-1.3) mg/dL AST 38 H (14-36) U/L ALT 34 (6-35) U/L Alkaline Phosphatase 103 (38-126) U/L Total Protein 8.0 (6.3-8.2) g/dL Albumin 4.8 (3.5-5.1) g/dL All other labs normal.
[2024-08-04 20:00] VITALS: PULSE 89; RESP 20; O2SAT 98
[2024-08-04 20:44] VITALS: BP 125/63; PULSE 89; RESP 20; TEMP 37.2; O2SAT 98
[2024-08-04] MEDS: SODIUM CHLORIDE 0.9% IV 1,000 ML 100 ML IV CONT (21:06)
[2024-08-05 06:00] VITALS: BP 141/67; PULSE 82; RESP 18; TEMP 36.3; O2SAT 97
[2024-08-05 06:17] LABS: Hematocrit 43.5 % (37.0-47.0); Hemoglobin 13.2 g/dL (12.0-15.0); Mean Corpuscular HGB Conc 30.3 g/dl (32-36); Mean Corpuscular Hemoglobin 27.5 pg (26-34); Mean Corpuscular Volume 90.6 fl (80-100); Mean Platelet Volume 10.7 fl (7.4-10.4); Platelet Count Result 182 k/mm3 (150-375); Red Cell Distribution Width 13.4 % (11.5-14.5); White Blood Count 5.9 K/mm3 (4.5-10.0)
[2024-08-05 06:34] LABS: Sodium 139 mmol/L (137-145)
[2024-08-05 06:38] LABS: Anion Gap 6 mmol/L (4-12); Blood Urea Nitrogen 24 mg/dL (7-17); Calcium 8.5 mg/dL (8.4-10.2); Carbon Dioxide 27 mmol/L (22-30); Chloride 106 mmol/L (98-107); Estimated CRCL calculation 45 ml/min; Estimated Glomerular Filt Rate 46; Glucose 120 mg/dL (65-110); Potassium 4.1 mmol/L (3.4-5.0)
[2024-08-05] MEDS: PANTOPRAZOLE SODIUM IV 40 MG VIAL IV PUSH ×2 (08:29→21:38)
[2024-08-05] MEDS: ENOXAPARIN 40 MG/0.4 ML SYRINGE SUB-Q (08:29)
[2024-08-05 08:59] VITALS: O2SAT 96
[2024-08-05] MEDS: ONDANSETRON INJ 4 MG/2 ML VIAL IV PUSH (11:50)
--- NOTE | 2024-08-05 11:58 | P.PNGS_ITS ---
Progress Note: A&P Assessment and Plan (1) Small bowel obstruction: Code(s): K56.609 - Unspecified intestinal obstruction, unspecified as to partial versus complete obstruction Status: Acute Assessment and Plan: Small bowel series showed normal small bowel follow-through with transit time of 45 minutes. NG tube removed. Advance to clear liquid diet. Continue Toradol PRN for pain and Zofran for nausea. Patient was seen and evaluated with Nancy Pierce. (2) HTN (hypertension): Code(s): I10 - Essential (primary) hypertension Status: Acute (3) Type II diabetes mellitus: Code(s): E11.9 - Type 2 diabetes mellitus without complications Status: Acute Subjective Subjective Date/Time Seen: 08/05/24 11:58 Interval history: No acute events overnight. Vital signs stable. Small bowel series this morning was normal with transit time of 45 minutes. Patient experiencing some nausea and diarrhea, likely from contrast dye. NG tube removed. Review of Systems Gastrointestinal: Gastrointestinal: Reports diarrhea and Reports nausea Exam Eyes: General: appearance normal, both eyes and all related structures Neck: Neck: supple GI: Inspection: non-distended GI Palp: Yes Soft to palpation, No Tenderness to palpation present (GI) and No Guarding due to palpation present (GI) Objective Data Vital Signs Vital Signs: Vital Signs - 24 hr 08/04/24 14:00 08/04/24 20:00 08/04/24 20:44 Temperature 96.9 F L 99 F Pulse Rate 90 89 89 Respiratory Rate 18 20 20 Blood Pressure 124/70 125/63 Pulse Oximetry 98 98 98 Oxygen Delivery Room Air 08/05/24 06:00 08/05/24 08:30 08/05/24 08:59 Temperature 97.3 F L Pulse Rate 82 Respiratory Rate 18 Blood Pressure 141/67 H Pulse Oximetry 97 96 Oxygen Delivery Room Air Room Air Intake/Output Intake/Output: Intake & Output 08/02/24 08/03/24 08/04/24 08/05/24 23:59 23:59 23:59 23:59 Intake Total 1000 1000 1000 Output Total 550 300 Balance 1000 450 700 Meds/Results Medications: Active Medications Generic Name Dose Route Start Last Admin Trade Name Freq PRN Reason Stop Dose Admin Enoxaparin Sodium 40 mg 08/04/24 09:00 08/05/24 08:29 Enoxaparin 40 Mg/0.4 Ml Syringe SUB-Q 40 mg DAILY TAMIE Administration Fluticasone Propionate 2 spray 08/04/24 09:00 08/05/24 08:36 Fluticasone Propionate 0.05% Na Spr 16 Gm Btl (*Bkc) NASAL Not Given DAILY TAMIE Sodium Chloride 1,000 mls @ 100 mls/hr 08/03/24 21:05 08/05/24 10:30 Normal Saline Iv IV CONT Infused .Q10H TAMIE Infusion Ketorolac Tromethamine 15 mg 08/03/24 23:28 08/04/24 09:20 Ketorolac 15 Mg/Ml Vial (*Bkc) IV PUSH 15 mg Q8H PRN Administration Pain Rated 6 or Greater Ondansetron HCl 4 mg 08/05/24 11:22 08/05/24 11:50 Ondansetron Inj 4 Mg/2 Ml Vial IV PUSH 4 mg Q6H PRN Administration Nausea And Vomiting Pantoprazole Sodium 40 mg 08/03/24 23:25 08/05/24 08:29 Pantoprazole Sodium Iv 40 Mg Vial IV PUSH 40 mg Q12HR TAMIE Administration Radiology Results: ITS Impressions Abdomen/Pelvis CT 08/03/24 18:23 IMPRESSION: Findings consistent with a distal small bowel obstruction, likely only partial, as detailed above. Abdomen X-Ray 08/03/24 22:14 IMPRESSION: NG tube, in good position. Small Bowel X-Ray 08/05/24 10:57 IMPRESSION: 1. Normal small bowel follow-through with transit time of 45 minutes. 2. Nasogastric tube tip at the gastric pylorus. Consider withdrawal by 10-12 cm. Labs Labs: Laboratory Results - last 24 hr 08/04/24 08/05/24 13:54 05:37 WBC 5.9 RBC 4.80 Hgb 13.2 Hct 43.5 MCV 90.6 MCH 27.5 MCHC 30.3 L RDW 13.4 Plt Count 182 MPV 10.7 H Sodium 139 Potassium 4.1 Chloride 106 Carbon Dioxide 27 Anion Gap 6 BUN 24 H Creatinine 1.16 H Estim Creat Clear Calc 45 Estimated GFR 46 L Glucose 120 H Calcium 8.5 Urine Color Dark yellow Urine Appearance Cloudy H Urine pH 5.0 Ur Specific [place] > 1.045 H Urine Protein 1+ H Urine Glucose (UA) Negative Urine Ketones Trace H Ur Blood (Man) Negative Urine Nitrate Negative Urine Bilirubin 2+ H Urine Urobilinogen 1.0 Add Ur Microanalysis Reviewed Leukocyte Esterase Rfl Trace H Urine RBC 0-2 Urine WBC 6-10 H Ur Squamous Epith Cells Moderate Urine Bacteria None seen Urine Casts 3-5 Urine Mucus Present
--- NOTE | 2024-08-05 14:31 | PM.IMPN ---
Progress Note: A&P Assessment and Plan (1) Partial small bowel obstruction: Code(s): K56.600 - Partial intestinal obstruction, unspecified as to cause Status: Acute Assessment and Plan: -Second episode of SBO -Symptoms started about 5 days ago initially with abdominal pain then nausea, then vomiting and diarrhea, now nausea/vomiting and limited ability to pass gas -CT scan shows likely partial obstruction without complete transition point no n/n, NG in place waiting for surgery consult 08/05- NG is pulled per surgery Small bowel series showed normal small bowel follow-through, ok to Advance to clear liquid diet per surgery Continue Toradol PRN for pain and Zofran for nausea. (2) Type II diabetes mellitus: Code(s): E11.9 - Type 2 diabetes mellitus without complications Status: Acute Assessment and Plan: -Recent diagnosis, previously placed on metformin but did not tolerate due to GI symptoms -Patient associates metformin use with first bowel obstruction -Recent A1c was in the 5's per patient report -Defer fingerstick glucose checks at this time (3) Non-arteritic AION (anterior ischemic optic neuropathy), both eyes: Code(s): H47.013 - Ischemic optic neuropathy, bilateral Status: Acute Assessment and Plan: -Patient reports 2 blind spots in each eye and states she gets scared if she feels we sneak up on her -Can see larger writing but not small writing monitor avoid sneaking up on pt (4) HTN (hypertension): Code(s): I10 - Essential (primary) hypertension Status: Acute Assessment and Plan: -Blood pressure reviewed and stable -Patient NPO for now with NG tube placed to suction -Hold lisinopril until tolerating diet -Use IV medications if needed for BP >180/120 Time Spent With Patient Time with patient: 25 - 35 minutes Subjective Date/time seen: 08/05/24 14:31 Interval history: 69-year-old female patient admitted to the hospital for partial bowel obstruction, nausea vomiting and abdominal pain. She had SBO in the past. NG is removed today. Pt had BMs, no nausea. Diet is advanced to clears per surgery. Review of Systems Review of Systems: All systems reviewed & are unremarkable except as noted in HPI and below Exam Narrative: GENERAL: alert, calm, in no respiratory distress HEAD: Normocephalic, atraumatic. ENT:? Dry mucous membranes CHEST: Clear to auscultation.? No respiratory distress. HEART: Regular rate and rhythm. ? Normal peripheral pulses. ABDOMEN: Moderately distended, positive bowel sounds EXTREMITIES: Normal range of motion. No peripheral edema. SKIN: Warm dry normal color NEURO: Alert and oriented x3. No focal neuro deficits noted PSYCH: Normal mood and affect Const: General: comfortable Objective Data Vital Signs Vital Signs: Vital Signs - 24 hr 08/04/24 20:00 08/04/24 20:44 08/05/24 06:00 Temperature 99 F 97.3 F L Pulse Rate 89 89 82 Respiratory Rate 20 20 18 Blood Pressure 125/63 141/67 H Pulse Oximetry 98 98 97 Oxygen Delivery Room Air 08/05/24 08:30 08/05/24 08:59 Temperature Pulse Rate Respiratory Rate Blood Pressure Pulse Oximetry 96 Oxygen Delivery Room Air Room Air Intake/Output Intake/Output: Intake & Output 08/02/24 08/03/24 08/04/24 08/05/24 23:59 23:59 23:59 23:59 Intake Total 1000 1000 1200 Output Total 550 300 Balance 1000 450 900 Meds/Results Medications: Active Medications Generic Name Dose Route Start Last Admin Trade Name Freq PRN Reason Stop Dose Admin Enoxaparin Sodium 40 mg 08/04/24 09:00 08/05/24 08:29 Enoxaparin 40 Mg/0.4 Ml Syringe SUB-Q 40 mg DAILY TAMIE Administration Fluticasone Propionate 2 spray 08/04/24 09:00 08/05/24 08:36 Fluticasone Propionate 0.05% Na Spr 16 Gm Btl (*Bkc) NASAL Not Given DAILY TAMIE Sodium Chloride 1,000 mls @ 100 mls/hr 08/03/24 21:05 08/05/24 10:30 Normal Saline Iv IV CONT Infused .Q10H TAMIE Infusion Ketorolac Tromethamine 15 mg 08/03/24 23:28 08/04/24 09:20 Ketorolac 15 Mg/Ml Vial (*Bkc) IV PUSH 15 mg Q8H PRN Administration Pain Rated 6 or Greater Ondansetron HCl 4 mg 08/05/24 11:22 08/05/24 11:50 Ondansetron Inj 4 Mg/2 Ml Vial IV PUSH 4 mg Q6H PRN Administration Nausea And Vomiting Pantoprazole Sodium 40 mg 08/03/24 23:25 08/05/24 08:29 Pantoprazole Sodium Iv 40 Mg Vial IV PUSH 40 mg Q12HR TAMIE Administration Radiology Results: ITS Impressions Abdomen/Pelvis CT 08/03/24 18:23 IMPRESSION: Findings consistent with a distal small bowel obstruction, likely only partial, as detailed above. Abdomen X-Ray 08/03/24 22:14 IMPRESSION: NG tube, in good position. Small Bowel X-Ray 08/05/24 10:57 IMPRESSION: 1. Normal small bowel follow-through with transit time of 45 minutes. 2. Nasogastric tube tip at the gastric pylorus. Consider withdrawal by 10-12 cm. Labs Labs: Laboratory Results - last 24 hr 08/05/24 05:37 WBC 5.9 RBC 4.80 Hgb 13.2 Hct 43.5 MCV 90.6 MCH 27.5 MCHC 30.3 L RDW 13.4 Plt Count 182 MPV 10.7 H Sodium 139 Potassium 4.1 Chloride 106 Carbon Dioxide 27 Anion Gap 6 BUN 24 H Creatinine 1.16 H Estim Creat Clear Calc 45 Estimated GFR 46 L Glucose 120 H Calcium 8.5 Quality VTE Prophylaxis VTE prophylaxis: pharmacologic ordered
[2024-08-05 15:16] VITALS: BP 135/61; PULSE 74; RESP 18; TEMP 36.4; O2SAT 97
[2024-08-05 21:32] VITALS: BP 134/77; PULSE 73; RESP 18; TEMP 37; O2SAT 99
[2024-08-06 05:48] VITALS: BP 126/53; PULSE 61; RESP 18; TEMP 36.8; O2SAT 96
[2024-08-06 06:35] LABS: Hematocrit 39.8 % (37.0-47.0); Hemoglobin 12.4 g/dL (12.0-15.0); Mean Corpuscular HGB Conc 31.2 g/dl (32-36); Mean Corpuscular Hemoglobin 27.5 pg (26-34); Mean Corpuscular Volume 88.2 fl (80-100); Platelet Count Result 169 k/mm3 (150-375); Red Blood Count 4.51 M/mm3 (4.2-5.4); Red Cell Distribution Width 13.2 % (11.5-14.5); White Blood Count 4.9 K/mm3 (4.5-10.0)
[2024-08-06 06:52] LABS: Anion Gap 8 mmol/L (4-12); Blood Urea Nitrogen 21 mg/dL (7-17); Calcium 8.8 mg/dL (8.4-10.2); Carbon Dioxide 24 mmol/L (22-30); Chloride 106 mmol/L (98-107); Estimated CRCL calculation 56 ml/min; Estimated Glomerular Filt Rate 60; Glucose 104 mg/dL (65-110); Potassium 3.8 mmol/L (3.4-5.0); Sodium 138 mmol/L (137-145)
[2024-08-06] MEDS: ENOXAPARIN 40 MG/0.4 ML SYRINGE SUB-Q (08:44)
[2024-08-06] MEDS: PANTOPRAZOLE SODIUM IV 40 MG VIAL IV PUSH (08:44)
--- NOTE | 2024-08-06 11:41 | PM.CNGS ---
Assessment and Plan Assessment and plan (1) Small bowel obstruction: Code(s): K56.609 - Unspecified intestinal obstruction, unspecified as to partial versus complete obstruction Status: Acute Assessment and Plan: Patient is tolerating regular diet with no nausea or vomiting. Having regular bowel movements that continue to be more formed. Continue Toradol p.r.n. for pain and Zofran for nausea. If she continues to tolerate diet throughout the day she is surgically stable for discharge. (2) HTN (hypertension): Code(s): I10 - Essential (primary) hypertension Status: Acute (3) Type II diabetes mellitus: Code(s): E11.9 - Type 2 diabetes mellitus without complications Status: Acute History of Present Illness Consult details Consult date: 08/06/24 Narrative: No acute events overnight. VSS. Patient is tolerating regular diet without nausea or vomiting. Having regular bowel movements which she feels are becoming more formed. [facility] Past Medical History Medical History Obesity (BMI 30.0-34.9) Cataract Vision loss Insomnia NAION (non-arteritic anterior ischemic optic neuropathy) Trigger thumb of right hand Hand arthritis Arthritis Gastroesophageal reflux disease Uterine cancer NAFLD (nonalcoholic fatty liver disease) HTN (hypertension) HLD (hyperlipidemia) Adenomatous colon polyp Surgical History Surgical History History of cholecystectomy open History of hysterectomy History of hand surgery History of shoulder surgery Family History Family History Mother Family history of malignant neoplasm, Onset Age: 87 Patient's mother is Father Lung cancer Heart disease Sibling Asthma Cancer Heart disease Social History Social History Smoking status: Never smoker Second hand tobacco smoke exposure: No Alcohol intake: current Alcohol use details: rarely Substance use: never Substance use type: does not use Do You Feel Safe in your Home?: Yes Lack of Transportation: No Lack of Food: Never True Current Housing: I Have Housing Concerned About Future Housing: No Difficulty Paying Gas/Electric Bills: No Difficulty Paying for Meds: No Currently Unemployed: No Education: High School Diploma/GED Difficulty w/ Childcare or Family Care: No Living arrangements: with family Occupation/Education: occupation Additional occupation/education comments: [employer] Gender identity (if verbalized by the patient): Female Spiritual care concerns: No Meds Home Medications and Allergies Home Medications ?Medication ?Instructions ?Recorded ?Confirmed ?Type fluticasone propionate 50 2 spray intranasal DAILY #16 grams 06/02/24 08/03/24 Rx mcg/actuation nasal spray,suspension (Flonase Allergy Relief) lisinopril 30 mg tablet 30 mg PO DAILY #90 tabs 07/16/24 08/03/24 Rx naltrexone 8 mg-bupropion 90 mg 1 tablet PO QAM #30 tabs 07/21/24 08/03/24 Rx tablet,extended release (Contrave) pantoprazole 40 mg tablet,delayed 40 mg PO QAM 07/21/24 08/03/24 History release Allergies Allergy/AdvReac Type Severity Reaction Status Date / Time codeine Allergy Mild Unknown Verified 08/03/24 14:41 metoprolol Allergy Mild Hives Verified 08/03/24 14:41 hydrocodone AdvReac Severe SOB Verified 08/03/24 14:41 Vital Signs Vital Signs - 24 hr 08/05/24 15:16 08/05/24 21:32 08/06/24 05:48 Temperature 97.5 F L 98.6 F 98.3 F Pulse Rate 74 73 61 Respiratory Rate 18 18 18 Blood Pressure 135/61 134/77 126/53 L Pulse Oximetry 97 99 96 Oxygen Delivery 08/06/24 08:45 Temperature Pulse Rate Respiratory Rate Blood Pressure Pulse Oximetry Oxygen Delivery Room Air Exam Eyes: General: appearance normal, both eyes and all related structures Pupils: Equal, round and reactive pupils present Neck: Neck: supple Resp: Effort & Inspection: normal respiratory effort Auscultation: clear to auscultation bilaterally Cardio: Rate: regular rate Rhythm: regular rhythm GI: Inspection: non-distended GI Palp: Yes Soft to palpation, No Tenderness to palpation present (GI) and No Guarding due to palpation present (GI) Auscultation: normal bowel sounds Neuro: Cranial nerves: Yes Equal, round and reactive pupils present Speech: normal speech Results Labs 08/06/24 05:32 08/06/24 05:32 Labs: Abnormal lab results 08/06/24 Range/Units 05:32 MCHC 31.2 L (32-36) g/dl MPV 11.0 H (7.4-10.4) fl BUN 21 H (7-17) mg/dL Diabetes panel 08/06/24 Range/Units 05:32 Sodium 138 (137-145) mmol/L Potassium 3.8 (3.4-5.0) mmol/L Chloride 106 (98-107) mmol/L Carbon Dioxide 24 (22-30) mmol/L BUN 21 H (7-17) mg/dL Creatinine 0.92 (0.7-1.0) mg/dL Glucose 104 (65-110) mg/dL Calcium 8.8 (8.4-10.2) mg/dL Calcium panel 08/06/24 Range/Units 05:32 Calcium 8.8 (8.4-10.2) mg/dL Pituitary panel 08/06/24 Range/Units 05:32 Sodium 138 (137-145) mmol/L Potassium 3.8 (3.4-5.0) mmol/L Chloride 106 (98-107) mmol/L Carbon Dioxide 24 (22-30) mmol/L BUN 21 H (7-17) mg/dL Creatinine 0.92 (0.7-1.0) mg/dL Glucose 104 (65-110) mg/dL Calcium 8.8 (8.4-10.2) mg/dL Adrenal panel 08/06/24 Range/Units 05:32 Sodium 138 (137-145) mmol/L Potassium 3.8 (3.4-5.0) mmol/L Chloride 106 (98-107) mmol/L Carbon Dioxide 24 (22-30) mmol/L BUN 21 H (7-17) mg/dL Creatinine 0.92 (0.7-1.0) mg/dL Glucose 104 (65-110) mg/dL Calcium 8.8 (8.4-10.2) mg/dL All other labs normal.
--- NOTE | 2024-08-06 13:07 | P.DS_ITS ---
DS: Admitting Diagnosis Discharge Date 08/06 Admitting Diagnosis abd pain DS: Discharge Diagnosis Discharge Diagnosis (1) Partial small bowel obstruction: Code(s): K56.600 - Partial intestinal obstruction, unspecified as to cause Status: Acute Assessment and Plan: - (2) Type II diabetes mellitus: Code(s): E11.9 - Type 2 diabetes mellitus without complications Status: Acute (3) Non-arteritic AION (anterior ischemic optic neuropathy), both eyes: Code(s): H47.013 - Ischemic optic neuropathy, bilateral Status: Acute (4) HTN (hypertension): Code(s): I10 - Essential (primary) hypertension Status: Acute DS: Summary Hospital Course Hospital Course: 1-year-old female patient admitted to the hospital for partial bowel obstruction, nausea vomiting and abdominal pain. She had SBO in the past. # SBO Second episode of SBO -Symptoms started about 5 days ago initially with abdominal pain then nausea, then vomiting and diarrhea, now nausea/vomiting and limited ability to pass gas -CT scan shows likely partial obstruction without complete transition point -NG is removed 08/05. Pt had BMs, no nausea. Diet is advanced- if pt tolerates it well,ok to discharge from surgery stand point. Small bowel series showed normal small bowel follow-through, ok to Advance to clear liquid diet per surgery her diet was advanced on 08/06, and she was able to tolerate it well she was stable for discharge from surgery standpoint # T2DM -Recent diagnosis, previously placed on metformin but did not tolerate due to GI symptoms -Patient associates metformin use with first bowel obstruction -Recent A1c was in the 5's per patient report - Status at Discharge Functional status at discharge: independent ambulation Overall status at discharge: patient is progressing back to baseline Time Spent with Patient Time attestation: Total time spent providing and/or coordinating discharge services: Time spent: Less than 30 minutes Exam Narrative: GENERAL: alert, calm, in no respiratory distress HEAD: Normocephalic, atraumatic. ENT:? Dry mucous membranes CHEST: Clear to auscultation.? No respiratory distress. HEART: Regular rate and rhythm. ? Normal peripheral pulses. ABDOMEN: soft, positive bowel sounds EXTREMITIES: Normal range of motion. No peripheral edema. SKIN: Warm dry normal color NEURO: Alert and oriented x3. No focal neuro deficits noted PSYCH: Normal mood and affect Const: General: comfortable DS: Data Data Completed and Pending Labs on day of discharge: Labs from last 24 hours 08/06/24 05:32 WBC 4.9 RBC 4.51 Hgb 12.4 Hct 39.8 MCV 88.2 MCH 27.5 MCHC 31.2 L RDW 13.2 Plt Count 169 MPV 11.0 H Sodium 138 Potassium 3.8 Chloride 106 Carbon Dioxide 24 Anion Gap 8 BUN 21 H Creatinine 0.92 Estim Creat Clear Calc 56 Estimated GFR 60 Glucose 104 Calcium 8.8 Discharge Plan Discharge Attending physician on discharge: Markel Schafer Consulting providers: Jani Neely Discharging Clinician: Adelaida Willson Patient Disposition: Home Activity: july shower Diet: regular Discharge Instructions: You were admitted for bowel obstruction. NG was removed after a day. Surgery was following and no acute/urgent interventions were advised. Please take it easy with diet ad advance as tolerated. F/u with your PCP within 1 -2 weeks. If pain returns and/or you develop new symptoms, please return to ED for further evaluation. Patient Instructions: Antibiotic Form Patient Language: Icelandic Stand Alone Forms: General Discharge Information Follow-up/Referrals: Arpit Delatorre DO [Primary Care Provider] - 2 Weeks Discharge Medications: Continued pantoprazole 40 mg tablet,delayed release (DR/EC) 40 mg PO QAM Contrave 8-90 mg tablet extended release 1 tablet PO QAM Qty: 30 2RF fluticasone propionate [Flonase Allergy Relief] 50 mcg/actuation spray,suspension 2 spray intranasal DAILY Qty: 16 6RF Rx Instructions: administer into each nostril lisinopril 30 mg tablet 30 mg PO DAILY Qty: 90 1RF Date of admission: 08/03/24 20:03 Primary Care Provider: Arpit Delatorre Admitting Provider: Brian Anderson Attending physician on admission: Brian Anderson Condition: Stable Quality VTE Prophylaxis VTE prophylaxis: pharmacologic ordered Hospitalist MIPS Heart Failure (Exclusion) Patient has history of Heart Transplant or Left Ventricular Assistive Device?: No IF YES, STOP HERE Heart Failure (Qualifier) Patient has current or prior documentation of LVEF less than or equal to 40%, or mod/servere depressed LVSF?: No IF NO, STOP HERE
== END 2024-08-06 13:43 | disposition home or self-care (01) | DRG 390 ==
LOC: ANHED 19:41 → ANH3MEDSUR 20:38
PROVIDERS: Nurse Practitioner Family; Physician Assistant; Admitting Provider Internal Medicine; Emergency Provider Emergency Medicine; PCP Internal Medicine; Visit Provider Nurse Practitioner
DX: K56.609 Unspecified intestinal obstruction, unspecified as to partial versus complete obstruction (principal); E78.5 Hyperlipidemia, unspecified; E11.9 Type 2 diabetes mellitus without complications; E66.9 Obesity, unspecified; H47.013 Ischemic optic neuropathy, bilateral; I10 Essential (primary) hypertension; K21.9 Gastro-esophageal reflux disease without esophagitis; Z90.710 Acquired absence of both cervix and uterus; Z68.34 Body mass index [BMI] 34.0-34.9, adult; Z85.42 Personal history of malignant neoplasm of other parts of uterus; Z90.49 Acquired absence of other specified parts of digestive tract
CPT/HCPCS: 36415; 74177; 74250; 80048; 80053; 81001; 83605; 83690; 85025; 85027; 96361; 96374; 96376; 99285; A9270; J1650; J1885; J2004; J2250; J2405; J2470; J7030; J7120; Q9967

== ENCOUNTER 2024-10-04 15:23 | Outpatient (CLI) | payer MEDICARE, SELFPAY ==
--- NOTE | ~2024-10-04 | CT_ITS ---
CLINICAL INDICATION: Abdominal pain COMPARISON: 08/03/2024. TECHNIQUE: Multiple contiguous axial images of the abdomen and pelvis were performed without the admi nistration of intravenous contrast The dose-length product (DLP) was 938.36 mGy-cm. Automated exposure control and iterative reconstruction technique were employed. FINDINGS/OBSERVATIONS: Visualized lower thorax: The bilateral lung bases are clear. The heart is of normal size, without pericardial effusion. Small hiatal hernia is present. Liver: The liver demonstrates homogeneous attenuation and is markedly enlarged measuring 21 cm in longitudin al dimension. Gallbladder and biliary system: The gallbladder is surgically absent. Pancreas: Fatty atrophy of the pancreas is present. Limited evaluation of the remainder of the pancreas secondary to the lack of intravenous contrast. Spleen: The spleen demonstrates homogeneous attenuation and is not enlarged. Kidneys: Para renal cysts within the left kidney. The remainder of the bilateral kidneys are otherwise unremarkable, without hydronephrosis or renal ca lculi. Adrenal glands: Unremarkable. Gastrointestinal tract: Fecal stasis within the colon. Appendix: The appendix is not definitively visualized. However, no pericecal inflammatory change is identified suggest the presence of acute appendicitis. Vasculature: Densely calcified atherosclerotic disease. Lymph nodes: No pathologically enlarged or morphologically suspicious lymph nodes within the retroperitoneum or at the root of the mesentery. Pelvic structures: The bladder is decompressed, limiting its evaluation. The uterus is either surgically absent or markedly atrophic. Body wall and musculoskeletal: Small fat-containing umbilical hernia. Age-appropriate degenerative disease within the lower thoracic and lumbosacral spines. IMPRESSION: No obstructive uropathy. Fatty atrophy of the pancreas. Reviewed, dictated and finalized at location A.
== END 2024-10-04 15:24 | disposition home or self-care (01) ==
PROVIDERS: PCP Internal Medicine; Visit Provider Internal Medicine
DX: R10.11 Right upper quadrant pain (principal)
CPT/HCPCS: 74176

== ENCOUNTER 2024-10-16 20:11 | Inpatient (IN) | payer MEDICARE, SELFPAY ==
--- NOTE | ~2024-10-16 | XR_ITS ---
EXAMINATION: XR chest 2V Exam Date/Time: 10/16/2024 20:43 CDT HISTORY: chest pain Comparison: 02/06/2022. RESULT: Lines, tubes, and devices: Cholecystectomy clips. Lungs and pleura: Clear. Cardiomediastinal silhouette: Listed left ventricular apex as can be seen with hypertension, otherwi se stable. Other: No acute osseous or upper abdominal finding. IMPRESSION: No acute cardiopulmonary process. Reviewed, dictated and finalized at location K.
--- NOTE | ~2024-10-16 | CT_ITS ---
EXAMINATION: CTA chest PE abdomen pel DATE: 10/16/2024 22:23 INDICATION: Chest pain, shortness of breath, back pain and tachycardia TECHNIQUE: Computed tomography (CT) pulmonary angiogram of the chest was performed with 100 mL Omnipa que-350 intravenous contrast. Additional 3D reconstructions utilizing coronal maximum intensity proje ction (MIP) were performed. CT of the abdomen and pelvis was performed with intravenous contrast util izing the same contrast bolus following a short delay. Automated exposure control and iterative recon struction technique were employed. The dose-length product was 1580.13 mGy-cm. COMPARISON: None FINDINGS: Chest: No pulmonary embolism. Mild dependent atelectasis in the bilateral upper and lower lobes. No pneumoni a, pulmonary edema, pleural effusion or pneumothorax. Heart size is normal. Atherosclerotic coronary artery calcific location. No pericardial effusion. Thoracic aorta is normal in caliber with no dissec tion. No pathologically enlarged thoracic lymphadenopathy. Small sliding-type hiatal hernia. Moderate to severe lower thoracic predominant spondylosis. Abdomen/pelvis: Cholecystectomy clips at the gallbladder fossa. Liver, spleen, pancreas, bilateral adrenal glands and right kidney are normal. There are couple low-attenuation left renal cysts the larger measuring 1 cm . Bowels are unremarkable. The appendix is not visualized. No pericecal inflammatory change to sugges t acute appendicitis. The uterus and right ovary are not identified and have likely been surgically r esected. Bladder and left ovary are unremarkable. No free intraperitoneal gas or fluid. No pathologic ally enlarged abdominal or pelvic lymphadenopathy. Moderate to severe lumbar spondylosis. IMPRESSION: 1. No pulmonary embolism or other acute cardiopulmonary disease. 2. Small sliding-type hiatal hernia. 2. No acute intra-abdominal/pelvic process. Reviewed, dictated and finalized at location A.
--- NOTE | 2024-10-16 20:13 | ECG_ITS ---
Test Date: 2024-10-16 20:20:29 Measurements Intervals Kelly Rate: 109 P: 76 VT: 195 QRS: -49 QRSD: 81 T: 41 QT: 330 QTc: 445 Interpretive Statements SINUS TACHYCARDIA LEFT AXIS DEVIATION POSSIBLE LEFT ATRIAL ENLARGEMENT LOW QRS VOLTAGE IN LIMB LEADS CONSIDER ANTERIOR INFARCT, AGE INDETERMINATE CONSIDER INFERIOR INFARCT, AGE INDETERMINATE BASELINE ARTIFACT- I, II, III, AVR, AVL, AVF, V1, V4-V6 ABNORMAL ECG Compared to ECG 08/24/2023 09:54:09 HEART RATE HAS INCREASED Electronically Signed On 10-17-2024 08:04:14 CDT by Thad Crowley D.O.
--- OUTSIDE RECORDS SUMMARY | 2024-10-16 20:14 | XMS_ITS | Clinical Summary ---
Author Organization [facility] Address [facility] [place] [address] Care Team Providers Care Automatic Beading Lathe Operator Name Role Phone Unavailable Primary Care Provider Unavailabl e Social History Tobacco Use Types Packs/Day Years Used Date Smoking Tobacco: Never Assessed Comments Unknown Sex and Gender Information Value Date Recorded Sex Assigned at Not on file Legal Sex Female 8:20 PM CDT Gender Identity Not on file Sexual Orientation Not on file Plan of Treatment Health Maintenance Due Date Last Done Comments Colorectal Cancer Screening Colonoscopy (10 Years) 1953 Hepatitis C 1971 DTaP, Tdap and Td Vaccines ( 1 - Tdap) 02/04/1972 Mammogram Screening 1993 Pneumococcal Vaccine: 50+ Ye ars (1 of 1 - PCV) 2003 Zoster Vaccines (1 of 2) 2003 Dexa Scan (General) 2018 COVID-19 Vaccine ( - 2023-2 5 season) 2023 RSV Immunization or 60+ Years (1 - 1-dose 75+ series) 02/04/2028 Meningococcal B Vaccine Aged Out No l onger eligible based on patient's age to complete this topic Meningococcal Vaccine Aged Out No didi gaurav eligible based on patient's age to complete this topic RSV Immunizations Under 20 Months Aged Out No longer eligible based on patient's age to complete this topic
--- OUTSIDE RECORDS SUMMARY | 2024-10-16 20:14 | XMS_ITS | Clinical Summary ---
Author Organization [facility] Address [address] [place] [address] Phone Care Team Providers Care Inpatient Pharmacist Name Role Phone Rogelio Cruz Heri HARDING Primary Care Provider [phone] Allergies Active Allergy Reactions Criticality Noted Date [...] (HCV) Screening 1955 TdaP Immunization 1955 Cologuard 1998 Immunochemical Fecal Occult Blood 1998 Pneumococcal Immunization (5 0+ years) (1 of 1 - PCV) 2003 Zoster Immunization (1 of 2) 2003 SARS-COV-2 Immunization ( - season) 2023 02/21/2021, 05/27/2020, 04/29/2020 Influenza Immunization (#1) 2024 Colonoscopy 12/29/2026 12/30/2019 Colorectal Cancer Screening 12/29/2026 Respiratory Syncytial Virus (RSV) Immunization (Adult) (1 - 1-dose 75+ series) 02/04/2028 Hepatitis B Immunization Aged Out No longer eligible based on patient's age to complete this topic Human Papillomavirus (HPV) Immunization Aged Out No longer eligible b ased on patient's age to complete this topic Meningococcal Immunization (ACWY) Aged Out No longer eligible b ased on patient's age to complete this topic Rotavirus Immunization Aged Out No lo nger eligible based on patient's age to complete this topic Procedures Procedure Name Priority Date/Time Associated Diagnosis Comments HM COLONOSCOPY Routine 12/30/2019 from Last 3 Months or Most Recently Relevant to Health Maintenance Results * HM COLONOSCOPY (12/30/2019) Shorty T Klucka DO PROCEDURE/MINOR SURGICAL ORDERA BLES Final Result from Last 3 Months or Most Recently Relevant to Health Maintenance Care Teams Inpatient Pharmacist Relationship Specialty Start Date End Date Rogelio Cruz DO [address] [place] [address] PCP - General Internal Medicine 11/10/19
--- OUTSIDE RECORDS SUMMARY | 2024-10-16 20:14 | XMS_ITS | Clinical Summary ---
Author Organization [facility] [address] Address [address] [place] [address] Care Team Providers Care Spare Person Name Role Phone Arpit Delatorre DO Primary Care Provider Allergies Active Allergy Reactions Criticality Noted Date [...] 10/11/2023 Assessment & Plan (03/18/2024 12:05 PM GATE TENDER): S/p CEIOL OD 01/06/24 (Stock), OS 10/11/23 [...] 08/18/2023 Assessment & Plan (03/18/2024 12:17 PM GATE TENDER): - Presented initially in 12/2022 with disc edema and vision loss of the right eye; was ultimately diagnosed with NAION due to normal ESR/CRP, absence of GCA symptoms, unremarkable MRA brain/orbits, and clinical features consistent with NAION including [id number] OS and resolution of the optic disc [...] and clinical features consistent with NAION including [id number] OS and resolution of the optic disc [...] and clinical features consistent with NAION including oyqp-[id number] OS and resolution of the optic disc [...] 03/18/2023 Assessment & Plan (03/18/2023 2:53 PM GATE TENDER): Significant hyperopia on autorefraction today Patient currently not using glasses Recommend patient obtain eyeglasses (polycarbonate). 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 Follow-up 3-6 months for repeat HVF 24-2, OCT mac/gcc, OCT rnfl Patient wishes to call to schedule as she states her likely has lung cancer and she needs to help him deal with his affairs first Assessment & Plan (02/13/2023 4:40 PM GATE TENDER): Exam today with stable disc edema but [...] HVF 24-2 Coronary artery disease invo lving [place] coronary artery of [place] heart without angina pectoris 04/01/2019 Surgical History [...] 10:56 AM CDT Height 167.6 cm (5' 6) 10/13/2023 10:56 AM CDT Body Mass Index [...] Vaccine ( season) 2023 02/21/2021, 05/27/2020, 04/29/2020 Fall Risk Assessment 10/09/2024 10/10/2023 Influenza Vaccine (#1) 2024 01/04/2021 Medical Devices Implanted Type Area Tank Setter Device Identifier Shelf Expiration Date Model / Serial / Lot [employer] Lens Iol Posterior Biconvex Optic Single Piece Envista 6.0x12.5 +22.0d Hydrophobic Acrylic [id number] - [id number] - [id number] Implanted:Qty: 1 on 10/10/2023 by Fabian Palomino MD at [facility] Lens Left: Eye [employer] [id number] 07/14/2026 [id number] / [id number] / [id number] Insurance [facility] AETNA MEDICARE GOLD AETNA MEDICARE GOLD Advance Directives For more information, please contact: [phone] * Full Code (Latest Code Status on File) Date Activated Date Inactivated Comments 08/07/2023 8:09 PM 08/09/2023 4:13 PM Care Teams Spare Person Relationship Specialty Start Date End Date Arpit Delatorre DO PCP - General Internal Medicine 09/29/23
--- OUTSIDE RECORDS SUMMARY | 2024-10-16 20:14 | XMS_ITS | Referral Summary ---
Author Organization [facility] [address] Address [address] [place] [address] Care Team Providers Care Pet Sitter Name Role Phone Arpit Delatorre DO Primary Care Provider [phone] Allergies Active Allergy Reactions Criticality Noted Date [...] 10/11/2023 Assessment & Plan (03/18/2024 12:05 PM JOURNEYMAN WELDER): S/p CEIOL OD 01/06/24 (Stock), OS 10/11/23 [...] 08/18/2023 Assessment & Plan (03/18/2024 12:17 PM JOURNEYMAN WELDER): - Presented initially in 12/2022 with disc edema and vision loss of the right eye; was ultimately diagnosed with NAION due to normal ESR/CRP, absence of GCA symptoms, unremarkable MRA brain/orbits, and clinical features consistent with NAION including zemi-pg-qdcm OS and resolution of the optic disc [...] and clinical features consistent with NAION including wqdr-hy-yrjd OS and resolution of the optic disc [...] and clinical features consistent with NAION including wgdp-xx-jqsm OS and resolution of the optic disc [...] 03/18/2023 Assessment & Plan (03/18/2023 2:53 PM JOURNEYMAN WELDER): Significant hyperopia on autorefraction today Patient currently not using glasses Recommend patient obtain eyeglasses (polycarbonate). If vision still poor OS with updated MRx can refer back to pre-op clinic for cat eval Right optic neuropathy 02/13/2023 Assessment & Plan (03/18/2023 2:50 PM JOURNEYMAN WELDER): Follow-up for NAION OD Afferent function stable Disc edema now resolved Stable inferior altitudinal defect on HVF 24-2 Follow-up 3-6 months for repeat HVF 24-2, OCT mac/gcc, OCT rnfl Patient wishes to call to schedule as she states her likely has lung cancer and she needs to help him deal with his affairs first Assessment & Plan (02/13/2023 4:40 PM JOURNEYMAN WELDER): Exam today with stable disc edema but [...] HVF 24-2 Coronary artery disease invo lving [place] coronary artery of [place] heart without angina pectoris 04/01/2019 Social History [...] on file Medical Devices Implanted Type Area Inspector Soldering Device Identifier Shelf Expiration Date Model / Serial / Lot [employer] Lens Iol Posterior Biconvex Optic Single Piece Envista 6.0x12.5 +22.0d Hydrophobic Acrylic [id number] - [id number] - [id number] Implanted:Qty: 1 on 10/10/2023 by Fabian Palomino MD at [facility] Lens Left: Eye [employer] [id number] 07/14/2026 [id number] / [id number] Insurance [facility] AET[employer] MEDICARE GOLD Advance Directives For more information, please contact: [phone] * Full Code (Latest Code Status on File) Date Activated Date Inactivated Comments 08/07/2023 8:09 PM 08/09/2023 4:13 PM Care Teams Pet Sitter Relationship Specialty Start Date End Date Arpit Delatorre DO PCP - General Internal Medicine 09/29/23
[2024-10-16 20:16] VITALS: BP 135/81; PULSE 111; RESP 33; TEMP 36.6; O2SAT 100
[2024-10-16 20:23] VITALS: PULSE 111; O2SAT 100
--- NOTE | 2024-10-16 21:22 | ED.CHESTPAIN ---
HPI - Chest Pain General Chief Complaint: Chest Pain <Eun Maloney PA-C - Last Filed: 10/17/24 02:31> Stated Complaint: chest pain <PRABHAKAR Nunn Last Filed: 10/17/24 02:31> Time Seen by Provider: 10/16/24 20:20 <Eun Maloney PA-C - Last Filed: 10/17/24 02:31> Source: patient <PRABHAKAR Nunn Last Filed: 10/17/24 02:31> Mode of arrival: ambulatory <PRABHAKAR Nunn Last Filed: 10/17/24 02:31> Limitations: no limitations <PRABHAKAR Nunn Last Filed: 10/17/24 02:31> History of Present Illness HPI narrative: Patient is a 69-year-old female, with PMH of DM, HTN, GERD, who presents the ED with report of chest pain. Patient reports over the past 1 week, she has been dealing with upper and lower abdominal pain. Had a negative CT scan of her abdomen and was referred to GI. Reports yesterday into today, she began having pain throughout her midsternal chest. Described as a pressure and heaviness. Pain has been intermittent throughout the day today, sometimes occurring at rest, but more often occurring with exertion or movement. She notes she was attempting to vacuuming her pool and had difficulty completing the task due to chest pain. Did rest and pain resolved within about 20 minutes. Did feel somewhat short of breath and nauseous at that time. Pain did radiate to her back. Patient denies previous history of cardiac issues. States she had a catheterization sometime in the past, but did not receive any stents. Denies recent cough or cold symptoms, fevers, pain or swelling in her legs. <PRABHAKAR Nunn Last Filed: 10/17/24 02:31> Related Data Allergies/Adverse Reactions: Allergies Allergy/AdvReac Type Severity Reaction Status Date / Time codeine Allergy Mild Unknown Verified 10/16/24 20:13 metoprolol Allergy Mild Hives Verified 10/16/24 20:13 hydrocodone AdvReac Severe SOB Verified 10/16/24 20:13 <Eun Maloney PA-C - Last Filed: 10/17/24 02:31> Review of Systems Review of Systems: All systems reviewed & are unremarkable except as noted in HPI. <Eun Maloney PA-C - Last Filed: 10/17/24 02:31> All systems reviewed & are unremarkable except as noted in HPI and below <Eun Maloney PA-C - Last Filed: 10/17/24 02:31> [facility] Past Medical History Medical History: Medical History Obesity (BMI 30.0-34.9) Cataract Vision loss Insomnia NAION (non-arteritic anterior ischemic optic neuropathy) Trigger thumb of right hand Hand arthritis Arthritis Gastroesophageal reflux disease Uterine cancer NAFLD (nonalcoholic fatty liver disease) HTN (hypertension) HLD (hyperlipidemia) Adenomatous colon polyp <Eun Maloney PA-C - Last Filed: 10/17/24 02:31> Surgical History Surgical History: Surgical History History of cholecystectomy open History of hysterectomy History of hand surgery History of shoulder surgery <Eun Maloney PA-C - Last Filed: 10/17/24 02:31> Family History Family History: Family History Mother Family history of malignant neoplasm, Onset Age: 87 Patient's mother is Father Lung cancer Heart disease Sibling Asthma Cancer Heart disease <Eun Maloney PA-C - Last Filed: 10/17/24 02:31> Social History Social History: Social History Smoking status: Never smoker Second hand tobacco smoke exposure: No Alcohol intake: current Alcohol use details: rarely Substance use: never Substance use type: does not use Do You Feel Safe in your Home?: Yes Lack of Transportation: No Lack of Food: Never True Current Housing: I Have Housing Concerned About Future Housing: No Difficulty Paying Gas/Electric Bills: No Difficulty Paying for Meds: No Currently Unemployed: No Education: High School Diploma/GED Difficulty w/ Childcare or Family Care: No Living arrangements: with family Occupation/Education: occupation Additional occupation/education comments: [employer] Gender identity (if verbalized by the patient): Female Spiritual care concerns: No <Eun Maloney PA-C - Last Filed: 10/17/24 02:31> Exam Narrative: GENERAL: Well appearing, obese with BMI of 32.6, non-toxic, in no acute distress. HEAD: Normocephalic, atraumatic. RESPIRATORY: Airway patent, respirations nonlabored. Clear to auscultation bilaterally, no rales, rhonchi, wheezing. No significant focal lung sounds. CARDIOVASCULAR: Borderline tachycardic with regular rhythm without murmurs, rubs, or gallops. ABDOMINAL: Soft, mild diffuse tenderness throughout lower abdomen and epigastric region, nondistended. Normoactive BS. MUSCULOSKELETAL: Moves all extremities. No gross deformities. Diffuse tenderness throughout midsternal chest wall. No peripheral edema. No calf tenderness. SKIN: Warm, dry, normal color. NEURO: A&O X3. Speech clear. Cranial nerves II-XII grossly intact. Steady gait. No ataxic movements. PSYCHIATRIC: Appropriate mood and affect. Normal interaction. <Eun Maloney PA-C - Last Filed: 10/17/24 02:31> Course EQUINE VET/PA Physician Supervision I agree with midlevel documentation; I performed the medical decision making component of this evaluation. <Justina Esposito MD - Last Filed: 10/17/24 02:51> Vital Signs Vital signs: Vital Signs Temperature 98 F 10/16/24 20:16 Pulse Rate 111 H 10/16/24 20:16 Respiratory Rate 33 H 10/16/24 20:16 Blood Pressure 135/81 10/16/24 20:16 Pulse Oximetry 100 10/16/24 20:16 Oxygen Delivery Room Air 10/16/24 20:16 Temperature 98 F 10/16/24 20:16 Pulse Rate 102 H 10/17/24 02:31 Respiratory Rate 19 10/17/24 02:31 Blood Pressure 121/88 10/17/24 02:31 Pulse Oximetry 98 10/17/24 02:31 Oxygen Delivery Room Air 10/17/24 00:20 <Eun Maloney PA-C - Last Filed: 10/17/24 02:31> Vital Signs Temperature 98 F 10/16/24 20:16 Pulse Rate 111 H 10/16/24 20:16 Respiratory Rate 33 H 10/16/24 20:16 Blood Pressure 135/81 10/16/24 20:16 Pulse Oximetry 100 10/16/24 20:16 Oxygen Delivery Room Air 10/16/24 20:16 Temperature 98 F 10/16/24 20:16 Pulse Rate 102 H 10/17/24 02:31 Respiratory Rate 19 10/17/24 02:31 Blood Pressure 121/88 10/17/24 02:31 Pulse Oximetry 98 10/17/24 02:31 Oxygen Delivery Room Air 10/17/24 00:20 <Justina Esposito MD - Last Filed: 10/17/24 02:51> MDM - Chest Pain MDM Narrative Medical decision making narrative: Patient presented to ED with intermittent abdominal pain over the past 1 week, midsternal chest pain yesterday and today, worsening today, worse with exertion. Associated with shortness breath and nausea today. Patient tachycardic and tachypneic upon arrival. Afebrile. Oxygen is stable on room air. EKG with sinus tachycardia, left anterior fascicular block. No significant concerning ischemic changes. Baseline troponin did result elevated at 2.58. Denying active chest pain at this time. Basic laboratory studies otherwise fairly unremarkable. Kidney function is stable. Minimal transaminitis. Chest x-ray is clear. CTA of chest with abdomen/pelvis obtained without evidence of PE, aortic pathology, acute pulmonary or intra-abdominal findings. 3 hour EKG does show possible new inverted T-waves in V4 through V6. No ST elevation. 3 hour troponin slightly down trending at 1.78. Patient is not had any ongoing or persistent chest pain. Denies previous history of CAD, but does report she has had a cardiac catheterization in the past. No stents. History of hypertension, hyperlipidemia, diabetes, obesity. Patient will be started on heparin and admitted for further evaluation of NSTEMI, cardiology evaluation. Discussed case with Dr. Landrum, hospitalist, accepted patient for admission to IMU. Discussed case with Dr. Santana, cardiology, agrees with plan, will consult. Patient and family is in agreement with plan and need for admission. <Eun Maloney PA-C - Last Filed: 10/17/24 02:31> Medical Records Data Attestation: I reviewed the patient's medical records. <Eun Maloney PA-C - Last Filed: 10/17/24 02:31> Lab Data Attestation: I reviewed the patient's lab results. <Eun Maloney PA-C - Last Filed: 10/17/24 02:31> Result diagrams: 10/16/24 21:24 10/16/24 21:24 <Eun Maloney PA-C - Last Filed: 10/17/24 02:31> Labs: Lab Results 10/16/24 10/17/24 Range/Units 21:24 00:50 WBC 6.6 (4.5-10.0) K/mm3 RBC 4.83 (4.2-5.4) M/mm3 Hgb 13.3 (12.0-15.0) g/dL Hct 41.4 (37.0-47.0) % MCV 85.7 (80-100) fl MCH 27.5 (26-34) pg MCHC 32.1 (32-36) g/dl RDW 13.2 (11.5-14.5) % Plt Count 195 (150-375) k/mm3 MPV 10.6 H (7.4-10.4) fl Immature Gran % (Auto) 0.3 (0-0.5) % Neut % (Auto) 75.4 H (45.5-73.1) % Lymph % (Auto) 18.9 (18.3-44.2) % [place] % (Auto) 4.4 (2.6-8.5) % Eos % (Auto) 0.8 (0-4.4) % Baso % (Auto) 0.2 (0.2-1.2) % Lymph # (Auto) 1.25 (0.9-3.2) K/mm3 [place] # (Auto) 0.3 (0.1-0.6) K/mm3 Eos # (Auto) 0.1 (0-0.3) K/mm3 Baso # (Auto) 0.0 (0.0-0.1) K/mm3 Abs Immat Gran (auto) 0.02 (0.00-0.031) K/mm3 Absolute Neuts (auto) 5.0 (1.3-6.7) K/mm3 Absolute Nucleated RBC 0.000 (0.0-0.012) K/mm3 Nucleated RBC % 0.0 (0.0-0.2) % PT 14.5 (11.1-14.7) Seconds INR 1.1 APTT 32.7 (22.3-36.8) Seconds Sodium 135 L (137-145) mmol/L Potassium 4.0 (3.4-5.0) mmol/L Chloride 105 (98-107) mmol/L Carbon Dioxide 24 (22-30) mmol/L Anion Gap 6 (4-12) mmol/L BUN 20 H (7-17) mg/dL Creatinine 0.93 (0.7-1.0) mg/dL Estim Creat Clear Calc 56 ml/min Estimated GFR 59 (59 - ) Glucose 173 H (65-110) mg/dL Calcium 9.8 (8.4-10.2) mg/dL Total Bilirubin 0.7 (0.2-1.3) mg/dL AST 47 H (14-36) U/L ALT 36 H (6-35) U/L Alkaline Phosphatase 71 (38-126) U/L Troponin I 2.580 H* 1.780 H* D (0.000-0.034) ng/mL Total Protein 6.7 (6.3-8.2) g/dL Albumin 4.1 (3.5-5.1) g/dL Lipase 53 (23-300) U/L <Eun Maloney PA-C - Last Filed: 10/17/24 02:31> Lab Results 10/16/24 10/17/24 Range/Units 21:24 00:50 WBC 6.6 (4.5-10.0) K/mm3 RBC 4.83 (4.2-5.4) M/mm3 Hgb 13.3 (12.0-15.0) g/dL Hct 41.4 (37.0-47.0) % MCV 85.7 (80-100) fl MCH 27.5 (26-34) pg MCHC 32.1 (32-36) g/dl RDW 13.2 (11.5-14.5) % Plt Count 195 (150-375) k/mm3 MPV 10.6 H (7.4-10.4) fl Immature Gran % (Auto) 0.3 (0-0.5) % Neut % (Auto) 75.4 H (45.5-73.1) % Lymph % (Auto) 18.9 (18.3-44.2) % [place] % (Auto) 4.4 (2.6-8.5) % Eos % (Auto) 0.8 (0-4.4) % Baso % (Auto) 0.2 (0.2-1.2) % Lymph # (Auto) 1.25 (0.9-3.2) K/mm3 [place] # (Auto) 0.3 (0.1-0.6) K/mm3 Eos # (Auto) 0.1 (0-0.3) K/mm3 Baso # (Auto) 0.0 (0.0-0.1) K/mm3 Abs Immat Gran (auto) 0.02 (0.00-0.031) K/mm3 Absolute Neuts (auto) 5.0 (1.3-6.7) K/mm3 Absolute Nucleated RBC 0.000 (0.0-0.012) K/mm3 Nucleated RBC % 0.0 (0.0-0.2) % PT 14.5 (11.1-14.7) Seconds INR 1.1 APTT 32.7 (22.3-36.8) Seconds Sodium 135 L (137-145) mmol/L Potassium 4.0 (3.4-5.0) mmol/L Chloride 105 (98-107) mmol/L Carbon Dioxide 24 (22-30) mmol/L Anion Gap 6 (4-12) mmol/L BUN 20 H (7-17) mg/dL Creatinine 0.93 (0.7-1.0) mg/dL Estim Creat Clear Calc 56 ml/min Estimated GFR 59 (59 - ) Glucose 173 H (65-110) mg/dL Calcium 9.8 (8.4-10.2) mg/dL Total Bilirubin 0.7 (0.2-1.3) mg/dL AST 47 H (14-36) U/L ALT 36 H (6-35) U/L Alkaline Phosphatase 71 (38-126) U/L Troponin I 2.580 H* 1.780 H* D (0.000-0.034) ng/mL Total Protein 6.7 (6.3-8.2) g/dL Albumin 4.1 (3.5-5.1) g/dL Lipase 53 (23-300) U/L <Justina Esposito MD - Last Filed: 10/17/24 02:51> Imaging Data Attestation: I personally reviewed and interpreted this imaging study as follows: <Eun Maloney PA-C - Last Filed: 10/17/24 02:31> Radiologist's impression: STAT RAD CTA Chest/abd/pelvis: Impression: No acute findings. No pulmonary embolism. No thoracic aortic dissection. Coronary artery calcification. Degenerative changes of the spine. No incidental findings in chest. No radiopaque renal or ureteral calculi. Incidental abdominal/pelvic findings: Denies simple left renal cyst. Degenerative changes of the spine. Aortoiliac atherosclerosis. Status post cholecystectomy. Uterus is not visualized. <Eun Maloney PA-C - Last Filed: 10/17/24 02:31> ECG Data EKG #1: Attestation: I personally reviewed and interpreted this ECG as follows: <Eun Maloney PA-C - Last Filed: 10/17/24 02:31> ECG completion date: 10/16/24 <Eun Maloney PA-C - Last Filed: 10/17/24 02:31> ECG completion time: 20:20 <PRABHAKAR Nunn Last Filed: 10/17/24 02:31> EKG Interpretation: tachycardia (109), sinus rhythm and non-specific ST changes <Eun Maloney PA-C - Last Filed: 10/17/24 02:31> Discharge Plan Discharge Clinical Impression: Non-ST elevation [place] (NSTEMI) <PRABHAKAR Nunn Last Filed: 10/17/24 02:31> Patient Disposition: Still a Patient <Eun Maloney PA-C - Last Filed: 10/17/24 02:31> Condition: Stable <PRABHAKAR Nunn Last Filed: 10/17/24 02:31> Quality HEART score for chest pain patients History: highly suspicioius <Eun Maloney PA-C - Last Filed: 10/17/24 02:31> ECG: non specific repolarization disturbance/LBTB/PM <Eun Maloney PA-C - Last Filed: 10/17/24 02:31> Age: > or = to 65 years <PRABHAKAR Nunn Last Filed: 10/17/24 02:31> Risk factors: > or = to 3 risk factors of atherosclerotic disease <Eun Maloney PA-C - Last Filed: 10/17/24 02:31> Troponin: > or = to 3x normal limit <Eun Maloney PA-C - Last Filed: 10/17/24 02:31> Heart score: 9 <Eun Maloney PA-C - Last Filed: 10/17/24 02:31> 9 <Justina Esposito MD - Last Filed: 10/17/24 02:51>
[2024-10-16 21:33] LABS: Hematocrit 41.4 % (37.0-47.0); Hemoglobin 13.3 g/dL (12.0-15.0); Immature Granulocyte Percent A 0.3 % (0-0.5); Lymphocytes Absolute Auto 1.25 K/mm3 (0.9-3.2); Mean Corpuscular HGB Conc 32.1 g/dl (32-36); Mean Corpuscular Hemoglobin 27.5 pg (26-34); Mean Corpuscular Volume 85.7 fl (80-100); Nucleated Red Blood Cells Absolute Auto 0.000 K/mm3 (0.0-0.012); Nucleated Red Blood Cells Perc 0.0 % (0.0-0.2); Platelet Count Result 195 k/mm3 (150-375); Red Blood Count 4.83 M/mm3 (4.2-5.4); White Blood Count 6.6 K/mm3 (4.5-10.0)
[2024-10-16] MEDS: SODIUM CHLORIDE 0.9% IV 1,000 ML 999 ML IV CONT (21:33)
[2024-10-16] MEDS: BELLADONNA ALK/PHENOB ELIX 10 ML, MAG HYDROX/ALUMINUM HYD/SIMETH 30 ML, LIDOCAINE 2% VI... PO (21:34)
[2024-10-16 21:35] VITALS: O2SAT 100
[2024-10-16 21:36] VITALS: BP 132/85; PULSE 100; RESP 22; O2SAT 99
[2024-10-16 21:45] LABS: INR 1.1; Prothrombin Time 14.5 Seconds (11.1-14.7)
[2024-10-16 21:46] LABS: Partial Thromboplastin Time 32.7 Seconds (22.3-36.8)
--- OUTSIDE RECORDS SUMMARY | 2024-10-16 21:50 | XMS_ITS | Referral Summary ---
Author Organization [facility] [place] [address] Address [address] [place] [address] Care Team Providers Care Soil Science Teacher Name Role Phone Arpit Delatorre DO Primary Care Provider [phone] Allergies Active Allergy Reactions Criticality Noted Date [...] 10/11/2023 Assessment & Plan (03/18/2024 12:05 PM BUTT WELDER): S/p CEIOL OD 01/06/24 (Stock), OS [...] 08/18/2023 Assessment & Plan (03/18/2024 12:17 PM BUTT WELDER): - Presented initially in 12/2022 with disc edema and vision loss of the right eye; was ultimately diagnosed with NAION due to normal ESR/CRP, absence of GCA symptoms, unremarkable MRA brain/orbits, and clinical features consistent with NAION including iuxu-dz-yloo OS and resolution of the optic disc [...] and clinical features consistent with NAION including yqux-mn-uzbn OS and resolution of the optic disc [...] and clinical features consistent with NAION including dpdx-pl-qmig OS and resolution of the optic disc [...] 03/18/2023 Assessment & Plan (03/18/2023 2:53 PM BUTT WELDER): Significant hyperopia on autorefraction today Patient currently not using glasses Recommend patient obtain eyeglasses (polycarbonate). If vision still poor OS with updated MRx can refer back to pre-op clinic for cat eval Right optic neuropathy 02/13/2023 Assessment & Plan (03/18/2023 2:50 PM BUTT WELDER): Follow-up for NAION OD Afferent function stable Disc edema now resolved Stable inferior altitudinal defect on HVF 24-2 Follow-up 3-6 months for repeat HVF 24-2, OCT mac/gcc, OCT rnfl Patient wishes to call to schedule as she states her likely has lung cancer and she needs to help him deal with his affairs first Assessment & Plan (02/13/2023 4:40 PM BUTT WELDER): Exam today with stable disc edema [...] HVF 24-2 Coronary artery disease invo lving [place] coronary artery of [place] heart without angina pectoris 04/01/2019 Social History [...] on file Medical Devices Implanted Type Area Copy Machine Operator Device Identifier Shelf Expiration Date Model / Serial / Lot [employer] Lens Iol Posterior Biconvex Optic Single Piece Envista 6.0x12.5 +22.0d Hydrophobic Acrylic [id number] - [id number] - [id number] Implanted:Qty: 1 on 10/10/2023 by Fabian Palomino MD at [facility] Lens Left: Eye [employer] [id number] 07/14/2026 [id number] / [id number] Insurance [facility] RE[facility] AETNA MEDICARE GOLD Advance Directives For more information, please contact: [phone] * Full Code (Latest Code Status on File) Date Activated Date Inactivated Comments 08/07/2023 8:09 PM 08/09/2023 4:13 PM Care Teams Soil Science Teacher Relationship Specialty Start Date End Date Arpit Delatorre DO PCP - General Internal Medicine 09/29/23
--- OUTSIDE RECORDS SUMMARY | 2024-10-16 21:50 | XMS_ITS | Clinical Summary ---
Author Organization [facility] Address [address] [place] [address] Phone Care Team Providers Care Comic Illustrator Name Role Phone Rogelio Cruz Heri HARDING Primary Care Provider [phone] Allergies Active Allergy Reactions Criticality Noted Date [...] Recently Relevant to Health Maintenance Care Teams Comic Illustrator Relationship Specialty Start Date End Date Rogelio Cruz DO [address] [place] [address] PCP - General Internal Medicine 11/10/19
--- OUTSIDE RECORDS SUMMARY | 2024-10-16 21:50 | XMS_ITS | Clinical Summary ---
Author Organization [facility] Address [facility] [place] [address] Care Team Providers Care Bakery Worker Name Role Phone Unavailable Primary Care Provider [...]
--- OUTSIDE RECORDS SUMMARY | 2024-10-16 21:50 | XMS_ITS | Clinical Summary ---
Author Organization [facility] [address] Address [address] [place] [address] Care Team Providers Care Call Center Support Representative Name Role Phone Arpit Delatorre DO Primary [...] 10/11/2023 Assessment & Plan (03/18/2024 12:05 PM WOMEN NURSE): S/p CEIOL OD 01/06/24 (Stock), OS 10/11/23 [...] 08/18/2023 Assessment & Plan (03/18/2024 12:17 PM WOMEN NURSE): - Presented initially in 12/2022 with disc edema and vision loss of the right eye; was ultimately diagnosed with NAION due to normal ESR/CRP, absence of GCA symptoms, unremarkable MRA brain/orbits, and clinical features consistent with NAION including xvha-ya-rqsp OS and resolution of the optic disc [...] and clinical features consistent with NAION including adfg-mm-yndi OS and resolution of the optic disc [...] and clinical features consistent with NAION including cnxz-wd-fipa OS and resolution of the optic disc [...] 03/18/2023 Assessment & Plan (03/18/2023 2:53 PM WOMEN NURSE): Significant hyperopia on autorefraction today Patient currently not using glasses Recommend patient obtain eyeglasses (polycarbonate). If vision still poor OS with updated MRx can refer back to pre-op clinic for cat eval Right optic neuropathy 02/13/2023 Assessment & Plan (03/18/2023 2:50 PM WOMEN NURSE): Follow-up for NAION OD Afferent function stable Disc edema now resolved Stable inferior altitudinal defect on HVF 24-2 Follow-up 3-6 months for repeat HVF 24-2, OCT mac/gcc, OCT rnfl Patient wishes to call to schedule as she states her likely has lung cancer and she needs to help him deal with his affairs first Assessment & Plan (02/13/2023 4:40 PM WOMEN NURSE): Exam today with stable disc edema but [...] HVF 24-2 Coronary artery disease invo lving [place] coronary artery of [place] heart without angina pectoris 04/01/2019 Surgical History [...] 2024 01/04/2021 Medical Devices Implanted Type Area Van Owner Operator Device Identifier Shelf Expiration Date Model / Serial / Lot [employer] Lens Iol Posterior Biconvex Optic Single Piece Envista 6.0x12.5 +22.0d Hydrophobic Acrylic [id number] - [id number] - [id number] Implanted:Qty: 1 on 10/10/2023 by Fabian Palomino MD at [facility] Lens Left: Eye [employer] [id number] 07/14/2026 [id number] / [id number] / [id number] Insurance [facility] AETNA MEDICARE GOLD AETNA MEDICARE GOLD Advance Directives For more information, please contact: [phone] * Full Code (Latest Code Status on File) Date Activated Date Inactivated Comments 08/07/2023 8:09 PM 08/09/2023 4:13 PM Care Teams Call Center Support Representative Relationship Specialty Start Date End Date Arpit Delatorre DO PCP - General Internal Medicine 09/29/23
[2024-10-16 21:58] LABS: Alanine Aminotransferase 36 U/L (6-35); Albumin Level 4.1 g/dL (3.5-5.1); Alkaline Phosphatase 71 U/L (38-126); Anion Gap 6 mmol/L (4-12); Aspartate Amino Transferase 47 U/L (14-36); Bilirubin,Total 0.7 mg/dL (0.2-1.3); Blood Urea Nitrogen 20 mg/dL (7-17); Calcium 9.8 mg/dL (8.4-10.2); Carbon Dioxide 24 mmol/L (22-30); Chloride 105 mmol/L (98-107); Estimated CRCL calculation 56 ml/min; Estimated Glomerular Filt Rate 59; Glucose 173 mg/dL (65-110); Lipase 53 U/L (23-300); Potassium 4.0 mmol/L (3.4-5.0); Sodium 135 mmol/L (137-145); Total Protein 6.7 g/dL (6.3-8.2)
[2024-10-16 22:10] LABS: Troponin I 2.580 ng/mL (0.000-0.034)
--- NOTE | 2024-10-16 23:59 | ECG_ITS ---
Test Date: 2024-10-17 04:50:17 Measurements Intervals [place] Rate: 95 P: 76 [place]: 184 QRS: -11 QRSD: 93 T: 12 QT: 378 QTc: 476 Interpretive Statements SINUS RHYTHM LOW QRS VOLTAGE IN LIMB LEADS BORDERLINE R WAVE PROGRESSION, ANTERIOR LEADS ST-T WAVE ABNORMALITY IN ANTEROLATERAL LEADS- CONSIDER ISCHEMIA BASELINE ARTIFACT- I, II, AVR, V4-V6 ABNORMAL ECG Compared to ECG 10/17/2024 00:04:07 NO SIGNIFICANT CHANGE Electronically Signed On 10-17-2024 08:09:16 CDT by Thad Crowley D.O.
[2024-10-17] VITALS (24 sets, daily range): BP systolic 74–121; BP diastolic 49–88; PULSE 18–109; RESP 18–27; TEMP 36.6–37.1; O2SAT 93–98; BMI 35.6
[2024-10-17] MEDS: IPRATROPIUM 0.5 MG/ALBUTEROL SULFATE 2.5 MG AMPUL.NEB 3 ML INHALATION (00:22)
[2024-10-17 01:22] LABS: Troponin I 1.780 ng/mL (0.000-0.034)
[2024-10-17] MEDS: HEPARIN SOD/D5W 100 UNITS/ML 25,000 UNITS/250 ML BAG 9 UNITS IV CONT ×2 (01:28→07:20)
--- NOTE | 2024-10-17 03:01 | PM.IMHP ---
H&P: HPI History of Present Illness Date/Time: 10/17/24 03:01 Chief Complaint: Chest pain Narrative: 69-year-old female with a past medical history of pre diabetes, essential hypertension, hyperlipidemia intolerant to statin therapy, BENSON, GERD and prior small-bowel obstruction who presented to the ER via private vehicle with chest pain. The patient reported that for the last couple weeks she has been having intermittent epigastric abdominal discomfort that she initially thought was due to GI cause. She had outpatient workup there was negative. She then yesterday developed more substernal and epigastric discomfort that radiated through to her midthoracic back between her shoulder blades and up into her neck. The pain started when she was trying to vacuum out the pool. She became so short of breath that she did not think she would be able to get out of the pool. The pain was worse with activity and was a 10/10 in intensity. It would resolve after she would rest for about 20 minutes. It was accompanied by shortness of breath. The pain instead of being sharp and stabbing also developed an aching quality. She had never had pain like this before and was completely different than her prior abdominal pain. She had a cardiac catheterization December [address] Dodd which demonstrated modest nonocclusive coronary artery disease with minimal plaquing of the LAD. She had echocardiogram that demonstrated normal EF but in the cardiac cath lab radiology technologist her EF was 45-50%. She was initially placed on metoprolol but developed a rash to metoprolol and was placed on Coreg. She then stop taking Coreg due to making her feel tired. She reports she had previously been placed on receive a statin and quit taking this due to muscle pain and cramps. She denies any recent cough, congestion, fevers or chills. In the ER her initial troponin was elevated to 2.5. Her initial EKG demonstrated left anterior fascicular block and possible old anterior and inferior PR but this finding was not present on her prior EKG from August. Repeat EKG this a.m. demonstrated resolution of the PR findings but nonspecific T-wave abnormalities be 4 through V6. At the time my evaluation the patient was still having chest pain that radiated into her back there was a 3/10 in intensity. She received 1 sublingual nitroglycerin with complete resolution of her pain. She received full-dose aspirin in the ER. The patient does admit she has been under increased stress at home. Her was recently diagnosed with lung cancer and he has rapidly progressed from stage II to stage IV disease. Her son is also recently had to have surgery. She states that they need to down size their home. She becomes understandably quite emotional when discussing her various social stressors. She thinks that this may be playing a part in her abdominal symptoms. Review of Systems Review of Systems: 12 systems were reviewed with pertinent positives and negatives per HPI. Except as documented in the HPI, all other systems were reviewed and are negative. [facility] Past Medical History Medical History (Updated 10/17/24 @ 07:41 by Daniela Landrum DO) Vitamin D deficiency B12 deficiency Obesity (BMI 30.0-34.9) Cataract Insomnia NAION (non-arteritic anterior ischemic optic neuropathy) Trigger thumb of right hand Hand arthritis Arthritis Gastroesophageal reflux disease Uterine cancer NAFLD (nonalcoholic fatty liver disease) HTN (hypertension) HLD (hyperlipidemia) Adenomatous colon polyp Surgical History Surgical History (Updated 10/17/24 @ 03:06 by Daniela Landrum DO) History of colonoscopy with polypectomy History of cholecystectomy open History of hysterectomy History of hand surgery History of shoulder surgery Family History Family History Mother Family history of malignant neoplasm, Onset Age: 87 Lung cancer Cancer Diabetes mellitus Father Heart disease Lung cancer Cancer Sibling Heart disease Cancer Asthma Lymphoma Daughter Type 1 diabetes Son Stomach problems Social History Social History (Updated 10/17/24 @ 07:32 by Daniela Landrum DO) Social History: She reports that she is legally blind but can not drive under very specific circumstances. 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 She and her raised 1 daughter and 1 son. Her currently has stage IV lung cancer. She and her have been for 56 years. Code status: Full code Surrogate decision maker: Smoking status: Never smoker Second hand tobacco smoke exposure: Yes Alcohol intake: never Alcohol use details: rarely Substance use: never Substance use type: does not use Do You Feel Safe in your Home?: Yes Lack of Transportation: No Lack of Food: Never True Current Housing: I Have Housing Concerned About Future Housing: No Difficulty Paying Gas/Electric Bills: No Difficulty Paying for Meds: No Currently Unemployed: No Education: Trade/Vocational Certificate Difficulty w/ Childcare or Family Care: No Living arrangements: with family Occupation/Education: occupation Additional occupation/education comments: [employer] Gender identity (if verbalized by the patient): Female Spiritual care concerns: No Meds Home Medications and Allergies Home Medications ?Medication ?Instructions ?Recorded ?Confirmed ?Type lisinopril 30 mg tablet 30 mg PO DAILY #90 tabs 07/16/24 10/17/24 Rx pantoprazole 40 mg tablet,delayed 40 mg PO QAM #90 tabs 08/27/24 10/17/24 Rx release acetaminophen 500 mg capsule 500 mg PO Q6H PRN fever or pain 10/17/24 10/17/24 History fluticasone propionate 50 2 spray intranasal DAILY PRN 10/17/24 10/17/24 History mcg/actuation nasal allergy symptoms spray,suspension (Flonase Allergy Relief) Allergies Allergy/AdvReac Type Severity Reaction Status Date / Time metoprolol Allergy Mild Hives Verified 10/17/24 03:20 hydrocodone AdvReac Severe SOB Verified 10/17/24 03:20 codeine AdvReac Mild Nausea Verified 10/17/24 03:20 oxycodone AdvReac Unknown Nausea Verified 10/17/24 03:20 Vital Signs Vital Signs - 24 hr 10/16/24 20:16 10/16/24 20:23 10/16/24 20:23 Temperature 98 F Pulse Rate 111 H 111 H Respiratory Rate 33 H Blood Pressure 135/81 Pulse Oximetry 100 100 Oxygen Delivery Room Air Room Air 10/16/24 21:35 10/16/24 21:36 10/17/24 00:20 Temperature Pulse Rate 100 Respiratory Rate 22 H Blood Pressure 132/85 Pulse Oximetry 100 99 95 Oxygen Delivery Room Air Room Air 10/17/24 00:23 10/17/24 00:30 10/17/24 00:40 Temperature Pulse Rate 107 H 104 H 109 H Respiratory Rate 25 H 24 H 27 H Blood Pressure 117/83 Pulse Oximetry 94 Oxygen Delivery 10/17/24 02:31 Temperature Pulse Rate 102 H Respiratory Rate 19 Blood Pressure 121/88 Pulse Oximetry 98 Oxygen Delivery Exam Narrative: Weight 91.6 kg BMI 32.6 Const: Other: Obese, appears stated age, no acute distress HENMT: Other: Mucous membranes are moist, crowded posterior oropharynx, no oral pharyngeal erythema Eyes: Other: Pupils are equal and reactive, no scleral icterus, no conjunctival pallor Neck: Other: Large neck circumference, no JVD Chest: Other: Tenderness to the tip of the xiphoid process Resp: Other: Clear to auscultation bilaterally, no increased work of breathing Cardio: Other: Sinus tachycardia, 2+ bilateral radial pedal pulses, no murmur GI: Other: Soft, nontender, nondistended, positive bowel sounds Skin: Other: No jaundice, no pallor Neuro: Other: Alert oriented, speech is clear, no facial asymmetry, no localizing neurologic deficits noted during the course of conversation Extrem: Other: No clubbing, cyanosis or edema Psych: Other: Appropriate mood and affect if somewhat anxious given recent social stressors, pleasant and cooperative, judgment and insight intact H&P: Results Labs Labs: Laboratory Tests 10/16/24 21:24 10/16/24 21:24 10/16/24 10/17/24 21:24 00:50 WBC 6.6 RBC 4.83 Hgb 13.3 Hct 41.4 MCV 85.7 MCH 27.5 MCHC 32.1 RDW 13.2 Plt Count 195 MPV 10.6 H Immature Gran % (Auto) 0.3 Neut % (Auto) 75.4 H Lymph % (Auto) 18.9 [place] % (Auto) 4.4 Eos % (Auto) 0.8 Baso % (Auto) 0.2 Lymph # (Auto) 1.25 [place] # (Auto) 0.3 Eos # (Auto) 0.1 Baso # (Auto) 0.0 Abs Immat Gran (auto) 0.02 Absolute Neuts (auto) 5.0 Absolute Nucleated RBC 0.000 Nucleated RBC % 0.0 PT 14.5 INR 1.1 APTT 32.7 Sodium 135 L Potassium 4.0 Chloride 105 Carbon Dioxide 24 Anion Gap 6 BUN 20 H Creatinine 0.93 Estim Creat Clear Calc 56 Estimated GFR 59 Glucose 173 H Calcium 9.8 Total Bilirubin 0.7 AST 47 H ALT 36 H Alkaline Phosphatase 71 Troponin I 2.580 H* 1.780 H* D Total Protein 6.7 Albumin 4.1 Lipase 53 Impressions Chest X-Ray 10/16/24 20:57 IMPRESSION: No acute cardiopulmonary process. EKG: Sinus tachycardia rate 109 possible left atrial enlargement, low-voltage QRS in extremity leads, left anterior fascicular block, possible anterior PR probably old G2, inferior PR probably holding but changes compared to 08/19/2023 demonstrates change in QRS voltage, new anterior fascicular block, PR finding is also new All imaging and EKGs personally reviewed and interpreted. And unless stated otherwise agree with radiologic and cardiology interpretation. Assessment and Plan Assessment and plan (1) Non-ST elevation PR (NSTEMI): Code(s): I21.4 - Non-ST elevation (NSTEMI) myocardial infarction Status: Acute (2) Type II diabetes mellitus: Qualifiers: Diabetes mellitus complication status: with hyperglycemia Diabetes mellitus residential insulin use: without residential use Qualified Code(s): E11.65 - Type 2 diabetes mellitus with hyperglycemia Code(s): E11.9 - Type 2 diabetes mellitus without complications Status: Acute (3) HTN (hypertension): Qualifiers: Hypertension type: primary hypertension Qualified Code(s): I10 - Essential (primary) hypertension Code(s): I10 - Essential (primary) hypertension Status: Acute (4) Obesity (BMI 30.0-34.9): Code(s): E66.9 - Obesity, unspecified Status: Acute Plan Patient presents with a non STEMI with elevated troponin and distant history of moderate coronary artery disease on cardiac catheterization in 2019. Troponin now trending downward after heparin drip per protocol and initial treatment with full-dose aspirin. Cardiology has been consulted. Patient was still having pain at the time of my evaluation but pain resolved after sublingual nitroglycerin. Will continue daily 81 mg aspirin. Will check fasting lipid panel. Will continue home antihypertensives with lisinopril. Cardiology has been consulted. Patient will remain NPO until evaluated by Cardiology. The patient reports that she was on metformin for her diabetes but this was stopped when she started having abdominal symptoms. She also was switched to Jardiance but then this was discontinued as well. She has not been on any diabetic medications for couple of weeks. Will place patient on low dose sliding scale insulin with Accu-Cheks and hypoglycemia protocol as needed. Patient is obese and has been told that she snores in the past. She states that she feels well rested when she wakes up in she does not believe that she snores so she does not want evaluation for possible obstructive sleep apnea although I did encourage her to consider an outpatient polysomnogram she does not wish to do so. Patient has been admitted as observation status. MEDICAL DECISION MAKING NARRATIVE -Spoke with the ED provider in detail regarding patient's evaluation, workup and management -Patient seen and examined at bedside -Collaborated with patient's nurse at the bedside in detail and addressed all concerns -Labs, electrolytes, radiology, investigations and test results reviewed -ED/Consult/Nursing/Ancilliary notes on the chart reviewed and appreciated -Spoke with patient and plan was discussed and all questions were answered. Quality VTE Prophylaxis VTE prophylaxis: pharmacologic ordered (Heparin drip per protocol) Hospitalist MIPS Advance Care Plan I have confirmed that the patient's Advanced Care Plan is present, code status is documented, or surrogate decision maker is listed in patient medical record.: Yes Medication Reconciliation I have utilized all available resources to obtain, update and review the patients current medications (includes all prescriptions, OTC, herbals, cannabis, and nutritional supplements).: Yes
--- NOTE | 2024-10-17 03:30 | ADMGEN ---
This patient, Nikky Ceja, was admitted to IMU Room 209-01 on 10/17/24 at 0300. Patient/family oriented to hospital policies and general routines including ID bracelet, bed and alarms, visiting hours, pain management, procedures, bathroom and other care routines, personal items, smoking policy, room service/diet, and visiting hours. Information on how to activate the Rapid Response Team has been discussed. Patient/Family are encouraged to report perceived risks to care and to ask questions if they do not understand what they are told or what they should do.
[2024-10-17 03:36] LABS: Hematocrit 41.1 % (37.0-47.0); Hemoglobin 12.8 g/dL (12.0-15.0); Immature Granulocyte Percent A 0.2 % (0-0.5); Lymphocytes Absolute Auto 1.59 K/mm3 (0.9-3.2); Mean Corpuscular HGB Conc 31.1 g/dl (32-36); Mean Corpuscular Hemoglobin 27.3 pg (26-34); Mean Corpuscular Volume 87.6 fl (80-100); Nucleated Red Blood Cells Absolute Auto 0.000 K/mm3 (0.0-0.012); Nucleated Red Blood Cells Perc 0.0 % (0.0-0.2); Platelet Count Result 178 k/mm3 (150-375); Red Blood Count 4.69 M/mm3 (4.2-5.4); White Blood Count 6.3 K/mm3 (4.5-10.0)
[2024-10-17 04:16] LABS: Cholesterol 241 mg/dL (0-200); HDL Direct 37 mg/dL; Triglycerides 144 mg/dL (<150)
[2024-10-17] MEDS: NITROGLYCERIN SL 0.4 MG TABLET SUBLINGUAL (04:23)
[2024-10-17 04:31] LABS: Troponin I 1.440 ng/mL (0.000-0.034)
--- NOTE | 2024-10-17 04:38 | ECG_ITS ---
Test Date: 2024-10-17 00:04:07 Measurements Intervals [place] Rate: 101 P: 78 MN: 199 QRS: -33 QRSD: 83 T: 36 QT: 329 QTc: 427 Interpretive Statements SINUS TACHYCARDIA LEFT AXIS DEVIATION LOW QRS VOLTAGE IN LIMB LEADS BORDERLINE R WAVE PROGRESSION, ANTERIOR LEADS CONSIDER INFERIOR INFARCT, AGE INDETERMINATE ST-T WAVE ABNORMALITY IN ANTEROLATERAL LEADS- CONSIDER ISCHEMIA BASELINE ARTIFACT- I, III, AVR, AVL, AVF, V4-V6 ABNORMAL ECG Compared to ECG 10/16/2024 20:20:29 POSSIBLE ISCHEMIA NOW PRESENT Electronically Signed On 10-17-2024 08:13:06 CDT by Thad Crowley D.O.
[2024-10-17] MEDS: ONDANSETRON INJ 4 MG/2 ML VIAL IV PUSH (06:19)
[2024-10-17 07:40] LABS: INR 1.2; Prothrombin Time 15.4 Seconds (11.1-14.7)
[2024-10-17 07:42] LABS: Partial Thromboplastin Time 98.7 Seconds (22.3-36.8)
[2024-10-17] MEDS: ASPIRIN 81 MG ENTERIC TABLET PO (08:15)
[2024-10-17] MEDS: ACETAMINOPHEN 500 MG TABLET PO (08:15)
[2024-10-17] MEDS: diphenhydrAMINE HCl CAP 25 MG CAPSULE 50 MG PO ×3 (08:15→23:23)
[2024-10-17] MEDS: PANTOPRAZOLE 40 MG TABLET PO (08:15)
--- NOTE | 2024-10-17 08:20 | P.PNIM_ITS ---
Progress Note: A&P Assessment and Plan (1) Non-ST elevation NC (NSTEMI): Code(s): I21.4 - Non-ST elevation (NSTEMI) myocardial infarction Status: Acute (2) Type II diabetes mellitus: Qualifiers: Diabetes mellitus complication status: with hyperglycemia Diabetes mellitus terminal make up operator insulin use: without terminal make up operator use Qualified Code(s): E11.65 - Type 2 diabetes mellitus with hyperglycemia Code(s): E11.9 - Type 2 diabetes mellitus without complications Status: Acute (3) HTN (hypertension): Qualifiers: Hypertension type: primary hypertension Qualified Code(s): I10 - Essential (primary) hypertension Code(s): I10 - Essential (primary) hypertension Status: Acute (4) Obesity (BMI 30.0-34.9): Code(s): E66.9 - Obesity, unspecified Status: Acute Plan Patient presents with a non STEMI with elevated troponin and distant history of moderate coronary artery disease on cardiac catheterization in 2019. Troponin now trending downward after heparin drip per protocol and initial treatment with full-dose aspirin. Cardiology has been consulted. Patient was still having pain at the time of my evaluation but pain resolved after sublingual nitroglycerin. Will continue daily 81 mg aspirin. Will check fasting lipid panel. Will continue home antihypertensives with lisinopril. Cardiology has been consulted. Patient will remain NPO until evaluated by Cardiology. The patient reports that she was on metformin for her diabetes but this was stopped when she started having abdominal symptoms. She also was switched to Jardiance but then this was discontinued as well. She has not been on any diabetic medications for couple of weeks. Will place patient on low dose sliding scale insulin with Accu-Cheks and hypoglycemia protocol as needed. Patient is obese and has been told that she snores in the past. She states that she feels well rested when she wakes up in she does not believe that she snores so she does not want evaluation for possible obstructive sleep apnea although I did encourage her to consider an outpatient polysomnogram she does not wish to do so. Subjective Date/time seen: 10/17/24 08:20 Interval history: Consulted GI due to abdominal pain. H.Pylori pending. Cardiac cath tomorrow as per Cardiology Review of Systems Review of Systems: 12 systems were reviewed with pertinent positives and negatives per HPI. Except as documented in the HPI, all other systems were reviewed and are negative. Exam Narrative: Weight 91.6 kg BMI 32.6 Const: Other: Obese, appears stated age, no acute distress HENMT: Other: Mucous membranes are moist, crowded posterior oropharynx, no oral pharyngeal erythema Eyes: Other: Pupils are equal and reactive, no scleral icterus, no conjunctival pallor Neck: Other: Large neck circumference, no JVD Chest: Other: Tenderness to the tip of the xiphoid process Resp: Other: Clear to auscultation bilaterally, no increased work of breathing Cardio: Other: Sinus tachycardia, 2+ bilateral radial pedal pulses, no murmur GI: Other: Soft, nontender, nondistended, positive bowel sounds Skin: Other: No jaundice, no pallor Neuro: Other: Alert oriented, speech is clear, no facial asymmetry, no localizing neurologic deficits noted during the course of conversation Extrem: Other: No clubbing, cyanosis or edema Psych: Other: Appropriate mood and affect if somewhat anxious given recent social stressors, pleasant and cooperative, judgment and insight intact Objective Data Vital Signs Vital Signs: Vital Signs - 24 hr 10/16/24 20:16 10/16/24 20:23 10/16/24 20:23 Temperature 98 F Pulse Rate 111 H 111 H Respiratory Rate 33 H Blood Pressure 135/81 Pulse Oximetry 100 100 Oxygen Delivery Room Air Room Air 10/16/24 21:35 10/16/24 21:36 10/17/24 00:20 Temperature Pulse Rate 100 Respiratory Rate 22 H Blood Pressure 132/85 Pulse Oximetry 100 99 95 Oxygen Delivery Room Air Room Air 10/17/24 00:23 10/17/24 00:30 10/17/24 00:40 Temperature Pulse Rate 107 H 104 H 109 H Respiratory Rate 25 H 24 H 27 H Blood Pressure 117/83 Pulse Oximetry 94 Oxygen Delivery 10/17/24 02:31 10/17/24 03:15 10/17/24 03:18 Temperature Pulse Rate 102 H 102 H Respiratory Rate 19 19 Blood Pressure 121/88 121/88 Pulse Oximetry 98 98 Oxygen Delivery Room Air 10/17/24 03:46 10/17/24 03:54 10/17/24 04:00 Temperature 98.6 F Pulse Rate 101 H 107 H 98 Respiratory Rate 18 Blood Pressure 121/65 Pulse Oximetry 97 Oxygen Delivery 10/17/24 06:00 10/17/24 07:24 Temperature 98.8 F Pulse Rate 93 18 L Respiratory Rate 24 H Blood Pressure 95/57 L Pulse Oximetry 97 Oxygen Delivery Intake/Output Intake/Output: Intake & Output 10/14/24 10/15/24 10/16/24 10/17/24 23:59 23:59 23:59 23:59 Intake Total 1052.8 Balance 1052.8 Meds/Results Medications: Active Medications Generic Name Dose Route Start Last Admin Trade Name Freq PRN Reason Stop Dose Admin Acetaminophen 500 mg 10/17/24 07:33 10/17/24 08:15 Acetaminophen 500 Mg Tablet PO 500 mg Q6H PRN Administration fever or pain 1-3 Aspirin 81 mg 10/17/24 09:00 10/17/24 08:15 Aspirin 81 Mg Enteric Tablet PO 81 mg QAM TAMIE Administration Dextrose 12.5 gm 10/17/24 07:40 Dextrose 50% 25 Gm/50 Ml Syringe IV PUSH PRN PRN Hypoglycemia Protocol Diphenhydramine HCl 50 mg 10/17/24 06:05 10/17/24 08:15 Diphenhydramine Hcl Cap 25 Mg Capsule PO 50 mg Q6H PRN Administration Itching Fluticasone Propionate 2 spray 10/17/24 07:33 Fluticasone Propionate 0.05% Na Spr 16 Gm Btl (*Bkc) NASAL DAILY PRN allergy symptoms Glucagon 1 mg 10/17/24 07:40 Glucagon For Inj 1 Mg Vial IM PRN PRN Hypoglycemia Protocol Glucose 15 gm 10/17/24 07:40 Glucose Oral Gel 15 Gm Of Glucse In 37.5 Gm Tube PO PRN PRN Hypoglycemia Protocol Heparin Sodium (Porcine) 4,000 units 10/16/24 22:11 Heparin Sodium 5,000 Units/Ml Vial IV PUSH PRN PRN aPTT less than 55 seconds Heparin Sodium (Porcine) 3,000 units 10/16/24 22:11 Heparin Sodium 5,000 Units/Ml Vial IV PUSH PRN PRN aPTT 55 - 70 seconds Heparin Sodium/Dextrose 25,000 units in 250 mls @ 9 mls/hr 10/16/24 22:15 10/17/24 07:20 Heparin Sodium/D5w 100 Units/Ml IV CONT 90,000 units/hr .Q24H TAMIE 900 mls/hr Titration Protocol 900 UNITS/HR Dextrose 1,000 mls @ 100 mls/hr 10/17/24 07:40 Dextrose 5% 1,000 Ml IVPB PRN PRN Hypoglycemia Protocol Insulin Aspart 2 - 5 units 10/17/24 12:00 Insulin Aspart (*Bkc) 100 Units/Ml SUB-Q Q6HR [facility] Protocol Lisinopril 30 mg 10/17/24 09:00 Lisinopril 10 Mg Tablet PO DAILY TAMIE Nitroglycerin 0.4 mg 10/17/24 01:23 10/17/24 04:23 Nitroglycerin Sl 0.4 Mg Tablet SUBLINGUAL 0.4 mg Q5MIN PRN Administration Chest Pain Ondansetron HCl 4 mg 10/17/24 01:23 10/17/24 06:19 Ondansetron Inj 4 Mg/2 Ml Vial IV PUSH 4 mg Q4H PRN Administration Nausea Pantoprazole Sodium 40 mg 10/17/24 09:00 10/17/24 08:15 Pantoprazole 40 Mg Tablet PO 40 mg QAM TAMIE Administration Radiology Results: ITS Impressions Chest X-Ray 10/16/24 20:57 IMPRESSION: No acute cardiopulmonary process. Labs Labs: Laboratory Results - last 24 hr 10/16/24 10/17/24 10/17/24 21:24 00:50 03:31 WBC 6.6 RBC 4.83 Hgb 13.3 Hct 41.4 MCV 85.7 MCH 27.5 MCHC 32.1 RDW 13.2 Plt Count 195 MPV 10.6 H Immature Gran % (Auto) 0.3 Neut % (Auto) 75.4 H Lymph % (Auto) 18.9 [place] % (Auto) 4.4 Eos % (Auto) 0.8 Baso % (Auto) 0.2 Lymph # (Auto) 1.25 [place] # (Auto) 0.3 Eos # (Auto) 0.1 Baso # (Auto) 0.0 Abs Immat Gran (auto) 0.02 Absolute Neuts (auto) 5.0 Absolute Nucleated RBC 0.000 Nucleated RBC % 0.0 PT 14.5 INR 1.1 APTT 32.7 Sodium 135 L Potassium 4.0 Chloride 105 Carbon Dioxide 24 Anion Gap 6 BUN 20 H Creatinine 0.93 Estim Creat Clear Calc 56 Estimated GFR 59 Glucose 173 H Calcium 9.8 Total Bilirubin 0.7 AST 47 H ALT 36 H Alkaline Phosphatase 71 Troponin I 2.580 H* 1.780 H* D Total Protein 6.7 Albumin 4.1 Triglycerides 144 Cholesterol 241 H LDL Cholesterol Direct 156 HDL Direct 37 Lipase 53 10/17/24 10/17/24 03:32 07:20 WBC 6.3 RBC 4.69 Hgb 12.8 Hct 41.1 MCV 87.6 MCH 27.3 MCHC 31.1 L RDW 13.3 Plt Count 178 MPV 10.7 H Immature Gran % (Auto) 0.2 Neut % (Auto) 69.6 Lymph % (Auto) 25.1 [place] % (Auto) 4.1 Eos % (Auto) 0.5 Baso % (Auto) 0.5 Lymph # (Auto) 1.59 [place] # (Auto) 0.3 Eos # (Auto) 0.0 Baso # (Auto) 0.0 Abs Immat Gran (auto) 0.01 Absolute Neuts (auto) 4.4 Absolute Nucleated RBC 0.000 Nucleated RBC % 0.0 PT 15.4 H INR 1.2 APTT 98.7 H Sodium Potassium Chloride Carbon Dioxide Anion Gap BUN Creatinine Estim Creat Clear Calc Estimated GFR Glucose Calcium Total Bilirubin AST ALT Alkaline Phosphatase Troponin I 1.440 H* Total Protein Albumin Triglycerides Cholesterol LDL Cholesterol Direct HDL Direct Lipase Quality VTE Prophylaxis VTE prophylaxis: pharmacologic ordered (Heparin drip per protocol) Hospitalist MIPS Advance Care Plan I have confirmed that the patient's Advanced Care Plan is present, code status is documented, or surrogate decision maker is listed in patient medical record.: Yes Medication Reconciliation I have utilized all available resources to obtain, update and review the patients current medications (includes all prescriptions, OTC, herbals, cannabis, and nutritional supplements).: Yes
[2024-10-17] MEDS: SODIUM CHLORIDE 0.9% IV 1,000 ML 60 ML IV CONT (09:00)
--- NOTE | 2024-10-17 12:04 | P.CONCA_ITS ---
Assessment and Plan Assessment and plan (1) Non-ST elevation PR (NSTEMI): Code(s): I21.4 - Non-ST elevation (NSTEMI) myocardial infarction Status: Acute Plan NSTEMI Hypertension controlled Transthoracic echocardiogram Heparin Aspirin Left heart catheterization tomorrow History of Present Illness History of Present Illness Consult date/time: 10/17/24 12:04 Reason For Visit: NSTEMI Narrative: 69-year-old female patient presents to the hospital with acute episode of chest pain. Chest pain was midsternal squeezing radiating to the back and to the neck. pain lasted for 2 hours breath associated with nausea. The patient has no prior similar episodes. Showed no prior history of heart attacks. She was noted to have elevated enzymes and was discharged on heparin. She had mild episode of chest pain this morning that resolved with nitroglycerin. Carotid chest pain-free Review of Systems 2 Review of Systems: All systems reviewed & are unremarkable except as noted in HPI and below PMFSH Past Medical History Medical History (Updated 10/17/24 @ 07:41 by Daniela Landrum DO) Vitamin D deficiency B12 deficiency Obesity (BMI 30.0-34.9) Cataract Insomnia NAION (non-arteritic anterior ischemic optic neuropathy) Trigger thumb of right hand Hand arthritis Arthritis Gastroesophageal reflux disease Uterine cancer NAFLD (nonalcoholic fatty liver disease) HTN (hypertension) HLD (hyperlipidemia) Adenomatous colon polyp Surgical History Surgical History (Updated 10/17/24 @ 03:06 by Daniela Landrum DO) History of colonoscopy with polypectomy History of cholecystectomy open History of hysterectomy History of hand surgery History of shoulder surgery Family History Family History Mother Family history of malignant neoplasm, Onset Age: 87 Lung cancer Cancer Diabetes mellitus Father Heart disease Lung cancer Cancer Sibling Heart disease Cancer Asthma Lymphoma Daughter Type 1 diabetes Son Stomach problems Social History Social History (Updated 10/17/24 @ 07:32 by Daniela Landrum DO) Social History: She reports that she is legally blind but can not drive under very specific circumstances. 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 She and her raised 1 daughter and 1 son. Her currently has stage IV lung cancer. She and her have been for 56 years. Code status: Full code Surrogate decision maker: Smoking status: Never smoker Second hand tobacco smoke exposure: Yes Alcohol intake: never Alcohol use details: rarely Substance use: never Substance use type: does not use Do You Feel Safe in your Home?: Yes Lack of Transportation: No Lack of Food: Never True Current Housing: I Have Housing Concerned About Future Housing: No Difficulty Paying Gas/Electric Bills: No Difficulty Paying for Meds: No Currently Unemployed: No Education: Trade/Vocational Certificate Difficulty w/ Childcare or Family Care: No Living arrangements: with family Occupation/Education: occupation Additional occupation/education comments: [employer] Gender identity (if verbalized by the patient): Female Spiritual care concerns: No Meds Home Medications and Allergies Home Medications ?Medication ?Instructions ?Recorded ?Confirmed ?Type lisinopril 30 mg tablet 30 mg PO DAILY #90 tabs 07/16/24 10/17/24 Rx pantoprazole 40 mg tablet,delayed 40 mg PO QAM #90 tabs 08/27/24 10/17/24 Rx release acetaminophen 500 mg capsule 500 mg PO Q6H PRN fever or pain 10/17/24 10/17/24 History fluticasone propionate 50 2 spray intranasal DAILY PRN 10/17/24 10/17/24 History mcg/actuation nasal allergy symptoms spray,suspension (Flonase Allergy Relief) Allergies Allergy/AdvReac Type Severity Reaction Status Date / Time metoprolol Allergy Mild Hives Verified 10/17/24 03:20 hydrocodone AdvReac Severe SOB Verified 10/17/24 03:20 codeine AdvReac Mild Nausea Verified 10/17/24 03:20 oxycodone AdvReac Unknown Nausea Verified 10/17/24 03:20 Vital Signs Vital Signs - 24 hr 10/16/24 20:16 10/16/24 20:23 10/16/24 20:23 Temperature 36.6 C Pulse Rate 111 H 111 H Respiratory Rate 33 H Blood Pressure 135/81 Pulse Oximetry 100 100 Oxygen Delivery Room Air Room Air 10/16/24 21:35 10/16/24 21:36 10/17/24 00:20 Temperature Pulse Rate 100 Respiratory Rate 22 H Blood Pressure 132/85 Pulse Oximetry 100 99 95 Oxygen Delivery Room Air Room Air 10/17/24 00:23 10/17/24 00:30 10/17/24 00:40 Temperature Pulse Rate 107 H 104 H 109 H Respiratory Rate 25 H 24 H 27 H Blood Pressure 117/83 Pulse Oximetry 94 Oxygen Delivery 10/17/24 02:31 10/17/24 03:15 10/17/24 03:18 Temperature Pulse Rate 102 H 102 H Respiratory Rate 19 19 Blood Pressure 121/88 121/88 Pulse Oximetry 98 98 Oxygen Delivery Room Air 10/17/24 03:46 10/17/24 03:54 10/17/24 04:00 Temperature 37.0 C Pulse Rate 101 H 107 H 98 Respiratory Rate 18 Blood Pressure 121/65 Pulse Oximetry 97 Oxygen Delivery 10/17/24 06:00 10/17/24 07:24 10/17/24 08:00 Temperature 37.1 C Pulse Rate 93 18 L Respiratory Rate 24 H Blood Pressure 95/57 L Pulse Oximetry 97 97 Oxygen Delivery Room Air 10/17/24 11:35 Temperature 36.9 C Pulse Rate 88 Respiratory Rate 18 Blood Pressure 87/59 L Pulse Oximetry 95 Oxygen Delivery Exam 2 Const: General: comfortable and no acute distress Other: Able to lie flat HENMT: Face/Nose/Sinus: Normal nares present and no epistaxis Mouth: Yes moist mucous membranes Eyes: Sclera: sclerae normal Pupils: Equal, round and reactive pupils present Neck: Neck: supple and no JVD Carotids: no bruits Resp: Auscultation: clear to auscultation bilaterally and lung sounds not diminished Other: No chest wall tenderness Cardio: Rate: regular rate Rhythm: regular rhythm Heart sounds: no gallops, no murmurs and no rubs GI: GI Palp: Yes Soft to palpation and No Tenderness to palpation present (GI) Auscultation: normal bowel sounds Skin: General skin exam: normal color, rashes and/or lesions noted and no erythema Other: Warm Neuro: Cranial nerves: Yes Equal, round and reactive pupils present Speech: normal speech Other: No obvious focal deficit or facial asymmetry Extrem: General: no edema Other: Normal capillary refills Intact distal pulses. Results Labs and Meds 10/17/24 03:32 10/16/24 21:24 Lab results: Cardiac Enzymes 10/16/24 10/17/24 10/17/24 Range/Units 21:24 00:50 03:32 AST 47 H (14-36) U/L Troponin I 2.580 H* 1.780 H* D 1.440 H* (0.000-0.034) ng/mL Coagulation 10/16/24 10/17/24 Range/Units 21:24 07:20 PT 14.5 15.4 H (11.1-14.7) Seconds APTT 32.7 98.7 H (22.3-36.8) Seconds Lipids 10/17/24 Range/Units 03:31 Triglycerides 144 (<150) mg/dL Cholesterol 241 H (0-200) mg/dL CBC 10/16/24 10/17/24 Range/Units 21:24 03:32 WBC 6.6 6.3 (4.5-10.0) K/mm3 RBC 4.83 4.69 (4.2-5.4) M/mm3 Hgb 13.3 12.8 (12.0-15.0) g/dL Hct 41.4 41.1 (37.0-47.0) % Plt Count 195 178 (150-375) k/mm3 Lymph # (Auto) 1.25 1.59 (0.9-3.2) K/mm3 [place] # (Auto) 0.3 0.3 (0.1-0.6) K/mm3 Eos # (Auto) 0.1 0.0 (0-0.3) K/mm3 Baso # (Auto) 0.0 0.0 (0.0-0.1) K/mm3 Comprehensive Metabolic Panel 10/16/24 Range/Units 21:24 Sodium 135 L (137-145) mmol/L Potassium 4.0 (3.4-5.0) mmol/L Chloride 105 (98-107) mmol/L Carbon Dioxide 24 (22-30) mmol/L BUN 20 H (7-17) mg/dL Creatinine 0.93 (0.7-1.0) mg/dL Glucose 173 H (65-110) mg/dL Calcium 9.8 (8.4-10.2) mg/dL AST 47 H (14-36) U/L ALT 36 H (6-35) U/L Alkaline Phosphatase 71 (38-126) U/L Total Protein 6.7 (6.3-8.2) g/dL Albumin 4.1 (3.5-5.1) g/dL Intake and Output 10/16/24 10/17/24 10/17/24 23:59 07:59 15:59 Intake Total 1052.9 Balance 1052.9 Intake: IV 1052.9 Heparin Sod/D5w 100 Units/ml 25 52.9 ,000 units In 250 ml @ 900 UNITS/HR 9 mls/hr IV CONT .Q24H TAMIE Rx#:[id number] Sodium Chloride 0.9% IV 1,000 1000 ml @ 999 mls/hr IV CONT .Q1H1M STA Rx#:[id number] Other: Intake, Other Source NPO # Unmeasured Voids 1 Patient Weight 10/17/24 23:59 Weight 88.5 kg
[2024-10-17 13:39] LABS: Partial Thromboplastin Time 68.0 Seconds (22.3-36.8)
--- NOTE | 2024-10-17 14:07 | WPDGICN ---
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, currently she is being treated for acute coronary event, no plan for EGD inhouse also consider as outpatient gastric emptying study to assess if dysmotility will follow as needed (2) Nausea: Code(s): R11.0 - Nausea Status: Resolved (3) Non-ST elevation [place] (NSTEMI): Code(s): I21.4 - Non-ST elevation (NSTEMI) myocardial infarction Status: Acute Assessment and Plan: per cardiology cath tomorrow (4) HTN (hypertension): Qualifiers: Hypertension type: primary hypertension Qualified Code(s): I10 - Essential (primary) hypertension Code(s): I10 - Essential (primary) hypertension Status: Acute (5) Type II diabetes mellitus: Qualifiers: Diabetes mellitus intermediate card tender insulin use: without long-term use Diabetes mellitus complication status: with hyperglycemia Qualified Code(s): E11.65 - Type 2 diabetes mellitus with hyperglycemia Code(s): E11.9 - Type 2 diabetes mellitus without complications Status: Acute GI Consult Note Consult date/time: 10/17/24 14:07 Reason for consult: gerd, abdominal pain HPI: Nikky Ceja is a 69 year old female with past medical history of pre diabetes, essential hypertension, hyperlipidemia, MASH, GERD for at least 16 years using pantoprazole daily, also prior small-bowel obstruction who presented to the ER via private vehicle with chest pain. She also has been dealing with this chronic abdominal discomfort and feeling full after meals with more gerd symptoms for months, her last EGD about 16 years ago and she is trying to make an appointment to get established again with GI. Day of admission more substernal and epigastric discomfort that radiated through to her midthoracic back between her shoulder blades and up into her neck, pain was worse with activity and was a 10/10 in intensity. It would resolve after she would rest for about 20 minutes. It was accompanied by shortness of breath. ER noted positive troponin, diagnosed with NSTEMI and started on heparin, plan is cardiac cath tomorrow. She had a cardiac catheterization December [address] Dodd which demonstrated modest nonocclusive coronary artery disease with minimal plaquing of the LAD. Review of Systems Constitutional: Constitutional: Denies chills Eyes: Eyes: Denies blurry vision ENT: Reports Normal hearing present Cardiovascular: Cardiovascular: Reports chest pain Respiratory: Respiratory: Reports dyspnea on exertion Gastrointestinal: Gastrointestinal: Reports abdominal pain Genitourinary: Genitourinary: Denies dysuria Musculoskeletal: Musculoskeletal: Denies neck pain Integumentary/Breasts: Skin/Breast: Denies rash Neurologic: Denies Abnormal speech present Psychiatric: Psychiatric: Denies behavioral changes [facility] Past Medical History Medical History (Updated 10/17/24 @ 14:12 by Jose Rafael Murray MD) Gastroesophageal reflux disease Vitamin D deficiency B12 deficiency Obesity (BMI 30.0-34.9) Cataract Insomnia NAION (non-arteritic anterior ischemic optic neuropathy) Trigger thumb of right hand Hand arthritis Arthritis Uterine cancer NAFLD (nonalcoholic fatty liver disease) HTN (hypertension) HLD (hyperlipidemia) Adenomatous colon polyp Surgical History Surgical History (Updated 10/17/24 @ 03:06 by Daniela Landrum DO) History of colonoscopy with polypectomy History of cholecystectomy open History of hysterectomy History of hand surgery History of shoulder surgery Family History Family History Mother Family history of malignant neoplasm, Onset Age: 87 Lung cancer Cancer Diabetes mellitus Father Heart disease Lung cancer Cancer Sibling Heart disease Cancer Asthma Lymphoma Daughter Type 1 diabetes Son Stomach problems Social History Social History (Updated 10/17/24 @ 07:32 by Daniela Landrum DO) Social History: She reports that she is legally blind but can not drive under very specific circumstances. 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 She and her raised 1 daughter and 1 son. Her currently has stage IV lung cancer. She and her have been for 56 years. Code status: Full code Surrogate decision maker: Smoking status: Never smoker Second hand tobacco smoke exposure: Yes Alcohol intake: never Alcohol use details: rarely Substance use: never Substance use type: does not use Do You Feel Safe in your Home?: Yes Lack of Transportation: No Lack of Food: Never True Current Housing: I Have Housing Concerned About Future Housing: No Difficulty Paying Gas/Electric Bills: No Difficulty Paying for Meds: No Currently Unemployed: No Education: Trade/Vocational Certificate Difficulty w/ Childcare or Family Care: No Living arrangements: with family Occupation/Education: occupation Additional occupation/education comments: [employer] Gender identity (if verbalized by the patient): Female Spiritual care concerns: No Meds Home Medications and Allergies Home Medications ?Medication ?Instructions ?Recorded ?Confirmed ?Type lisinopril 30 mg tablet 30 mg PO DAILY #90 tabs 07/16/24 10/17/24 Rx pantoprazole 40 mg tablet,delayed 40 mg PO QAM #90 tabs 08/27/24 10/17/24 Rx release acetaminophen 500 mg capsule 500 mg PO Q6H PRN fever or pain 10/17/24 10/17/24 History fluticasone propionate 50 2 spray intranasal DAILY PRN 10/17/24 10/17/24 History mcg/actuation nasal allergy symptoms spray,suspension (Flonase Allergy Relief) Allergies Allergy/AdvReac Type Severity Reaction Status Date / Time metoprolol Allergy Mild Hives Verified 10/17/24 03:20 hydrocodone AdvReac Severe SOB Verified 10/17/24 03:20 codeine AdvReac Mild Nausea Verified 10/17/24 03:20 oxycodone AdvReac Unknown Nausea Verified 10/17/24 03:20 Vital Signs Vital Signs - 24 hr 10/16/24 20:16 10/16/24 20:23 10/16/24 20:23 Temperature 98 F Pulse Rate 111 H 111 H Respiratory Rate 33 H Blood Pressure 135/81 Pulse Oximetry 100 100 Oxygen Delivery Room Air Room Air 10/16/24 21:35 10/16/24 21:36 10/17/24 00:20 Temperature Pulse Rate 100 Respiratory Rate 22 H Blood Pressure 132/85 Pulse Oximetry 100 99 95 Oxygen Delivery Room Air Room Air 10/17/24 00:23 10/17/24 00:30 10/17/24 00:40 Temperature Pulse Rate 107 H 104 H 109 H Respiratory Rate 25 H 24 H 27 H Blood Pressure 117/83 Pulse Oximetry 94 Oxygen Delivery 10/17/24 02:31 10/17/24 03:15 10/17/24 03:18 Temperature Pulse Rate 102 H 102 H Respiratory Rate 19 19 Blood Pressure 121/88 121/88 Pulse Oximetry 98 98 Oxygen Delivery Room Air 10/17/24 03:46 10/17/24 03:54 10/17/24 04:00 Temperature 98.6 F Pulse Rate 101 H 107 H 98 Respiratory Rate 18 Blood Pressure 121/65 Pulse Oximetry 97 Oxygen Delivery 10/17/24 06:00 10/17/24 07:24 10/17/24 08:00 Temperature 98.8 F Pulse Rate 93 18 L Respiratory Rate 24 H Blood Pressure 95/57 L Pulse Oximetry 97 97 Oxygen Delivery Room Air 10/17/24 11:35 Temperature 98.4 F Pulse Rate 88 Respiratory Rate 18 Blood Pressure 87/59 L Pulse Oximetry 95 Oxygen Delivery Exam Const: General: comfortable and no acute distress HENMT: Face/Nose/Sinus: Normal nares present Eyes: General: appearance normal, both eyes and all related structures Neck: Neck: supple Resp: Auscultation: clear to auscultation bilaterally Cardio: Rate: regular rate Rhythm: regular rhythm GI: Inspection: non-distended GI Palp: Yes Soft to palpation and No Tenderness to palpation present (GI) Auscultation: normal bowel sounds Skin: General skin exam: normal color Neuro: Speech: normal speech Motor exam (neuro): 5/5 motor strength present throughout Extrem: General: normal to inspection Psych: Mental Status: mental status grossly normal Results Labs 10/17/24 03:32 10/16/24 21:24 Labs: Short CBC 10/16/24 10/17/24 Range/Units 21:24 03:32 WBC 6.6 6.3 (4.5-10.0) K/mm3 Hgb 13.3 12.8 (12.0-15.0) g/dL Hct 41.4 41.1 (37.0-47.0) % Plt Count 195 178 (150-375) k/mm3 BMP 10/16/24 21:24 Sodium 135 L Potassium 4.0 Chloride 105 Carbon Dioxide 24 BUN 20 H Creatinine 0.93 Glucose 173 H Calcium 9.8 Cardiac Enzymes 10/16/24 10/17/24 10/17/24 Range/Units 21:24 00:50 03:32 Troponin I 2.580 H* 1.780 H* D 1.440 H* (0.000-0.034) ng/mL Liver Function 10/16/24 Range/Units 21:24 Total Bilirubin 0.7 (0.2-1.3) mg/dL AST 47 H (14-36) U/L ALT 36 H (6-35) U/L Alkaline Phosphatase 71 (38-126) U/L Albumin 4.1 (3.5-5.1) g/dL
[2024-10-17 20:44] LABS: Partial Thromboplastin Time 74.1 Seconds (22.3-36.8)
[2024-10-18] VITALS (32 sets, daily range): BP systolic 103–145; BP diastolic 49–100; PULSE 65–80; RESP 12–20; TEMP 36.4–36.7; O2SAT 90–100
--- NOTE | 2024-10-18 | ECHO_ITS ---
Patient Info Name: Nikky Ceja Age: 69 years : 1955 Gender: Female Ht: 62 in Wt: 195 lbs BSA: 2.01 m2 HR: 65 bpm BP: 117 / 53 mmHg Technical Quality: Good Exam Date: 10/18/2024 10:54 AM Patient Status: I Admit Date: 10/17/2024 Exam Type: CA echo dop color flow w con Complete two-dimensional, color flow and Doppler transthoracic echocardiogram is performed with contrast to opacify the left ventricle and to improve the deliniation of the left ventricle endocardial borders. Staff Referring Physician: Eun Maloney Respiratory Care Technician: Emerald Armstrong Attending Provider: Daniela Landrum DO Contrast/Agitated Saline Contrast/Ag. Saline: Agitated Saline Amount: 2.00 ml Administered By: Emerald Armstrong Existing IV Access: Yes IV Access Condition: patent with no signs of infiltration Summary 1. Left ventricular systolic function is normal, estimated at 30-35. 2. The left ventricular diastolic function is grade I diastolic dysfunction. 3. There is mild mitral valve regurgitation. 4. There is mild tricuspid valve regurgitation. 5. No pulmonary hypertension, estimated pulmonary arterial systolic pressure is 34 mmHg. Left Ventricle Left ventricular chamber dimension is normal. Left ventricular systolic function is normal, estimated at 30-35. There is no increased left ventricular wall thickness. Left ventricular septal wall motion is normal. The left ventricular diastolic function is grade I diastolic dysfunction. Right Ventricle Right ventricular chamber dimension is normal. Right ventricular systolic function is normal. Left Atria Left atrial chamber dimension is normal. Right Atria Right atrial chamber dimension is normal. Aortic Valve The aortic valve is trileaflet. There is no aortic valve sclerosis. There is no aortic valve stenosis. There is no aortic valve regurgitation. Pulmonic Valve The pulmonic valve is normal. There is no pulmonic valve stenosis. There is no pulmonic regurgitation. Mitral Valve The mitral valve has normal leaflets. There is no mitral valve stenosis. There is mild mitral valve regurgitation. Tricuspid Valve The tricuspid valve leaflets are normal. There is no significant tricuspid valve stenosis. There is mild tricuspid valve regurgitation. No pulmonary hypertension, estimated pulmonary arterial systolic pressure is 34 mmHg. Pericardium/Pleural The pericardium appears normal. There is no pericardial effusion. Inferior Vena Cava Normal inferior vena cava with >50% collapse upon inspiration consistent with normal right atrial pressure, 5 mmHg. Aorta The aortic root size at the sinus of Valsalva is normal. The prox ascending aorta size is normal. Left Ventricular Outflow Tract Name Value Normal LVOT 2D LVOT Diameter 2.0 cm LVOT Doppler LVOT Peak Velocity 79 cm/s LVOT Peak Gradient 2 mmHg LVOT Mean Gradient 1 mmHg LVOT VTI 18 cm LVOT Stroke Volume 56 ml LVOT CO 3.7 l/min LVOT CI 1.8 l/min/m2 Pulmonic Valve Name Value Normal RVOT Doppler RVOT Peak Velocity 42 cm/s RVOT Peak Gradient 1 mmHg PV Doppler PV Peak Velocity 51 cm/s PV Peak Gradient 1 mmHg Mitral Valve Name Value Normal MV Diastolic Function MV E Peak Velocity 76 cm/s MV A Peak Velocity 107 cm/s MV E/A 0.7 MV Decel Time (PW) 222 ms MV Annular TDI MV E/e' (Septal) 8.9 MV E/e' (Lateral) 12.9 MV E/e' (Average) 10.9 Tricuspid Valve Name Value Normal TV Regurgitation Doppler TR Peak Velocity 268 cm/s TR Peak Gradient 29 mmHg Estimated PAP/RSVP RA Pressure 5 mmHg <=5 PA Systolic Pressure 34 mmHg <36 RV Systolic Pressure 34 mmHg <36 Aortic Valve Name Value Normal AV Doppler AV Peak Velocity 96 cm/s AV Peak Gradient 4 mmHg AV Area (Cont Eq Vineet) 2.5 cm2 AV DI (Vineet) 0.82 AV Regurgitation 2D LVOT Area 3.1 cm2 Ventricles Name Value Normal LV Dimensions 2D/MM IVS Diastolic Thickness (2D) 1.0 cm 0.6-1.0 LVID Diastole (2D) 4.7 cm 3.8-5.2 LVIW Diastolic Thickness (2D) 0.6 cm 0.6-0.9 LVID Systole (2D) 3.4 cm 2.2-3.5 LVOT Diameter 2.0 cm LV Mass (2D Cubed) 117.29 g 67.00-162.00 LV Mass Index (2D Cubed) 58 g/m2 43-95 Relative Wall Thickness (2D) 0.24 <=0.42 LV Fractional Shortening/Ejection Fraction 2D/MM LV Fractional Shortening (2D) 27 % 27-45 LV EF (2D Teichholz) 52 % LV Diastolic Volume (4C MOD) 111 ml LV EF (4C MOD) 43 % LV Diastolic Volume (2C MOD) 128 ml LV EF (2C MOD) 55 % LV Diastolic Volume (BP MOD) 122 ml 46-106 LV Diastolic Volume Index (BP MOD) 61 ml/m2 29-61 LV Systolic Volume (BP MOD) 63 ml 14-42 LV Systolic Volume Index (BP MOD) 31 ml/m2 8-24 LV EF (BP MOD) 48 % 54-74 LV Diastolic Length (4C) 7.6 cm LV Systolic Length (4C) 7.1 cm LV Stroke Volume (4C MOD) 48 ml Atria Name Value Normal LA Dimensions LA Volume (4C A-L) 25 ml LA Volume (BP A-L) 32 ml RA Dimensions RA Systolic Major [place] Length (4C) 4.6 cm 2.2-2.8 RA Area (4C) 8.8 cm2 <=18.0 Report Signatures
[2024-10-18 02:44] LABS: Hematocrit 37.8 % (37.0-47.0); Hemoglobin 11.9 g/dL (12.0-15.0); Mean Corpuscular HGB Conc 31.5 g/dl (32-36); Mean Corpuscular Hemoglobin 27.9 pg (26-34); Mean Corpuscular Volume 88.7 fl (80-100); Platelet Count Result 142 k/mm3 (150-375); Red Blood Count 4.26 M/mm3 (4.2-5.4); White Blood Count 5.5 K/mm3 (4.5-10.0)
[2024-10-18 02:58] LABS: Partial Thromboplastin Time 87.4 Seconds (22.3-36.8)
[2024-10-18 02:59] LABS: Alanine Aminotransferase 24 U/L (6-35); Albumin Level 3.1 g/dL (3.5-5.1); Alkaline Phosphatase 64 U/L (38-126); Anion Gap 4 mmol/L (4-12); Aspartate Amino Transferase 27 U/L (14-36); Bilirubin,Total 0.7 mg/dL (0.2-1.3); Blood Urea Nitrogen 21 mg/dL (7-17); Calcium 8.7 mg/dL (8.4-10.2); Carbon Dioxide 21 mmol/L (22-30); Chloride 108 mmol/L (98-107); Estimated CRCL calculation 40 ml/min; Estimated Glomerular Filt Rate 45; Glucose 120 mg/dL (65-110); Potassium 3.8 mmol/L (3.4-5.0); Sodium 133 mmol/L (137-145); Total Protein 5.3 g/dL (6.3-8.2)
[2024-10-18] MEDS: SODIUM CHLORIDE 0.9% IV 1,000 ML 60 ML IV CONT (03:35)
[2024-10-18] MEDS: HEPARIN SOD/D5W 100 UNITS/ML 25,000 UNITS/250 ML BAG 10 UNITS IV CONT (06:51)
[2024-10-18] MEDS: PANTOPRAZOLE 40 MG TABLET PO (09:57)
[2024-10-18] MEDS: ASPIRIN 81 MG ENTERIC TABLET PO (09:57)
[2024-10-18] MEDS: ROSUVASTATIN 20 MG TABLET PO (09:58)
[2024-10-18] MEDS: ACETAMINOPHEN 500 MG TABLET PO (11:30)
[2024-10-18] MEDS: PERFLUTREN LIPID MICROSPHERES 1.5 ML VIAL DILUTED TO 10 ML TOTAL VOLUME IV PUSH (11:58)
--- NOTE | 2024-10-18 11:58 | IVDEFINITY ---
Prior to administration of IV Definity the patient was educated on the risks and benefits of the imaging enhancing agent including potential adverse side effects. The patient verbalized understanding. Allergies were verified. No exclusion criteria were identified and at least one of the following inclusion criteria were met: 1) physician request, 2) patient technically difficult to image (per the [place] [employer] guidelines of two or more segments not discernable within the apical view), or 3) questionable left ventricular function. ?
--- NOTE | 2024-10-18 13:46 | P.SEDATION_ITS ---
Moderate Sedation Note-Pt Data Patient Data Diagnosis: NSTEMI Present Complaint: Chest pain Procedure to be performed/Plan: Coronary angiogram Allergies Allergy/AdvReac Type Severity Reaction Status Date / Time metoprolol Allergy Mild Hives Verified 10/17/24 03:20 hydrocodone AdvReac Severe SOB Verified 10/17/24 03:20 codeine AdvReac Mild Nausea Verified 10/17/24 03:20 oxycodone AdvReac Unknown Nausea Verified 10/17/24 03:20 Home Medications ?Medication ?Instructions ?Recorded ?Confirmed ?Type lisinopril 30 mg tablet 30 mg PO DAILY #90 tabs 07/16/24 10/17/24 Rx pantoprazole 40 mg tablet,delayed 40 mg PO QAM #90 tabs 08/27/24 10/17/24 Rx release acetaminophen 500 mg capsule 500 mg PO Q6H PRN fever or pain 10/17/24 10/17/24 History fluticasone propionate 50 2 spray intranasal DAILY PRN 10/17/24 10/17/24 History mcg/actuation nasal allergy symptoms spray,suspension (Flonase Allergy Relief) Current Medications: Active Medications Acetaminophen (Acetaminophen 500 Mg Tablet) 500 mg PO Q6H PRN PRN Reason: fever or pain 1-3 Last Admin: 10/18/24 11:30 Dose: 500 mg Aspirin (Aspirin 81 Mg Enteric Tablet) 81 mg PO QAM TAMIE Last Admin: 10/18/24 09:57 Dose: 81 mg Dextrose (Dextrose 50% 25 Gm/50 Ml Syringe) 12.5 gm IV PUSH PRN PRN; Protocol PRN Reason: Hypoglycemia Diphenhydramine HCl (Diphenhydramine Hcl Cap 25 Mg Capsule) 50 mg PO Q6H PRN PRN Reason: Itching Last Admin: 10/17/24 23:23 Dose: 50 mg Fluticasone Propionate (Fluticasone Propionate 0.05% Na Spr 16 Gm Btl (*Bkc)) 2 spray NASAL DAILY PRN PRN Reason: allergy symptoms Glucagon (Glucagon For Inj 1 Mg Vial) 1 mg IM PRN PRN; Protocol PRN Reason: Hypoglycemia Glucose (Glucose Oral Gel 15 Gm Of Glucse In 37.5 Gm Tube) 15 gm PO PRN PRN; Protocol PRN Reason: Hypoglycemia Heparin Sodium (Porcine) (Heparin Sodium 5,000 Units/Ml Vial) 4,000 units IV PUSH PRN PRN PRN Reason: aPTT less than 55 seconds Heparin Sodium (Porcine) (Heparin Sodium 5,000 Units/Ml Vial) 3,000 units IV PUSH PRN PRN PRN Reason: aPTT 55 - 70 seconds Last Admin: 10/17/24 13:59 Dose: 3,000 units Dextrose (Dextrose 5% 1,000 Ml) 1,000 mls @ 100 mls/hr IVPB PRN PRN; Protocol PRN Reason: Hypoglycemia Sodium Chloride (Normal Saline Iv) 1,000 mls @ 60 mls/hr IV CONT .[id number] TAMIE Last Admin: 10/18/24 03:35 Dose: 60 mls/hr Heparin Sodium/Dextrose (Heparin Sodium/D5w 100 Units/Ml) 25,000 units in 250 mls @ 10 mls/hr IV CONT .Q24H TAMIE; Protocol Last Admin: 10/18/24 06:51 Dose: 1,000 units/hr, 10 mls/hr Insulin Aspart (Insulin Aspart (*Bkc) 100 Units/Ml) 2 - 5 units SUB-Q Q6HR TAMIE; Protocol Last Admin: 10/18/24 11:32 Dose: Not Given Lisinopril (Lisinopril 10 Mg Tablet) 30 mg PO DAILY [facility] Last Admin: 10/18/24 09:58 Dose: 30 mg Nitroglycerin (Nitroglycerin Sl 0.4 Mg Tablet) 0.4 mg SUBLINGUAL Q5MIN PRN PRN Reason: Chest Pain Last Admin: 10/17/24 04:23 Dose: 0.4 mg Ondansetron HCl (Ondansetron Inj 4 Mg/2 Ml Vial) 4 mg IV PUSH Q4H PRN PRN Reason: Nausea Last Admin: 10/17/24 06:19 Dose: 4 mg Pantoprazole Sodium (Pantoprazole 40 Mg Tablet) 40 mg PO QAM [facility] Last Admin: 10/18/24 09:57 Dose: 40 mg Rosuvastatin Calcium (Rosuvastatin 20 Mg Tablet) 20 mg PO QAM [facility] Last Admin: 10/18/24 09:58 Dose: 20 mg Sedation/Anesthesia: No previous sedation/anesthesia problems (including family history). [facility] Past Medical History Medical History Gastroesophageal reflux disease Vitamin D deficiency B12 deficiency Obesity (BMI 30.0-34.9) Cataract Insomnia NAION (non-arteritic anterior ischemic optic neuropathy) Trigger thumb of right hand Hand arthritis Arthritis Uterine cancer NAFLD (nonalcoholic fatty liver disease) HTN (hypertension) HLD (hyperlipidemia) Adenomatous colon polyp Surgical History Surgical History History of colonoscopy with polypectomy History of cholecystectomy open History of hysterectomy History of hand surgery History of shoulder surgery Family History Family History Mother Family history of malignant neoplasm, Onset Age: 87 Lung cancer Cancer Diabetes mellitus Father Heart disease Lung cancer Cancer Sibling Heart disease Cancer Asthma Lymphoma Daughter Type 1 diabetes Son Stomach problems Social History Social History Social History: She reports that she is legally blind but can not drive under very specific circumstances. 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 She and her raised 1 daughter and 1 son. Her currently has stage IV lung cancer. She and her have been for 56 years. Code status: Full code Surrogate decision maker: Smoking status: Never smoker Second hand tobacco smoke exposure: Yes Alcohol intake: never Alcohol use details: rarely Substance use: never Substance use type: does not use Do You Feel Safe in your Home?: Yes Lack of Transportation: No Lack of Food: Never True Current Housing: I Have Housing Concerned About Future Housing: No Difficulty Paying Gas/Electric Bills: No Difficulty Paying for Meds: No Currently Unemployed: No Education: Trade/Vocational Certificate Difficulty w/ Childcare or Family Care: No Living arrangements: with family Occupation/Education: occupation Additional occupation/education comments: Monitor[employer] Gender identity (if verbalized by the patient): Female Spiritual care concerns: No Mod Sed Physical Exam Physical Exam Pre Procedural Exam: Normal: Appearance, Eyes, Ears, Nose, Neck, Throat, Airway, Lungs, Heart Size, Heart Rate, Heart Rhythm, Neuro Exam, Abdomen, Liver, Kidneys, Spleen, Breasts, Genitalia, Extremities and Skin Hours since solid foods: 8 Hours since liquid intake: 8 Mallampati Classification: class 1 Internal Medicine - PN: Obj Da Vital Signs Vital Signs: Vital Signs - 24 hr 10/17/24 14:00 10/17/24 15:50 10/17/24 16:00 Temperature 36.8 C Pulse Rate 88 84 Respiratory Rate 20 Blood Pressure 74/49 L Pulse Oximetry 93 93 Oxygen Delivery Room Air 10/17/24 16:00 10/17/24 16:20 10/17/24 18:00 Temperature Pulse Rate 89 80 Respiratory Rate Blood Pressure 91/57 L Pulse Oximetry Oxygen Delivery 10/17/24 20:00 10/17/24 20:35 10/17/24 20:35 Temperature Pulse Rate 72 78 78 Respiratory Rate 20 20 Blood Pressure Pulse Oximetry 96 96 Oxygen Delivery Room Air Room Air 10/17/24 21:30 10/17/24 22:00 10/18/24 00:00 Temperature 36.6 C Pulse Rate 78 80 75 Respiratory Rate 20 Blood Pressure 107/57 L Pulse Oximetry 96 Oxygen Delivery 10/18/24 00:00 10/18/24 00:00 10/18/24 02:00 Temperature 36.6 C Pulse Rate 74 74 69 Respiratory Rate 20 20 Blood Pressure 104/49 L Pulse Oximetry 90 90 Oxygen Delivery Room Air 10/18/24 03:50 10/18/24 04:00 10/18/24 04:00 Temperature 36.6 C Pulse Rate 72 72 67 Respiratory Rate 20 20 Blood Pressure 117/53 L Pulse Oximetry 93 93 Oxygen Delivery Room Air 10/18/24 05:20 10/18/24 07:48 10/18/24 08:00 Temperature 36.7 C Pulse Rate 80 74 72 Respiratory Rate 16 20 Blood Pressure 117/60 Pulse Oximetry 98 93 Oxygen Delivery Room Air 10/18/24 11:35 10/18/24 11:35 Temperature 36.4 C L Pulse Rate 72 74 Respiratory Rate 20 18 Blood Pressure 145/92 H Pulse Oximetry 93 98 Oxygen Delivery Room Air Intake/Output Intake/Output: Intake & Output 10/15/24 10/16/24 10/17/24 10/18/24 23:59 23:59 23:59 23:59 Intake Total 1416.3 1105.0 Output Total 350 750 Balance 1066.3 355.0 Meds/Results Medications: Active Medications Generic Name Dose Route Start Last Admin Trade Name Freq PRN Reason Stop Dose Admin Acetaminophen 500 mg 10/17/24 07:33 10/18/24 11:30 Acetaminophen 500 Mg Tablet PO 500 mg Q6H PRN Administration fever or pain 1-3 Aspirin 81 mg 10/17/24 09:00 10/18/24 09:57 Aspirin 81 Mg Enteric Tablet PO 81 mg QAM TAMIE Administration Dextrose 12.5 gm 10/17/24 07:40 Dextrose 50% 25 Gm/50 Ml Syringe IV PUSH PRN PRN Hypoglycemia Protocol Diphenhydramine HCl 50 mg 10/17/24 06:05 10/17/24 23:23 Diphenhydramine Hcl Cap 25 Mg Capsule PO 50 mg Q6H PRN Administration Itching Fluticasone Propionate 2 spray 10/17/24 07:33 Fluticasone Propionate 0.05% Na Spr 16 Gm Btl (*Bkc) NASAL DAILY PRN allergy symptoms Glucagon 1 mg 10/17/24 07:40 Glucagon For Inj 1 Mg Vial IM PRN PRN Hypoglycemia Protocol Glucose 15 gm 10/17/24 07:40 Glucose Oral Gel 15 Gm Of Glucse In 37.5 Gm Tube PO PRN PRN Hypoglycemia Protocol Heparin Sodium (Porcine) 4,000 units 10/16/24 22:11 Heparin Sodium 5,000 Units/Ml Vial IV PUSH PRN PRN aPTT less than 55 seconds Heparin Sodium (Porcine) 3,000 units 10/16/24 22:11 10/17/24 13:59 Heparin Sodium 5,000 Units/Ml Vial IV PUSH 3,000 units PRN PRN Administration aPTT 55 - 70 seconds Dextrose 1,000 mls @ 100 mls/hr 10/17/24 07:40 Dextrose 5% 1,000 Ml IVPB PRN PRN Hypoglycemia Protocol Sodium Chloride 1,000 mls @ 60 mls/hr 10/17/24 08:30 10/18/24 03:35 Normal Saline Iv IV CONT 60 mls/hr .[id number] TAMIE Administration Heparin Sodium/Dextrose 25,000 units in 250 mls @ 10 mls/hr 10/17/24 09:44 10/18/24 06:51 Heparin Sodium/D5w 100 Units/Ml IV CONT 1,000 units/hr .Q24H TAMIE 10 mls/hr Administration Protocol 1,000 UNITS/HR Insulin Aspart 2 - 5 units 10/17/24 12:00 10/18/24 11:32 Insulin Aspart (*Bkc) 100 Units/Ml SUB-Q Not Given Q6HR [facility] Protocol Lisinopril 30 mg 10/17/24 09:00 10/18/24 09:58 Lisinopril 10 Mg Tablet PO 30 mg DAILY TAMIE Administration Nitroglycerin 0.4 mg 10/17/24 01:23 10/17/24 04:23 Nitroglycerin Sl 0.4 Mg Tablet SUBLINGUAL 0.4 mg Q5MIN PRN Administration Chest Pain Ondansetron HCl 4 mg 10/17/24 01:23 10/17/24 06:19 Ondansetron Inj 4 Mg/2 Ml Vial IV PUSH 4 mg Q4H PRN Administration Nausea Pantoprazole Sodium 40 mg 10/17/24 09:00 10/18/24 09:57 Pantoprazole 40 Mg Tablet PO 40 mg QAM [facility] Administration Rosuvastatin Calcium 20 mg 10/18/24 09:00 10/18/24 09:58 Rosuvastatin 20 Mg Tablet PO 20 mg QAM [facility] Administration Radiology Results: ITS Impressions Chest X-Ray 10/16/24 20:57 IMPRESSION: No acute cardiopulmonary process. Chest/Abdomen/Pelvis CTA 10/17/24 08:52 IMPRESSION: 1. No pulmonary embolism or other acute cardiopulmonary disease. 2. Small sliding-type hiatal hernia. 2. No acute intra-abdominal/pelvic process. Labs 10/18/24 02:28 10/18/24 02:28 Labs: Laboratory Results - last 24 hr 10/17/24 10/17/24 10/18/24 16:17 20:21 00:29 WBC RBC Hgb Hct MCV MCH MCHC RDW Plt Count MPV APTT 74.1 H Sodium Potassium Chloride Carbon Dioxide Anion Gap BUN Creatinine Estim Creat Clear Calc Estimated GFR Glucose POC Capillary Glucose 139 H 151 H Calcium Total Bilirubin AST ALT Alkaline Phosphatase Total Protein Albumin 10/18/24 10/18/24 02:28 11:38 WBC 5.5 RBC 4.26 Hgb 11.9 L Hct 37.8 MCV 88.7 MCH 27.9 MCHC 31.5 L RDW 13.6 Plt Count 142 L MPV 10.9 H APTT 87.4 H Sodium 133 L Potassium 3.8 Chloride 108 H Carbon Dioxide 21 L Anion Gap 4 BUN 21 H Creatinine 1.19 H Estim Creat Clear Calc 40 Estimated GFR 45 L Glucose 120 H POC Capillary Glucose 96 Calcium 8.7 Total Bilirubin 0.7 AST 27 ALT 24 Alkaline Phosphatase 64 Total Protein 5.3 L Albumin 3.1 L ASA Classification/Sedation ASA Classification/Sedation ASA Class: I Emergent: No Risks: Risks, benefits and alternatives explained and patient/family accepted plan for sedation. Patient re-evaluated immediately prior to sedation.
--- NOTE | 2024-10-18 13:46 | WPDHPUPDATE1 ---
History and Physical Update Update Date/Time: 10/18/24 13:46 History and Physical has been reviewed, including an updated exam of the patient. There are NO changes in the patient's condition. Risks, benefits, and alternatives have been discussed and questions answered. Patient agrees to proceed with procedure.
--- NOTE | 2024-10-18 13:47 | P.PCNCC_ITS ---
Cardiac Cath Procedure Note Date of procedure:: 10/18/24 Performing physician:: Diana Ordoñez MD Date of service 10/18/2024- Indication:: Chest pain, NSTEMI Brief clinical history:: This 69-year-old female who presents to the hospital with chest pain, was found to have elevated troponins and abnormal EKG therefore scheduled for cardiac catheterization. Procedure Procedure performed:: 1-Moderate sedation that started at 2:31 p.m. and ended at 2:54 p.m. total duration 23 minutes using 3mg of Versed and 75mcg fentanyl. The registered alma se was malik gay 2-Selective left and right coronary angiogram. 3-Left heart catheterization with measurement of LVEDP and measurement of gradient across aortic valve. 4-Right common femoral arterial angiogram. 5-Deployment of 6 [place] Angio-Seal. Sedation/Medication given:: Moderate sedation. Access site:: Right common femoral artery. Estimated blood loss:: 10cc Procedure note:: After informed consent patient was brought in to clinical genetics laboratory chief with the was draped and prepped in usual manner. Moderate sedation was given and the right groin was infiltrated using 1% lidocaine. Five [place] sheath was obtained using micropuncture needle and the modified Seldinger technique. Selective left coronary angiogram was done using JL4 catheter with the tip of the catheter placed in the left main coronary artery. Selective right coronary angiogram was done using JR4 catheter with the tip of the catheter placed to the right coronary artery. After that 5 [place] pigtail catheter was advanced across the aortic valve into the left ventricle with measurement of LVEDP and measurement of gradient across aortic valve. LV angiogram was done. Right common femoral arterial angiogram was done. Findings:: 1- left coronary artery is a large artery that divides into large LAD, large circumflex artery. Left main is normal 2- left anterior descending artery is a large artery that runs and wraps around the apex. 20% proximally. 3- leftcircumflex artery is a large artery with minimal irregularities. 4- right coronary artery is large and dominant. Mid segment 20% of 5- LVEDP was 21 mm Hg and no gradient across aortic valve. 6-LV angiogram consistent with takotsubo cardiomyopathy. Ejection fraction 45%. 6- opening arterial pressure was 128/78 and closing pressure was 03/21/2063 7- right femoral artery angiogram shows no significant disease in the right common femoral artery. Conclusion:: Nonocclusive CAD -takotsubo cardiomyopathy Assessment and Plan Assessment and plan (1) Non-ST elevation DC (NSTEMI): Code(s): I21.4 - Non-ST elevation (NSTEMI) myocardial infarction Status: Acute Plan -catheterization consistent takotsubo cardiomyopathy -continue lisinopril -patient has allergy to metoprolol -ejection fraction on echo 30 35% but the quality of the echo is not great. On catheterization ejection fraction 45%. -monitor for arrhythmias -continue aspirin
--- NOTE | 2024-10-18 15:31 | PM.IMPN ---
Progress Note: A&P Assessment and Plan (1) Non-ST elevation ME (NSTEMI): Code(s): I21.4 - Non-ST elevation (NSTEMI) myocardial infarction Status: Acute (2) Type II diabetes mellitus: Qualifiers: Diabetes mellitus manager intermediate insulin use: without senior living use Diabetes mellitus complication status: with hyperglycemia Qualified Code(s): E11.65 - Type 2 diabetes mellitus with hyperglycemia Code(s): E11.9 - Type 2 diabetes mellitus without complications Status: Acute (3) HTN (hypertension): Qualifiers: Hypertension type: primary hypertension Qualified Code(s): I10 - Essential (primary) hypertension Code(s): I10 - Essential (primary) hypertension Status: Acute (4) Obesity (BMI 30.0-34.9): Code(s): E66.9 - Obesity, unspecified Status: Acute Plan Patient presents with a non STEMI with elevated troponin and distant history of moderate coronary artery disease on cardiac catheterization in 2019. Troponin now trending downward after heparin drip per protocol and initial treatment with full-dose aspirin. Cardiology has been consulted. Patient was still having pain at the time of my evaluation but pain resolved after sublingual nitroglycerin. Will continue daily 81 mg aspirin. Will check fasting lipid panel. Will continue home antihypertensives with lisinopril. Cardiology has been consulted. Patient will undergo cardiac catheterization on 10/18 The patient reports that she was on metformin for her diabetes but this was stopped when she started having abdominal symptoms. She also was switched to Jardiance but then this was discontinued as well. She has not been on any diabetic medications for couple of weeks. Will place patient on low dose sliding scale insulin with Accu-Cheks and hypoglycemia protocol as needed. Patient has abdominal pain and was evaluated by the Gastroenterology. Planned EGD as outpatient Subjective Date/time seen: 10/18/24 15:31 Interval history: Pending cardiac catheterization Review of Systems Review of Systems: 12 systems were reviewed with pertinent positives and negatives per HPI. Except as documented in the HPI, all other systems were reviewed and are negative. Exam Narrative: Weight 91.6 kg BMI 32.6 Const: Other: Obese, appears stated age, no acute distress HENMT: Other: Mucous membranes are moist, crowded posterior oropharynx, no oral pharyngeal erythema Eyes: Other: Pupils are equal and reactive, no scleral icterus, no conjunctival pallor Neck: Other: Large neck circumference, no JVD Chest: Other: Tenderness to the tip of the xiphoid process Resp: Other: Clear to auscultation bilaterally, no increased work of breathing Cardio: Other: Sinus tachycardia, 2+ bilateral radial pedal pulses, no murmur GI: Other: Soft, nontender, nondistended, positive bowel sounds Skin: Other: No jaundice, no pallor Neuro: Other: Alert oriented, speech is clear, no facial asymmetry, no localizing neurologic deficits noted during the course of conversation Extrem: Other: No clubbing, cyanosis or edema Psych: Other: Appropriate mood and affect if somewhat anxious given recent social stressors, pleasant and cooperative, judgment and insight intact Objective Data Vital Signs Vital Signs: Vital Signs - 24 hr 10/17/24 15:50 10/17/24 16:00 10/17/24 16:00 Temperature 98.3 F Pulse Rate 84 89 Pulse Rate [Right Pedal (Dorsalis Pedis) Doppler] Respiratory Rate 20 Blood Pressure 74/49 L Pulse Oximetry 93 93 Oxygen Delivery Room Air 10/17/24 16:20 10/17/24 18:00 10/17/24 20:00 Temperature Pulse Rate 80 72 Pulse Rate [Right Pedal (Dorsalis Pedis) Doppler] Respiratory Rate Blood Pressure 91/57 L Pulse Oximetry Oxygen Delivery 10/17/24 20:35 10/17/24 20:35 10/17/24 21:30 Temperature 97.8 F Pulse Rate 78 78 78 Pulse Rate [Right Pedal (Dorsalis Pedis) Doppler] Respiratory Rate 20 20 20 Blood Pressure 107/57 L Pulse Oximetry 96 96 96 Oxygen Delivery Room Air Room Air 10/17/24 22:00 10/18/24 00:00 10/18/24 00:00 Temperature 97.8 F Pulse Rate 80 75 74 Pulse Rate [Right Pedal (Dorsalis Pedis) Doppler] Respiratory Rate 20 Blood Pressure 104/49 L Pulse Oximetry 90 Oxygen Delivery 10/18/24 00:00 10/18/24 02:00 10/18/24 03:50 Temperature 97.8 F Pulse Rate 74 69 72 Pulse Rate [Right Pedal (Dorsalis Pedis) Doppler] Respiratory Rate 20 20 Blood Pressure 117/53 L Pulse Oximetry 90 93 Oxygen Delivery Room Air 10/18/24 04:00 10/18/24 04:00 10/18/24 05:20 Temperature Pulse Rate 72 67 80 Pulse Rate [Right Pedal (Dorsalis Pedis) Doppler] Respiratory Rate 20 Blood Pressure Pulse Oximetry 93 Oxygen Delivery Room Air 10/18/24 07:48 10/18/24 08:00 10/18/24 08:00 Temperature 98.1 F Pulse Rate 74 72 78 Pulse Rate [Right Pedal (Dorsalis Pedis) Doppler] Respiratory Rate 16 20 Blood Pressure 117/60 Pulse Oximetry 98 93 Oxygen Delivery Room Air 10/18/24 10:00 10/18/24 11:35 10/18/24 11:35 Temperature 97.5 F L Pulse Rate 74 72 74 Pulse Rate [Right Pedal (Dorsalis Pedis) Doppler] Respiratory Rate 20 18 Blood Pressure 145/92 H Pulse Oximetry 93 98 Oxygen Delivery Room Air 10/18/24 12:00 10/18/24 14:00 10/18/24 15:15 Temperature Pulse Rate 75 73 Pulse Rate [Right Pedal (Dorsalis Pedis) Doppler] 71 Respiratory Rate Blood Pressure Pulse Oximetry Oxygen Delivery 10/18/24 15:15 Temperature Pulse Rate 71 Pulse Rate [Right Pedal (Dorsalis Pedis) Doppler] Respiratory Rate 18 Blood Pressure 119/62 Pulse Oximetry 97 Oxygen Delivery Room Air Intake/Output Intake/Output: Intake & Output 10/15/24 10/16/24 10/17/24 10/18/24 23:59 23:59 23:59 23:59 Intake Total 1416.3 1105.0 Output Total 350 750 Balance 1066.3 355.0 Meds/Results Medications: Active Medications Generic Name Dose Route Start Last Admin Trade Name Freq PRN Reason Stop Dose Admin Acetaminophen 500 mg 10/17/24 07:33 10/18/24 11:30 Acetaminophen 500 Mg Tablet PO 500 mg Q6H PRN Administration fever or pain 1-3 Aspirin 81 mg 10/17/24 09:00 10/18/24 09:57 Aspirin 81 Mg Enteric Tablet PO 81 mg QAM TAMIE Administration Dextrose 12.5 gm 10/17/24 07:40 Dextrose 50% 25 Gm/50 Ml Syringe IV PUSH PRN PRN Hypoglycemia Protocol Diphenhydramine HCl 50 mg 10/17/24 06:05 10/17/24 23:23 Diphenhydramine Hcl Cap 25 Mg Capsule PO 50 mg Q6H PRN Administration Itching Fluticasone Propionate 2 spray 10/17/24 07:33 Fluticasone Propionate 0.05% Na Spr 16 Gm Btl (*Bkc) NASAL DAILY PRN allergy symptoms Glucagon 1 mg 10/17/24 07:40 Glucagon For Inj 1 Mg Vial IM PRN PRN Hypoglycemia Protocol Glucose 15 gm 10/17/24 07:40 Glucose Oral Gel 15 Gm Of Glucse In 37.5 Gm Tube PO PRN PRN Hypoglycemia Protocol Sodium Chloride 1,000 mls @ 60 mls/hr 10/17/24 08:30 10/18/24 03:35 Normal Saline Iv IV CONT 60 mls/hr .[id number] TAMIE Administration Insulin Aspart 2 - 5 units 10/17/24 12:00 10/18/24 11:32 Insulin Aspart (*Bkc) 100 Units/Ml SUB-Q Not Given Q6HR [facility] Protocol Lisinopril 30 mg 10/17/24 09:00 10/18/24 09:58 Lisinopril 10 Mg Tablet PO 30 mg DAILY TAMIE Administration Nitroglycerin 0.4 mg 10/17/24 01:23 10/17/24 04:23 Nitroglycerin Sl 0.4 Mg Tablet SUBLINGUAL 0.4 mg Q5MIN PRN Administration Chest Pain Ondansetron HCl 4 mg 10/17/24 01:23 10/17/24 06:19 Ondansetron Inj 4 Mg/2 Ml Vial IV PUSH 4 mg Q4H PRN Administration Nausea Pantoprazole Sodium 40 mg 10/17/24 09:00 10/18/24 09:57 Pantoprazole 40 Mg Tablet PO 40 mg QAM TAMIE Administration Rosuvastatin Calcium 20 mg 10/18/24 09:00 10/18/24 09:58 Rosuvastatin 20 Mg Tablet PO 20 mg QAM TAMIE Administration Radiology Results: ITS Impressions Chest X-Ray 10/16/24 20:57 IMPRESSION: No acute cardiopulmonary process. Chest/Abdomen/Pelvis CTA 10/17/24 08:52 IMPRESSION: 1. No pulmonary embolism or other acute cardiopulmonary disease. 2. Small sliding-type hiatal hernia. 2. No acute intra-abdominal/pelvic process. Labs Labs: Laboratory Results - last 24 hr 10/17/24 10/17/24 10/18/24 16:17 20:21 00:29 WBC RBC Hgb Hct MCV MCH MCHC RDW Plt Count MPV APTT 74.1 H Sodium Potassium Chloride Carbon Dioxide Anion Gap BUN Creatinine Estim Creat Clear Calc Estimated GFR Glucose POC Capillary Glucose 139 H 151 H Calcium Total Bilirubin AST ALT Alkaline Phosphatase Total Protein Albumin 10/18/24 10/18/24 02:28 11:38 WBC 5.5 RBC 4.26 Hgb 11.9 L Hct 37.8 MCV 88.7 MCH 27.9 MCHC 31.5 L RDW 13.6 Plt Count 142 L MPV 10.9 H APTT 87.4 H Sodium 133 L Potassium 3.8 Chloride 108 H Carbon Dioxide 21 L Anion Gap 4 BUN 21 H Creatinine 1.19 H Estim Creat Clear Calc 40 Estimated GFR 45 L Glucose 120 H POC Capillary Glucose 96 Calcium 8.7 Total Bilirubin 0.7 AST 27 ALT 24 Alkaline Phosphatase 64 Total Protein 5.3 L Albumin 3.1 L Quality VTE Prophylaxis VTE prophylaxis: pharmacologic ordered (Heparin drip per protocol) Hospitalist MIPS Advance Care Plan I have confirmed that the patient's Advanced Care Plan is present, code status is documented, or surrogate decision maker is listed in patient medical record.: Yes Medication Reconciliation I have utilized all available resources to obtain, update and review the patients current medications (includes all prescriptions, OTC, herbals, cannabis, and nutritional supplements).: Yes
[2024-10-19] VITALS (12 sets, daily range): BP systolic 111–148; BP diastolic 58–77; PULSE 66–83; RESP 16–18; TEMP 36.5–36.7; O2SAT 98
[2024-10-19 04:38] LABS: Hematocrit 40.4 % (37.0-47.0); Hemoglobin 12.5 g/dL (12.0-15.0); Mean Corpuscular HGB Conc 30.9 g/dl (32-36); Mean Corpuscular Hemoglobin 27.5 pg (26-34); Mean Corpuscular Volume 89.0 fl (80-100); Platelet Count Result 150 k/mm3 (150-375); Red Blood Count 4.54 M/mm3 (4.2-5.4); White Blood Count 5.2 K/mm3 (4.5-10.0)
[2024-10-19 04:44] LABS: Alanine Aminotransferase 24 U/L (6-35); Albumin Level 3.4 g/dL (3.5-5.1); Alkaline Phosphatase 67 U/L (38-126); Anion Gap 8 mmol/L (4-12); Aspartate Amino Transferase 30 U/L (14-36); Bilirubin,Total 0.8 mg/dL (0.2-1.3); Blood Urea Nitrogen 15 mg/dL (7-17); Calcium 8.9 mg/dL (8.4-10.2); Carbon Dioxide 20 mmol/L (22-30); Chloride 109 mmol/L (98-107); Estimated CRCL calculation 52 ml/min; Estimated Glomerular Filt Rate > 60; Glucose 106 mg/dL (65-110); Potassium 3.9 mmol/L (3.4-5.0); Sodium 137 mmol/L (137-145); Total Protein 5.7 g/dL (6.3-8.2)
[2024-10-19] MEDS: ASPIRIN 81 MG ENTERIC TABLET PO (08:27)
[2024-10-19] MEDS: PANTOPRAZOLE 40 MG TABLET PO (08:27)
[2024-10-19] MEDS: ROSUVASTATIN 20 MG TABLET PO (08:27)
--- NOTE | 2024-10-19 14:50 | PM.PNCARD ---
Progress Note: A&P Assessment and Plan (1) Non-ST elevation ID (NSTEMI): Code(s): I21.4 - Non-ST elevation (NSTEMI) myocardial infarction Status: Acute Plan -catheterization consistent takotsubo cardiomyopathy. Ejection fraction on echo of 35% balloon catheter 45%. -continue lisinopril -patient has allergy to metoprolol. No significant arrhythmias. -continue aspirin 81 mg daily. In regard to hypertension, blood pressure is controlled. continue lisinopril - in regards to hyperlipidemia, patient stated that she gets muscle aches with rosuvastatin. Would recommend to lower down than rosuvastatin from 20- to 5 mg daily to minimize side effects No contraindication to discharge home today. Arrange for follow-up as an outpatient Subjective Date/time seen: 10/19/24 14:50 Interval history: Pending cardiac catheterization Date of service 10/19/2024-resting comfortably in bed. No significant arrhythmia on telemetry. Denies chest pain. Remains emotional about his condition from the and son. Had to call the cath yesterday that is consistent with takotsubo cardiomyopathy Review of Systems Review of Systems: All systems reviewed & are unremarkable except as noted in HPI and below Exam Const: General: comfortable and no acute distress Other: Able to lie flat HENMT: Face/Nose/Sinus: Normal nares present and no epistaxis Mouth: Yes moist mucous membranes Eyes: Sclera: sclerae normal Pupils: Equal, round and reactive pupils present Neck: Neck: supple and no JVD Carotids: no bruits Resp: Auscultation: clear to auscultation bilaterally and lung sounds not diminished Other: No chest wall tenderness Cardio: Rate: regular rate Rhythm: regular rhythm Heart sounds: no gallops, no murmurs and no rubs GI: Auscultation: normal bowel sounds Skin: General skin exam: normal color, rashes and/or lesions noted and no erythema Other: Warm Neuro: Cranial nerves: Yes Equal, round and reactive pupils present Speech: normal speech Other: No obvious focal deficit or facial asymmetry Extrem: General: no edema Other: Normal capillary refills Intact distal pulses. Objective Data Vital Signs Vital Signs: Vital Signs - 24 hr 10/18/24 15:15 10/18/24 15:15 10/18/24 15:30 Temperature Pulse Rate 71 Pulse Rate [Right Pedal (Dorsalis Pedis) Doppler] 71 68 Respiratory Rate 18 Blood Pressure 119/62 Pulse Oximetry 97 Oxygen Delivery Room Air 10/18/24 15:30 10/18/24 15:45 10/18/24 15:45 Temperature Pulse Rate 68 68 Pulse Rate [Right Pedal (Dorsalis Pedis) Doppler] 68 Respiratory Rate 12 19 Blood Pressure 111/65 106/75 Pulse Oximetry 98 97 Oxygen Delivery Room Air Room Air 10/18/24 16:00 10/18/24 16:00 10/18/24 16:24 Temperature Pulse Rate 66 Pulse Rate [Right Pedal (Dorsalis Pedis) Doppler] 66 66 Respiratory Rate 16 Blood Pressure 118/74 Pulse Oximetry 99 Oxygen Delivery Room Air 10/18/24 16:25 10/18/24 16:25 10/18/24 16:30 Temperature 36.6 C Pulse Rate 72 73 68 Pulse Rate [Right Pedal (Dorsalis Pedis) Doppler] Respiratory Rate 20 18 Blood Pressure 133/64 Pulse Oximetry 93 98 Oxygen Delivery Room Air 10/18/24 16:43 10/18/24 17:00 10/18/24 17:13 Temperature 36.4 C L Pulse Rate 66 Pulse Rate [Right Pedal (Dorsalis Pedis) Doppler] 66 66 Respiratory Rate 18 Blood Pressure 122/72 Pulse Oximetry 99 Oxygen Delivery 10/18/24 18:00 10/18/24 18:00 10/18/24 18:13 Temperature 36.4 C L Pulse Rate 72 67 Pulse Rate [Right Pedal (Dorsalis Pedis) Doppler] 66 Respiratory Rate 18 Blood Pressure 103/78 Pulse Oximetry 100 Oxygen Delivery 10/18/24 19:00 10/18/24 19:13 10/18/24 19:46 Temperature 36.5 C 36.6 C Pulse Rate 69 69 Pulse Rate [Right Pedal (Dorsalis Pedis) Doppler] 72 Respiratory Rate 18 18 Blood Pressure 137/100 H 139/65 Pulse Oximetry 99 99 Oxygen Delivery 10/18/24 20:00 10/18/24 20:00 10/18/24 20:13 Temperature Pulse Rate 69 Pulse Rate [Right Pedal (Dorsalis Pedis) Doppler] 66 Respiratory Rate Blood Pressure Pulse Oximetry Oxygen Delivery Room Air 10/18/24 21:13 10/18/24 21:48 10/18/24 22:00 Temperature Pulse Rate 65 Pulse Rate [Right Pedal (Dorsalis Pedis) Doppler] 77 Respiratory Rate Blood Pressure Pulse Oximetry 98 Oxygen Delivery Room Air 10/18/24 23:51 10/19/24 00:00 10/19/24 00:00 Temperature 36.6 C Pulse Rate 74 79 Pulse Rate [Right Pedal (Dorsalis Pedis) Doppler] Respiratory Rate 18 Blood Pressure 142/70 H Pulse Oximetry 98 Oxygen Delivery Room Air 10/19/24 02:00 10/19/24 04:00 10/19/24 04:00 Temperature 36.6 C Pulse Rate 66 73 Pulse Rate [Right Pedal (Dorsalis Pedis) Doppler] Respiratory Rate 18 Blood Pressure 148/63 H Pulse Oximetry 98 Oxygen Delivery Room Air 10/19/24 04:00 10/19/24 06:00 10/19/24 07:10 Temperature 36.6 C Pulse Rate 76 83 74 Pulse Rate [Right Pedal (Dorsalis Pedis) Doppler] Respiratory Rate 18 Blood Pressure 131/68 Pulse Oximetry 98 Oxygen Delivery 10/19/24 08:00 10/19/24 08:00 10/19/24 10:00 Temperature Pulse Rate 81 70 Pulse Rate [Right Pedal (Dorsalis Pedis) Doppler] Respiratory Rate Blood Pressure Pulse Oximetry Oxygen Delivery Room Air 10/19/24 11:17 10/19/24 12:00 10/19/24 12:00 Temperature 36.7 C Pulse Rate 70 72 Pulse Rate [Right Pedal (Dorsalis Pedis) Doppler] Respiratory Rate 18 Blood Pressure 111/58 L Pulse Oximetry 98 Oxygen Delivery Room Air 10/19/24 14:00 Temperature Pulse Rate 68 Pulse Rate [Right Pedal (Dorsalis Pedis) Doppler] Respiratory Rate Blood Pressure Pulse Oximetry Oxygen Delivery Intake/Output Intake/Output: Intake & Output 10/16/24 10/17/24 10/18/24 10/19/24 23:59 23:59 23:59 23:59 Intake Total 1416.3 1425.0 1240 Output Total 763 419 7005 Balance 1066.3 675.0 -60 Meds/Results Medications: Active Medications Generic Name Dose Route Start Last Admin Trade Name Freq PRN Reason Stop Dose Admin Acetaminophen 500 mg 10/17/24 07:33 10/18/24 11:30 Acetaminophen 500 Mg Tablet PO 500 mg Q6H PRN Administration fever or pain 1-3 Aspirin 81 mg 08/03/25 09:00 10/19/24 08:27 Aspirin 81 Mg Enteric Tablet PO 81 mg QAM TAMIE Administration Dextrose 12.5 gm 10/17/24 07:40 Dextrose 50% 25 Gm/50 Ml Syringe IV PUSH PRN PRN Hypoglycemia Protocol Diphenhydramine HCl 50 mg 10/17/24 06:05 10/17/24 23:23 Diphenhydramine Hcl Cap 25 Mg Capsule PO 50 mg Q6H PRN Administration Itching Fluticasone Propionate 2 spray 10/17/24 07:33 Fluticasone Propionate 0.05% Na Spr 16 Gm Btl (*Bkc) NASAL DAILY PRN allergy symptoms Glucagon 1 mg 10/17/24 07:40 Glucagon For Inj 1 Mg Vial IM PRN PRN Hypoglycemia Protocol Glucose 15 gm 10/17/24 07:40 Glucose Oral Gel 15 Gm Of Glucse In 37.5 Gm Tube PO PRN PRN Hypoglycemia Protocol Insulin Aspart 2 - 5 units 10/18/24 21:40 10/19/24 12:31 Insulin Aspart (*Bkc) 100 Units/Ml SUB-Q Not Given 0800,1200,1700,2100 [facility] Protocol Lisinopril 30 mg 10/17/24 09:00 10/19/24 08:26 Lisinopril 10 Mg Tablet PO 30 mg DAILY TAMIE Administration Nitroglycerin 0.4 mg 10/17/24 01:23 10/17/24 04:23 Nitroglycerin Sl 0.4 Mg Tablet SUBLINGUAL 0.4 mg Q5MIN PRN Administration Chest Pain Ondansetron HCl 4 mg 10/17/24 01:23 10/17/24 06:19 Ondansetron Inj 4 Mg/2 Ml Vial IV PUSH 4 mg Q4H PRN Administration Nausea Pantoprazole Sodium 40 mg 10/17/24 09:00 10/19/24 08:27 Pantoprazole 40 Mg Tablet PO 40 mg QAM [facility] Administration Rosuvastatin Calcium 20 mg 10/18/24 09:00 10/19/24 08:27 Rosuvastatin 20 Mg Tablet PO 20 mg QAM TAIME Administration Radiology Results: ITS Impressions Chest X-Ray 10/16/24 20:57 IMPRESSION: No acute cardiopulmonary process. Chest/Abdomen/Pelvis CTA 10/17/24 08:52 IMPRESSION: 1. No pulmonary embolism or other acute cardiopulmonary disease. 2. Small sliding-type hiatal hernia. 2. No acute intra-abdominal/pelvic process. Labs Labs: Laboratory Results - last 24 hr 10/18/24 10/18/24 10/19/24 17:43 21:45 03:59 WBC 5.2 RBC 4.54 Hgb 12.5 Hct 40.4 MCV 89.0 MCH 27.5 MCHC 30.9 L RDW 13.2 Plt Count 150 MPV 11.0 H Sodium 137 Potassium 3.9 Chloride 109 H Carbon Dioxide 20 L Anion Gap 8 BUN 15 D Creatinine 0.90 Estim Creat Clear Calc 52 Estimated GFR > 60 Glucose 106 POC Capillary Glucose 86 88 Calcium 8.9 Total Bilirubin 0.8 AST 30 ALT 24 Alkaline Phosphatase 67 Total Protein 5.7 L Albumin 3.4 L 10/19/24 10/19/24 07:08 11:14 WBC RBC Hgb Hct MCV MCH MCHC RDW Plt Count MPV Sodium Potassium Chloride Carbon Dioxide Anion Gap BUN Creatinine Estim Creat Clear Calc Estimated GFR Glucose POC Capillary Glucose 99 125 H Calcium Total Bilirubin AST ALT Alkaline Phosphatase Total Protein Albumin
--- NOTE | 2024-10-19 16:34 | P.DS_ITS ---
DS: Admitting Diagnosis Discharge Date 10/19/24 Admitting Diagnosis Chest pain DS: Discharge Diagnosis Discharge Diagnosis (1) Non-ST elevation HI (NSTEMI): Code(s): I21.4 - Non-ST elevation (NSTEMI) myocardial infarction Status: Acute DS: Summary Hospital Course Hospital Course: 69-year-old female with a history of prediabetes, hypertension, hyperlipidemia (statin intolerant), BENSON, GERD, and prior small-bowel obstruction presented with new-onset substernal and epigastric chest pain radiating to her back and neck, associated with shortness of breath and triggered by exertion. The pain was severe (10/10), resolved with rest, and was different from her prior abdominal pain. Initial workup revealed elevated troponin (2.5), new EKG changes suggestive of possible HI, and complete resolution of pain with nitroglycerin. She is under significant psychosocial stress due to her 's advanced lung cancer and her son's recent surgery, which she feels may be contributing to her symptoms. Troponin was elevated Troponin 2.5 from 1.44, Cardiology was consulted and patient underwent cardiac cath which showed Takotsubo cardiomyopathy. Cardiology recommended Lisinopril, Aspirin and Crestor 5mg. Cardiology, will continue follow up outpatient. Continue other home medications F/u with PCP in 3-5 days Time Spent with Patient Time attestation: Total time spent providing and/or coordinating discharge services: DS: Data Data Completed and Pending Labs on day of discharge: Labs from last 24 hours 10/19/24 10/19/24 10/19/24 11:14 07:08 03:59 WBC 5.2 RBC 4.54 Hgb 12.5 Hct 40.4 MCV 89.0 MCH 27.5 MCHC 30.9 L RDW 13.2 Plt Count 150 MPV 11.0 H Sodium 137 Potassium 3.9 Chloride 109 H Carbon Dioxide 20 L Anion Gap 8 BUN 15 D Creatinine 0.90 Estim Creat Clear Calc 52 Estimated GFR > 60 Glucose 106 POC Capillary Glucose 125 H 99 Calcium 8.9 Total Bilirubin 0.8 AST 30 ALT 24 Alkaline Phosphatase 67 Total Protein 5.7 L Albumin 3.4 L 10/18/24 10/18/24 21:45 17:43 WBC RBC Hgb Hct MCV MCH MCHC RDW Plt Count MPV Sodium Potassium Chloride Carbon Dioxide Anion Gap BUN Creatinine Estim Creat Clear Calc Estimated GFR Glucose POC Capillary Glucose 88 86 Calcium Total Bilirubin AST ALT Alkaline Phosphatase Total Protein Albumin Discharge Plan Discharge Attending physician on discharge: Nanci Griggs Consulting providers: Diana Ordoñez Discharging Clinician: Nanci Griggs Anticipated Discharge Date/Time: 10/19/24 16:31 Patient Disposition: Home Activity: as tolerated Diet: as tolerated and heart healthy Discharge Instructions: F/u with GI for gastric emptying study on discharge Patient Instructions: Antibiotic Form, Heparin (By injection), Angina (GEN), Heart Attack (DC), Heart Healthy Diet (DC), Heart Catheterization (DC), After Radial Heart Catheterization (GEN), High Troponin Levels (GEN) Patient Language: Italian Stand Alone Forms: General Discharge Information Follow-up/Referrals: Diana Ordoñez MD [Physician] - (F/u with cardiology as instructed ) Arpit Delatorre DO [Primary Care Provider] - (F/u with PCP in 3-5 days ) Jose Rafael Murray MD [Physician] - 4 Weeks Discharge Medications: New aspirin 81 mg Tablet,Delayed Release (Dr/Ec) 81 mg PO QAM 30 Days Qty: 30 0RF rosuvastatin [Crestor] 5 mg Tablet 5 mg PO DAILY 30 Days Qty: 30 0RF Continued fluticasone propionate [Flonase Allergy Relief] 50 mcg/actuation spray,suspension 2 spray intranasal DAILY PRN (Reason: allergy symptoms) Rx Instructions: administer into each nostril acetaminophen 500 mg capsule 500 mg PO Q6H PRN (Reason: fever or pain) lisinopril 30 mg tablet 30 mg PO DAILY Qty: 90 1RF pantoprazole 40 mg tablet,delayed release (DR/EC) 40 mg PO QAM Qty: 90 2RF Date of admission: 10/17/24 08:25 Primary Care Provider: Arpit Delatorre Admitting Provider: Daniela Landrum Attending physician on admission: Daniela Landrum Condition: Stable
== END 2024-10-19 17:58 | disposition home or self-care (01) | DRG 287 ==
LOC: ANHED 10-17 01:03 → ANHIMU 10-17 02:14
PROVIDERS: General Practice; Internal Medicine; Internal Medicine Cardiovascular Disease; Internal Medicine Interventional Cardiology; Student in an Organized Health Care Education/Training Program; Admitting Provider Internal Medicine; Emergency Provider Physician Assistant; PCP Internal Medicine; Visit Provider Internal Medicine
PROC: 4A023N7 Measurement of Cardiac Sampling and Pressure, Left Heart, Percutaneous Approach (ICD-10-PCS; CPT 93452; principal; 2024-10-18 13:30)
PROC: 4A023N7 Measurement of Cardiac Sampling and Pressure, Left Heart, Percutaneous Approach (ICD-10-PCS; 2024-10-18 13:30)
DX: I51.81 Takotsubo syndrome (principal); I25.10 Atherosclerotic heart disease of native coronary artery without angina pectoris; I10 Essential (primary) hypertension; E11.65 Type 2 diabetes mellitus with hyperglycemia; K21.9 Gastro-esophageal reflux disease without esophagitis; M19.90 Unspecified osteoarthritis, unspecified site; K75.81 Nonalcoholic steatohepatitis (NASH); E78.5 Hyperlipidemia, unspecified; E66.9 Obesity, unspecified; Z63.79 Other stressful life events affecting family and household; Z68.36 Body mass index [BMI] 36.0-36.9, adult; Z85.42 Personal history of malignant neoplasm of other parts of uterus; Z90.49 Acquired absence of other specified parts of digestive tract; Z90.710 Acquired absence of both cervix and uterus
CPT/HCPCS: 36415; 71046; 71275; 74177; 80053; 80061; 82948; 83690; 84484; 85025; 85027; 85610; 85730; 93005; 93458; 94640; 96361; 96365; 96366; 96375; 99285; A9270; C1760; C1769; C1887; C1894; C8929; G0269; G0378; J1644; J2003; J2250; J2305; J2405; J3010; J7030; J7040; Q9957; Q9967

== ENCOUNTER 2024-12-03 00:40 | Day surgery (SDC) | payer MEDICARE, SELFPAY ==
[2024-10-29 14:52] VITALS: BMI 31.4
--- OUTSIDE RECORDS SUMMARY | 2024-11-02 01:23 | XMS_ITS | Clinical Summary ---
Author Organization [facility] Address [address] [place] [address] Phone Care Team Providers Care Baker Doughnut Name Role Phone Rogelio Cruz Heri HARDING Primary Care Provider [phone] Allergies Active Allergy Reactions Criticality Noted Date [...] Recently Relevant to Health Maintenance Care Teams Baker Doughnut Relationship Specialty Start Date End Date Rogelio Cruz DO [address] [place] [address] PCP - General Internal Medicine 11/10/19
--- OUTSIDE RECORDS SUMMARY | 2024-11-02 01:23 | XMS_ITS | Clinical Summary ---
Author Organization [facility] [address] Address [address] [place] [address] Care Team Providers Care [employer] Cox[employer] Name Role Phone Arpit Delatorre DO Primary Care Provider [phone] Allergies Active Allergy Reactions Criticality Noted Date [...] 10/11/2023 Assessment & Plan (03/18/2024 12:05 PM TELETYPE INSTALLER): S/p CEIOL OD 01/06/24 (Stock), OS 10/11/23 [...] 08/18/2023 Assessment & Plan (03/18/2024 12:17 PM TELETYPE INSTALLER): - Presented initially in 12/2022 with disc edema and vision loss of the right eye; was ultimately diagnosed with NAION due to normal ESR/CRP, absence of GCA symptoms, unremarkable MRA brain/orbits, and clinical features consistent with NAION including [id number] OS and resolution of the optic disc [...] and clinical features consistent with NAION including [id number] OS and resolution of the optic disc [...] and clinical features consistent with NAION including hsoc-xb-macy OS and resolution of the optic disc [...] 03/18/2023 Assessment & Plan (03/18/2023 2:53 PM TELETYPE INSTALLER): Significant hyperopia on autorefraction today Patient currently not using glasses Recommend patient obtain eyeglasses (polycarbonate). If vision still poor OS with updated MRx can refer back to pre-op clinic for cat eval Right optic neuropathy 02/13/2023 Assessment & Plan (03/18/2023 2:50 PM TELETYPE INSTALLER): Follow-up for NAION OD Afferent function stable Disc edema now resolved Stable inferior altitudinal defect on HVF 24-2 Follow-up 3-6 months for repeat HVF 24-2, OCT mac/gcc, OCT rnfl Patient wishes to call to schedule as she states her likely has lung cancer and she needs to help him deal with his affairs first Assessment & Plan (02/13/2023 4:40 PM TELETYPE INSTALLER): Exam today with stable disc edema but [...] HVF 24-2 Coronary artery disease invo lving [place] coronary artery of [place] heart without angina pectoris 04/01/2019 Encounters Date Type Department Care Team Description 10/22/2024 Orders Only [facility] [address] [place] [address] Diana Ordoñez MD 10/21/2024 Orders Only [facility] [address] [place] [address] Diana Ordoñez MD 10/19/2024 Orders Only [facility] [address] [place] [address] Fatmata Ardon NP Stress-induced cardiomyopathy (Primary Dx) from Last 3 Months Surgical History Surgery Date Site/Laterality Comments CARDIAC [...] 2003 Well Visit 65+ 2018 Covid-19 Vaccine (4 - season) 2023 02/21/2021, 05/27/2020, 04/29/2020 Fall Risk Assessment 10/09/2024 10/10/2023 Influenza Vaccine (#1) 2024 01/04/2021 Medical Devices Implanted Type Area Sales Service Rep Device Identifier Shelf Expiration Date Model / Serial / Lot [employer] Lens Iol Posterior Biconvex Optic Single Piece Envista 6.0x12.5 +22.0d Hydrophobic Acrylic [id number] - [id number] - [id number] Implanted:Qty: 1 on 10/10/2023 by Fabian Palomino MD at [facility] Advanced Medicine Lens Left: Eye [employer] [id number] 07/14/2026 [id number] / [id number] Procedures Procedure Name Priority Date/Time Associated Diagnosis Comments CARDIOLOGY DOCUMENT SCAN Routine 10/19/2024 1:35 PM CDT CARDIOLOGY DOCUMENT SCAN Routine 10/19/2024 9:35 AM CDT CARDIOLOGY DOCUMENT SCAN Routine 10/18/2024 1:16 PM CDT from Last 3 Months Results * Cardiology Document Scan (10/19/2024 1:35 PM CDT) Anatomical Region Laterality Modality Other us Diana Ordoñez MD [facility] CARDIAC SERVICES PROCEDURES Final Result * Cardiology Document Scan (10/19/2024 9:35 AM CDT) Anatomical Region Laterality Modality Other us Diana Ordoñez MD CV CARDIAC SERVICES PROCEDURES Final Result * Cardiology Document Scan (10/18/2024 1:16 PM CDT) Anatomical Region Laterality Modality Other Diana Ordoñez MD CV CARDIAC SERVICES PROCEDURES Final Result from Last 3 Months Insurance [facility] T MEDICARE [facility] Advance Directives For more information, please contact: [phone] * Full Code (Latest Code Status on File) Date Activated Date Inactivated Comments 08/07/2023 8:09 PM 08/09/2023 4:13 PM Care Teams [employer] Cox[employer] Relationship Specialty Start Date End Date Arpit Delatorre DO PCP - General Internal Medicine 09/29/23
--- OUTSIDE RECORDS SUMMARY | 2024-11-02 01:23 | XMS_ITS | Clinical Summary ---
Author Organization [facility] Address [facility] [place] [address] Care Team Providers Care Consumer Studies Professor Name Role Phone Unavailable Primary Care Provider [...]
--- NOTE | 2024-11-02 15:28 | PC.NURSE ---
Spoke with patient at length concerning symptoms and the reason anesthesia cannot do her procedure safely until she has been seen and cleared by cardiology. After speaking with her I did call Dr. Linn and let him know pt has had a 15# wt loss since hosp. discharge, is only able to take in small amts. at a time of soft food ie. yogurt. States she does not vomit food up but dry heaves after eating- food feel like it is stuck and then passes after a while. He is changing her medication and will trial to see if she has any relief while waiting cardiac clearance.
[2024-11-24 09:12] VITALS: BMI 30.7
--- OUTSIDE RECORDS SUMMARY | 2024-12-03 00:43 | XMS_ITS | Encounter Summary ---
Author Organization [facility] Address [address] [place] [address] Care Team Providers Care Hospital Sales Representative Name Role Phone Arpit Delatorre DO Primary Care Provider [phone] Encounter Details Date Type Department Care Team (Late st Contact Info) Description 10/17/2024 Orders Only [facility] Health Information Management [address] [place] [id number] Scanning, Provider Social History Tobacco Use Types Packs/Day Years Used Date Smoking Tobacco: Never Passive Smoke Exposure: Current Smokeless Tobacco: Never Alcohol Use Standard Drinks/Week Comments Yes 1 [...] on file Sexual Orientation Not on file documented as of this encounter Plan of Treatment Not on file documented as of this encounter Procedures Procedure Name Priority Date/Time Associated Diagnosis Comments CARDIOLOGY DOCUMENT SCAN 10/17/2024 SCAN - RADIOLOGY/IMAGING 10/16/2024 documented in this encounter Results * Cardiology Document Scan (10/17/2024) Anatomical Region Laterality Modality Other us Provider Scanning CV CARDIAC SERVICES PROCEDURES Final Result * SCAN - RADIOLOGY/IMAGING (10/16/2024) Anatomical Region Laterality Modality Other us Provider Scanning Edited Result - Final documented in this encounter Visit Diagnoses Not on filedocumented in this encounter Care Teams Hospital Sales Representative Relationship Specialty Start Date End Date Arpit Delatorre DO PCP - General Internal Medicine 09/29/23 documented as of this encounter
--- OUTSIDE RECORDS SUMMARY | 2024-12-03 00:43 | XMS_ITS | Clinical Summary ---
Author Organization [facility] [address] Address [address] [place] [address] Care Team Providers Care Profiler Hand Name Role Phone Arpit Delatorre DO Primary Care Provider Allergies Active Allergy Reactions Criticality Noted Date Comments Codeine Nausea only Low 01/17/2020 Metoprolol Hives High 12/25/2018 Medications acetaminophen (TYLENOL) 500 mg tabletIndicati ons:Pain Take 1 tablet (500 mg total) by mouth every 6 (six) hours as needed for pain Active lisinopriL (PRINIVIL,ZEST RIL) 30 mg tablet Take 1 tablet (30 mg total) by mouth daily 10/12/19 25 Active lansoprazole (PREVACID) 15 mg capsule Take 1 capsule (15 mg total) by mouth daily 11/06/19 25 Active aspirin 81 mg enteric coated tablet Take 1 tablet (81 mg total) by mouth daily 10/20/19 25 Active rosuvastatin (CRESTOR) 5 mg tabletIndicati ons:hyperlipid emia Take 1 tablet (5 mg total) by mouth every morning 30 tablet 11 11/23/19 25 Active losartan (COZAAR) 100 mg tabletIndicati ons:hypertensi on Take 1 tablet (100 mg total) by mouth every morning 025 Discontinued rosuvastatin (CRESTOR) 5 mg tabletIndicati ons:hyperlipid emia Take 1 tablet (5 mg total) by mouth every morning 025 Discontinued(Re order) pantoprazole DR (PROTONIX) 40 mg EC tablet Take 1 tablet (40 mg total) by mouth daily 30 tablet 08/09/19 24 025 Discontinued(Al ternate therapy) moxifloxacin (VIGAMOX) 0.5 % ophthalmic solution Administer 1 drop into the left eye 4 (four) times a day 3 mL 1 10/10/19 24 025 Discontinued(No longer taking - Do not display on AVS) prednisoLONE acetate (PRED FORTE) 1 % ophthalmic suspension Administer 1 drop into the left eye 4 (four) times a day 5 mL 1 10/20/19 24 025 Discontinued(No longer taking - Do not display on AVS) Active Problems Problem Noted Date Diagnosed Date Pseudophakia of both eyes 10/11/2023 Assessment & Plan (03/18/2024 12:05 PM SUPERVISOR COMMUNICATIONS AND SIGNALS): S/p CEIOL OD 01/06/24 (Stock), OS 10/11/23 [...] 08/18/2023 Assessment & Plan (03/18/2024 12:17 PM SUPERVISOR COMMUNICATIONS AND SIGNALS): - Presented initially in 12/2022 with disc edema and vision loss of the right eye; was ultimately diagnosed with NAION due to normal ESR/CRP, absence of GCA symptoms, unremarkable MRA brain/orbits, and clinical features consistent with NAION including inff-te-ofwi OS and resolution of the optic disc [...] and clinical features consistent with NAION including frzn-jn-[id number] OS and resolution of the optic disc [...] and clinical features consistent with NAION including mjkx-wm-[id number] OS and resolution of the optic disc [...] 03/18/2023 Assessment & Plan (03/18/2023 2:53 PM SUPERVISOR COMMUNICATIONS AND SIGNALS): Significant hyperopia on autorefraction today Patient currently not using glasses Recommend patient obtain eyeglasses (polycarbonate). If vision still poor OS with updated MRx can refer back to pre-op clinic for cat eval Right optic neuropathy 02/13/2023 Assessment & Plan (03/18/2023 2:50 PM SUPERVISOR COMMUNICATIONS AND SIGNALS): Follow-up for NAION OD Afferent function stable Disc edema now resolved Stable inferior altitudinal defect on HVF 24-2 Follow-up 3-6 months for repeat HVF 24-2, OCT mac/gcc, OCT rnfl Patient wishes to call to schedule as she states her likely has lung cancer and she needs to help him deal with his affairs first Assessment & Plan (02/13/2023 4:40 PM SUPERVISOR COMMUNICATIONS AND SIGNALS): Exam today with stable disc edema but [...] HVF 24-2 Coronary artery disease invo lving [place] coronary artery of [place] heart without angina pectoris 04/01/2019 Encounters Date Type Department Care Team Description 11/22/2024 10:00 AM CDT Office Visit [facility] Medical [facility] Cardiology [address] [place] [address] [address] [place] [address] Nicole Worley NP Takotsubo cardiomyopathy; Nonobstructive atherosclerosis of coronary artery; Hospital discharge follow-up 11/22/2024 Orders Only [facility] Cardiology [address] [place] [address] [address] [place] [address] Provider, MD Natalia 11/22/2024 Results Follow-Up [facility] Cardiology at [address] [place] [address] Davina Santos RN Transthoracic Echo (TTE) Limited/Followup 11/16/2024 10:15 AM CDT Ancillary Procedure [facility] Cardiology [address] [place] [address] [address] [place] [phone] Stress-induced cardiomyopathy 10/22/2024 Orders Only [facility] Cardiology [address] [place] [address] [address] [place] [phone] Diana Ordoñez MD 10/21/2024 Orders Only [facility] Cardiology [address] [place] [address] [address] [place] [address] Diana Ordoñez MD 10/19/2024 Orders Only [facility] Cardiology [address] [place] [address] [address] [place] [address] Fatmata Malhotra NP Stress-induced cardiomyopathy (Primary Dx) 10/17/2024 Orders Only [facility] Health Information Management [address] [place] [address] Scanning, Provider from Last 3 Months Surgical History Surgery [...] Sign Reading Time Taken Comments Blood Pressure 116/70 11/22/2024 10:12 AM CDT Pulse 66 11/22/2024 10:12 AM CDT Temperature 36.3 C (97.3 F) 10/10/2023 11:50 AM CDT Respiratory Rate 17 10/10/2023 11:30 AM CDT Oxygen Saturation 97% 11/22/2024 10:12 AM CDT Inhaled Oxygen Concentration - - Weight 87.1 kg (192 lb) 11/22/2024 10:12 AM CDT Height 167.6 cm (5' 6) 11/22/2024 10:12 AM CDT Body Mass Index 30.99 11/22/2024 10:12 AM CDT Plan of Treatment Health Maintenance Due Date Last Done Comments Breast Cancer Screening-Mammogram 1955 Colon Cancer Screening-Colonoscopy 1955 Depression Screening 1955 Hepatitis C Screening 1955 Osteoporosis Screening-Bone Density Scan 1955 DTaP/Tdap/Td Vaccine (1 - Tdap) 02/04/1964 Hepatitis B Screening 1971 Pneumococcal vaccine 65+ (1 of 1 - PCV) 2003 Zoster Vaccine (1 of 2) 2003 Well Visit 65+ 2018 Fall Risk Assessment 10/09/2024 10/10/2023 Covid-19 Vaccine ( season) 2024 02/21/2021, 05/27/2020, 04/29/2020 Influenza Vaccine (#1) 2024 01/04/2021 Medical Devices Implanted Type Area Facing Machine Operator Device Identifier Shelf Expiration Date Model / Serial / Lot [employer] Lens Iol Posterior Biconvex Optic Single Piece Envista 6.0x12.5 +22.0d Hydrophobic Acrylic [id number] - [id number] - [id number] Implanted:Qty: 1 on 10/10/2023 by Fabian Palomino MD at [facility] Lens Left: Eye [employer] [id number] 07/14/2026 [id number] / [id number] / [id number] Procedures Procedure Name Priority Date/Time Associated Diagnosis Comments TRANSTHORACIC ECHO (TTE) LIMITED/FOLLOW UP W LTD DOPPLER/CF WO CONTRAST Routine 11/16/2024 11:24 AM CDT Stress-induced cardiomyopathy CARDIOLOGY DOCUMENT SCAN Routine 10/19/2024 1:35 PM CDT CARDIOLOGY DOCUMENT SCAN Routine 10/19/2024 9:35 AM CDT SCAN - LABS 10/19/2024 CARDIOLOGY DOCUMENT SCAN Routine 10/18/2024 1:16 PM CDT CARDIOLOGY DOCUMENT SCAN 10/17/2024 SCAN - RADIOLOGY/IMAGING 10/16/2024 from Last 3 Months Results * TRANSTHORACIC ECHO (TTE) LIMITED/FOLLOW UP W LTD DOPPLER/CF WO CONTRAST (11/16/2024 11:24 AM CDT) Estimated EF 60 % CONS SCIMAGE EF Mod BP 53 % CONS SCIMAGE Anatomical Region Laterality Modality Ultrasound 11/16/2024 10:1 9 AM CDT Narrative 11/16/2024 3:20 PM CDT [facility] Cardiology [address] [facility] [address], [place] [address] [address] [facility] [address], [place] [address] P:[phone] P:[phone] Echocardiographic Report Patient Name: BALDEMAR CEJA M : 1955 Study Date: 11/16/2024 10:19:18 AM Gender: F Bending Roll Hand: Joan Mcdaniel)(CT), [facility] Location: [place] Ref Provider: FATMATA MALHOTRA Height(Cm): 168 BSA: 2.05 Weight(Kg): 89.8 Heart Rate: 84 BP: 119 / 62 Quality: Good Order Provider: FATMATA MALHOTRA PROCEDURES: Echocardiographic Report: Limited Transthoracic Echocardiogram with 2D and Doppler examination. With Strain Analysis. Definity/Optison could not be used due to: unable to obtain IV access. INDICATIONS: I51.81 Takotsubo syndrome. MEASUREMENTS: 2D/MM Value Range Doppler Value Range EF Mod BP 53 % [ 54 - 74 ] LVOT Diam 1.82 cm [ 1.70 - 2.10 ] Estimated EF 60 % LVOT Peak Vineet 0.77 m/s [ 0.70 - 1.10 ] LV GLS -17.43 % LVOT VTI 16.87 cm LVIDd 2D 4.65 cm [ 3.80 - 5.20 ] MV E Peak Vineet 0.68 m/s [ 0.60 - 1.30 ] LVIDs 2D 3.27 cm [ 2.20 - 3.50 ] MV A Peak Vineet 0.87 m/s [ 1.00 - 1.20 ] LVPWd 2D 0.83 cm [ 0.60 - 0.90 ] MV Decel Time 180 msec [ 104 - 258 ] IVSd 2D 0.83 cm [ 0.60 - 0.90 ] Lateral E` 0.07 m/s [ 0.10 - 0.15 ] Septal E` 0.08 m/s [ 0.08 - 0.15 ] E` 0.07 m/s E/E` 10 2D/MM Value Range Doppler Value Range - FINDINGS: Interpretation Site: Exam was interpreted at [facility]. Left Ventricle: Normal left ventricular size. Normal global left ventricular systolic function. Ejection fraction is measured at 53 %. Ejection Fraction is visually estimated to be 60 %. Global Longitudinal Strain is -17 %. Right Ventricle: Normal right ventricular size. Left Atrium: The left atrium is normal in size. Right Atrium: The right atrium is normal in size. Atrial Septum: Normal atrial septum. Mitral Valve: Normal appearance of the mitral valve. Aortic Valve: Normal appearance of the aortic valve. Tricuspid Valve: Tricuspid valve not well visualized. Pulmonic Valve: Pulmonic valve not well visualized. Pericardium: Normal pericardium with no significant pericardial effusion. Aorta: Normal aortic root. IVC: Normal size and normal respiratory collapse consistent with normal right atrial pressure (<5 mmHg). Pulmonary Artery: Pulmonary artery not well visualized. CONCLUSIONS: Normal left ventricular size. Normal global left ventricular systolic function. Ejection fraction is measured at 53 %. Ejection Fraction is visually estimated to be 60 %. Global Longitudinal Strain is -17 %. No wall motion abnormalities. The left atrium is normal in size. Normal appearance of the mitral valve. Normal appearance of the aortic valve. Difficult IV access, no contrast was given. Electronically Signed By: Eulogio Weeks MD, FACC 11/16/2024 3:20:12 PM CDT Procedure Note Eulogio Weeks MD - 11/16/2024 [facility] Cardiology [address] [facility] [address], [place] [address] [address], [place] [address] P:[phone] P:[phone] Echocardiographic Report Patient Name: BALDEMAR CEJA M : 1955 Study Date: 11/16/2024 10:19:18 AM Gender: F Bending Roll Hand: Joan Mcdaniel)(CT), [facility] Location: [facility] Provider: FATMATA MALHOTRA Height(Cm): 168 BSA: 2.05 Weight(Kg): 89.8 Heart Rate: 84 BP: 119 / 62 Quality: Good Order Provider: FATMATA MALHOTRA PROCEDURES: Echocardiographic Report: Limited Transthoracic Echocardiogram with 2D and Doppler examination. WithStrain Analysis. Definity/Optison could not be used due to: unable to obtain IVaccess. INDICATIONS: I51.81 Takotsubo syndrome. MEASUREMENTS: 2D/MM Value Range Doppler ValueRange EF Mod BP 53 % [ 54 - 74 ] LVOT Diam 1.82 cm[ 1.70 - 2.10 ] Estimated EF 60 % LVOT Peak Vineet 0.77 m/s[ 0.70 - 1.10 ] LV GLS -17.43 % LVOT VTI 16.87 cm LVIDd 2D 4.65 cm [ 3.80 - 5.20 ] MV E Peak Vineet 0.68 m/s[ 0.60 - 1.30 ] LVIDs 2D 3.27 cm [ 2.20 - 3.50 ] MV A Peak Vineet 0.87 m/s[ 1.00 - 1.20 ] LVPWd 2D 0.83 cm [ 0.60 - 0.90 ] MV Decel Time 180 msec[ 104 - 258 ] IVSd 2D 0.83 cm [ 0.60 - 0.90 ] Lateral E` 0.07 m/s[ 0.10 - 0.15 ] Septal E` 0.08 m/s [ 0.08 - 0.15 ] E` 0.07 m/s E/E` 10 2D/MM Value Range Doppler ValueRange - FINDINGS: Interpretation Site: Exam was interpreted at [facility]. Left Ventricle: Normal left ventricular size. Normal global left ventricular systolicfunction. Ejection fraction is measured at 53 %. Ejection Fraction is visually estimated radha 60 %. Global Longitudinal Strain is -17 %. Right Ventricle: Normal right ventricular size. Left Atrium: The left atrium is normal in size. Right Atrium: The right atrium is normal in size. Atrial Septum: Normal atrial septum. Mitral Valve: Normal appearance of the mitral valve. Aortic Valve: Normal appearance of the aortic valve. Tricuspid Valve: Tricuspid valve not well visualized. Pulmonic Valve: Pulmonic valve not well visualized. Pericardium: Normal pericardium with no significant pericardial effusion. Aorta: Normal aortic root. IVC: Normal size and normal respiratory collapse consistent with normal rightatrial pressure (<5 mmHg). Pulmonary Artery: Pulmonary artery not well visualized. CONCLUSIONS: Normal left ventricular size. Normal global left ventricular systolicfunction. Ejection fraction is measured at 53 %. Ejection Fraction is visually estimated radha 60 %. Global Longitudinal Strain is -17 %. No wall motion abnormalities. The left atrium is normal in size. Normal appearance of the mitral valve. Normal appearance of the aortic valve. Difficult IV access, no contrast was given. Electronically Signed By: Eulogio Weeks MD, [facility] 11/16/2024 3:20:12 PM CDT us Fatmata Malhotra NP CV ECHO PROCEDURES Final Res ult * Cardiology Document Scan (10/19/2024 1:35 PM CDT) Anatomical Region Laterality Modality Other us Diana Ordoñez MD [facility] CARDIAC SERVICES PROCEDURES Final Result * Cardiology Document Scan (10/19/2024 9:35 AM CDT) Anatomical Region Laterality Modality Other us Diana Ordoñez MD CV CARDIAC SERVICES PROCEDURES Final Result * SCAN - LABS (10/19/2024) us Provider Scanning Final Result * Cardiology Document Scan (10/18/2024 1:16 PM CDT) Anatomical Region Laterality Modality Other us Diana Ordoñez MD CV CARDIAC SERVICES PROCEDURES Final Result * Cardiology Document Scan (10/17/2024) Anatomical Region Laterality Modality Other us Provider Scanning CV CARDIAC SERVICES PROCEDURES Final Result * SCAN - RADIOLOGY/IMAGING (10/16/2024) Anatomical Region Laterality Modality Other us Provider Scanning Edited Result - Final from Last 3 Months Insurance [facility] T MEDICARE [facility] T [facility] Advance Directives For more information, please contact: [phone] * Full Code (Latest Code Status on File) Date Activated Date Inactivated Comments 08/07/2023 8:09 PM 08/09/2023 4:13 PM Care Teams Profiler Hand Relationship Specialty Start Date End Date Arpit Delatorre DO PCP - General Internal Medicine 09/29/23
--- OUTSIDE RECORDS SUMMARY | 2024-12-03 00:43 | XMS_ITS | Clinical Summary ---
Author Organization [facility] Address [address] [place] [address] Phone Care Team Providers Care Salesperson Floor Coverings Name Role Phone Rogelio Cruz Heri HARDING Primary Care Provider [phone] Allergies Active Allergy Reactions Criticality Noted Date [...] (1 of 2) 2003 Influenza Immunization (#1) 2024 SARS-COV-2 Immunization ( season) 2024 02/21/2021, 05/27/2020, 04/29/2020 Colonoscopy 12/29/2026 12/30/2019 Colorectal [...] Recently Relevant to Health Maintenance Care Teams Salesperson Floor Coverings Relationship Specialty Start Date End Date Rogelio Cruz DO [address] [place] [address] PCP - General Internal Medicine 11/10/19
--- OUTSIDE RECORDS SUMMARY | 2024-12-03 00:43 | XMS_ITS | Clinical Summary ---
Author Organization [facility] Address [facility] [place] [address] Care Team Providers Care Neurology Director Name Role Phone Unavailable Primary Care Provider [...] COVID-19 Vaccine ( - 2023-2 5 season) 2024 RSV Immunization or 60+ Years (1 - [...]
--- OUTSIDE RECORDS SUMMARY | 2024-12-03 00:43 | XMS_ITS | Encounter Summary ---
Author Organization [facility] Healthcare Address [address] [place] [address] Care Team Providers Care Line Installer Trolley Name Role Phone Arpit Delatorre DO Primary Care Provider [phone] Encounter Details Date Type Department Care Team (Late st Contact Info) Description 11/22/2024 Results Follow-Up [facility] Medical Group Cardiology at [address] [place] [address] Davina Santos, RN Transthoracic Echo (TTE) Limited/Followup Social History Tobacco Use Types Packs/Day Years [...] on file documented as of this encounter Visit Diagnoses Not on filedocumented in this encounter Care Teams Line Installer Trolley Relationship Specialty Start Date End Date Arpit Delatorre DO PCP - General Internal Medicine 09/29/23 documented as of this encounter
[2024-12-03 12:18] VITALS: BP 165/95; PULSE 73; RESP 18; TEMP 36.1; O2SAT 100
[2024-12-03] MEDS: LACTATED RINGERS 1,000 ML 150 ML IV CONT (12:30)
--- NOTE | 2024-12-03 12:39 | P.PNAN_ITS ---
Anes - Initial Pre Proc Eval Procedure: Operation Date: 12/03/24 13:30 Proposed Procedures p Esophagogastroduodenoscopy - Jose Rafael Murray MD Date/Time: 12/03/24 12:39 Surgeon: Jose Rafael Murray MD Pre Op Diagnosis: Gastro-esophageal reflux disease without esophagit Patient Data Age: 69 Gender: F Height: 1.68 m Weight: 87.1 kg Last Vital Signs Temp 36.1 C L 12/03/24 12:18 Pulse 73 12/03/24 12:18 Resp 18 12/03/24 12:18 BP 165/95 H 12/03/24 12:18 Pulse Ox 100 12/03/24 12:18 O2 Del Method Room Air 12/03/24 12:18 Allergies Allergy/AdvReac Type Severity Reaction Status Date / Time metoprolol Allergy Mild Hives Verified 12/03/24 12:16 hydrocodone AdvReac Severe SOB Verified 12/03/24 12:16 codeine AdvReac Mild Nausea Verified 12/03/24 12:16 oxycodone AdvReac Unknown Nausea Verified 12/03/24 12:16 Home Medications ?Medication ?Instructions ?Recorded ?Confirmed ?Type lisinopril 30 mg tablet 30 mg PO DAILY #90 tabs 05/0 05/1112/03/24 Rx acetaminophen 500 mg capsule 500 mg PO Q6H PRN fever o r pain 10/17/24 10/29/24 History fluticasone propionate 50 2 spray intranasal DAILY PRN 10/17/24 10/29/24 History mcg/actuation nasal allergy symptoms spray,suspension (Flonase Allergy Relief) aspirin 81 mg tablet,delayed 81 mg PO QAM 30 days #30 tabs 10/19/24 12/03/24 Rx release rosuvastatin 5 mg tablet (Crestor) 5 mg PO DAILY 30 da ys #30 tabs 10/19/24 12/03/24 Rx lansoprazole 15 mg capsule,delayed 15 mg PO DAILY #30 caps 11/05/24 12/03/24 Rx release dexlansoprazole 30 mg 30 mg PO DAILY #30 caps 10/1612/03/24 Rx capsule,biphase delayed release (Dexilant) Patient hx anesthesia problems: none Family hx anesthesia problems: none Results Review: All pre-operative results and documents have been reviewed as part of the pre- operative evaluation. ON LICENSE OF [facility] Past Medical History Medical History Gastroesophageal reflux disease Vitamin D deficiency B12 deficiency Obesity (BMI 30.0-34.9) Cataract Insomnia NAION (non-arteritic anterior ischemic optic neuropathy) Trigger thumb of right hand Hand arthritis Arthritis Uterine cancer NAFLD (nonalcoholic fatty liver disease) HTN (hypertension) HLD (hyperlipidemia) Adenomatous colon polyp Surgical History Surgical History History of colonoscopy with polypectomy History of cholecystectomy open History of hysterectomy History of hand surgery History of shoulder surgery Family History Family History Mother Family history of malignant neoplasm, Onset Age: 87 Lung cancer Cancer Diabetes mellitus Father Heart disease Lung cancer Cancer Sibling Heart disease Cancer Asthma Lymphoma Daughter Type 1 diabetes Son Stomach problems Social History Social History Social History: She reports that she is legally blind but can not drive under very specific circumstances. 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 She and her raised 1 daughter and 1 son. Her currently has stage IV lung cancer. She and her have been for 56 years. Code status: Full code Surrogate decision maker: Smoking status: Never smoker Second hand tobacco smoke exposure: Yes Substance use: never Substance use type: does not use Do You Feel Safe in your Home?: Yes Lack of Transportation: No Lack of Food: Never True Current Housing: I Have Housing Concerned About Future Housing: No Difficulty Paying Gas/Electric Bills: No Difficulty Paying for Meds: No Currently Unemployed: No Education: Trade/Vocational Certificate Difficulty w/ Childcare or Family Care: No Living arrangements: with family Additional living arrangements comments: with sp Occupation/Education: occupation Additional occupation/education comments: [employer] Gender identity (if verbalized by the patient): Female Spiritual care concerns: No Anes - Eval Final PreProcedure Day of Procedure 12/03/24 12:39 Patient weight: obese Heart: regular rate and rhythm Lungs: clear to auscultation Airway: Mallampati scale class II Neurological: alert and oriented Last oral intake: >/= 8 hours ASA classification: III Emergent: no Anesthetic plan: proceed Anesthesia type and monitoring: general GIVS and standard monitoring Results Review: All pre-operative results and documents have been reviewed as part of the pre- operative evaluation. Informed Consent: The patient's anesthetic plan and its attendant risks and benefits were discussed with the patient/family/POA. Questions were solicited and answers prov ided to the satisfaction of the patient/family/POA.
--- NOTE | 2024-12-03 13:08 | PM.HPGS ---
History of Present Illness History of Present Illness Consent: Risks, benefits, and alternatives have been discussed and questions answered. Patient agrees to proceed with procedure. Chief complaint: Gastro-esophageal reflux disease without esophagit Narrative: Nikky Ceja is a 69 year old female with gerd, some improvement with lansoprazole Review of Systems Review of Systems: All systems reviewed & are unremarkable except as noted in HPI and below PMFSH Past Medical History Medical History Gastroesophageal reflux disease Vitamin D deficiency B12 deficiency Obesity (BMI 30.0-34.9) Cataract Insomnia NAION (non-arteritic anterior ischemic optic neuropathy) Trigger thumb of right hand Hand arthritis Arthritis Uterine cancer NAFLD (nonalcoholic fatty liver disease) HTN (hypertension) HLD (hyperlipidemia) Adenomatous colon polyp Surgical History Surgical History History of colonoscopy with polypectomy History of cholecystectomy open History of hysterectomy History of hand surgery History of shoulder surgery Family History Family History Mother Family history of malignant neoplasm, Onset Age: 87 Lung cancer Cancer Diabetes mellitus Father Heart disease Lung cancer Cancer Sibling Heart disease Cancer Asthma Lymphoma Daughter Type 1 diabetes Son Stomach problems Social History Social History Social History: She reports that she is legally blind but can not drive under very specific circumstances. 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 She and her raised 1 daughter and 1 son. Her currently has stage IV lung cancer. She and her have been for 56 years. Code status: Full code Surrogate decision maker: Smoking status: Never smoker Second hand tobacco smoke exposure: Yes Substance use: never Substance use type: does not use Do You Feel Safe in your Home?: Yes Lack of Transportation: No Lack of Food: Never True Current Housing: I Have Housing Concerned About Future Housing: No Difficulty Paying Gas/Electric Bills: No Difficulty Paying for Meds: No Currently Unemployed: No Education: Trade/Vocational Certificate Difficulty w/ Childcare or Family Care: No Living arrangements: with family Additional living arrangements comments: with sp Occupation/Education: occupation Additional occupation/education comments: Monitor[employer] Gender identity (if verbalized by the patient): Female Spiritual care concerns: No Meds Home Medications and Allergies Home Medications ?Medication ?Instructions ?Recorded ?Confirmed ?Type lisinopril 30 mg tablet 30 mg PO DAILY #90 tabs 07/16/24 12/03/24 Rx acetaminophen 500 mg capsule 500 mg PO Q6H PRN fever or pain 10/17/24 10/29/24 History fluticasone propionate 50 2 spray intranasal DAILY PRN 10/17/24 10/29/24 History mcg/actuation nasal allergy symptoms spray,suspension (Flonase Allergy Relief) aspirin 81 mg tablet,delayed 81 mg PO QAM 30 days #30 tabs 10/19/24 12/03/24 Rx release rosuvastatin 5 mg tablet (Crestor) 5 mg PO DAILY 30 days #30 tabs 10/19/24 12/03/24 Rx lansoprazole 15 mg capsule,delayed 15 mg PO DAILY #30 caps 11/05/24 12/03/24 Rx release dexlansoprazole 30 mg 30 mg PO DAILY #30 caps 11/11/24 12/03/24 Rx capsule,biphase delayed release (Dexilant) Allergies Allergy/AdvReac Type Severity Reaction Status Date / Time metoprolol Allergy Mild Hives Verified 12/03/24 12:16 hydrocodone AdvReac Severe SOB Verified 12/03/24 12:16 codeine AdvReac Mild Nausea Verified 12/03/24 12:16 oxycodone AdvReac Unknown Nausea Verified 12/03/24 12:16 Vital Signs Vital Signs - 24 hr 12/03/24 12:18 Temperature 97 F L Pulse Rate 73 Respiratory Rate 18 Blood Pressure 165/95 H Pulse Oximetry 100 Oxygen Delivery Room Air Exam Const: General: comfortable and no acute distress HENMT: Face/Nose/Sinus: Normal nares present Eyes: General: appearance normal, both eyes and all related structures Neck: Neck: no JVD Resp: Auscultation: clear to auscultation bilaterally Cardio: Rate: regular rate Rhythm: regular rhythm GI: Inspection: non-distended GI Palp: Yes Soft to palpation Skin: General skin exam: normal color Neuro: Speech: normal speech Extrem: General: normal to inspection Psych: Mental Status: mental status grossly normal Assessment and Plan Assessment and plan (1) Gastroesophageal reflux disease: Code(s): K21.9 - Gastro-esophageal reflux disease without esophagitis Status: Acute Assessment and Plan: egd with bx
--- NOTE | 2024-12-03 13:13 | S_PTH ---
PATIENT: Nikky Ceja LOC: [facility]#:[id number] AGE/SX: 69/F ROOM: RE12/03/[address]: Jose Rafael Murray MD : [id number] BED: DIS: 12/03/2024 SPEC #: [id number] RECD: 12/06/24 07:36 STATUS: REBECCA GONZALEZ #: [id number] KIM: 12/03/24 13:[address]: Jose Rafael Murray DEPT: [facility] Surgical RECD BY: Hillary Hayes ENTERED: 12/06/24 07:37 SP TYPE: Surgical OTHR DR: Arpit Delatorre DO Tissues: A - Gastric Biopsy B - Esophageal Biopsy Procedures: Hematoxylin and Eosin Stain Gross and Microscopic Level 4
[2024-12-03 13:19] VITALS: BP 130/70; PULSE 67; RESP 18; O2SAT 99
[2024-12-03 13:29] VITALS: BP 144/72; PULSE 65; RESP 20; O2SAT 100
== END 2024-12-03 13:52 | disposition home or self-care (01) ==
PROVIDERS: PCP Internal Medicine; Referring Provider Internal Medicine Gastroenterology; Visit Provider Internal Medicine Gastroenterology
PROC: 0DJ08ZZ Inspection of Upper Intestinal Tract, Via Natural or Artificial Opening Endoscopic (ICD-10-PCS; CPT 43239; principal; 2024-12-03 13:30)
DX: K21.9 Gastro-esophageal reflux disease without esophagitis (principal); K44.9 Diaphragmatic hernia without obstruction or gangrene; E66.9 Obesity, unspecified; Z68.31 Body mass index [BMI] 31.0-31.9, adult
CPT/HCPCS: 43239; 88305; J2704; J7120